=== PATIENT | female | born 1935 | race Caucasian/White ===

== ENCOUNTER → 2017-01-23 | Outpatient (CLI) | payer MEDICARE ==
[~2017-01-23] MED LIST: AMLO-114 PO; CARV3.122 PO; COLE625T PO; EZET10TA63 PO; INDA1TAB3 PO; LOSA50TA6 PO; OMEG10007 PO
[2017-01-23 11:26] LABS: BASO % 0.4 %; BASO ABS # 0.05 K/uL (0-0.2); COMPLETE YES; EOS % 1.4 %; IG% 0.6 %; LYMPH % 36.4 %; LYMPH ABS # 4.44 K/uL (1.2-3.4); MEAN CORPUSCULAR HEMOGLOBIN 30.6 pg (25-34); MEAN CORPUSCULAR HGB CONC 32.9 g/dl (32-36); MEAN PLATELET VOLUME 10.9 fL (7.4-10.4); MONO % 9.2 %; PLATELET COUNT 292 K/uL (130-400); RED BLOOD COUNT 4.41 M/uL (4.2-5.4); WHITE BLOOD COUNT 12.21 K/uL (4.8-10.8)
[2017-01-23 11:35] LABS: ALT/SGPT 46 U/L (12-78); AST/SGOT 28 U/L (15-37); BLOOD UREA NITROGEN 18 mg/dl (7-18); BUN/CREATININE RATIO 25.2 (10-20); CALCIUM 9.3 mg/dl (8.5-10.1); CARBON DIOXIDE 30 mmol/L (21-32); CHLORIDE 103 mmol/L (98-107); CREATININE 0.72 mg/dl (0.60-1.20); GLUCOSE 104 mg/dl (70-99); POTASSIUM 3.9 mmol/L (3.5-5.1); SODIUM 139 mmol/L (136-145)
[2017-01-23 11:46] LABS: ALB/GLOB RATIO 0.9 (0.9-2); ALKALINE PHOSPHATASE 76 U/L (45-117); CHOLESTEROL 206 mg/dl (0-200); CHOLESTEROL/HDL RATIO 3.6; HDL CHOLESTEROL 58 mg/dl; LDL CHOLESTEROL CALCULATED 112 mg/dl; TRIGLYCERIDES 180 mg/dl (0-150); VERY LOW DENSITY LIPOPROT CALC 36 mg/dl
[2017-01-23 12:20] LABS: ESTIMATED AVERAGE GLUCOSE 146 mg/dl; HA1C FLAG Normal (Normal)
--- NOTE | 2017-01-29 11:30 | CODING QUERY MEDICAL NECESSITY ---
CQSUPPORTING DIAGNOSIS NEEDED A supporting diagnosis is required for the test/procedure performed on this patient in order for us to be reimbursed by the patient's insurance. Please provide a supporting diagnosis for the following test/procedure listed below next to the test name along with your signature. *If there is no additional diagnosis for this patient that would support the following test/procedure please document that below next to the test/procedure. Test(s)/Procedure(s) that require a supporting diagnosis: MICHAEL 01/23/17 GLYCATED HEMOGLOBIN TEST Provider Signature: Date: Thank you Elizabeth Hobbs Health Information Management Once completed, please kindly fax back to [phone] For questions please call [phone]
== END | disposition home or self-care (01) ==
LOC: C.LABBC 07:41
PROVIDERS: ATTEND Internal Medicine
DX: Z86.69 Personal history of other diseases of the nervous system and sense organs (principal); E11.9 Type 2 diabetes mellitus without complications

== ENCOUNTER → 2017-05-30 | Outpatient (CLI) | payer MEDICARE ==
[2017-05-30 11:08] LABS: ESTIMATED AVERAGE GLUCOSE 137 mg/dl; HA1C FLAG Normal (Normal)
== END | disposition home or self-care (01) ==
LOC: C.LABBC 07:25
PROVIDERS: ATTEND Internal Medicine
DX: E11.9 Type 2 diabetes mellitus without complications (principal)

== ENCOUNTER 2021-01-10 11:32 | Inpatient (IN) ==
[2021-01-10] MEDS ORDERED: ONDANSETRON 4 MG OD TAB PO STA (12:19)
[2021-01-10] MEDS ORDERED: HYDROmorphone INJ 1 MG/ML SYRINGE IM STA (12:19)
--- NOTE | 2021-01-10 12:30 | Emergency Department Note ---
Impression & Plan Fall, Fracture of humerus, proximal, right, closed, Contusion of rib on right side ED Provider Note INFORMANT: Patient ED PROVIDER(S): Jose Alejandro Tamez MD CHIEF COMPLAINT: Fall PLAN: Disposition: Admitted Condition: Good Outpatient prescription management: none Referral: None MEDICAL DECISION MAKING: Patient presented to the emergency department because of an accidental fall. She suffered a right proximal humerus fracture. X-ray imaging was performed and showed arthritic change and there was some concern about fracture based upon her physical examination. CT imaging was ordered. The patient had right rib x-rays performed and this was negative. She was found to have a proximal humerus fracture on CT imaging. She did receive IM Dilaudid and oral Zofran. She was still in pain and received IV Dilaudid. The patient is not doing well with the pain and inability to use her right arm. I discussed further management in the hospital with her and her daughter. They were very much in agreement and did not feel that she was safe to go home. Unfortunately the patient does not qualify for a direct referral [facility]. I did discuss this with the case management. She will need to be admitted to the hospital. [facility] Patient was evaluated in the ER for further management. Triage Nursing notes reviewed and agree them. Vital Signs: reviewed and remarkable for hypertension Differential diagnosis: Fracture, subluxation, dislocation, contusion, ligamentous injury, neurovascular, compartment syndrome, rhabdomyolysis, as well as other p athologies. Diagnostics interpreted by me: ECG: none Cardiac Monitoring: none Imaging studies: X-ray imaging of the right arm and right ribs reveal arthritic changes in the right humeral head. Question fracture. Right ribs and chest are negative. CT imaging of the right shoulder reveals a surgical neck fracture. HPI: The patient is a 85 year old female who presents to the Emergency Room with complaints of right arm pain. This started just prior to arrival and is from a ground-level accidental fall in her driveway. The patient also notes the follow ing associated symptoms, mild rib pain on the right side anteriorly. She felt like her arm was pushed into her ribs. The patient has taken no medication for relieving factors. Current pain is rated as 5 out of 10 without movement and 10/10 with movement. Pt denies LOC, headache, fevers, chills, diaphoresis, visual changes, neck pain, chest pain, breathing difficulties, nausea, vomiting, abdominal pain, back pain, other extremity pain, other injury, open wounds, active bleeding,, numbness, weakness, or other complaints. ROS: See above HPI for pertinent positives & negatives. A total of 10 systems reviewed and were otherwise negative. PAST MEDICAL HISTORY:See Below , arthritis PAST SURGICAL HISTORY:See Below, FAMILY HISTORY:See Below SOCIAL HISTORY:See Below, retired HOME MEDICATIONS:See Below ALLERGIES:See Below VITALS:See Below PHYSICAL EXAMINATION: GENERAL: Awake, alert, uncomfortable-appearing, in no distress HENT: Normocephalic, atraumatic. Oropharynx unremarkable. EYES: Normal conjunctiva. Sclera non-icteric. NECK: Inspection normal. Non-tender. Supple. No nuchal rigidity. FROM. No masses. RESPIRATORY: Clear to auscultation. No wheezes. No rales. Normal respiratory effort. CARDIAC: Normal rate. Normal rhythm. No murmurs. No rubs. Extremities warm and well perfused. Pulses equal. No JVD. GI: Soft, non-distended. No tenderness to palpation. No rebound or guarding. No masses. RECTAL: Deferred. MUSCULOSKELETAL: The left upper and both lower extremities are atraumatic. Examination of the right upper extremity reveals no open wounds. There is tenderness palpation of the proximal humerus. Range of motion is limited secondary to pain at the shoulder joint. No obvious dislocation. No humeral head tenderness. No clavicular tenderness. The remainder of the right upper extremity is neurovascular intact and examines atraumatically. Chest examination reveals minimal right anterior rib tenderness. No joint edema. LOWER EXTREMITIES: Calves are equal size bilaterally and non-tender. No edema. No discoloration. NEURO: Normal sensorium. No sensory or motor deficits noted. SKIN: No rash or jaundice noted. 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 Paroxysmal atrial tachycardia Personal history of malignant melanoma of skin Statin intolerance Surgical History H/O arthroscopy of right knee H/O: hysterectomy Family History Father Congestive heart failure (CHF) Hypertension Myocardial infarction Mother Emphysema of lung Hypertension Brother Prostate cancer Hypertension Son Colorectal cancer age 49 Denies family history of Ovarian cancer Diabetes Breast cancer Lung cancer Stroke Social History Smoking Status: Never smoker Tobacco Type: Cigarettes Age Started Using Tobacco: 27; Age Quit Using Tobacco: 45; packs per day: 0.75; Years Smoked: 18; Second Hand Exposure: No; Hx Alcohol Use: No Hx Substance Use: No Preferred Language: Kinyarwanda Communication Ability: Effective Visual Impairment: Limited Hearing Ability: Normal Anesthetist Required: No marital status: / Current Living Situation: Alone current occupational status: retired How many Children do You have: 2 Feels Safe at Home: Yes Childhood Exposure to Second-Hand Smoke: Yes caffeine: Yes Dental Care, Regularly: Yes Physical Activity Frequency: 3-4 Times per Week Physical Activity Frequency Comment: physical therapy Seatbelt Use: always Sunscreen Use: Yes (not in the sun) Do you think of yourself as: straight/heterosexual Allergies Allergies Allergy/AdvReac Type Severity Reaction Status Date / Time benazepril Allergy Severe "ANAPHYLACTIC Verified 12/07/20 09:12 SHOCK" NSAIDS (Non-Steroidal Allergy Severe ANAPHYLACTIC Verified 12/07/20 09:12 Anti-Inflamma SHOCK FROM IBUPROFEN procaine Allergy Severe NOVOCAINE Verified 12/07/20 09:12 - "ANAPHYLACTIC SHOCK" tetracycline Allergy Mild N/V Verified 12/07/20 09:12 Zcyapqj-Xbb-Vla Reductase Allergy ELEVATED Verified 12/07/20 09:12 Inhibitor HEPATIC ENZYMES Home Meds Home Medications Medication Instructions Recorded Confirmed omega-3 acid ethyl esters 1 gram 1 cap PO TID cap 03/09/19 01/10/21 capsule brimonidine 0.1 % eye drops 1 drp OPHTHALMIC (EYE) BID ml 05/05/20 01/10/21 (Alphagan P) latanoprost 0.005 % eye drops 1 drp OPHTHALMIC (EYE) QPM 05/05/20 01/10/21 triamcinolone acetonide 80 mg/mL 40 mg IM .every3 months ml 05/05/20 01/10/21 suspension for injection Previous Rx's Medication Instructions Recorded buspirone 5 mg tablet 5 mg PO TID PRN #270 tab 05/05/20 epinephrine 0.3 mg/0.3 mL 0.3 mg IM .COMPLEX PRN #2 ea 07/06/20 injection, auto-injector (EpiPen) tramadol 50 mg tablet 50 mg PO Q8H PRN #30 tab 12/15/20 amlodipine 10 mg tablet 10 mg PO DAILY #90 tab 01/01/21 carvedilol 3.125 mg tablet See Rx Instructions .ROUTE 01/01/21 .COMPLEX #270 tab colesevelam 625 mg tablet 1,875 mg PO BID #540 tab 01/01/21 ezetimibe 10 mg tablet 10 mg PO DAILY #90 tab 01/01/21 losartan 50 mg tablet 50 mg PO DAILY #90 tab 01/01/21 torsemide 20 mg tablet 20 mg PO Q OTHER DAY #45 tab 01/01/21 Results & Data (ED) Vital Signs Vital Signs - 24 hr 01/10/21 11:42 01/10/21 14:41 01/10/21 15:00 Temperature 37 C Temperature Source Oral Pulse Rate 99 H Pulse Rate [Finger] 83 85 Pulse Rhythm Regular Pulse Strength Normal Respiratory Rate 18 18 16 Respiratory Effort / Characteristics Non-Labored Spontaneous Respiratory Depth Normal Normal Respiratory Pattern Regular Blood Pressure 178/102 H Blood Pressure [Left Arm] 152/70 H 167/97 H Blood Pressure Mean 127 Blood Pressure Mean [Left Arm] 97 120 Pulse Oximetry 98 97 97 Oxygen Delivery Method Room Air Room Air Room Air Sepsis Recent Fever Within 48 Hours No Sepsis New/Unexplained Change in Mental Status N/A Sepsis Action Taken by Nursing No Action Required 01/10/21 16:00 01/10/21 17:30 Temperature Temperature Source Pulse Rate Pulse Rate [Finger] 75 78 Pulse Rhythm Pulse Strength Respiratory Rate 16 18 Respiratory Effort / Characteristics Respiratory Depth Respiratory Pattern Blood Pressure Blood Pressure [Left Arm] 140/82 153/75 H Blood Pressure Mean Blood Pressure Mean [Left Arm] 101 101 Pulse Oximetry 97 98 Oxygen Delivery Method Room Air Sepsis Recent Fever Within 48 Hours Sepsis New/Unexplained Change in Mental Status Sepsis Action Taken by Nursing Laboratory Data Result diagrams: 01/10/21 14:21 01/10/21 14:21 Lab Results 01/10/21 01/10/21 01/10/21 Range/Units 14:21 14:21 15:45 WBC 14.04 H (4.8-10.8) K/uL RBC 4.98 (4.2-5.4) M/uL Hgb 15.4 (12.0-16.0) g/dL Hct 45.6 (37-47) % MCV 91.6 (80-100) fL MCH 30.9 (25-34) pg MCHC 33.8 (32-36) g/dL RDW Std Deviation 48.1 H (36.4-46.3) fL RDW Coeff of Fermin 14.2 (11.5-14.5) % Plt Count 270 (130-400) K/uL MPV 10.0 (7.4-10.4) fL Immature Gran % (Auto) 0.4 % Neut % (Auto) 78.7 % Lymph % (Auto) 12.2 % O'Brien % (Auto) 7.1 % Eos % (Auto) 1.3 % Baso % (Auto) 0.3 % Neut # (Auto) 11.07 H (1.4-6.5) K/uL Lymph # (Auto) 1.71 (1.2-3.4) K/uL O'Brien # (Auto) 0.99 H (0.11-0.59) K/uL Eos # (Auto) 0.18 (0-0.5) K/uL Baso # (Auto) 0.04 (0-0.2) K/uL Immature Gran # (Auto) 0.05 H (0.00-0.02) K/uL Sodium 135 L (136-145) mmol/L Potassium 3.4 L (3.5-5.1) mmol/L Chloride 100 (98-107) mmol/L Carbon Dioxide 28 (21-32) mmol/L Anion Gap 7.0 (3-11) BUN 11 (7-18) mg/dl Creatinine 0.67 (0.6-1.2) mg/dl Est Cr Clr Drug Dosing 71.5 ml/min Est GFR ( Amer) 93.6 ml/min Est GFR (Non-Af Amer) 80.7 ml/min BUN/Creatinine Ratio 17.0 (10-20) Glucose 159 H (70-99) mg/dl Calcium 9.5 (8.5-10.1) mg/dl COVID-19 Eval Order Covid19 at [facility] SARS-CoV-2 (PCR) (Negative) 01/10/21 Range/Units 15:45 WBC (4.8-10.8) K/uL RBC (4.2-5.4) M/uL Hgb (12.0-16.0) g/dL Hct (37-47) % MCV (80-100) fL MCH (25-34) pg MCHC (32-36) g/dL RDW Std Deviation (36.4-46.3) fL RDW Coeff of Fermin (11.5-14.5) % Plt Count (130-400) K/uL MPV (7.4-10.4) fL Immature Gran % (Auto) % Neut % (Auto) % Lymph % (Auto) % O'Brien % (Auto) % Eos % (Auto) % Baso % (Auto) % Neut # (Auto) (1.4-6.5) K/uL Lymph # (Auto) (1.2-3.4) K/uL O'Brien # (Auto) (0.11-0.59) K/uL Eos # (Auto) (0-0.5) K/uL Baso # (Auto) (0-0.2) K/uL Immature Gran # (Auto) (0.00-0.02) K/uL Sodium (136-145) mmol/L Potassium (3.5-5.1) mmol/L Chloride (98-107) mmol/L Carbon Dioxide (21-32) mmol/L Anion Gap (3-11) BUN (7-18) mg/dl Creatinine (0.6-1.2) mg/dl Est Cr Clr Drug Dosing ml/min Est GFR ( Amer) ml/min Est GFR (Non-Af Amer) ml/min BUN/Creatinine Ratio (10-20) Glucose (70-99) mg/dl Calcium (8.5-10.1) mg/dl COVID-19 Eval Order SARS-CoV-2 (PCR) NEGATIVE (Negative) Administered Medications Hydromorphone HCl (Hydromorphone Inj 0.5 Mg/0.5 Ml Syr) 0.5 mg IV Q15M PRN PRN Reason: Pain Stop: 01/24/21 14:12 Last Admin: 01/10/21 18:22 Dose: 0.5 mg Documented by: [id number] Admin: 01/10/21 14:35 Dose: 0.5 mg Documented by: [id number] Discontinued Medications Hydromorphone HCl (Hydromorphone Inj 1 Mg/Ml Syringe) 1 mg IM NOW STA Stop: 01/10/21 12:20 Last Admin: 01/10/21 12:41 Dose: 1 mg Documented by: [id number] Ondansetron HCl (Ondansetron 4 Mg Od Tab) 4 mg PO NOW STA Stop: 01/10/21 12:20 Last Admin: 01/10/21 12:41 Dose: 4 mg Documented by: [id number] Imaging Data Radiologist's Impression: Humerus X-Ray 01/10/21 11:45 XR humerus RT 2V HISTORY: 85 years-old Female right arm pain acute right arm pain COMPARISON: Shoulder radiographs 12/16/2014 TECHNIQUE: 3 views of the right shoulder FINDINGS: Severe right glenohumeral osteoarthritis, progressed from 2014. Loose bodies of the right subscapularis recess. Demineralized appearance of the bones. No acute fracture, dislocation or opaque foreign body. Moderate AC joint osteoarthritis. IMPRESSION: 1. No acute fracture or dislocation. 2. Severe glenohumeral osteoarthritis. ACT 112: Negative or not required by law. The above report was generated using voice recognition software. It may contain grammatical, syntax or spelling errors. Electronically signed by: Rusty Stock M.D. 01/10/2021 1:51 PM Ribs w/Chest X-Ray 01/10/21 11:45 XR ribs RT min 2V w CXR1V CLINICAL HISTORY: right rib pain COMPARISON STUDY: None. FINDINGS: No acute rib fractures. No pneumothorax. The heart is mildly enlarged. No focal lung consolidations to suggest pneumonia. No evidence for pulmonary e cullen. Mild diffuse interstitial thickening which is likely chronic. Dextroscoliosis of the thoracic spine. Old, healed left clavicle fracture. Advanced degenerative changes within the bilateral glenohumeral joints. IMPRESSION: No rib fractures. No pneumothorax. ACT 112: Negative or not required by law. Electronically signed by: Markell Banegas M.D. 01/10/2021 1:[address] 01/10/21 14:02 CT shoulder RT wo con CT DOSE: 1046.98 mGy.cm CLINICAL HISTORY: fall TECHNIQUE: A dose lowering technique was utilized adhering to the principles of ALARA. Reconstruction images were performed and reviewed. COMPARISON STUDY: None. Correlation is made with radiograph of the shoulder performed on January 10, 2021. FINDINGS: Fracture of the right humeral neck with anterior displacement of humeral shaft and impaction is seen. Evaluation is limited due to severe diffuse osteopenia and prominent osteophytes surrounding right humeral head. There is mild superior subluxation of the right humeral head in relation to the glenoid which could be chronic and associated with prominent subchondral sclerosis. Osteophytes of the glenoid are seen. Mild edema surrounds right shoulder. Focal area of fluid collection measuring 4.8 x 3.0 cm in size is seen medially to the right scapula which contains focal areas of calcification. No evidence of scapular or clavicular fractures seen. Visualized portion of the right rib cage shows no evidence of acute fracture deformities. Visualized portion of right lung parenchyma shows no evidence of pneumothorax. IMPRESSION: 1. Fracture deformity of the right humeral neck with anterior displacement of the distal portion of the humerus and impaction. 2. Osteopenia. 3. Mild shoulder effusion. 4. The rest of findings as above. ACT 112: Negative or not required by law. The above report was generated using voice recognition software. It may contain grammatical, syntax or spelling errors. Electronically signed by: Iveth Gill DO 01/10/2021 3:19 PM Discharge Plan Visit Data Chief Complaint: Fall Stated Complaint: fall, right arm fell ED Provider: Jose Alejandro Tamez Discharge Problem: Fall, Fracture of humerus, proximal, right, closed, Contusion of rib on right side Forms Stand Alone Forms: [employer] Prescriptions Prescriptions: No Action buspirone 5 mg tablet 5 mg PO TID PRN (Reason: anxiety) Qty: 270 RF: 3 epinephrine [EpiPen] 0.3 mg/0.3 mL auto-injector 0.3 mg IM .COMPLEX PRN (Reason: anaphylaxis) Qty: 2 RF: 1 tramadol 50 mg tablet 50 mg PO Q8H PRN (Reason: pain) Qty: 30 RF: 0 carvedilol 3.125 mg tablet See Rx Instructions .ROUTE .COMPLEX Qty: 270 RF: 3 colesevelam 625 mg tablet 1,875 mg PO BID Qty: 540 RF: 3 losartan 50 mg tablet 50 mg PO DAILY Qty: 90 RF: 3 torsemide 20 mg tablet 20 mg PO Q OTHER DAY Qty: 45 RF: 1 amlodipine 10 mg tablet 10 mg PO DAILY Qty: 90 RF: 3 ezetimibe 10 mg tablet 10 mg PO DAILY Qty: 90 RF: 3 omega-3 acid ethyl esters 1 gram capsule 1 cap PO TID RF: 0 triamcinolone acetonide 80 mg/mL suspension 40 mg IM .every3 months RF: 0 latanoprost 0.005 % drops 1 drp ophthalmic (eye) QPM RF: 0 Alphagan P 0.1 % drops 1 drp ophthalmic (eye) BID RF: 0 Referrals Referrals: Matthew Pickett MD [Primary Care Provider] -
--- NOTE | 2021-01-10 13:46 | XRay Report ---
XR ribs RT min 2V w CXR1V CLINICAL HISTORY: right rib pain COMPARISON STUDY: None. FINDINGS: No acute rib fractures. No pneumothorax. The heart is mildly enlarged. No focal lung consol idations to suggest pneumonia. No evidence for pulmonary edema. Mild diffuse interstitial thickening which is likely chronic. Dextroscoliosis of the thoracic spine. Old, healed left clavicle fracture. A dvanced degenerative changes within the bilateral glenohumeral joints. IMPRESSION: No rib fractures. No pneumothorax. ACT 112: Negative or not required by law. Electronically signed by: Markell Banegas M.D. 01/10/2021 1:44 PM
--- NOTE | 2021-01-10 13:53 | XRay Report ---
XR humerus RT 2V HISTORY: 85 years-old Female right arm pain acute right arm pain COMPARISON: Shoulder radiographs 12/16/2014 TECHNIQUE: 3 views of the right shoulder FINDINGS: Severe right glenohumeral osteoarthritis, progressed from 2015. Loose bodies of the right subscapular is recess. Demineralized appearance of the bones. No acute fracture, dislocation or opaque foreign dorie dy. Moderate AC joint osteoarthritis. IMPRESSION: 1. No acute fracture or dislocation. 2. Severe glenohumeral osteoarthritis. ACT 112: Negative or not required by law. The above report was generated using voice recognition software. It may contain grammatical, syntax o r spelling errors. Electronically signed by: Rusty Stock M.D. 01/10/2021 1:51 PM
[2021-01-10] MEDS: HYDROmorphone INJ 0.5 MG/0.5 ML SYR IV PRN ×2 (14:35→18:22)
[2021-01-10 14:41] LABS: Basophils # (auto) 0.04 K/uL (0-0.2); Basophils % (auto) 0.3 %; Eosinophils # (auto) 0.18 K/uL (0-0.5); Eosinophils % (auto) 1.3 %; Hematocrit (blood only) 45.6 % (37-47); Hemoglobin 15.4 g/dL (12.0-16.0); Immature Granulocytes # (auto) 0.05 K/uL (0.00-0.02); Immature Granulocytes % (auto) 0.4 %; Lymphocytes # (auto) 1.71 K/uL (1.2-3.4); Lymphocytes % (auto) 12.2 %; Mean Corpuscular Hemoglobin 30.9 pg (25-34); Mean Corpuscular Hgb Conc 33.8 g/dL (32-36); Mean Corpuscular Volume 91.6 fL (80-100); Monocytes # (auto) 0.99 K/uL (0.11-0.59); Monocytes % (auto) 7.1 %; Neutrophils # (auto) 11.07 K/uL (1.4-6.5); Neutrophils % (auto) 78.7 %; Platelet Count 270 K/uL (130-400); RDW Coefficient of Variation 14.2 % (11.5-14.5); RDW Standard Deviation 48.1 fL (36.4-46.3); Red Blood Count 4.98 M/uL (4.2-5.4); White Blood Count 14.04 K/uL (4.8-10.8)
[2021-01-10 14:59] LABS: Calcium 9.5 mg/dl (8.5-10.1); Creatinine Clr Calc Pharmacy 71.5 ml/min; Est GFR (African American) 93.6 ml/min; Est GFR (Non-African American) 80.7 ml/min; Potassium 3.4 mmol/L (3.5-5.1)
--- NOTE | 2021-01-10 15:20 | CT Scan Report ---
CT shoulder RT wo con CT DOSE: 1046.98 mGy.cm CLINICAL HISTORY: fall TECHNIQUE: A dose lowering technique was utilized adhering to the principles of ALARA. Reconstruction images were performed and reviewed. COMPARISON STUDY: None. Correlation is made with radiograph of the shoulder performed on January 10. FINDINGS: Fracture of the right humeral neck with anterior displacement of humeral shaft and impaction is seen. Evaluation is limited due to severe diffuse osteopenia and prominent osteophytes surrounding right h umeral head. There is mild superior subluxation of the right humeral head in relation to the glenoid which could b e chronic and associated with prominent subchondral sclerosis. Osteophytes of the glenoid are seen. Mild edema surrounds right shoulder. Focal area of fluid collection measuring 4.8 x 3.0 cm in size is seen medially to the right scapula which contains focal areas of calcification. No evidence of scapular or clavicular fractures seen. Visualized portion of the right rib cage shows no evidence of acute fracture deformities. Visualized portion of right lung parenchyma shows no evidence of pneumothorax. IMPRESSION: 1. Fracture deformity of the right humeral neck with anterior displacement of the distal portion of the humerus and impaction. 2. Osteopenia. 3. Mild shoulder effusion. 4. The rest of findings as above. ACT 112: Negative or not required by law. The above report was generated using voice recognition software. It may contain grammatical, syntax o r spelling errors. Electronically signed by: Iveth Gill DO 01/10/2021 3:19 PM
--- NOTE | 2021-01-10 16:33 | History & Physical Report ---
Date of Service January 10, 2021 Assessment & Plan (1) Fracture of humerus, proximal, right, closed: Plan: fracture secondary to fall - Sling - ICE - Tiered pain control - Orthopaedics consulted - PT/OT consult - Case management consult for [facility] rehab placement (2) Fall: Plan: As above - tripped on edging - PT/OT consult (3) Contusion of rib on right side: Plan: Pain controlled deinies much pain with deep inspiration - Lidoderm patch if needed - Pain control as above - ICS (4) HTN (hypertension): Plan: Controlled - Continue Carvedilol 6.25 mg in Am and 3.125 in Pm - Continue Torsemide - Continue Amlodipine (5) Hyperlipidemia: Plan: Continue ezetimibe - Patient has intolerance to statin (6) Paroxysmal atrial tachycardia: Plan: Continue Carvedilol - ECG pending - Rate controlled (7) Diabetes mellitus: Plan: Not on agent as outpatient - AC/HS glucose- goal <180 notify if unctonrolled History of Present Illness Primary Care Provider: Matthew Pickett MD 85 YOF with past medical history of: OA of shoulder, HTN, DMII, HLD, atrial tachycardia, anxiety. Patient was brought into the [facility] today via EMS secondary to falling at home while watering her plants. The patient reports that her foot got caught on her edging and she fell over onto her right arm. She feels that she tried to brace her fall. She denies hitting her head or her hips. She was unable to get up on her own, but a neighbor came over and helped her sit up until EMS came. In the EMD the patient had X-rays performed and CT scan of the right shoulder. CT scan revealed- Fracture of the right humeral neck with anterior displacement of humeral shaft and impaction with effusion. Patient was given pain medication and splint ordered. Patient lives at home by herself and would like to go to rehab center. Will observe patient for pain control, continue ICE and splinting, PT/OT consults placed. Orthopaedics consult for evaluation of further treatment warranted. Allergies Allergy/AdvReac Type Severity Reaction Status Date / Time benazepril Allergy Severe "ANAPHYLACTIC Verified 12/07/20 09:12 SHOCK" NSAIDS (Non-Steroidal Allergy Severe ANAPHYLACTIC Verified 12/07/20 09:12 Anti-Inflamma SHOCK FROM IBUPROFEN procaine Allergy Severe NOVOCAINE Verified 12/07/20 09:12 - "ANAPHYLACTIC SHOCK" tetracycline Allergy Mild N/V Verified 12/07/20 09:12 Whfyuee-Alq-Chn Reductase Allergy ELEVATED Verified 12/07/20 09:12 Inhibitor HEPATIC ENZYMES Home Medications Medication Instructions Recorded Confirmed Type omega-3 acid ethyl esters 1 gram 1 cap PO TID cap 03/09/19 01/10/21 History capsule brimonidine 0.1 % eye drops 1 drp OPHTHALMIC (EYE) BID ml 05/05/20 01/10/21 History (Alphagan P) buspirone 5 mg tablet 5 mg PO TID PRN #270 tab 05/05/20 01/10/21 Rx latanoprost 0.005 % eye drops 1 drp OPHTHALMIC (EYE) QPM 05/05/20 01/10/21 History triamcinolone acetonide 80 mg/mL 40 mg IM .every3 months ml 05/05/20 01/10/21 History suspension for injection epinephrine 0.3 mg/0.3 mL 0.3 mg IM .COMPLEX PRN #2 ea 07/06/20 01/10/21 Rx injection, auto-injector (EpiPen) tramadol 50 mg tablet 50 mg PO Q8H PRN #30 tab 12/15/20 01/10/21 Rx amlodipine 10 mg tablet 10 mg PO DAILY #90 tab 01/01/21 01/10/21 Rx carvedilol 3.125 mg tablet See Rx Instructions .ROUTE 01/01/21 01/10/21 Rx .COMPLEX #270 tab colesevelam 625 mg tablet 1,875 mg PO BID #540 tab 01/01/21 01/10/21 Rx ezetimibe 10 mg tablet 10 mg PO DAILY #90 tab 01/01/21 01/10/21 Rx losartan 50 mg tablet 50 mg PO DAILY #90 tab 01/01/21 01/10/21 Rx torsemide 20 mg tablet 20 mg PO Q OTHER DAY #45 tab 01/01/21 01/10/21 Rx Past Med/Surg History Medical History Angioedema (12/03/10) Arthritis of multiple sites Diabetes mellitus HTN (hypertension) Hyperlipidemia Lower extremity edema 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 Paroxysmal atrial tachycardia Personal history of malignant melanoma of skin Statin intolerance Surgical History H/O arthroscopy of right knee H/O: hysterectomy Family History Father Congestive heart failure (CHF) Hypertension Myocardial infarction Mother Emphysema of lung Hypertension Brother Prostate cancer Hypertension Son Colorectal cancer age 49 Denies family history of Ovarian cancer Diabetes Breast cancer Lung cancer Stroke Social History Smoking Status: Never smoker Tobacco Type: Cigarettes Age Started Using Tobacco: 27; Age Quit Using Tobacco: 45; packs per day: 0.75; Years Smoked: 18; Second Hand Exposure: No; Hx Alcohol Use: No Hx Substance Use: No Preferred Language: Vietnamese Communication Ability: Effective Visual Impairment: Limited Hearing Ability: Normal Supervisor Clam Bed Required: No marital status: / Current Living Situation: Alone current occupational status: retired How many Children do You have: 2 Feels Safe at Home: Yes Childhood Exposure to Second-Hand Smoke: Yes caffeine: Yes Dental Care, Regularly: Yes Physical Activity Frequency: 3-4 Times per Week Physical Activity Frequency Comment: physical therapy Seatbelt Use: always Sunscreen Use: Yes (not in the sun) Do you think of yourself as: straight/heterosexual Review of Systems Review of Systems: REVIEW OF SYSTEMS: Constitutional: No fever, sweats or chills Eyes: No diplopia, no worsening or blurred vision ENT: normal hearing, no trouble swallowing Respiratory: No cough, sputum, dyspnea at rest or on exertion Cardiovascular: No chest pain, tightness or palpitations Abdomen: No pain, nausea, vomiting, diarrhea or constipation Musculoskeletal: (+) chronic shoulder, knee and hip, joint pain, NO calf pain, swelling Neurologic: No weakness, numbness/tingling, or balance problems Psychiatric: (+) anxiety, NO depression Skin: (+) bruising to maldonado, No rash or itch Physical Exam 2 Physical Exam: PHYSICAL EXAM: General: awake, alert, no apparent distress Head: Normocephalic, atraumatic ENT: PERRL, EOMI, no pharyngeal exudate, mucous membranes moist Neuro: AAO x 3, speech clear and appropriate, strength intact bilaterally 5/5, sensation intact and equal all extremities and dermatomes, no pronator drift Chest: equal rise and fall of the chest, no accessory muscle use, no heaves or thrills, Clear to auscultation, on room air, Cardiac: Regular rate and rhythm, skin warm dry, cap refill <3 seconds, peripheral pulses +2 no JVD, no murmur, no JVD, no edema GI: NABS x 4 quadrants, soft, nontender to palpation, no rebound, guarding or tenderness : Spontaneously voiding, no pain, no CVA tenderness, MSK: right shoulder tender, no trauma to head or pain with palpation, no pain to hips or pelvis or knees, Psych: Normal mood and affect Skin: old bruise to right maldonado Results & Data Results & Data ([facility]) Vital Signs (Past 12 Hours) Vital Signs Temp Pulse Pulse Resp BP BP Pulse Ox 01/10/21 14:41 83 18 152/70 H 97 01/10/21 11:42 37 C 99 H 18 178/102 H 98 Laboratory Results Abnormal Labs 01/10/21 01/10/21 14:21 14:21 WBC 14.04 H RDW Std Deviation 48.1 H Neut # (Auto) 11.07 H [place] # (Auto) 0.99 H Immature Gran # (Auto) 0.05 H Sodium 135 L Potassium 3.4 L Glucose 159 H Diagnostic Findings Abnormal lab results 01/10/21 01/10/21 Range/Units 14:21 14:21 WBC 14.04 H (4.8-10.8) K/uL RDW Std Deviation 48.1 H (36.4-46.3) fL Neut # (Auto) 11.07 H (1.4-6.5) K/uL [place] # (Auto) 0.99 H (0.11-0.59) K/uL Immature Gran # (Auto) 0.05 H (0.00-0.02) K/uL Sodium 135 L (136-145) mmol/L Potassium 3.4 L (3.5-5.1) mmol/L Glucose 159 H (70-99) mg/dl Medications Administered Hydromorphone HCl (Hydromorphone Inj 0.5 Mg/0.5 Ml Syr) 0.5 mg IV Q15M PRN PRN Reason: Pain Stop: 01/24/21 14:12 Last Admin: 01/10/21 14:35 Dose: 0.5 mg Documented by: [id number] Discontinued Medications Hydromorphone HCl (Hydromorphone Inj 1 Mg/Ml Syringe) 1 mg IM NOW STA Stop: 01/10/21 12:20 Last Admin: 01/10/21 12:41 Dose: 1 mg Documented by: [id number] Ondansetron HCl (Ondansetron 4 Mg Od Tab) 4 mg PO NOW STA Stop: 01/10/21 12:20 Last Admin: 01/10/21 12:41 Dose: 4 mg Documented by: [id number] ECG Additional Comments: Pending on admission Code Status & VTE Plan Code Status CODE: FULL VTE: SCD's, Heparin 5000 q12 VTE Prophylaxis Plan VTE Prophylaxis will be ordered: Yes Supervising Physician Co-Signing Physician Notes Patient seen and examined, chart reviewed, case discussed with TITLE AGENT Larisa and I agree with his assessment and plan as above. In brief, patient is an 85yo left handed female, independent in ADLs presenting right humeral neck fracture after a fall at home. On exam she is afebrile, HD stable, NAD Skin - bruising on right maldonado and foot and at shoulder HEENT - NC/AT, Neck supple, MMM Heart - +S1/S2, regular, no m/r/g Lungs - CTA, no rales/rhonchi/wheezes Abd - +BS, soft, NT/ND Ext- bruising at right shoulder Labs and images reviewed Assessment/Plan - Right humeral neck fracture - non-surgical. -Pain management -Sling -PT/OT, rehab placement for short term -Remainder of plan as above PG Care Time/CCT Total # of Minutes Spent Total Time Spent with Patient: Total time spent is greater than 50% in coordination of care (as documented) at patient's floor/unit and/or counseling patient: Coding Level of Care Code INT OBSERVATION CARE 70M LVL 3 Diagnoses Fracture of humerus, proximal, right, closed S42.201A Fall W19.XXXA Contusion of rib on right side S20.211A HTN (hypertension) I10 Hypertension type: essential hypertension Hyperlipidemia E78.00; E78.0 Hyperlipidemia type: pure hypercholesterolemia Paroxysmal atrial tachycardia I47.1 Diabetes mellitus E11.9 Diabetes mellitus complication status: without complication Diabetes mellitus termite exterminator helper insulin use: without termite exterminator helper use Diabetes mellitus type: type 2 (1) Diabetes mellitus Diabetes mellitus complication status: without complication Diabetes mellitus termite exterminator helper insulin use: without jail use Diabetes mellitus type: type 2 Qualified Code(s): E11.9 - Type 2 diabetes mellitus without complications (2) Hyperlipidemia Hyperlipidemia type: pure hypercholesterolemia Qualified Code(s): E78.00 - Pure hypercholesterolemia, unspecified; E78.0 - Pure hypercholesterolemia (3) HTN (hypertension) Hypertension type: essential hypertension Qualified Code(s): I10 - Essential (primary) hypertension
[2021-01-10] MEDS ORDERED: busPIRone 5 MG TAB PO PRN (20:47)
[2021-01-10] MEDS ORDERED: LIDOCAINE 5% 1 PATCH TD PRN (20:47)
[2021-01-10] MEDS: oxyCODONE HCL IR 5 MG TAB (IMMEDIATE RELEASE) PO PRN (22:06)
[2021-01-10] MEDS: HEPARIN SOD 5,000 UNIT/0.5 ML VIAL SQ SCH (22:21)
[2021-01-10] MEDS: carvediloL 3.125 MG TAB PO SCH (22:21)
[2021-01-10] MEDS: COLESEVELAM~ORDER AWAITING ACTION SCH ×2 (22:22→23:19)
[2021-01-11] MEDS: HYDROmorphone INJ 0.5 MG/0.5 ML SYR IV PRN ×4 (00:13→23:18)
[2021-01-11] MEDS: carvediloL 6.25 MG TAB PO SCH (07:35)
[2021-01-11] MEDS: LOSARTAN POTASSIUM 50 MG TAB PO SCH (07:35)
[2021-01-11] MEDS: amLODIPine BESYLATE 5 MG TAB PO SCH (07:35)
[2021-01-11] MEDS: COLESEVELAM~ORDER AWAITING ACTION SCH (07:36)
[2021-01-11] MEDS: HEPARIN SOD 5,000 UNIT/0.5 ML VIAL SQ SCH ×2 (07:36→20:24)
[2021-01-11 08:07] LABS: Basophils # (auto) 0.02 K/uL (0-0.2); Basophils % (auto) 0.2 %; Eosinophils # (auto) 0.14 K/uL (0-0.5); Eosinophils % (auto) 1.1 %; Hematocrit (blood only) 41.1 % (37-47); Hemoglobin 13.5 g/dL (12.0-16.0); Immature Granulocytes # (auto) 0.04 K/uL (0.00-0.02); Immature Granulocytes % (auto) 0.3 %; Lymphocytes # (auto) 1.91 K/uL (1.2-3.4); Mean Corpuscular Hemoglobin 30.4 pg (25-34); Mean Corpuscular Hgb Conc 32.8 g/dL (32-36); Mean Corpuscular Volume 92.6 fL (80-100); Mean Platelet Volume 9.8 fL (7.4-10.4); Monocytes % (auto) 11.8 %; Neutrophils # (auto) 9.13 K/uL (1.4-6.5); Neutrophils % (auto) 71.6 %; Platelet Count 233 K/uL (130-400); RDW Coefficient of Variation 14.7 % (11.5-14.5); Red Blood Count 4.44 M/uL (4.2-5.4); White Blood Count 12.74 K/uL (4.8-10.8)
--- NOTE | 2021-01-11 08:22 | Electrocardiogram Report ---
Test Reason : Blood Pressure : / mmHG Vent. Rate : 111 BPM Atrial Rate : 111 BPM P-R Int : 154 ms QRS Dur : 080 ms QT Int : 322 ms P-R-T Axes : 028 013 -01 degrees QTc Int : 437 ms Sinus tachycardia with Premature atrial complexes Diffuse Nonspecific ST and T wave abnormality Abnormal ECG When compared with ECG of 02-DEC-2010 14:25, Premature atrial complexes are now Present Confirmed by Juan Eddy ([id number]) on 01/11/2021 8:21:43 AM Referred By: REFERRED SELF Confirmed By:Juan Eddy
--- NOTE | 2021-01-11 08:45 | Hospitalist Progress Note ---
Date of Service January 11, 2021 Assessment & Plan (1) Fracture of humerus, proximal, right, closed: Plan: Mechanical fall. Follows with Dr. Pickett. Previously declined Dexa, but most recent Vit D level low at 20 (placed on ergocalciferol 20855 weekly x 4 weeks then could do lower daily dosing) Xray with acute fracture CT with fracture deformity of the right humeral neck with anterior displacement of the distal portion of the humerus and impaction. Sling ICE Pain control --> increased to 10mg PO as needed as she reports better control with IV. May need to consider longer acting if ineffective control Ortho consulted -- conservative treatment. Sling x 6 weeks. F/u with office in 2 weeks for repeat imaging. May need injections in the future. Plans for OPPT once cleared by ortho. Has been following with [facility] for past month for ROM for chronic arthritis PT/OT -- rehab CM consulted --> rehab planned at d/c. refs sent Continue to monitor (2) Fall: Plan: As above - tripped on edging of driveway/gardening PT/OT consult (3) Contusion of rib on right side: Plan: Pain controlled deinies much pain with deep inspiration - Lidoderm patch if needed - Pain control as above, increased oral - ICS (4) HTN (hypertension): Plan: Chronic, BP 154/83 in setting of pain - Continue Carvedilol 6.25 mg in Am and 3.125 in Pm - Continue Torsemide - Continue Amlodipine (5) Hyperlipidemia: Plan: Continue ezetimibe --> changed to QPM - Patient has intolerance to statin (6) Paroxysmal atrial tachycardia: Plan: Continue Carvedilol - ECG pending --> sinus tach with PACs, compared to 2010, PACs now present. Could consider increasing her carvedilol dosing Continue to monitor as pain control improved (7) Diabetes mellitus: Plan: Not on agent as outpatient. Most recent A1c 6.9 DAHA diet AC/HS glucose- goal <180 notify if uncontrolled (8) Vitamin D deficiency: Plan: Low at 20 Previously declined DEXA per PCP note Placed on ergocalciferol and would continue at d/c and f/u with PCP for further discussions Plan: DVT Proph -- Heparin SQ while inpatient Dispo: continued inpatient stay, awaiting rehab placement. CM following Admission and Anticipated Discharge Date Admission Date: January 10, 2021 Subjective Patient evaluated this afternoon. Just got IV for pain control, effective. Notes PO not effective at current dose but recently seen by Dr. De Jesus and talked of changes to be made. Will check. Also spoke with CM and plans on rehab but would like to know time frame as son coming up to help from [place]. Plans on home health after rehab but still looking at options and to decide closer to when she is done in rehab. Had been doing PT through [facility] and finally got back her ROM before current fall and fx. Strength chief nursing officer equal, no numbness tingling unless she has arm flexed as last night which was uncomfortable and was told she could loosen sling in bed but tighten when getting back up. Discussed low Vit D and ergocalciferol replacement. No fever, chills, chest pain, shortness of breath, abdominal pain, nausea or vomiting. Passing lots of gas but no BM yet. Review of Systems Review of Systems: All systems reviewed & are unremarkable except as noted in HPI & below Physical Exam Physical Exam: General: WD, WN, NAD, sitting up in chair, no acute distress Eyes: EOMI, no external eyelid abn ENT: mmm, trachea midline without deviation Resp: CTAB, no w/r/c CV: RRR, no m/r/g GI: +BS throughout, distended, obese, non-tender to palpation, no organomegaly appreciate MSK: sling to RIGHT shoulder, NVI, chief nursing officer strength intact, pulses palpable bilaterally Skin: warm, dry, cap refill <3 seconds, ecchymotic area to distal anterior RLE maldonado Results & Data Results & Data ([facility]) Vital Signs (Past 12 Hours) Vital Signs Temp Pulse Resp BP Pulse Ox 01/11/21 07:30 36.6 C 105 H 16 154/83 H 93 01/10/21 21:50 37.4 C 101 H 18 115/63 94 Laboratory Results 01/11/21 01/11/21 01/11/21 Range/Units 12:24 08:14 07:50 WBC (4.8-10.8) K/uL RBC (4.2-5.4) M/uL Hgb (12.0-16.0) g/dL Hct (37-47) % MCV (80-100) fL MCH (25-34) pg MCHC (32-36) g/dL RDW Std Deviation (36.4-46.3) fL RDW Coeff of Fermin (11.5-14.5) % Plt Count (130-400) K/uL MPV (7.4-10.4) fL Immature Gran % (Auto) % Neut % (Auto) % Lymph % (Auto) % Alexander % (Auto) % Eos % (Auto) % Baso % (Auto) % Neut # (Auto) (1.4-6.5) K/uL Lymph # (Auto) (1.2-3.4) K/uL [place] # (Auto) (0.11-0.59) K/uL Eos # (Auto) (0-0.5) K/uL Baso # (Auto) (0-0.2) K/uL Immature Gran # (Auto) (0.00-0.02) K/uL Sodium 134 L (136-145) mmol/L Potassium 4.0 D (3.5-5.1) mmol/L Chloride 101 (98-107) mmol/L Carbon Dioxide 26 (21-32) mmol/L Anion Gap 7.0 (3-11) BUN 16 (7-18) mg/dl Creatinine 0.64 (0.6-1.2) mg/dl Est Cr Clr Drug Dosing 74.9 ml/min Est GFR ( Amer) 95.0 ml/min Est GFR (Non-Af Amer) 81.9 ml/min BUN/Creatinine Ratio 24.5 H (10-20) Glucose 144 H (70-99) mg/dl POC Glucose 161 H 160 H (70-99) mg/dl Calcium 9.0 (8.5-10.1) mg/dl Magnesium 1.9 (1.8-2.4) mg/dl COVID-19 Eval Order SARS-CoV-2 (PCR) (Negative) 01/11/21 01/10/21 01/10/21 Range/Units 07:50 21:05 15:45 WBC 12.74 H (4.8-10.8) K/uL RBC 4.44 (4.2-5.4) M/uL Hgb 13.5 (12.0-16.0) g/dL Hct 41.1 (37-47) % MCV 92.6 (80-100) fL MCH 30.4 (25-34) pg MCHC 32.8 (32-36) g/dL RDW Std Deviation 50.0 H (36.4-46.3) fL RDW Coeff of Fermin 14.7 H (11.5-14.5) % Plt Count 233 (130-400) K/uL MPV 9.8 (7.4-10.4) fL Immature Gran % (Auto) 0.3 % Neut % (Auto) 71.6 % Lymph % (Auto) 15.0 % Alexander % (Auto) 11.8 % Eos % (Auto) 1.1 % Baso % (Auto) 0.2 % Neut # (Auto) 9.13 H (1.4-6.5) K/uL Lymph # (Auto) 1.91 (1.2-3.4) K/uL Alexander # (Auto) 1.50 H (0.11-0.59) K/uL Eos # (Auto) 0.14 (0-0.5) K/uL Baso # (Auto) 0.02 (0-0.2) K/uL Immature Gran # (Auto) 0.04 H (0.00-0.02) K/uL Sodium (136-145) mmol/L Potassium (3.5-5.1) mmol/L Chloride (98-107) mmol/L Carbon Dioxide (21-32) mmol/L Anion Gap (3-11) BUN (7-18) mg/dl Creatinine (0.6-1.2) mg/dl Est Cr Clr Drug Dosing ml/min Est GFR ( Amer) ml/min Est GFR (Non-Af Amer) ml/min BUN/Creatinine Ratio (10-20) Glucose (70-99) mg/dl POC Glucose 211 H (70-99) mg/dl Calcium (8.5-10.1) mg/dl Magnesium (1.8-2.4) mg/dl COVID-19 Eval Order SARS-CoV-2 (PCR) NEGATIVE (Negative) 01/10/21 Range/Units 15:45 WBC (4.8-10.8) K/uL RBC (4.2-5.4) M/uL Hgb (12.0-16.0) g/dL Hct (37-47) % MCV (80-100) fL MCH (25-34) pg MCHC (32-36) g/dL RDW Std Deviation (36.4-46.3) fL RDW Coeff of Fermin (11.5-14.5) % Plt Count (130-400) K/uL MPV (7.4-10.4) fL Immature Gran % (Auto) % Neut % (Auto) % Lymph % (Auto) % Alexander % (Auto) % Eos % (Auto) % Baso % (Auto) % Neut # (Auto) (1.4-6.5) K/uL Lymph # (Auto) (1.2-3.4) K/uL [place] # (Auto) (0.11-0.59) K/uL Eos # (Auto) (0-0.5) K/uL Baso # (Auto) (0-0.2) K/uL Immature Gran # (Auto) (0.00-0.02) K/uL Sodium (136-145) mmol/L Potassium (3.5-5.1) mmol/L Chloride (98-107) mmol/L Carbon Dioxide (21-32) mmol/L Anion Gap (3-11) BUN (7-18) mg/dl Creatinine (0.6-1.2) mg/dl Est Cr Clr Drug Dosing ml/min Est GFR ( Amer) ml/min Est GFR (Non-Af Amer) ml/min BUN/Creatinine Ratio (10-20) Glucose (70-99) mg/dl POC Glucose (70-99) mg/dl Calcium (8.5-10.1) mg/dl Magnesium (1.8-2.4) mg/dl COVID-19 Eval Order Covid19 at [facility] SARS-CoV-2 (PCR) (Negative) Diagnostic Findings Shoulder CT 01/10/21 14:02 CT shoulder RT wo con CT DOSE: 1046.98 mGy.cm CLINICAL HISTORY: fall TECHNIQUE: A dose lowering technique was utilized adhering to the principles of ALARA. Reconstruction images were performed and reviewed. COMPARISON STUDY: None. Correlation is made with radiograph of the shoulder performed on January 10, 2021. FINDINGS: Fracture of the right humeral neck with anterior displacement of humeral shaft and impaction is seen. Evaluation is limited due to severe diffuse osteopenia and prominent osteophytes surrounding right humeral head. There is mild superior subluxation of the right humeral head in relation to the glenoid which could be chronic and associated with prominent subchondral sclerosis. Osteophytes of the glenoid are seen. Mild edema surrounds right shoulder. Focal area of fluid collection measuring 4.8 x 3.0 cm in size is seen medially to the right scapula which contains focal areas of calcification. No evidence of scapular or clavicular fractures seen. Visualized portion of the right rib cage shows no evidence of acute fracture deformities. Visualized portion of right lung parenchyma shows no evidence of pneumothorax. IMPRESSION: 1. Fracture deformity of the right humeral neck with anterior displacement of the distal portion of the humerus and impaction. 2. Osteopenia. 3. Mild shoulder effusion. 4. The rest of findings as above. ACT 112: Negative or not required by law. The above report was generated using voice recognition software. It may contain grammatical, syntax or spelling errors. Electronically signed by: Iveth Gill DO 01/10/2021 3:19 PM PG Care Time/CCT Total # of Minutes Spent Total Time Spent with Patient: Total time spent is greater than 50% in coordination of care (as documented) at patient's floor/unit and/or counseling patient: Coding Level of Care Code 93245 Subseq Hosp Care Lvl 2 Diagnoses Fracture of humerus, proximal, right, closed S42.201A Fall W19.XXXA Contusion of rib on right side S20.211A HTN (hypertension) I10 Hypertension type: essential hypertension Hyperlipidemia E78.00; E78.0 Hyperlipidemia type: pure hypercholesterolemia Paroxysmal atrial tachycardia I47.1 Diabetes mellitus E11.9 Diabetes mellitus type: type 2 Diabetes mellitus group home insulin use: without group home use Diabetes mellitus complication status: without complication Vitamin D deficiency E55.9 (1) HTN (hypertension) Hypertension type: essential hypertension Qualified Code(s): I10 - Essential (primary) hypertension (2) Hyperlipidemia Hyperlipidemia type: pure hypercholesterolemia Qualified Code(s): E78.00 - Pure hypercholesterolemia, unspecified; E78.0 - Pure hypercholesterolemia (3) Diabetes mellitus Diabetes mellitus type: type 2 Diabetes mellitus assistant terminal manager insulin use: without group home use Diabetes mellitus complication status: without complication Qualified Code(s): E11.9 - Type 2 diabetes mellitus without complications
[2021-01-11] MEDS: COLESEVELAM HCL PO SCH ×2 (08:47→14:32)
[2021-01-11] MEDS: oxyCODONE HCL IR 5 MG TAB (IMMEDIATE RELEASE) PO PRN ×3 (08:47→21:28)
[2021-01-11 08:59] LABS: BUN Creatinine Ratio 24.5 (10-20); Creatinine Clr Calc Pharmacy 74.9 ml/min; Est GFR (Non-African American) 81.9 ml/min; Magnesium 1.9 mg/dl (1.8-2.4)
[2021-01-11] MEDS ORDERED: EZETIMIBE 10 MG TABLET PO SCH (09:00)
[2021-01-11] MEDS: BRIMONIDINE TARTRATE 0.2% 5ML OP SCH ×2 (11:15→21:24)
--- NOTE | 2021-01-11 13:39 | Orthopedic Consultation ---
Date of Service January 11, 2021 Assessment & Plan (1) Fracture of humerus, proximal, right, closed: We discussed the diagnosis and treatment options at bedside. If we were to treat this conservatively, she would be in a sling for 6 weeks. We will then do some physical therapy. Unfortunately she still has the arthritis in the shoulder may require injections in the future. If we were to do surgery with the shoulder, the procedure of choice would be a reverse shoulder replacement. This would take care of the arthritis in her shoulder and she would only be in a sling for 3 weeks. However, there are complications due to surgery. We discussed this at length at bedside and she is electing to proceed with conservative management for her right shoulder. I think that is a very reasonable option. She is orthopedically stable for discharge to rehab when medically ready. She will be in a sling for a total of 6 weeks and then will do therapy afterwards. I will see her in my office in 2 weeks for repeat x-rays to make sure there is no further displacement. Full orthopedic discharge instructions were placed in the discharge summary. History of Present Illness Reason for Consultation: Right proximal humerus fracture. Requesting Physician: . Attending Physician: Piero Crowell MD Vanessa is a pleasant 85-year-old female who is well-known to me. I have been giving her serial injections to her right shoulder for advanced glenohumeral arthritis. She lives alone. Unfortunately yesterday she was watering her plants when she tripped and fell. She injured her right shoulder. She came to the emergency room and radiographs and CT scan showed a moderately displaced right proximal humerus fracture. She was placed in a sling and was admitted to the hospital. She is hoping for rehab placement.. Allergies Allergy/AdvReac Type Severity Reaction Status Date / Time benazepril Allergy Severe "ANAPHYLACTIC Verified 12/07/20 09:12 SHOCK" NSAIDS (Non-Steroidal Allergy Severe ANAPHYLACTIC Verified 12/07/20 09:12 Anti-Inflamma SHOCK FROM IBUPROFEN procaine Allergy Severe NOVOCAINE Verified 12/07/20 09:12 - "ANAPHYLACTIC SHOCK" tetracycline Allergy Mild N/V Verified 12/07/20 09:12 Qgblhyb-Odv-Uij Reductase Allergy ELEVATED Verified 12/07/20 09:12 Inhibitor HEPATIC ENZYMES Home Medications Medication Instructions Recorded Confirmed Type omega-3 acid ethyl esters 1 gram 1 cap PO TID cap 03/09/19 01/10/21 History capsule brimonidine 0.1 % eye drops 1 drp OPHTHALMIC (EYE) BID ml 05/05/20 01/10/21 History (Alphagan P) buspirone 5 mg tablet 5 mg PO TID PRN #270 tab 05/05/20 01/10/21 Rx latanoprost 0.005 % eye drops 1 drp OPHTHALMIC (EYE) QPM 05/05/20 01/10/21 History triamcinolone acetonide 80 mg/mL 40 mg IM .every3 months ml 05/05/20 01/10/21 History suspension for injection epinephrine 0.3 mg/0.3 mL 0.3 mg IM .COMPLEX PRN #2 ea 07/06/20 01/10/21 Rx injection, auto-injector (EpiPen) tramadol 50 mg tablet 50 mg PO Q8H PRN #30 tab 12/15/20 01/10/21 Rx amlodipine 10 mg tablet 10 mg PO DAILY #90 tab 01/01/21 01/10/21 Rx carvedilol 3.125 mg tablet See Rx Instructions .ROUTE 01/01/21 01/10/21 Rx .COMPLEX #270 tab colesevelam 625 mg tablet 1,875 mg PO BID #540 tab 01/01/21 01/10/21 Rx ezetimibe 10 mg tablet 10 mg PO DAILY #90 tab 01/01/21 01/10/21 Rx losartan 50 mg tablet 50 mg PO DAILY #90 tab 01/01/21 01/10/21 Rx torsemide 20 mg tablet 20 mg PO Q OTHER DAY #45 tab 01/01/21 01/10/21 Rx Past Med/Surg History Medical History Angioedema (12/03/10) Arthritis of multiple sites Diabetes mellitus HTN (hypertension) Hyperlipidemia Lower extremity edema 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 Paroxysmal atrial tachycardia Personal history of malignant melanoma of skin Statin intolerance Surgical History H/O arthroscopy of right knee H/O: hysterectomy Family History Father Congestive heart failure (CHF) Hypertension Myocardial infarction Mother Emphysema of lung Hypertension Brother Prostate cancer Hypertension Son Colorectal cancer age 49 Denies family history of Ovarian cancer Diabetes Breast cancer Lung cancer Stroke Social History Smoking Status: Never smoker Tobacco Type: Cigarettes Age Started Using Tobacco: 27; Age Quit Using Tobacco: 45; packs per day: 0.75; Years Smoked: 18; Second Hand Exposure: No; Hx Alcohol Use: No Hx Substance Use: No Preferred Language: Sri [place]an Communication Ability: Effective Visual Impairment: Limited Hearing Ability: Normal Business Integration Analyst Required: No Beliefs That Will Affect Care: None marital status: / Current Living Situation: Alone current occupational status: retired How many Children do You have: 2 Feels Safe at Home: Yes Childhood Exposure to Second-Hand Smoke: Yes caffeine: Yes Dental Care, Regularly: Yes Physical Activity Frequency: 3-4 Times per Week Physical Activity Frequency Comment: physical therapy Seatbelt Use: always Sunscreen Use: Yes (not in the sun) Do you think of yourself as: straight/heterosexual Assistive Devices: None Review of Systems All systems reviewed & are unremarkable except as noted in HPI & below. Physical Exam On physical examination of the right shoulder, she is wearing her sling as instructed. Her radial, median, and ulnar nerves are checked intact at her wrist. Her axillary nerve was not checked yet. I did not do any range of motion with her shoulder.. Constitutional WD/WN, vitals as above Eyes PERRL, conjunctivae normal, anicteric sclerae ENMT external ear and nose normal, oropharynx normal Neck trachea midline, no thyromegaly Respiratory normal respiratory effort Cardiovascular RRR, no murmur, no edema Gastrointestinal (Abdomen) normal bowel sounds, soft, nontender, no hepatosplenomegaly Psychiatric A+Ox3, euthymic affect Results & Data Results & Data Laboratory Results . Diagnostic Findings X-rays of the right humerus do show a right proximal humerus fracture CT scan of the right shoulder shows a moderately displaced 2 part right proximal humerus fracture. The humeral head still located within the glenoid. There is advanced glenohumeral arthritis.. PG Care Time/CCT Total # of Minutes Spent Total Time Spent with Patient: Total time spent is greater than 50% in coordination of care (as documented) at patient's floor/unit and/or counseling patient: Coding Level of Care Code 18862 Inpt Consult Level 4 Diagnoses Fracture of humerus, proximal, right, closed S42.201A
[2021-01-11] MEDS ORDERED: ERGOCALCIFEROL 50,000 UNITS 1250 MCG CAP PO SCH (18:45)
[2021-01-11] MEDS: traMADol HCL 50 MG TABLET PO PRN (19:47)
[2021-01-11] MEDS: LATANOPROST 0.005% OP SOLN 2.5 ML BTL OP SCH (20:21)
[2021-01-11] MEDS: carvediloL 3.125 MG TAB PO SCH (20:23)
[2021-01-11] MEDS: EZETIMIBE 10 MG TABLET PO SCH (20:23)
[2021-01-12] MEDS: ACETAMINOPHEN 325 MG TAB PO PRN (07:38)
[2021-01-12 08:29] LABS: Basophils # (auto) 0.02 K/uL (0-0.2); Basophils % (auto) 0.2 %; Eosinophils # (auto) 0.14 K/uL (0-0.5); Eosinophils % (auto) 1.3 %; Hematocrit (blood only) 37.5 % (37-47); Hemoglobin 12.4 g/dL (12.0-16.0); Immature Granulocytes # (auto) 0.02 K/uL (0.00-0.02); Immature Granulocytes % (auto) 0.2 %; Lymphocytes # (auto) 1.74 K/uL (1.2-3.4); Lymphocytes % (auto) 15.7 %; Mean Corpuscular Hemoglobin 30.7 pg (25-34); Mean Corpuscular Hgb Conc 33.1 g/dL (32-36); Mean Corpuscular Volume 92.8 fL (80-100); Mean Platelet Volume 10.2 fL (7.4-10.4); Monocytes # (auto) 1.15 K/uL (0.11-0.59); Monocytes % (auto) 10.4 %; Neutrophils # (auto) 8.02 K/uL (1.4-6.5); Neutrophils % (auto) 72.2 %; Platelet Count 234 K/uL (130-400); RDW Coefficient of Variation 14.2 % (11.5-14.5); RDW Standard Deviation 48.2 fL (36.4-46.3); Red Blood Count 4.04 M/uL (4.2-5.4); White Blood Count 11.09 K/uL (4.8-10.8)
--- NOTE | 2021-01-12 08:36 | Hospitalist Progress Note ---
Date of Service January 12, 2021 Assessment & Plan (1) Fracture of humerus, proximal, right, closed: Plan: Mechanical fall. Follows with Dr. Pickett. Previously declined Dexa, but most recent Vit D level low at 20 (placed on ergocalciferol 47279 weekly x 4 weeks then could do lower daily dosing) Xray with acute fracture CT with fracture deformity of the right humeral neck with anterior displacement of the distal portion of the humerus and impaction. Sling, ICE Pain control --> increased to 10mg PO as needed as she reports better control with IV. Too much last evening with tramadol+oxy+dilaudid and she was nauseous this morning. --> Better pain control today and only requested dose of 5mg oxycodone this morning -- Denied need for voltaren gel but can consider *Discussed torsemide for some volume overload -- takes Q2D and with some edema --> Added phenergan for nausea and can continue if effective WBC trending down without abx. no evidence for infxn. UA ordered but has yet to be completed Ortho consulted -- conservative treatment. Sling x 6 weeks. F/u with office in 2 weeks for repeat imaging. May need injections in the future. Plans for OPPT once cleared by ortho. Has been following with [facility] for past month for ROM for chronic arthritis PT/OT -- patient had requested for therapy to begin today --> evals pending CM consulted --> rehab expected at d/c. Patient provided list and refs to be sent after therapy evals performed Continue to monitor (2) Hyponatremia: Plan: Na 129 On diuretics -- torsemide 20mg Q2D Checking TSH, Urine Osm, Serum Osm but suspect some degree of CHF (possibly combination diastolic/systolic) Will check BNP and if elevated will check ECHO given no hx of ever having one done Also on tramadol at home as needed and got a dose tomorrow Asymptomatic -- getting dose of torsemide today BMP in AM (3) Fall: Plan: As above - tripped on edging of driveway/gardening PT/OT consult (4) Contusion of rib on right side: Plan: Pain controlled deinies much pain with deep inspiration - Lidoderm patch if needed - Pain control as above, increased oral - ICS (5) HTN (hypertension): Plan: Chronic, BP 124/71 with pain control - Continue Carvedilol 6.25 mg in Am and 3.125 in Pm - Continue Torsemide Q2D - Continue Amlodipine 10mg daily (6) Hyperlipidemia: Plan: Continue ezetimibe --> changed to QPM - Patient has intolerance to statin (7) Paroxysmal atrial tachycardia: Plan: Continue Carvedilol - ECG pending --> sinus tach with PACs, compared to 2011, PACs now present. HRs reported 90s-low 100s but was 88bpm during my encounter --> elevations could be due to nausea/pain as well Continue to monitor --> Could consider increasing her carvedilol dosing but would want to prevent hypotension/repeat falls (8) Diabetes mellitus: Plan: Not on agent as outpatient. Most recent A1c 6.9 DAHA diet AC/HS glucose- goal <180 notify if uncontrolled Would rec metformin at discharge if patient agreeable Continue to monitor (9) Vitamin D deficiency: Plan: Low at 20 Previously declined DEXA per PCP note Placed on ergocalciferol and would continue at d/c and f/u with PCP for further discussions -- discussed with patient, agreeable (10) Nausea: Plan: zofran ineffective -- could be from volume overload vs pain medications on empty stomach phenergan x 1 -- reported to be effective and will order prn n/v continue to monitor Plan: DVT Proph -- Heparin SQ while inpatient Dispo: continued inpatient stay, awaiting rehab placement. CM following -- will discuss about [facility] as patient unhappy about this not being an option and is unclear as to why Admission and Anticipated Discharge Date Admission Date: January 11, 2021 Subjective Patient evaluated this afternoon. Pain controlled but nauseous this morning. She did get multiple medications overnight on empty stomach and this could be contributing. No vomiting. Zofran not super effective and will try dose of phenergan. If effective she is agreeable to let RN know and we will order as needed. Passing gas but no BM. Has been up to bathroom and ambulating. Not excited about miralax but she is agreeable. Last BM on Friday but denied abdominal pain. Sensation still intact. She is somewhat upset about being told [facility] will not be able to take her and is looking into [facility]. She notes she has "excellent" insurance from retired from [employer] and has never had issue getting anything she has needed medically in the past. Hadn't wanted to take her torsemide as she thought she took it yesterday but after review she was agreeable. She notes that she does not take this before going to [facility]. Discussed will review with CM and look into why this is and if anything able to be done to get to [facility] for rehab. 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 skin: warm, dry, bruising to anterior R maldonado Results & Data Results & Data ([facility]) Vital Signs (Past 12 Hours) Vital Signs Temp Pulse Resp BP Pulse Ox 01/12/21 07:42 36.8 C 103 H 20 124/71 92 01/11/21 23:52 36.9 C 106 H 18 150/84 H 93 Laboratory Results 01/12/21 01/12/21 01/12/21 Range/Units 12:01 11:45 11:45 WBC (4.8-10.8) K/uL RBC (4.2-5.4) M/uL Hgb (12.0-16.0) g/dL Hct (37-47) % MCV (80-100) fL MCH (25-34) pg MCHC (32-36) g/dL RDW Std Deviation (36.4-46.3) fL RDW Coeff of Fermin (11.5-14.5) % Plt Count (130-400) K/uL MPV (7.4-10.4) fL Immature Gran % (Auto) % Neut % (Auto) % Lymph % (Auto) % Mcdowell % (Auto) % Eos % (Auto) % Baso % (Auto) % Neut # (Auto) (1.4-6.5) K/uL Lymph # (Auto) (1.2-3.4) K/uL Mcdowell # (Auto) (0.11-0.59) K/uL Eos # (Auto) (0-0.5) K/uL Baso # (Auto) (0-0.2) K/uL Immature Gran # (Auto) (0.00-0.02) K/uL Sodium (136-145) mmol/L Potassium (3.5-5.1) mmol/L Chloride (98-107) mmol/L Carbon Dioxide (21-32) mmol/L Anion Gap (3-11) BUN (7-18) mg/dl Creatinine (0.6-1.2) mg/dl Est Cr Clr Drug Dosing ml/min Est GFR ( Amer) ml/min Est GFR (Non-Af Amer) ml/min BUN/Creatinine Ratio (10-20) Glucose (70-99) mg/dl POC Glucose 181 H (70-99) mg/dl Osmolality (280-300) mOsm/kg Calcium (8.5-10.1) mg/dl Magnesium (1.8-2.4) mg/dl TSH (0.300-4.500) uIu/ml Urine Color Yellow Urine Appearance Clear (Clear) Urine pH 5.5 (4.5-7.5) Ur Specific [place] 1.016 (1.000-1.030) Urine Protein Negative (Negative) Urine Glucose (UA) Negative (Negative) Urine Ketones Negative (Negative) Urine Blood Negative (Negative) Urine Nitrite Negative (Negative) Urine Bilirubin Negative (Negative) Urine Urobilinogen Negative (Negative) Ur Leukocyte Esterase 1+ H (Negative) Urine WBC (Auto) 5-10 H (0-5) /hpf Urine RBC (Auto) 0-4 (0-4) /hpf U Hyaline Cast (Auto) 0 (0-5) /lpf U Epithel Cells (Auto) >30 H (0-5) /lpf Urine Bacteria (Auto) 1+ H (Negative) Urine Osmolality 468 L (500-800) mOsm/kg 01/12/21 01/12/21 01/12/21 Range/Units 10:12 10:12 07:55 WBC (4.8-10.8) K/uL RBC (4.2-5.4) M/uL Hgb (12.0-16.0) g/dL Hct (37-47) % MCV (80-100) fL MCH (25-34) pg MCHC (32-36) g/dL RDW Std Deviation (36.4-46.3) fL RDW Coeff of Fermin (11.5-14.5) % Plt Count (130-400) K/uL MPV (7.4-10.4) fL Immature Gran % (Auto) % Neut % (Auto) % Lymph % (Auto) % Mcdowell % (Auto) % Eos % (Auto) % Baso % (Auto) % Neut # (Auto) (1.4-6.5) K/uL Lymph # (Auto) (1.2-3.4) K/uL Mcdowell # (Auto) (0.11-0.59) K/uL Eos # (Auto) (0-0.5) K/uL Baso # (Auto) (0-0.2) K/uL Immature Gran # (Auto) (0.00-0.02) K/uL Sodium 129 L (136-145) mmol/L Potassium 3.9 (3.5-5.1) mmol/L Chloride 96 L (98-107) mmol/L Carbon Dioxide 25 (21-32) mmol/L Anion Gap 8.0 (3-11) BUN 15 (7-18) mg/dl Creatinine 0.62 (0.6-1.2) mg/dl Est Cr Clr Drug Dosing 77.3 ml/min Est GFR ( Amer) 96.0 ml/min Est GFR (Non-Af Amer) 82.8 ml/min BUN/Creatinine Ratio 24.0 H (10-20) Glucose 172 H (70-99) mg/dl POC Glucose (70-99) mg/dl Osmolality 273 L (280-300) mOsm/kg Calcium 8.7 (8.5-10.1) mg/dl Magnesium 2.0 (1.8-2.4) mg/dl TSH 1.800 (0.300-4.500) uIu/ml Urine Color Urine Appearance (Clear) Urine pH (4.5-7.5) Ur Specific [place] (1.000-1.030) Urine Protein (Negative) Urine Glucose (UA) (Negative) Urine Ketones (Negative) Urine Blood (Negative) Urine Nitrite (Negative) Urine Bilirubin (Negative) Urine Urobilinogen (Negative) Ur Leukocyte Esterase (Negative) Urine WBC (Auto) (0-5) /hpf Urine RBC (Auto) (0-4) /hpf U Hyaline Cast (Auto) (0-5) /lpf U Epithel Cells (Auto) (0-5) /lpf Urine Bacteria (Auto) (Negative) Urine Osmolality (500-800) mOsm/kg 01/12/21 01/12/21 01/11/21 Range/Units 07:55 07:35 20:32 WBC 11.09 H (4.8-10.8) K/uL RBC 4.04 L (4.2-5.4) M/uL Hgb 12.4 (12.0-16.0) g/dL Hct 37.5 (37-47) % MCV 92.8 (80-100) fL MCH 30.7 (25-34) pg MCHC 33.1 (32-36) g/dL RDW Std Deviation 48.2 H (36.4-46.3) fL RDW Coeff of Fermin 14.2 (11.5-14.5) % Plt Count 234 (130-400) K/uL MPV 10.2 (7.4-10.4) fL Immature Gran % (Auto) 0.2 % Neut % (Auto) 72.2 % Lymph % (Auto) 15.7 % Mcdowell % (Auto) 10.4 % Eos % (Auto) 1.3 % Baso % (Auto) 0.2 % Neut # (Auto) 8.02 H (1.4-6.5) K/uL Lymph # (Auto) 1.74 (1.2-3.4) K/uL Mcdowell # (Auto) 1.15 H (0.11-0.59) K/uL Eos # (Auto) 0.14 (0-0.5) K/uL Baso # (Auto) 0.02 (0-0.2) K/uL Immature Gran # (Auto) 0.02 (0.00-0.02) K/uL Sodium (136-145) mmol/L Potassium (3.5-5.1) mmol/L Chloride (98-107) mmol/L Carbon Dioxide (21-32) mmol/L Anion Gap (3-11) BUN (7-18) mg/dl Creatinine (0.6-1.2) mg/dl Est Cr Clr Drug Dosing ml/min Est GFR ( Amer) ml/min Est GFR (Non-Af Amer) ml/min BUN/Creatinine Ratio (10-20) Glucose (70-99) mg/dl POC Glucose 190 H 212 H (70-99) mg/dl Osmolality (280-300) mOsm/kg Calcium (8.5-10.1) mg/dl Magnesium (1.8-2.4) mg/dl TSH (0.300-4.500) uIu/ml Urine Color Urine Appearance (Clear) Urine pH (4.5-7.5) Ur Specific [place] (1.000-1.030) Urine Protein (Negative) Urine Glucose (UA) (Negative) Urine Ketones (Negative) Urine Blood (Negative) Urine Nitrite (Negative) Urine Bilirubin (Negative) Urine Urobilinogen (Negative) Ur Leukocyte Esterase (Negative) Urine WBC (Auto) (0-5) /hpf Urine RBC (Auto) (0-4) /hpf U Hyaline Cast (Auto) (0-5) /lpf U Epithel Cells (Auto) (0-5) /lpf Urine Bacteria (Auto) (Negative) Urine Osmolality (500-800) mOsm/kg 01/11/21 Range/Units 17:18 WBC (4.8-10.8) K/uL RBC (4.2-5.4) M/uL Hgb (12.0-16.0) g/dL Hct (37-47) % MCV (80-100) fL MCH (25-34) pg MCHC (32-36) g/dL RDW Std Deviation (36.4-46.3) fL RDW Coeff of Fermin (11.5-14.5) % Plt Count (130-400) K/uL MPV (7.4-10.4) fL Immature Gran % (Auto) % Neut % (Auto) % Lymph % (Auto) % Mcdowell % (Auto) % Eos % (Auto) % Baso % (Auto) % Neut # (Auto) (1.4-6.5) K/uL Lymph # (Auto) (1.2-3.4) K/uL Mcdowell # (Auto) (0.11-0.59) K/uL Eos # (Auto) (0-0.5) K/uL Baso # (Auto) (0-0.2) K/uL Immature Gran # (Auto) (0.00-0.02) K/uL Sodium (136-145) mmol/L Potassium (3.5-5.1) mmol/L Chloride (98-107) mmol/L Carbon Dioxide (21-32) mmol/L Anion Gap (3-11) BUN (7-18) mg/dl Creatinine (0.6-1.2) mg/dl Est Cr Clr Drug Dosing ml/min Est GFR ( Amer) ml/min Est GFR (Non-Af Amer) ml/min BUN/Creatinine Ratio (10-20) Glucose (70-99) mg/dl POC Glucose 159 H (70-99) mg/dl Osmolality (280-300) mOsm/kg Calcium (8.5-10.1) mg/dl Magnesium (1.8-2.4) mg/dl TSH (0.300-4.500) uIu/ml Urine Color Urine Appearance (Clear) Urine pH (4.5-7.5) Ur Specific [place] (1.000-1.030) Urine Protein (Negative) Urine Glucose (UA) (Negative) Urine Ketones (Negative) Urine Blood (Negative) Urine Nitrite (Negative) Urine Bilirubin (Negative) Urine Urobilinogen (Negative) Ur Leukocyte Esterase (Negative) Urine WBC (Auto) (0-5) /hpf Urine RBC (Auto) (0-4) /hpf U Hyaline Cast (Auto) (0-5) /lpf U Epithel Cells (Auto) (0-5) /lpf Urine Bacteria (Auto) (Negative) Urine Osmolality (500-800) mOsm/kg PG Care Time/CCT Total # of Minutes Spent Total Time Spent with Patient: Total time spent is greater than 50% in coordination of care (as documented) at patient's floor/unit and/or counseling patient: Coding Level of Care Code 58693 Subseq Hosp Care Lvl 3 Diagnoses Fracture of humerus, proximal, right, closed S42.201A Fall W19.XXXA Contusion of rib on right side S20.211A HTN (hypertension) I10 Hypertension type: essential hypertension Hyperlipidemia E78.00; E78.0 Hyperlipidemia type: pure hypercholesterolemia Paroxysmal atrial tachycardia I47.1 Diabetes mellitus E11.9 Diabetes mellitus complication status: without complication Diabetes mellitus usp insulin use: without rn long term care use Diabetes mellitus type: type 2 Vitamin D deficiency E55.9 Nausea R11.0 Hyponatremia E87.1 (1) Diabetes mellitus Diabetes mellitus complication status: without complication Diabetes mellitus rn long term care insulin use: without rn long term care use Diabetes mellitus type: type 2 Qualified Code(s): E11.9 - Type 2 diabetes mellitus without complications (2) Hyperlipidemia Hyperlipidemia type: pure hypercholesterolemia Qualified Code(s): E78.00 - Pure hypercholesterolemia, unspecified; E78.0 - Pure hypercholesterolemia (3) HTN (hypertension) Hypertension type: essential hypertension Qualified Code(s): I10 - Essential (primary) hypertension
[2021-01-12 08:59] LABS: Calcium 8.7 mg/dl (8.5-10.1); Creatinine Clr Calc Pharmacy 77.3 ml/min; Est GFR (Non-African American) 82.8 ml/min; Potassium 3.9 mmol/L (3.5-5.1)
[2021-01-12] MEDS ORDERED: CARBOHYDRATES FOR HYPOGLYCEMIA PO PRN (09:15)
[2021-01-12] MEDS ORDERED: GLUCOSE 10 TABS/TUBE PO PRN (09:15)
[2021-01-12] MEDS ORDERED: GLUCAGON FOR INJ 1 MG VIAL SQ PRN (09:15)
[2021-01-12] MEDS ORDERED: DEXTROSE 50% 50 ML SYRINGE IV PRN (09:15)
[2021-01-12] MEDS: INSULIN ASPART 100 UNITS/ML 3 ML PEN SC SCH ×4 (09:35→21:30)
[2021-01-12] MEDS: COLESEVELAM HCL PO SCH ×2 (09:36→18:06)
[2021-01-12] MEDS: BRIMONIDINE TARTRATE 0.2% 5ML OP SCH ×2 (09:37→18:07)
[2021-01-12] MEDS: oxyCODONE HCL IR 5 MG TAB (IMMEDIATE RELEASE) PO PRN ×2 (09:39→18:08)
[2021-01-12] MEDS: TORSEMIDE 20 MG TAB PO SCH ×2 (09:39→11:12)
[2021-01-12] MEDS: HEPARIN SOD 5,000 UNIT/0.5 ML VIAL SQ SCH ×2 (09:40→20:06)
[2021-01-12] MEDS: amLODIPine BESYLATE 5 MG TAB PO SCH (09:41)
[2021-01-12] MEDS: carvediloL 6.25 MG TAB PO SCH (09:41)
[2021-01-12] MEDS: LOSARTAN POTASSIUM 50 MG TAB PO SCH (10:12)
[2021-01-12] MEDS ORDERED: ONDANSETRON INJ 2 MG/ML 2 ML VIAL IV PRN (10:52)
[2021-01-12 12:21] LABS: Appearance Urine Clear (Clear); Bacteria Urine Automated 1+ (Negative); Bilirubin Urine Negative (Negative); Blood Urine Negative (Negative); Cast Urine Automated 0 /lpf (0-5); Color Urine Yellow; Epithelial Cell Urine Auto >30 /lpf (0-5); Glucose Urine UA Negative (Negative); Ketones Urine Negative (Negative); Leukocyte Esterase Urine 1+ (Negative); Nitrite Urine Negative (Negative); Protein Urine Negative (Negative); Specific Gravity Urine 1.016 (1.000-1.030); Urobilinogen Urine Negative (Negative); pH Urine 5.5 (4.5-7.5)
[2021-01-12 12:34] LABS: RBC Urine Automated 0-4 /hpf (0-4)
[2021-01-12] MEDS ORDERED: PROMETHAZINE HCL 12.5 MG in SODIUM CHLORIDE 0.9% 50 ML IV ONE (13:00)
[2021-01-12] MEDS: POLYETHYLENE (MIRALAX) 17 GM PACK PO SCH ×2 (13:27→20:05)
[2021-01-12] MEDS ORDERED: PROMETHAZINE HCL 6.25 MG in SODIUM CHLORIDE 0.9% 50 ML IV PRN (14:41)
[2021-01-12 15:38] LABS: NT Pro B Type Natriuretic Pept 254 pg/ml (0-1800); Troponin I < 0.015 ng/ml (0-0.045)
[2021-01-12] MEDS: HYDROmorphone INJ 0.5 MG/0.5 ML SYR IV PRN (19:15)
[2021-01-12] MEDS: EZETIMIBE 10 MG TABLET PO SCH (20:04)
[2021-01-12] MEDS: carvediloL 3.125 MG TAB PO SCH (20:05)
[2021-01-12] MEDS: LATANOPROST 0.005% OP SOLN 2.5 ML BTL OP SCH (20:06)
[2021-01-13] MEDS: oxyCODONE HCL IR 5 MG TAB (IMMEDIATE RELEASE) PO PRN ×3 (04:45→19:34)
[2021-01-13] MEDS: traMADol HCL 50 MG TABLET PO PRN ×2 (07:28→17:10)
[2021-01-13] MEDS: carvediloL 6.25 MG TAB PO SCH (07:29)
[2021-01-13] MEDS: BRIMONIDINE TARTRATE 0.2% 5ML OP SCH ×2 (07:29→20:18)
[2021-01-13] MEDS: LOSARTAN POTASSIUM 50 MG TAB PO SCH (07:30)
[2021-01-13] MEDS: POLYETHYLENE (MIRALAX) 17 GM PACK PO SCH ×2 (07:30→20:18)
[2021-01-13] MEDS: HEPARIN SOD 5,000 UNIT/0.5 ML VIAL SQ SCH ×2 (07:30→20:18)
[2021-01-13] MEDS: amLODIPine BESYLATE 5 MG TAB PO SCH (07:30)
[2021-01-13] MEDS: COLESEVELAM HCL PO SCH ×2 (07:30→13:33)
--- NOTE | 2021-01-13 07:34 | Orthopedic Progress Note ---
Date of Service January 13, 2021 Assessment & Plan (1) Fracture of humerus, proximal, right, closed: We will continue conservative treatment with the right shoulder. She does not want to consider any shoulder replacement surgery at this point. She will be in a sling for 6 weeks. She will then require therapy after she is out of the sling. She is orthopedically stable for discharge when medically ready. She can follow-up with orthopedics in 2 weeks for repeat x-rays of the shoulder to ensure there is been no further displacement. Full orthopedic discharge instructions were placed in the discharge summary. Subjective Vanessa was seen and examined at bedside this morning. Overall she is doing fairly well. She says her shoulder is pretty sore. There is times where she does not have much pain but if she is laying in certain positions it can be quite painful. She is happy to continue with conservative treatment at this time.. Review of Systems All systems reviewed & are unremarkable except as noted in HPI & below. Physical Exam On physical examination the right shoulder, she is wearing her sling as instructed. She has motion of her hand and her wrist. I did not do any range of motion with her shoulder.. Results & Data Results & Data Laboratory Results . Diagnostic Findings . PG Care Time/CCT Total # of Minutes Spent Total Time Spent with Patient: Total time spent is greater than 50% in coordination of care (as documented) at patient's floor/unit and/or counseling patient: Coding Level of Care Code 46766 Subseq Hosp Care Lvl 1 Diagnoses Fracture of humerus, proximal, right, closed S42.201A
[2021-01-13 08:40] LABS: Basophils # (auto) 0.02 K/uL (0-0.2); Basophils % (auto) 0.2 %; Eosinophils # (auto) 0.32 K/uL (0-0.5); Hemoglobin 11.6 g/dL (12.0-16.0); Immature Granulocytes # (auto) 0.05 K/uL (0.00-0.02); Immature Granulocytes % (auto) 0.5 %; Lymphocytes # (auto) 1.92 K/uL (1.2-3.4); Lymphocytes % (auto) 17.9 %; Mean Corpuscular Hemoglobin 30.1 pg (25-34); Mean Corpuscular Hgb Conc 33.1 g/dL (32-36); Mean Corpuscular Volume 90.7 fL (80-100); Mean Platelet Volume 10.3 fL (7.4-10.4); Monocytes # (auto) 1.12 K/uL (0.11-0.59); Monocytes % (auto) 10.4 %; Neutrophils # (auto) 7.31 K/uL (1.4-6.5); Platelet Count 231 K/uL (130-400); RDW Coefficient of Variation 13.8 % (11.5-14.5); RDW Standard Deviation 45.9 fL (36.4-46.3); Red Blood Count 3.86 M/uL (4.2-5.4); White Blood Count 10.74 K/uL (4.8-10.8)
--- NOTE | 2021-01-13 08:59 | Hospitalist Progress Note ---
Date of Service January 13, 2021 Assessment & Plan (1) Fracture of humerus, proximal, right, closed: Plan: Mechanical fall. Follows with Dr. Pickett. Previously declined Dexa, but most recent Vit D level low at 20 (placed on ergocalciferol 94387 weekly x 4 weeks then could do lower daily dosing) Xray with acute fracture CT with fracture deformity of the right humeral neck with anterior displacement of the distal portion of the humerus and impaction. Sling, ICE Pain control --> increased to 10mg PO as needed as she reports better control with IV. Too much evening 01/11 with tramadol+oxy+dilaudid and she was nauseous morning of 01/12 and was irritable/slighlty confused per her report by daughter in law yesterday afternoon Pain control Oxycodone 5-10mg prn, tramadol as she takes at home as needed, tylenol for mild pain. Discussed alternating medications and prevention of overuse/sedation. Declined Voltaren WBC now wnl without abx Ortho consulted -- conservative treatment. Sling x 6 weeks. F/u with office in 2 weeks for repeat imaging. May need injections in the future. Plans for OPPT once cleared by ortho. Has been following with [facility] for past month for ROM for chronic arthritis PT/OT -- rehab at d/c. [facility] unable to take. Plans for [facility], but awaiting insurance auth. CM following Continue to monitor (2) Hyponatremia: Plan: On diuretics -- torsemide 20mg Q2D Checking TSH, Urine Osm, Serum Osm --> TSH wnl, Urine Osm and serum osm low, likely secondary to diuretic use/tramadol use (on at home) BNP wnl Asymptomatic -- got dose torsemide on 01/12 and Na 129--> 126 today. Remains asymptomatic but will hold her torsemide and see how labs are tomorrow. Appears euvolemic Random cortisol in AM BMP in AM (3) Fall: Plan: As above - tripped on edging of driveway/gardening PT/OT consult (4) Contusion of rib on right side: Plan: Pain controlled deinies much pain with deep inspiration - Lidoderm patch if needed - Pain control as above, increased oral as above and discussed alternating as needed - ICS (5) HTN (hypertension): Plan: Chronic, BP 124/71 with pain control - Continue Carvedilol 6.25 mg in Am and 3.125 in Pm - Continue Torsemide Q2D - Continue Amlodipine 10mg daily (6) Hyperlipidemia: Plan: Continue ezetimibe --> changed to QPM however she notes this needs to be taken around lunch. Adjusted for today Continue usual colesevelam BID as well - Patient has intolerance to statin (7) Paroxysmal atrial tachycardia: Plan: Continue Carvedilol - ECG pending --> sinus tach with PACs, compared to 2010, PACs now present. HRs reported 90s-low 100s but was 88bpm during my encounter --> elevations could be due to nausea/pain as well Rates better today Continue current carvedilol as ordered (8) Diabetes mellitus: Plan: Not on agent as outpatient. Most recent A1c 6.9 --> repeat 7.0 DAHA diet AC/HS glucose- goal <180 notify if uncontrolled Would rec metformin at discharge if patient agreeable Has been refusing insulin during admission --> will need discussion on importance of getting adequate control for prevention of complications -->most recent PCP note November 2020 with noted past dietary control but admitted not very compliant with following diabetic diet. Checks glucose fasting and reading were between 108-117 with 90day average 130 Continue to monitor (9) Vitamin D deficiency: Plan: Low at 20 Previously declined DEXA per PCP note Placed on ergocalciferol and would continue at d/c and f/u with PCP for further discussions -- discussed with patient, agreeable. Continue at d/c (10) Nausea: Plan: zofran ineffective -- could be from volume overload vs pain medications on empty stomach phenergan x 1 -- reported to be effective and will order prn n/v Has not needed any further. likely from pain medications yesterday continue to monitor Plan: DVT Proph -- Heparin SQ while inpatient (has been refusing) Dispo: continued inpatient stay, awaiting rehab placement. CM following -- [facility] when insurance auth received. Likely to remain inpatient through weekend but possible d/c tomorrow if auth received. Admission and Anticipated Discharge Date Admission Date: January 11, 2021 Subjective Patient seen this afternoon. Was upset with not initially understanding why she did not get accepted to [facility] however had case management look into this call her last evening. She discussed with Olivia from case management this morning about the [facility] and waiting for insurance authorization and she is agreeable to this plan. She does not think she can handle herself at home without additional caregivers through the night and was provided with list of companies for private pay to look at while she is been in the hospital. Discussed the [facility] may not be able to take her until these Friday. Her pain has been controlled but she did have periods of time where she was waiting for pain control as it was too soon from the prior dose and then by the time she was due was an additional hour before she received the next dose. She wants to make note that she takes her acetamide 5 hours after her statin to prevent interactions between the 2 and would like these adjusted. She also notes that her 1 eyedrops she takes only directly before bed and while it is scheduled at 9:00 she would like this changed to 10:00 is that so she takes it at home and knows her body the best. She has been refusing any stool softeners and states that she knows her body and does not want them at this time despite being on opiates for pain control. She denies any abdominal pain nausea or vomiting. She has been passing lots of gas. She is currently eating fish vegetables and some fruit without any issues. She denies any fevers, chills, chest pain, shortness of breath, abdominal pain, nausea, vomiting at this time. Questions/concerns addressed. We will continue to monitor Review of Systems Review of Systems: All systems reviewed & are unremarkable except as noted in HPI & below Physical Exam Physical Exam: general: well developed, well nourished, sitting up in chair no acute distress, appears comfortable, sitting up in chair eating lunch ent: mmm, trachea midline no deviation resp; CTAB, diminished in the bases, no cough, accessory muscle use, no w/c/r cv: regular rate, rhythm, S1/S2, no m/r/g, trace edema b/l LE msk: R arm in sling, NVI intact, pulses palpable, acquisition cost estimator strength equal skin: warm, dry, bruising to anterior R maldonado and R shoulder Results & Data Results & Data ([facility]) Vital Signs (Past 12 Hours) Vital Signs Temp Pulse Resp BP Pulse Ox 01/13/21 07:16 36.7 C 93 H 20 142/80 H 94 01/12/21 23:15 37.0 C 67 22 138/80 96 Laboratory Results 01/13/21 01/13/21 01/13/21 Range/Units 12:02 08:29 08:13 WBC (4.8-10.8) K/uL RBC (4.2-5.4) M/uL Hgb (12.0-16.0) g/dL Hct (37-47) % MCV (80-100) fL MCH (25-34) pg MCHC (32-36) g/dL RDW Std Deviation (36.4-46.3) fL RDW Coeff of Fermin (11.5-14.5) % Plt Count (130-400) K/uL MPV (7.4-10.4) fL Immature Gran % (Auto) % Neut % (Auto) % Lymph % (Auto) % Curry % (Auto) % Eos % (Auto) % Baso % (Auto) % Neut # (Auto) (1.4-6.5) K/uL Lymph # (Auto) (1.2-3.4) K/uL Curry # (Auto) (0.11-0.59) K/uL Eos # (Auto) (0-0.5) K/uL Baso # (Auto) (0-0.2) K/uL Immature Gran # (Auto) (0.00-0.02) K/uL Sodium (136-145) mmol/L Potassium (3.5-5.1) mmol/L Chloride (98-107) mmol/L Carbon Dioxide (21-32) mmol/L Anion Gap (3-11) BUN (7-18) mg/dl Creatinine (0.6-1.2) mg/dl Est Cr Clr Drug Dosing ml/min Est GFR ( Amer) ml/min Est GFR (Non-Af Amer) ml/min BUN/Creatinine Ratio (10-20) Glucose (70-99) mg/dl POC Glucose 189 H 182 H (70-99) mg/dl Estimat Average Glucose 154 mg/dl Hemoglobin A1c 7.0 H (4.5-5.6) % Calcium (8.5-10.1) mg/dl Magnesium (1.8-2.4) mg/dl Troponin I (0-0.045) ng/ml NT-Pro-B Natriuret Pep (0-1800) pg/ml 01/13/21 01/13/21 01/12/21 Range/Units 08:13 08:13 21:18 WBC 10.74 (4.8-10.8) K/uL RBC 3.86 L (4.2-5.4) M/uL Hgb 11.6 L (12.0-16.0) g/dL Hct 35.0 L (37-47) % MCV 90.7 (80-100) fL MCH 30.1 (25-34) pg MCHC 33.1 (32-36) g/dL RDW Std Deviation 45.9 (36.4-46.3) fL RDW Coeff of Fermin 13.8 (11.5-14.5) % Plt Count 231 (130-400) K/uL MPV 10.3 (7.4-10.4) fL Immature Gran % (Auto) 0.5 % Neut % (Auto) 68.0 % Lymph % (Auto) 17.9 % Curry % (Auto) 10.4 % Eos % (Auto) 3.0 % Baso % (Auto) 0.2 % Neut # (Auto) 7.31 H (1.4-6.5) K/uL Lymph # (Auto) 1.92 (1.2-3.4) K/uL Curry # (Auto) 1.12 H (0.11-0.59) K/uL Eos # (Auto) 0.32 (0-0.5) K/uL Baso # (Auto) 0.02 (0-0.2) K/uL Immature Gran # (Auto) 0.05 H (0.00-0.02) K/uL Sodium 126 L (136-145) mmol/L Potassium 3.9 (3.5-5.1) mmol/L Chloride 93 L (98-107) mmol/L Carbon Dioxide 25 (21-32) mmol/L Anion Gap 8.0 (3-11) BUN 14 (7-18) mg/dl Creatinine 0.58 L (0.6-1.2) mg/dl Est Cr Clr Drug Dosing 82.6 ml/min Est GFR ( Amer) 98.1 ml/min Est GFR (Non-Af Amer) 84.6 ml/min BUN/Creatinine Ratio 23.5 H (10-20) Glucose 166 H (70-99) mg/dl POC Glucose 183 H (70-99) mg/dl Estimat Average Glucose mg/dl Hemoglobin A1c (4.5-5.6) % Calcium 8.8 (8.5-10.1) mg/dl Magnesium 1.9 (1.8-2.4) mg/dl Troponin I (0-0.045) ng/ml NT-Pro-B Natriuret Pep (0-1800) pg/ml 01/12/21 Range/Units 10:12 WBC (4.8-10.8) K/uL RBC (4.2-5.4) M/uL Hgb (12.0-16.0) g/dL Hct (37-47) % MCV (80-100) fL MCH (25-34) pg MCHC (32-36) g/dL RDW Std Deviation (36.4-46.3) fL RDW Coeff of Fermin (11.5-14.5) % Plt Count (130-400) K/uL MPV (7.4-10.4) fL Immature Gran % (Auto) % Neut % (Auto) % Lymph % (Auto) % Curry % (Auto) % Eos % (Auto) % Baso % (Auto) % Neut # (Auto) (1.4-6.5) K/uL Lymph # (Auto) (1.2-3.4) K/uL Curry # (Auto) (0.11-0.59) K/uL Eos # (Auto) (0-0.5) K/uL Baso # (Auto) (0-0.2) K/uL Immature Gran # (Auto) (0.00-0.02) K/uL Sodium (136-145) mmol/L Potassium (3.5-5.1) mmol/L Chloride (98-107) mmol/L Carbon Dioxide (21-32) mmol/L Anion Gap (3-11) BUN (7-18) mg/dl Creatinine (0.6-1.2) mg/dl Est Cr Clr Drug Dosing ml/min Est GFR ( Amer) ml/min Est GFR (Non-Af Amer) ml/min BUN/Creatinine Ratio (10-20) Glucose (70-99) mg/dl POC Glucose (70-99) mg/dl Estimat Average Glucose mg/dl Hemoglobin A1c (4.5-5.6) % Calcium (8.5-10.1) mg/dl Magnesium (1.8-2.4) mg/dl Troponin I < 0.015 (0-0.045) ng/ml NT-Pro-B Natriuret Pep 254 (0-1800) pg/ml PG Care Time/CCT Total # of Minutes Spent Total Time Spent with Patient: Total time spent is greater than 50% in coordination of care (as documented) at patient's floor/unit and/or counseling patient: Coding Level of Care Code 41062 Subseq Hosp Care Lvl 2 Diagnoses Fracture of humerus, proximal, right, closed S42.201A Hyponatremia E87.1 Fall W19.XXXA Contusion of rib on right side S20.211A HTN (hypertension) I10 Hypertension type: essential hypertension Hyperlipidemia E78.00; E78.0 Hyperlipidemia type: pure hypercholesterolemia Paroxysmal atrial tachycardia I47.1 Diabetes mellitus E11.9 Diabetes mellitus complication status: without complication Diabetes mellitus military logistics specialist insulin use: without mcfp use Diabetes mellitus type: type 2 Vitamin D deficiency E55.9 Nausea R11.0 (1) Diabetes mellitus Diabetes mellitus complication status: without complication Diabetes mellitus military logistics specialist insulin use: without military logistics specialist use Diabetes mellitus type: type 2 Qualified Code(s): E11.9 - Type 2 diabetes mellitus without complications (2) Hyperlipidemia Hyperlipidemia type: pure hypercholesterolemia Qualified Code(s): E78.00 - Pure hypercholesterolemia, unspecified; E78.0 - Pure hypercholesterolemia (3) HTN (hypertension) Hypertension type: essential hypertension Qualified Code(s): I10 - Essential (primary) hypertension
[2021-01-13 09:10] LABS: BUN Creatinine Ratio 23.5 (10-20); Calcium 8.8 mg/dl (8.5-10.1); Creatinine Clr Calc Pharmacy 82.6 ml/min; Est GFR (African American) 98.1 ml/min; Est GFR (Non-African American) 84.6 ml/min; Magnesium 1.9 mg/dl (1.8-2.4); Potassium 3.9 mmol/L (3.5-5.1)
[2021-01-13] MEDS: INSULIN ASPART 100 UNITS/ML 3 ML PEN SC SCH ×5 (09:10→20:44)
[2021-01-13] MEDS: ACETAMINOPHEN 325 MG TAB PO PRN (09:50)
[2021-01-13 10:31] LABS: Estimated Average Glucose 154 mg/dl
[2021-01-13] MEDS ORDERED: Nursing to Pharmacy Communication SCH (11:45)
[2021-01-13] MEDS: carvediloL 3.125 MG TAB PO SCH (17:50)
[2021-01-13] MEDS: EZETIMIBE 10 MG TABLET PO SCH (17:50)
[2021-01-13] MEDS: LATANOPROST 0.005% OP SOLN 2.5 ML BTL OP SCH (19:34)
[2021-01-13] MEDS: DOCUSATE SODIUM/SENNA 50/8.6MG TAB PO SCH (20:18)
[2021-01-14] MEDS: oxyCODONE HCL IR 5 MG TAB (IMMEDIATE RELEASE) PO PRN ×3 (01:09→20:11)
[2021-01-14 07:24] LABS: Basophils # (auto) 0.02 K/uL (0-0.2); Basophils % (auto) 0.2 %; Eosinophils % (auto) 4.3 %; Hematocrit (blood only) 35.3 % (37-47); Hemoglobin 11.6 g/dL (12.0-16.0); Immature Granulocytes # (auto) 0.05 K/uL (0.00-0.02); Immature Granulocytes % (auto) 0.5 %; Lymphocytes # (auto) 2.03 K/uL (1.2-3.4); Lymphocytes % (auto) 21.9 %; Mean Corpuscular Hgb Conc 32.9 g/dL (32-36); Mean Corpuscular Volume 91.2 fL (80-100); Mean Platelet Volume 10.3 fL (7.4-10.4); Monocytes # (auto) 0.99 K/uL (0.11-0.59); Monocytes % (auto) 10.7 %; Neutrophils # (auto) 5.76 K/uL (1.4-6.5); Neutrophils % (auto) 62.4 %; Platelet Count 257 K/uL (130-400); RDW Coefficient of Variation 13.9 % (11.5-14.5); RDW Standard Deviation 46.6 fL (36.4-46.3); Red Blood Count 3.87 M/uL (4.2-5.4); White Blood Count 9.25 K/uL (4.8-10.8)
[2021-01-14 08:01] LABS: Calcium 9.3 mg/dl (8.5-10.1); Creatinine Clr Calc Pharmacy 78.5 ml/min; Est GFR (African American) 96.5 ml/min; Est GFR (Non-African American) 83.2 ml/min; Potassium 4.4 mmol/L (3.5-5.1)
[2021-01-14] MEDS: INSULIN ASPART 100 UNITS/ML 3 ML PEN SC SCH ×4 (08:36→21:23)
[2021-01-14] MEDS: POLYETHYLENE (MIRALAX) 17 GM PACK PO SCH ×2 (08:36→21:22)
[2021-01-14] MEDS: carvediloL 6.25 MG TAB PO SCH (08:37)
[2021-01-14] MEDS: HEPARIN SOD 5,000 UNIT/0.5 ML VIAL SQ SCH ×2 (08:38→21:22)
[2021-01-14] MEDS: amLODIPine BESYLATE 5 MG TAB PO SCH (08:38)
[2021-01-14] MEDS: LOSARTAN POTASSIUM 50 MG TAB PO SCH (08:38)
[2021-01-14] MEDS: BRIMONIDINE TARTRATE 0.2% 5ML OP SCH ×2 (08:39→20:09)
[2021-01-14] MEDS: COLESEVELAM HCL PO SCH ×2 (08:40→11:38)
[2021-01-14] MEDS: traMADol HCL 50 MG TABLET PO PRN ×3 (08:46→21:32)
--- NOTE | 2021-01-14 08:54 | Hospitalist Progress Note ---
Date of Service January 14, 2021 Assessment & Plan (1) Fracture of humerus, proximal, right, closed: Plan: Mechanical fall. Follows with Dr. Pickett. Previously declined Dexa, but most recent Vit D level low at 20 (placed on ergocalciferol 34137 weekly x 4 weeks then could do lower daily dosing) Xray with acute fracture CT with fracture deformity of the right humeral neck with anterior displacement of the distal portion of the humerus and impaction. Sling, ICE -- none present and asked TRANSFER WORKER to give ice pack for comfort Pain control --> increased to 10mg PO as needed with usual tramadol as needed Discussed alternating medications and prevention of overuse/sedation. Declined Voltaren WBC now wnl without abx [facility] at d/c when insurance auth received Ortho consulted -- conservative treatment. Sling x 6 weeks. F/u with office in 2 weeks for repeat imaging. May need injections in the future. Plans for OPPT once cleared by ortho. Has been following with [facility] for past month for ROM for chronic arthritis PT/OT -- rehab at d/c. [facility] unable to take. Plans for [facility], but awaiting insurance auth. CM following Continue to monitor (2) Hyponatremia: Plan: On diuretics -- torsemide 20mg Q2D Checking TSH, Urine Osm, Serum Osm --> TSH wnl, Urine Osm and serum osm low, likely secondary to diuretic use/tramadol use (on at home) Na 125 today, remains asymptomatic. Likely from tramadol use Increased edema also contributing --> given 40meq torsemide today, hold AM dose and monitor BMP Random cortisol pending Fluid restriction for today -- may remove tomorrow pending BMP in AM (3) Fall: Plan: As above - tripped on edging of driveway/gardening PT/OT consult [facility] when insurance auth received (4) Contusion of rib on right side: Plan: Pain controlled deinies much pain with deep inspiration - Lidoderm patch if needed - Pain control as above, increased oral as above and discussed alternating as needed - ICS (5) HTN (hypertension): Plan: Chronic, BP 124/71 with pain control - Continue Carvedilol 6.25 mg in Am and 3.125 in Pm (PM dose changed to 5:30 per patient request) - Continue Torsemide Q2D (got dose 40mg today) - Continue Amlodipine 10mg daily (6) Hyperlipidemia: Plan: Continue ezetimibe --> changed to QPM however she notes this needs to be taken around lunch. Adjusted for today Continue usual colesevelam BID as well - Patient has intolerance to statin (7) Paroxysmal atrial tachycardia: Plan: Continue Carvedilol - ECG pending --> sinus tach with PACs, compared to 2010, PACs now present. HRs reported 90s-low 100s but was 88bpm during my encounter --> elevations could be due to pain as well Continue current carvedilol as ordered (8) Diabetes mellitus: Plan: Not on agent as outpatient. Most recent A1c 6.9 --> repeat 7.0 DAHA diet AC/HS glucose- goal <180 notify if uncontrolled Would rec metformin at discharge if patient agreeable Has been refusing insulin during admission --> will need discussion on importance of getting adequate control for prevention of complications -->most recent PCP note November 2020 with noted past dietary control but admitted not very compliant with following diabetic diet. Checks glucose fasting and reading were between 108-117 with 90day average 130 She wants to do diet control and f/u with Dr. Pickett outpatient. No medications unless A1c >8 for age but she will need to be cautious about steroid injections in future as planned for b/l shoulders Continue to monitor (9) Vitamin D deficiency: Plan: Low at 20 Previously declined DEXA per PCP note Placed on ergocalciferol and would continue at d/c and f/u with PCP for further discussions -- discussed with patient, agreeable. Continue at d/c (10) Nausea: Plan: zofran ineffective -- could be from volume overload vs pain medications on empty stomach phenergan x 1 -- reported to be effective and will order prn n/v Has not needed any further. likely from pain medications day prior continue to monitor Plan: DVT Proph -- Heparin SQ while inpatient (has been refusing) Dispo: continued inpatient stay, awaiting rehab placement. CM following -- [facility] when insurance auth received. Likely to remain inpatient through weekend but possible d/c tomorrow if auth received. Admission and Anticipated Discharge Date Admission Date: January 11, 2021 Subjective Patient evaluated morning. Just got washed up. Requesting pain pill currently and ice but overall controlled with current meds, just difficulty with when she is able to get them. Discussed staggering pain medications. Had a BM, normal for patient. She is wondering about fluid restriction as she was on indapamide in the past and caused her to loose too much salt and potassium. She notes she drinks a lot of water -- discussed this could be some dilutional effect. Plans for [facility] for rehab, awaiting auth. No fever, cchill, chest pain, shortness of breath, abdominal pain, nausea or vomiting. Review of Systems Review of Systems: All systems reviewed & are unremarkable except as noted in HPI & below Physical Exam Physical Exam: general: well developed, well nourished, sitting up in chair no acute distress, appears comfortable, sitting up in chair eating lunch ent: mmm, trachea midline no deviation resp; CTAB, diminished in the bases, no cough, accessory muscle use, no w/c/r cv: regular rate, rhythm, S1/S2, no m/r/g, 1+ edema b/l LE msk: R arm in sling, NVI intact, pulses palpable, hospital wellness coordinator strength equal skin: warm, dry, bruising to anterior R maldonado and R shoulder Results & Data Results & Data ([facility]) Vital Signs (Past 12 Hours) Vital Signs Temp Pulse Resp BP Pulse Ox 01/14/21 07:21 36.5 C 99 H 18 155/78 H 94 01/13/21 23:10 36.7 C 88 18 125/75 94 Laboratory Results 01/14/21 01/14/21 01/14/21 Range/Units 08:29 07:01 07:01 WBC 9.25 (4.8-10.8) K/uL RBC 3.87 L (4.2-5.4) M/uL Hgb 11.6 L (12.0-16.0) g/dL Hct 35.3 L (37-47) % MCV 91.2 (80-100) fL MCH 30.0 (25-34) pg MCHC 32.9 (32-36) g/dL RDW Std Deviation 46.6 H (36.4-46.3) fL RDW Coeff of Fermin 13.9 (11.5-14.5) % Plt Count 257 (130-400) K/uL MPV 10.3 (7.4-10.4) fL Immature Gran % (Auto) 0.5 % Neut % (Auto) 62.4 % Lymph % (Auto) 21.9 % [place] % (Auto) 10.7 % Eos % (Auto) 4.3 % Baso % (Auto) 0.2 % Neut # (Auto) 5.76 (1.4-6.5) K/uL Lymph # (Auto) 2.03 (1.2-3.4) K/uL [place] # (Auto) 0.99 H (0.11-0.59) K/uL Eos # (Auto) 0.40 (0-0.5) K/uL Baso # (Auto) 0.02 (0-0.2) K/uL Immature Gran # (Auto) 0.05 H (0.00-0.02) K/uL Sodium 125 L (136-145) mmol/L Potassium 4.4 (3.5-5.1) mmol/L Chloride 93 L (98-107) mmol/L Carbon Dioxide 28 (21-32) mmol/L Anion Gap 4.0 (3-11) BUN 17 (7-18) mg/dl Creatinine 0.61 (0.6-1.2) mg/dl Est Cr Clr Drug Dosing 78.5 ml/min Est GFR ( Amer) 96.5 ml/min Est GFR (Non-Af Amer) 83.2 ml/min BUN/Creatinine Ratio 28.0 H (10-20) Glucose 157 H (70-99) mg/dl POC Glucose 177 H (70-99) mg/dl Estimat Average Glucose mg/dl Hemoglobin A1c (4.5-5.6) % Calcium 9.3 (8.5-10.1) mg/dl Magnesium (1.8-2.4) mg/dl Cortisol AM Sample Ur Random Sodium mmol/L 01/14/21 01/13/21 01/13/21 Range/Units 07:01 20:08 19:46 WBC (4.8-10.8) K/uL RBC (4.2-5.4) M/uL Hgb (12.0-16.0) g/dL Hct (37-47) % MCV (80-100) fL MCH (25-34) pg MCHC (32-36) g/dL RDW Std Deviation (36.4-46.3) fL RDW Coeff of Fermin (11.5-14.5) % Plt Count (130-400) K/uL MPV (7.4-10.4) fL Immature Gran % (Auto) % Neut % (Auto) % Lymph % (Auto) % [place] % (Auto) % Eos % (Auto) % Baso % (Auto) % Neut # (Auto) (1.4-6.5) K/uL Lymph # (Auto) (1.2-3.4) K/uL [place] # (Auto) (0.11-0.59) K/uL Eos # (Auto) (0-0.5) K/uL Baso # (Auto) (0-0.2) K/uL Immature Gran # (Auto) (0.00-0.02) K/uL Sodium (136-145) mmol/L Potassium (3.5-5.1) mmol/L Chloride (98-107) mmol/L Carbon Dioxide (21-32) mmol/L Anion Gap (3-11) BUN (7-18) mg/dl Creatinine (0.6-1.2) mg/dl Est Cr Clr Drug Dosing ml/min Est GFR ( Amer) ml/min Est GFR (Non-Af Amer) ml/min BUN/Creatinine Ratio (10-20) Glucose (70-99) mg/dl POC Glucose 219 H (70-99) mg/dl Estimat Average Glucose mg/dl Hemoglobin A1c (4.5-5.6) % Calcium (8.5-10.1) mg/dl Magnesium (1.8-2.4) mg/dl Cortisol AM Sample Pending Ur Random Sodium 7 mmol/L 01/13/21 01/13/21 01/13/21 Range/Units 17:40 12:02 08:13 WBC (4.8-10.8) K/uL RBC (4.2-5.4) M/uL Hgb (12.0-16.0) g/dL Hct (37-47) % MCV (80-100) fL MCH (25-34) pg MCHC (32-36) g/dL RDW Std Deviation (36.4-46.3) fL RDW Coeff of Fermin (11.5-14.5) % Plt Count (130-400) K/uL MPV (7.4-10.4) fL Immature Gran % (Auto) % Neut % (Auto) % Lymph % (Auto) % [place] % (Auto) % Eos % (Auto) % Baso % (Auto) % Neut # (Auto) (1.4-6.5) K/uL Lymph # (Auto) (1.2-3.4) K/uL [place] # (Auto) (0.11-0.59) K/uL Eos # (Auto) (0-0.5) K/uL Baso # (Auto) (0-0.2) K/uL Immature Gran # (Auto) (0.00-0.02) K/uL Sodium (136-145) mmol/L Potassium (3.5-5.1) mmol/L Chloride (98-107) mmol/L Carbon Dioxide (21-32) mmol/L Anion Gap (3-11) BUN (7-18) mg/dl Creatinine (0.6-1.2) mg/dl Est Cr Clr Drug Dosing ml/min Est GFR ( Amer) ml/min Est GFR (Non-Af Amer) ml/min BUN/Creatinine Ratio (10-20) Glucose (70-99) mg/dl POC Glucose 159 H 189 H (70-99) mg/dl Estimat Average Glucose 154 mg/dl Hemoglobin A1c 7.0 H (4.5-5.6) % Calcium (8.5-10.1) mg/dl Magnesium (1.8-2.4) mg/dl Cortisol AM Sample Ur Random Sodium mmol/L 01/13/21 Range/Units 08:13 WBC (4.8-10.8) K/uL RBC (4.2-5.4) M/uL Hgb (12.0-16.0) g/dL Hct (37-47) % MCV (80-100) fL MCH (25-34) pg MCHC (32-36) g/dL RDW Std Deviation (36.4-46.3) fL RDW Coeff of Fermin (11.5-14.5) % Plt Count (130-400) K/uL MPV (7.4-10.4) fL Immature Gran % (Auto) % Neut % (Auto) % Lymph % (Auto) % [place] % (Auto) % Eos % (Auto) % Baso % (Auto) % Neut # (Auto) (1.4-6.5) K/uL Lymph # (Auto) (1.2-3.4) K/uL [place] # (Auto) (0.11-0.59) K/uL Eos # (Auto) (0-0.5) K/uL Baso # (Auto) (0-0.2) K/uL Immature Gran # (Auto) (0.00-0.02) K/uL Sodium 126 L (136-145) mmol/L Potassium 3.9 (3.5-5.1) mmol/L Chloride 93 L (98-107) mmol/L Carbon Dioxide 25 (21-32) mmol/L Anion Gap 8.0 (3-11) BUN 14 (7-18) mg/dl Creatinine 0.58 L (0.6-1.2) mg/dl Est Cr Clr Drug Dosing 82.6 ml/min Est GFR ( Amer) 98.1 ml/min Est GFR (Non-Af Amer) 84.6 ml/min BUN/Creatinine Ratio 23.5 H (10-20) Glucose 166 H (70-99) mg/dl POC Glucose (70-99) mg/dl Estimat Average Glucose mg/dl Hemoglobin A1c (4.5-5.6) % Calcium 8.8 (8.5-10.1) mg/dl Magnesium 1.9 (1.8-2.4) mg/dl Cortisol AM Sample Ur Random Sodium mmol/L PG Care Time/CCT Total # of Minutes Spent Total Time Spent with Patient: Total time spent is greater than 50% in coordination of care (as documented) at patient's floor/unit and/or counseling patient: Coding Level of Care Code 68061 Subseq Hosp Care Lvl 2 Diagnoses Fracture of humerus, proximal, right, closed S42.201A Hyponatremia E87.1 Fall W19.XXXA Contusion of rib on right side S20.211A HTN (hypertension) I10 Hypertension type: essential hypertension Hyperlipidemia E78.00; E78.0 Hyperlipidemia type: pure hypercholesterolemia Paroxysmal atrial tachycardia I47.1 Diabetes mellitus E11.9 Diabetes mellitus type: type 2 Diabetes mellitus mcfp insulin use: without termite control representative use Diabetes mellitus complication status: without complication Vitamin D deficiency E55.9 Nausea R11.0 (1) HTN (hypertension) Hypertension type: essential hypertension Qualified Code(s): I10 - Essential (primary) hypertension (2) Hyperlipidemia Hyperlipidemia type: pure hypercholesterolemia Qualified Code(s): E78.00 - Pure hypercholesterolemia, unspecified; E78.0 - Pure hypercholesterolemia (3) Diabetes mellitus Diabetes mellitus type: type 2 Diabetes mellitus termite control representative insulin use: without termite control representative use Diabetes mellitus complication status: without c omplication Qualified Code(s): E11.9 - Type 2 diabetes mellitus without complications
[2021-01-14] MEDS ORDERED: SODIUM CHLORIDE 0.9% 500 ML IV SCH (09:00)
[2021-01-14] MEDS ORDERED: TORSEMIDE 10 MG TAB PO ONE (09:05)
[2021-01-14 09:11] LABS: Albumin Level 2.7 gm/dl (3.4-5.0); Bilirubin Direct 0.1 mg/dl (0-0.2); Bilirubin,Total 0.8 mg/dl (0.2-1); Total Protein 6.3 gm/dl (6.4-8.2)
[2021-01-14 15:02] LABS: BUN Creatinine Ratio 23.6 (10-20); Creatinine Clr Calc Pharmacy 71.5 ml/min; Est GFR (African American) 93.6 ml/min; Est GFR (Non-African American) 80.7 ml/min; Potassium 4.1 mmol/L (3.5-5.1)
[2021-01-14] MEDS: EZETIMIBE 10 MG TABLET PO SCH (17:51)
[2021-01-14] MEDS: carvediloL 3.125 MG TAB PO SCH (17:52)
[2021-01-14] MEDS: LATANOPROST 0.005% OP SOLN 2.5 ML BTL OP SCH (21:21)
[2021-01-14] MEDS: DOCUSATE SODIUM/SENNA 50/8.6MG TAB PO SCH (21:22)
[2021-01-15] MEDS: COLESEVELAM HCL PO SCH ×2 (07:46→12:33)
[2021-01-15] MEDS: oxyCODONE HCL IR 5 MG TAB (IMMEDIATE RELEASE) PO PRN (07:46)
[2021-01-15] MEDS: POLYETHYLENE (MIRALAX) 17 GM PACK PO SCH (07:47)
[2021-01-15] MEDS: LOSARTAN POTASSIUM 50 MG TAB PO SCH (07:48)
[2021-01-15] MEDS: amLODIPine BESYLATE 5 MG TAB PO SCH (07:48)
[2021-01-15] MEDS: carvediloL 6.25 MG TAB PO SCH (07:48)
[2021-01-15] MEDS: HEPARIN SOD 5,000 UNIT/0.5 ML VIAL SQ SCH (07:49)
[2021-01-15] MEDS ORDERED: oxyCODONE HCL IR 5 MG TAB (IMMEDIATE RELEASE) PO PRN (08:21)
[2021-01-15] MEDS ORDERED: ERGOCALCIFEROL 50,000 UNITS 1250 MCG CAP PO SCH (09:00)
[2021-01-15] MEDS ORDERED: TORSEMIDE 10 MG TAB PO ONE (09:00)
[2021-01-15] MEDS ORDERED: BRIMONIDINE TARTRATE 0.2% 5ML OP SCH (09:00)
[2021-01-15] MEDS: INSULIN ASPART 100 UNITS/ML 3 ML PEN SC SCH ×2 (09:58→12:56)
[2021-01-15] MEDS: ACETAMINOPHEN 325 MG TAB PO PRN (10:52)
[2021-01-15 11:54] LABS: BUN Creatinine Ratio 22.3 (10-20); Calcium 9.2 mg/dl (8.5-10.1); Creatinine Clr Calc Pharmacy 85.5 ml/min; Est GFR (African American) 99.2 ml/min; Est GFR (Non-African American) 85.6 ml/min
--- NOTE | 2021-01-15 13:59 | Discharge Summary ---
Date of Service January 15, 2021 Admission HPI Per Admitting Provider 85 YOF with past medical history of: OA of shoulder, HTN, DMII, HLD, atrial tachycardia, anxiety. Patient was brought into the [facility] today via EMS secondary to falling at home while watering her plants. The patient reports that her foot got caught on her edging and she fell over onto her right arm. She feels that she tried to brace her fall. She denies hitting her head or her hips. She was unable to get up on her own, but a neighbor came over and helped her sit up until EMS came. In the [facility] the patient had X-rays performed and CT scan of the right shoulder. CT scan revealed- Fracture of the right humeral neck with anterior displacement of humeral shaft and impaction with effusion. Patient was given pain medication and splint ordered. Patient lives at home by herself and would like to go to rehab center. Will observe patient for pain control, continue ICE and splinting, PT/OT consults placed. Orthopaedics consult for evaluation of further treatment warranted. Principal Diagnosis Right humeral neck fracture Discharge Exam Constitutional WD/WN, vitals as above Respiratory normal respiratory effort Cardiovascular Rate/Rhythm: regular rate and regular rhythm Extremities: + pedal edema (1+ b/l pitting edema pre-tibial) Musculoskeletal Right arm sling, NV intact distally Discharge Data Allergies Allergy/AdvReac Type Severity Reaction Status Date / Time benazepril Allergy Severe "ANAPHYLACTIC Verified 12/07/20 09:12 SHOCK" NSAIDS (Non-Steroidal Allergy Severe ANAPHYLACTIC Verified 12/07/20 09:12 Anti-Inflamma SHOCK FROM IBUPROFEN procaine Allergy Severe NOVOCAINE Verified 12/07/20 09:12 - "ANAPHYLACTIC SHOCK" tetracycline Allergy Mild N/V Verified 12/07/20 09:12 Bchhvls-Voh-Jyk Reductase Allergy ELEVATED Verified 12/07/20 09:12 Inhibitor HEPATIC ENZYMES Consultations 01/10/21 15:32 ED Decision to Admit Stat 01/10/21 20:47 Consult Orthopedic Surgery Routine Ordered Studies 01/10/21 14:02 CT shoulder RT wo con Stat IMPRESSION: 1. Fracture deformity of the right humeral neck with anterior displacement of the distal portion of the humerus and impaction. 2. Osteopenia. 3. Mild shoulder effusion. 4. The rest of findings as above. Hospital Course (1) Fracture of humerus, proximal, right, closed: (2) Hyponatremia: (3) Fall: (4) Contusion of rib on right side: (5) HTN (hypertension): (6) Hyperlipidemia: (7) Paroxysmal atrial tachycardia: (8) Diabetes mellitus: (9) Vitamin D deficiency: (10) Nausea: Vanessa Reyes is an 85 year old female admitted to [facility] from January 10 - January 15, 2021 due to a fall while watering her plants. She was diagnosed with a right humeral neck fracture. On discussion with orthopedic surgery she elected to treat this conservatively in an arm sling. She was discharged to the [facility] for further rehabilitation. During her inpatient stay she was noted to be hyponatremic. Suspect mostly likely due to her tramadol use. This was switched to oxycodone for pain relief. Sodium level 128 mmol/L on discharge. Recommend repeat level in approximately 2 weeks. Consider further workup if not corrected. For her lower extremity edema recommend compression stockings. Total Time Total Time Spent Total Time Spent (In Minutes): 40 Discharge Plan Discharge Items Patient Disposition: Transfer [facility] Fac Reason For Visit: RIGHT HUMERAL NECK FRACTURE Discharge Diagnosis: Right humeral neck fracture Activity: Per Instructions section Non-emergency contact: Surgeon Call non-emergency contact if: you have any medication questions and your sympto ms worsen Follow-up/Referrals: Matthew Pickett MD [Primary Care Provider] - Diet: Carb Consistent or DM2 and Heart Healthy Aureliano Attending Provider Instructions: You were admitted to [facility] from January 10 - January 15, 2021 due to a fall while watering your plants. This caused a right humeral neck fracture. On discussion with orthopedic surgery you elected to treat this conservatively in an arm sling (see below). You are requiring further rehabilitation on discharge and have been accepted at the [facility] to facilitate this. During your stay your sodium was noted to be decreased. Most likely this is secondary to tramadol use as the timeline correlates with this although urine sodium levels were actually low. Recommend discontinuing your usual tramadol and switching to oxycodone for pain relief. Please repeat basic metabolic panel in 2 weeks to continue to monitor this. Sodium level 128 mmol/L on discharge. Consider further workup if not corrected. For your lower extremity edema recommend compression stockings. Kind regards, Dr John Bedoya [facility] Shared Services Consultant Provider Instructions: Orthopedic discharge instructions You will be in a right arm sling for a total of 6 weeks. You may use your hand and wrist while in the sling. Follow-up with orthopedics in 2 weeks for repeat x-rays to make sure there is been no further displacement. Office number for Dr. De Jesus is [phone] Pending Studies at Discharge: No Stand-Alone Forms: My [facility] Skilled Items Patient informed of condition?: Yes DNR: No Discharge Level of Care: Acute rehab Communicable Disease: No Discharge Prognosis: Stable Lines: None Urinary Catheter: No Medications and DC Order Prescriptions: New amlodipine 10 mg tablet 10 mg PO DAILY Qty: 90 RF: 0 losartan 50 mg Tablet 50 mg PO DAILY Qty: 90 RF: 0 oxycodone 5 mg tablet 5 - 10 mg PO Q4H PRN (Reason: pain) Qty: 30 RF: 0 Continued buspirone 5 mg tablet 5 mg PO TID PRN (Reason: anxiety) Qty: 270 RF: 3 epinephrine [EpiPen] 0.3 mg/0.3 mL auto-injector 0.3 mg IM .COMPLEX PRN (Reason: anaphylaxis) Qty: 2 RF: 1 carvedilol 3.125 mg tablet See Rx Instructions .ROUTE .COMPLEX Qty: 270 RF: 3 colesevelam 625 mg tablet 1,875 mg PO BID Qty: 540 RF: 3 torsemide 20 mg tablet 20 mg PO Q OTHER DAY Qty: 45 RF: 1 ezetimibe 10 mg tablet 10 mg PO DAILY Qty: 90 RF: 3 omega-3 acid ethyl esters 1 gram capsule 1 cap PO TID RF: 0 triamcinolone acetonide 80 mg/mL suspension 40 mg IM .every3 months RF: 0 latanoprost 0.005 % drops 1 drp ophthalmic (eye) QPM RF: 0 Alphagan P 0.1 % drops 1 drp ophthalmic (eye) BID RF: 0 Discontinued tramadol 50 mg tablet 50 mg PO Q8H PRN (Reason: pain) Qty: 30 RF: 0 losartan 50 mg tablet 50 mg PO DAILY Qty: 90 RF: 3 amlodipine 10 mg tablet 10 mg PO DAILY Qty: 90 RF: 3 Discharge Orders: Discharge Order (Routine); Ordered 01/15/21 Ordered By: John Patiño Admission Data Admit Date/Time: 01/11/21 15:27 Attending Provider: John Patiño Admit Provider: Atif Peres Primary Care Provider: Matthew Pickett Other Providers: Darrell De Jesus Other Interventions: Discharge Summary Assessment (RN) Last Done: 01/15/21 14:31 Coding Level of Care Code D/C DAY MANAGEMENT >30 MINS Diagnoses Fracture of humerus, proximal, right, closed S42.201A Hyponatremia E87.1 Fall W19.XXXA Contusion of rib on right side S20.211A HTN (hypertension) I10 Hypertension type: essential hypertension Hyperlipidemia E78.00; E78.0 Hyperlipidemia type: pure hypercholesterolemia Paroxysmal atrial tachycardia I47.1 Diabetes mellitus E11.9 Diabetes mellitus complication status: without complication 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
--- NOTE | 2021-01-25 11:33 | Coding Query ---
To promote full compliance with coding requirements relating to patient care, provider participation is requested in all cases of field operator uncertainty. Please assist us with the question(s) below: Coding Question(s): The diagnosis below was documented in the 01/12 Progress Note with documentation including, "*Discussed torsemide for some volume overload -- takes Q2D and with some edema", and, "suspect some degree of CHF (possibly combination diastolic/systolic)", then subsequently fell off all further documentation. Please indicate if it is still a possible diagnosis or ruled out. Physician's Response(s): "suspect some degree of CHF (possibly combination diastolic/systolic)" ( ) Diagnosed and POA. Please Specify Further below: ( ) likely Acute CHF ( ) likely Acute on Chronic CHF ( ) likely Chronic CHF ( ) likely Other CHF. Please Specify ( ) Diagnosed and not POAPlease Specify Further below: ( ) likely Acute CHF ( ) likely Acute on Chronic CHF ( ) likely Chronic CHF ( ) likely Other CHF. Please Specify ( X ) Ruled out ( ) Other (please specify) MTDD
== END 2021-01-15 15:58 | DRG 563 ==
LOC: 3N 11:32 → ED 11:32 → SUATTDRO 16:21 → 3N 20:30 → SUATTDRO 01-11 15:27
DX: Y99.8 Other external cause status; E87.1 Hypo-osmolality and hyponatremia; S20.211A Contusion of right front wall of thorax, initial encounter; Z91.11 Patient's noncompliance with dietary regimen; E87.70 Fluid overload, unspecified; Z82.49 Family history of ischemic heart disease and other diseases of the circulatory system; I47.1 Supraventricular tachycardia; Z88.1 Allergy status to other antibiotic agents; Z79.899 Other long term (current) drug therapy; Y92.014 Private driveway to single-family (private) house as the place of occurrence of the external cause; T40.425A Adverse effect of tramadol, initial encounter; I10 Essential (primary) hypertension; R60.0 Localized edema; Z88.8 Allergy status to other drugs, medicaments and biological substances; E78.5 Hyperlipidemia, unspecified; W01.0XXA Fall on same level from slipping, tripping and stumbling without subsequent striking against object, initial encounter; Z88.6 Allergy status to analgesic agent; S42.292A Other displaced fracture of upper end of left humerus, initial encounter for closed fracture; E11.9 Type 2 diabetes mellitus without complications; Z51.81 Encounter for therapeutic drug level monitoring; E55.9 Vitamin D deficiency, unspecified; R11.0 Nausea; Y93.H2 Activity, gardening and landscaping; Z88.4 Allergy status to anesthetic agent

== ENCOUNTER 2022-04-23 12:34 | Inpatient (IN) ==
[2022-04-23] MEDS ORDERED: METOPROLOL TARTRATE 1 MG/ML VIAL IV STA ×2 (13:02→13:47)
[2022-04-23] MEDS ORDERED: METOPROLOL TARTRATE 1 MG/ML VIAL IV ONE (13:04)
--- NOTE | 2022-04-23 13:23 | XRay Report ---
SINGLE VIEW CHEST CLINICAL HISTORY: Atypical chest pain. FINDINGS: An AP, portable, upright chest radiograph is compared to study dated 02/28/2022. The heart i s enlarged noting atherosclerotic calcification of the thoracic aorta. The pulmonary vasculature is n oncongested. Chronic interstitial thickening is similar to previous. Scarring/atelectasis is seen at the lung bases. The lungs and pleural spaces are otherwise clear. No pneumothorax is seen. The skelet al structures are osteopenic. There is chronic posttraumatic deformity of the right humerus and the l eft clavicle. Advanced arthritic change is seen in the shoulders. Degenerative change and scoliosis i s noted in the spine. IMPRESSION: Cardiomegaly with no acute cardiopulmonary abnormality. ACT 112: Negative or not required by law. Electronically signed by: Saul Henry M.D. 04/23/2022 1:22 PM
[2022-04-23 13:24] LABS: Basophils # (auto) 0.02 K/uL (0-0.2); Basophils % (auto) 0.2 %; Eosinophils # (auto) 0.08 K/uL (0-0.50); Eosinophils % (auto) 0.9 %; Hematocrit (blood only) 41.6 % (34.1-44.9); Hemoglobin 13.8 g/dl (12.0-16.0); Immature Granulocytes # (auto) 0.07 K/uL (0.00-0.02); Immature Granulocytes % (auto) 0.8 %; Lymphocytes # (auto) 1.51 K/uL (1.2-3.4); Lymphocytes % (auto) 17.9 %; Mean Corpuscular Hemoglobin 31.1 pg (25.0-34.0); Mean Corpuscular Hgb Conc 33.2 g/dL (32.0-36.0); Mean Corpuscular Volume 93.7 fL (80.0-100.0); Mean Platelet Volume 10.4 fL (9.4-12.3); Monocytes # (auto) 0.87 K/uL (0.24-0.82); Monocytes % (auto) 10.3 %; Neutrophils # (auto) 5.89 K/uL (1.4-6.5); Neutrophils % (auto) 69.9 %; Platelet Count 195 K/uL (130-400); RDW Coefficient of Variation 13.7 % (11.5-14.5); RDW Standard Deviation 46.3 fL (36.4-46.3); Red Blood Count 4.44 M/uL (3.93-5.22); White Blood Count 8.44 K/ul (4.8-10.8)
[2022-04-23 14:00] LABS: Albumin Globulin Ratio 1.5 (0.9-2); Bilirubin,Total 1.1 mg/dl (0.2-1.0); Calcium 9.5 mg/dl (8.5-10.1); Creatinine Clr Calc Pharmacy 63.9 ml/min; Est GFR (African American) 91.6 ml/min; Globulin 2.7 gm/dl (2.5-4.0); Magnesium 1.7 mg/dl (1.7-2.4); Phosphorus 2.5 mg/dl (2.5-4.9); Potassium 3.6 mmol/L (3.5-5.1); Total Protein 6.7 gm/dl (6.0-8.3)
[2022-04-23] MEDS ORDERED: FUROSEMIDE 40 MG/4 ML VIAL IV ONE (14:06)
[2022-04-23] MEDS ORDERED: dilTIAZem HCl 5 MG/ML 5 ML VIAL IV STA (14:09)
[2022-04-23] MEDS ORDERED: STAT IV Infusion **Titration per Protocol STA (14:09)
[2022-04-23] MEDS: MAGNESIUM SULFATE / D5W 1 GM/100 ML BAG IV SCH ×2 (14:23→15:49)
--- NOTE | 2022-04-23 14:34 | Electrocardiogram Report ---
Test Reason : Blood Pressure : / mmHG Vent. Rate : 156 BPM Atrial Rate : 277 BPM P-R Int : 000 ms QRS Dur : 084 ms QT Int : 274 ms P-R-T Axes : 000 007 256 degrees QTc Int : 441 ms Poor data quality, interpretation may be adversely affected Atrial fibrillation with rapid ventricular response with premature ventricular or aberrantly conducte d complexes Abnormal ECG When compared with ECG of 19-FEB-2021 07:22, Significant changes have occurred Confirmed by Louis Whitney ([id number]) on 04/23/2022 2:33:39 PM Referred By: Confirmed By:Louis Whitney
--- NOTE | 2022-04-23 14:35 | History & Physical Report ---
Date of Service April 23, 2022 Assessment & Plan (1) Atrial fibrillation with rapid ventricular response: Plan: New diagnosis. [id number] 5. No secondary etiology noted at this time. TSH wnl. Had extensive discussion with patient regarding anticoagulation. She reports she has a Master's in Health and wants to research this further before agreeing to start. - Start anticoagulation if patient willing - Rate control presently with diltiazem gtt - Echo ordered - Monitor rates - Will consult cardiology as I suspect she will need some work regarding her rate control as she is running >150 bpm despite 3 rounds of metoprolol IV and diltiazem bolus. May also benefit from early rhythm control given newer evidence. (2) Volume overload: Plan: Some signs of volume overload with LE edema; however, CXR is without overt edema. BNP mildly elevated at 345. At this time, would not consider this CHF. - Lasix 40 mg IV x 1 given in ER - Monitor (3) Transaminitis: Plan: LFTs noted to be 47/121/1.1/104 on admission with priors normal. Possibly hepatic congestion? - RUQ u/s - Monitor (4) HTN (hypertension): Plan: BPs relatively high in the clinic. - Hold home amlodipine - Continue home losartan - Hold beta-vesta until we see how pressure do while on the diltiazem gtt (5) Diabetes mellitus: Plan: A1c was 7.1% in 01/2022. Not on meds; attempting control with diet/exercise. - Sliding scale insulin while inpatient (6) Hyperlipidemia: Plan: - Continue home colesevelam & ezetimibe DVT ppx: Lovenox 40 mg SQ daily (until decision on anticoagulation is made) FULL CODE - Per patient in ER with ryhehkvl-zx-lbc present. History of Present Illness Primary Care Provider: Matthew Pickett MD 86yo F w/ hx of HTN who presents with afib with RVR. She has not felt well for a few weeks with increased shortness of breath and LE edema. Has been worse in the last week. Notes some increased GARCIA as well, though no orthopnea and no PND. In the office today, her HR was noted to be ~150 - 160 bpm with EKG showed afib with RVR. Sent to the ER for admission and management. Allergies Allergy/AdvReac Type Severity Reaction Status Date / Time benazepril Allergy Severe "ANAPHYLACTIC Verified 04/23/22 14:45 SHOCK" NSAIDS (Non-Steroidal Allergy Severe ANAPHYLACTIC Verified 04/23/22 14:45 Anti-Inflamma SHOCK FROM IBUPROFEN procaine Allergy Severe NOVOCAINE Verified 04/23/22 14:45 - "ANAPHYLACTIC SHOCK" tetracycline Allergy Mild N/V Verified 04/23/22 14:45 Lzsrtrr-JIX-SyV Reductase Allergy ELEVATED Verified 04/23/22 14:45 Inhibitor HEPATIC [Tlwmrwe-Dxj-Awi Reductase ENZYMES Inhibitor] Home Medications Medication Instructions Recorded Confirmed Type omega-3 acid ethyl esters 1 gram 1 cap PO TID 03/09/19 04/23/22 History capsule latanoprost 0.005 % eye drops 1 drp ophthalmic (eye) QPM 05/05/20 04/23/22 History epinephrine 0.3 mg/0.3 mL 0.3 mg (0.3 mL) IM .COMPLEX PRN 07/06/20 04/23/22 Rx injection, auto-injector (EpiPen) anaphylaxis #2 ea amlodipine 10 mg tablet 10 mg PO DAILY #90 tabs 05/31/21 04/23/22 Rx buspirone 5 mg tablet 5 mg PO TID PRN anxiety #270 tabs 07/26/21 04/23/22 Rx colesevelam 625 mg tablet 1,875 mg PO BID #540 tabs 07/26/21 04/23/22 Rx torsemide 20 mg tablet See Rx Instructions .Route 10/18/21 04/23/22 Rx .COMPLEX #45 tabs omeprazole 40 mg capsule,delayed 40 mg PO DAILY #90 caps 11/15/21 04/23/22 Rx release brimonidine 0.1 % eye drops 1 drp ophthalmic (eye) Q8H 01/22/22 04/23/22 History cholecalciferol (vitamin D3) 1,250 1,250 mcg PO DAILY #12 caps 01/22/22 04/23/22 Rx mcg (50,000 unit) capsule timolol 0.5 % eye drops 1 drp ophthalmic (eye) BID 01/22/22 04/23/22 History oxycodone 5 mg tablet 5 mg PO Q6H PRN pain #15 tabs 02/28/22 04/23/22 Rx losartan 50 mg tablet 75 mg PO DAILY #90 tabs 03/04/22 04/23/22 Rx ondansetron HCl 4 mg tablet 4 mg PO Q8H PRN nausea and 03/04/22 04/23/22 Rx vomiting #15 tabs ezetimibe 10 mg tablet 10 mg PO DAILY #90 tabs 03/18/22 04/23/22 Rx carvedilol 6.25 mg tablet 6.25 mg PO BID #180 tabs 04/03/22 04/23/22 Rx tramadol 50 mg tablet 50 mg PO Q8H PRN pain #30 tabs 04/03/22 04/23/22 Rx 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 Paroxysmal atrial tachycardia Paroxysmal atrial tachycardia Personal history of malignant melanoma of skin Renal lesion Skin cancer Spinal stenosis of lumbar region Statin intolerance Surgical History H/O arthroscopy of right knee H/O: hysterectomy Hx of colonoscopy Family History Father Congestive heart failure (CHF) Hypertension Myocardial infarction Mother Emphysema of lung Hypertension Brother Prostate cancer Hypertension Son Colorectal cancer age 49 Other Heart disease Denies family history of Ovarian cancer Diabetes Breast cancer Lung cancer Stroke Social History Smoking Status: Former smoker Tobacco Type: Cigarettes Age Started Using Tobacco: 27; Age Quit Using Tobacco: 45; packs per day: 0.75; Second Hand Exposure: No; Hx Alcohol Use: No Hx Substance Use: No Preferred Language: Bahamian Communication Ability: Effective Visual Impairment: Limited Hearing Ability: Normal Gypsum Roofer Required: No Beliefs That Will Affect Care: None marital status: / Current Living Situation: Alone current occupational status: retired How many Children do You have: 2 Feels Safe at Home: Yes Childhood Exposure to Second-Hand Smoke: Yes caffeine: Yes during the past year weight has: remained stable Dental Care, Regularly: Yes Physical Activity Frequency: 3-4 Times per Week Physical Activity Frequency Comment: physical therapy Seatbelt Use: always Sunscreen Use: Yes (not in the sun) Do you think of yourself as: straight/heterosexual Assistive Devices: Glasses Review of Systems Review of Systems: All systems reviewed & are unremarkable except as noted in HPI & below Physical Exam Constitutional: WD/WN, vitals as above Eyes: EOM intact bilaterally; no conjunctival abnormality ENMT: external ear and nose normal, oropharynx normal Neck: trachea midline, no thyromegaly normal visual inspection Respiratory: normal respiratory effort, lungs clear to auscultation no respiratory distress Cardiovascular: Rate/Rhythm: + tachycardic and + irregularly irregular Vessels: no JVD Extremities: + edema Gastrointestinal (Abdomen): Inspection/Auscultation: abdomen normal to inspection; abdomen not distended Musculoskeletal: no cyanosis or clubbing, extremities motor strength 5/5 Skin: no rashes, warm and dry Neurologic: moves all extremities and awake Psychiatric: Orientation: alert, oriented to person and cooperative Results & Data Results & Data ([facility]) Vital Signs (Past 12 Hours) Vital Signs Temp Pulse Resp BP Pulse Ox O2 Del Method 04/23/22 14:01 150 H 25 H 118/73 94 04/23/22 13:46 153 H 20 123/87 95 04/23/22 13:53 153 H 123/87 04/23/22 13:30 146 H 27 H 94/76 L 95 04/23/22 13:22 138 H 28 H 104/72 96 04/23/22 13:10 135 H 25 H 95 04/23/22 13:06 151 H 137/90 04/23/22 12:43 36.8 C 180 H 20 137/90 97 Room Air Code Status & VTE Plan VTE Prophylaxis Plan VTE Prophylaxis will be ordered: Yes PG Care Time/CCT Total # of Minutes Spent Total Time Spent with Patient: Total time spent is greater than 50% in coordination of care (as documented) at patient's floor/unit and/or counseling patient: Coding Level of Care Code 12963 Initial Inpt Care Lvl 3 Diagnoses Atrial fibrillation with rapid ventricular response I48.91 Volume overload E87.70 Transaminitis R74.01 HTN (hypertension) I10 Hypertension type: essential hypertension Diabetes mellitus E11.9 Diabetes mellitus complication status: without complication 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: without group home use Diabetes mellitus type: type 2 Hyperlipidemia E78.00; E78.0 Hyperlipidemia type: pure hypercholesterolemia (1) Diabetes mellitus Diabetes mellitus complication status: without complication Diabetes mellitus group home insulin use: without group home use Diabetes mellitus type: type 2 Qualified Code(s): E11.9 - Type 2 diabetes mellitus without complications (2) Hyperlipidemia Hyperlipidemia type: pure hypercholesterolemia Qualified Code(s): E78.00 - Pure hypercholesterolemia, unspecified; E78.0 - Pure hypercholesterolemia (3) HTN (hypertension) Hypertension type: essential hypertension Qualified Code(s): I10 - Essential (primary) hypertension
[2022-04-23] MEDS: dilTIAZem HCL 125 MG in DEXTROSE 5% 100 ML IV SCH (14:46)
[2022-04-23] MEDS ORDERED: DEXTROSE 50% 50 ML SYRINGE IV PRN (15:48)
[2022-04-23] MEDS ORDERED: GLUCOSE 10 TAB/TUBE PO PRN (15:48)
[2022-04-23] MEDS ORDERED: GLUCOSE 40% GEL 15 GM TUBE PO PRN (15:48)
[2022-04-23] MEDS ORDERED: CARBOHYDRATES FOR HYPOGLYCEMIA PO PRN (15:48)
[2022-04-23] MEDS ORDERED: ONDANSETRON INJ 2 MG/ML 2 ML VIAL IV PRN (15:48)
[2022-04-23] MEDS ORDERED: GLUCAGON FOR INJ 1 MG VIAL SQ PRN (15:48)
[2022-04-23] MEDS: INSULIN ASPART PER UNIT SC SCH ×3 (16:55→22:49)
[2022-04-23] MEDS: BRIMONIDINE TARTRATE-P 0.15% 5 ML BTL OP SCH (17:51)
--- NOTE | 2022-04-23 20:20 | Emergency Department Note ---
Impression & Plan New onset atrial fibrillation, Atrial fibrillation with rapid ventricular response, Hypervolemia ED Provider Note NAME: KONG MCCARTHY AGE: 86 SEX: F ARRIVES VIA: Ambulance INFORMANT: Patient ED PROVIDER(S): Bernardo Arriola MD CHIEF COMPLAINT: New afib, referred. PLAN: Disposition: Admit MEDICAL DECISION MAKING: The patient is a pleasant 86-year-old woman with a past medical history of paroxysmal atrial tachycardia, chronic lower extremity edema on torsemide, spinal stenosis, hypertension who presents to the emergency department referred by her PCPs office for evaluation of new onset atrial fibrillation seen on EKG today during her appointment for evaluation of several weeks of worsening leg swelling. He denies any fevers, chills, cough, congestion, chest pain. She reports mild shortness of breath. Despite her heart rate in the 150-180s in atrial fibrillation she denies feeling any irregularity or racing heart. Thus, unclear onset. She reports feeling lightheaded at times. On arrival the patient is in no acute distress, afebrile with heart rate in the 150-180s in atrial fibrillation signs otherwise stable. She does appear hyper volemic with 2+ bilateral lower extremity edema. Lungs are relatively clear. EKG demonstrates atrial fibrillation with RVR without overt acute ischemia. Chest x-ray negative for acute cardiopulmonary process. WBC, H/H and platelets within normal limits. Chemistry without metabolic acidosis. Magnesium 1.7 with repletion provided in electives otherwise unremarkable. Total bili 1.1, nonspecific and alk phos within normal limits. AST and ALT are 47 and 121, respectively, also nonspecific. High-sensitivity troponin 8.0, within normal limits. BNP 350 without prior values for comparison though in the setting of the patient's ongoing atrial fibrillation with RVR. TSH within normal limits. COVID-19 RNA, BIRD test was negative. Patient was treated initially with 5 mg IV Lopressor x3 without significant improvement in her rate. Thus, diltiazem bolus and drip was ordered. Additionally, IV Lasix ordered. Given the patient's persistent atrial fibrillation with RVR that is new requiring repeat doses of IV medications will proceed with admission. The patient agrees with this plan. Case was discussed with [place], [facility] [place], who will evaluate the patient for admission. Triage Nursing notes reviewed and agree them. Prior medical records reviewed Vital Signs: reviewed and remarkable for tachycardia with atrial fibrillation RVR Differential diagnosis: Premature contractions, electrolyte abnormality, cardiac dysrhythmia, thyroid dysfunction, pulmonary embolism, infection, gastrointestinal, as well as other pathologies. e ER treatment provided: See below. Diagnostics interpreted by me: ECG: Atrial fibrillation with RVR, 156 bpm, PVCs. ST and T wave abnormality, no overt ST elevation, QTC 441, QRS 84 Cardiac Monitoring: An order for continuous cardiac monitoring was placed and demonstrated Atrial fibrillation with RVR, 156 bpm, PVCs. Laboratory studies: See below Imaging studies: See below Consultation(s): Case was discussed with Dr. Briseno, [facility] [place], who will evaluate the patient for admission. HPI: The patient is a pleasant 86-year-old woman with a past medical history of paroxysmal atrial tachycardia, chronic lower extremity edema on torsemide, spinal stenosis, hypertension who presents to the emergency department referred by her PCPs office for evaluation of new onset atrial fibrillation seen on EKG today during her appointment for evaluation of several weeks of worsening leg swelling. He denies any fevers, chills, cough, congestion, chest pain. She reports mild shortness of breath. Despite her heart rate in the 150-180s in atrial fibrillation she denies feeling any irregularity or racing heart. Thus, unclear onset. She reports feeling lightheaded at times. ROS: See above HPI for pertinent positives & negatives. A total of 10 systems reviewed and were otherwise negative. VITALS:See Below PHYSICAL EXAMINATION: GENERAL: Awake, alert, fatigued-appearing, in no distress, BMI 39.2 HENT: Normocephalic, atraumatic. Oropharynx unremarkable. EYES: Normal conjunctiva. Sclera non-icteric. NECK: Supple. No nuchal rigidity. FROM. No JVD. RESPIRATORY: Clear to auscultation. CARDIAC: Tachycardic rate, irregular rhythm. Extremities warm and well perfused. Pulses equal. ABDOMEN: Soft, non-distended. No tenderness to palpation. No rebound or guarding. No masses. RECTAL: Deferred. MUSCULOSKELETAL: Chest examination reveals no tenderness. The back is symmetrical on inspection without obvious abnormality. There is no CVA tenderness to palpation. No joint edema. LOWER EXTREMITIES: Calves are equal size bilaterally and non-tender. 2+ BLE edema. No discoloration. NEURO: Normal sensorium. No sensory or motor deficits noted. SKIN: No rash or jaundice noted. ED COURSE: Critical Care: I have personally spent greater than 65 minutes of critical care time in the direct management of this patient. This includes bedside care, interpretation of diagnostic studies, and testing, discussion with consultants, patient, and family members, and other required patient management activities. This 65 minutes is in excess of all separately billable procedures. Bernardo Arriola MD 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 Paroxysmal atrial tachycardia Paroxysmal atrial tachycardia Personal history of malignant melanoma of skin Renal lesion Skin cancer Spinal stenosis of lumbar region Statin intolerance Surgical History H/O arthroscopy of right knee H/O: hysterectomy Hx of colonoscopy Family History Father Congestive heart failure (CHF) Hypertension Myocardial infarction Mother Emphysema of lung Hypertension Brother Prostate cancer Hypertension Son Colorectal cancer age 49 Other Heart disease Denies family history of Ovarian cancer Diabetes Breast cancer Lung cancer Stroke Social History Smoking Status: Never smoker Tobacco Type: Cigarettes Age Started Using Tobacco: 27; Age Quit Using Tobacco: 45; packs per day: 0.75; Second Hand Exposure: No; Hx Alcohol Use: No Hx Substance Use: No Preferred Language: Indonesian Communication Ability: Effective Visual Impairment: Limited Hearing Ability: Normal Structural Biologist Required: No Beliefs That Will Affect Care: None marital status: / Current Living Situation: Alone current occupational status: retired How many Children do You have: 2 Feels Safe at Home: Yes Childhood Exposure to Second-Hand Smoke: Yes caffeine: Yes during the past year weight has: remained stable Dental Care, Regularly: Yes Physical Activity Frequency: 3-4 Times per Week Physical Activity Frequency Comment: physical therapy Seatbelt Use: always Sunscreen Use: Yes (not in the sun) Do you think of yourself as: straight/heterosexual Assistive Devices: Cane, Denture - Lower, Glasses and Walker Allergies Allergies Allergy/AdvReac Type Severity Reaction Status Date / Time benazepril Allergy Severe "ANAPHYLACTIC Verified 04/23/22 14:45 SHOCK" NSAIDS (Non-Steroidal Allergy Severe ANAPHYLACTIC Verified 04/23/22 14:45 Anti-Inflamma SHOCK FROM IBUPROFEN procaine Allergy Severe NOVOCAINE Verified 04/23/22 14:45 - "ANAPHYLACTIC SHOCK" tetracycline Allergy Mild N/V Verified 04/23/22 14:45 Lxvspge-GJZ-EdB Reductase Allergy ELEVATED Verified 04/23/22 14:45 Inhibitor HEPATIC [Grbnpck-Una-Pok Reductase ENZYMES Inhibitor] Home Meds Home Medications Medication Instructions Recorded Confirmed omega-3 acid ethyl esters 1 gram 1 cap PO TID 03/09/19 04/23/22 capsule latanoprost 0.005 % eye drops 1 drp ophthalmic (eye) QPM 05/05/20 04/23/22 brimonidine 0.1 % eye drops 1 drp ophthalmic (eye) Q8H 01/22/22 04/23/22 timolol 0.5 % eye drops 1 drp ophthalmic (eye) BID 01/22/22 04/23/22 Previous Rx's Medication Instructions Recorded epinephrine 0.3 mg/0.3 mL 0.3 mg (0.3 mL) IM .COMPLEX PRN 07/06/20 injection, auto-injector (EpiPen) anaphylaxis #2 ea amlodipine 10 mg tablet 10 mg PO DAILY #90 tabs 05/31/21 buspirone 5 mg tablet 5 mg PO TID PRN anxiety #270 tabs 07/26/21 colesevelam 625 mg tablet 1,875 mg PO BID #540 tabs 07/26/21 torsemide 20 mg tablet See Rx Instructions .Route 10/18/21 .COMPLEX #45 tabs omeprazole 40 mg capsule,delayed 40 mg PO DAILY #90 caps 11/15/21 release cholecalciferol (vitamin D3) 1,250 1,250 mcg PO DAILY #12 caps 01/22/22 mcg (50,000 unit) capsule oxycodone 5 mg tablet 5 mg PO Q6H PRN pain #15 tabs 02/28/22 losartan 50 mg tablet 75 mg PO DAILY #90 tabs 03/04/22 ondansetron HCl 4 mg tablet 4 mg PO Q8H PRN nausea and 03/04/22 vomiting #15 tabs ezetimibe 10 mg tablet 10 mg PO DAILY #90 tabs 03/18/22 carvedilol 6.25 mg tablet 6.25 mg PO BID #180 tabs 04/03/22 tramadol 50 mg tablet 50 mg PO Q8H PRN pain #30 tabs 04/03/22 Results & Data (ED) Vital Signs Vital Signs - 24 hr 04/23/22 12:43 04/23/22 13:06 04/23/22 13:10 Temperature 36.8 C Temperature Source Oral Pulse Rate 180 H 151 H 135 H Pulse Rate from SpO2 Sensor 121 H Respiratory Rate 20 25 H Respiratory Effort / Characteristics Non-Labored Spontaneous Respiratory Depth Normal Respiratory Pattern Regular Blood Pressure 137/90 137/90 Blood Pressure Mean 105 Blood Pressure Position Sitting Pulse Oximetry 97 95 Oxygen Delivery Method Room Air Sepsis Recent Fever Within 48 Hours No Sepsis New/Unexplained Change in Mental Status No Sepsis Action Taken by Nursing No Action Required 04/23/22 13:22 04/23/22 13:30 04/23/22 13:53 Temperature Temperature Source Pulse Rate 138 H 146 H 153 H Pulse Rate from SpO2 Sensor Respiratory Rate 28 H 27 H Respiratory Effort / Characteristics Respiratory Depth Respiratory Pattern Blood Pressure 104/72 94/76 L 123/87 Blood Pressure Mean 82 82 Blood Pressure Position Pulse Oximetry 96 95 Oxygen Delivery Method Sepsis Recent Fever Within 48 Hours Sepsis New/Unexplained Change in Mental Status Sepsis Action Taken by Nursing 04/23/22 13:46 04/23/22 14:01 Temperature Temperature Source Pulse Rate 153 H 150 H Pulse Rate from SpO2 Sensor Respiratory Rate 20 25 H Respiratory Effort / Characteristics Respiratory Depth Respiratory Pattern Blood Pressure 123/87 118/73 Blood Pressure Mean 99 88 Blood Pressure Position Pulse Oximetry 95 94 Oxygen Delivery Method Sepsis Recent Fever Within 48 Hours Sepsis New/Unexplained Change in Mental Status Sepsis Action Taken by Nursing Laboratory Data Attestation: I reviewed the patient's lab results. Result diagrams: 04/23/22 12:48 04/23/22 12:48 Lab Results 04/23/22 04/23/22 04/23/22 Range/Units 12:48 12:48 12:48 WBC 8.44 (4.8-10.8) K/ul RBC 4.44 (3.93-5.22) M/uL Hgb 13.8 (12.0-16.0) g/dl Hct 41.6 (34.1-44.9) % MCV 93.7 (80.0-100.0) fL MCH 31.1 (25.0-34.0) pg MCHC 33.2 (32.0-36.0) g/dL RDW Std Deviation 46.3 (36.4-46.3) fL RDW Coeff of Fermin 13.7 (11.5-14.5) % Plt Count 195 (130-400) K/uL MPV 10.4 (9.4-12.3) fL Immature Gran % (Auto) 0.8 % Neut % (Auto) 69.9 % Lymph % (Auto) 17.9 % [place] % (Auto) 10.3 % Eos % (Auto) 0.9 % Baso % (Auto) 0.2 % Neut # (Auto) 5.89 (1.4-6.5) K/uL Lymph # (Auto) 1.51 (1.2-3.4) K/uL [place] # (Auto) 0.87 H (0.24-0.82) K/uL Eos # (Auto) 0.08 (0-0.50) K/uL Baso # (Auto) 0.02 (0-0.2) K/uL Immature Gran # (Auto) 0.07 H (0.00-0.02) K/uL Sodium 135 L (136-145) mmol/L Potassium 3.6 (3.5-5.1) mmol/L Chloride 97 L (98-107) mmol/L Carbon Dioxide 27 (21-32) mmol/L Anion Gap 11 (3-11) BUN 14 (6-23) mg/dl Creatinine 0.70 (0.6-1.2) mg/dl Est Cr Clr Drug Dosing 63.9 ml/min Est GFR ( Amer) 91.6 ml/min Est GFR (Non-Af Amer) 79.0 ml/min BUN/Creatinine Ratio 20.0 (10-20) Glucose 168 H (70-99(Fasting)) mg/dl Calcium 9.5 (8.5-10.1) mg/dl Phosphorus 2.5 (2.5-4.9) mg/dl Magnesium 1.7 (1.7-2.4) mg/dl Total Bilirubin 1.1 H (0.2-1.0) mg/dl AST 47 H (13-39) U/L ALT 121 H (7-52) U/L Alkaline Phosphatase 104 (34-104) U/L Troponin I High Sens 8.0 (0-14) pg/ml B-Natriuretic Peptide (0-100) pg/ml Total Protein 6.7 (6.0-8.3) gm/dl Albumin 4.0 (3.4-5.0) gm/dl Globulin 2.7 (2.5-4.0) gm/dl Albumin/Globulin Ratio 1.5 (0.9-2) Lipase 6 L (11-82) U/L TSH 1.735 (0.300-4.500) uIu/ml SARS-CoV-2, RNA, NAAT (NEGATIVE) 04/23/22 04/23/22 Range/Units 13:15 13:15 WBC (4.8-10.8) K/ul RBC (3.93-5.22) M/uL Hgb (12.0-16.0) g/dl Hct (34.1-44.9) % MCV (80.0-100.0) fL MCH (25.0-34.0) pg MCHC (32.0-36.0) g/dL RDW Std Deviation (36.4-46.3) fL RDW Coeff of Fermin (11.5-14.5) % Plt Count (130-400) K/uL MPV (9.4-12.3) fL Immature Gran % (Auto) % Neut % (Auto) % Lymph % (Auto) % [place] % (Auto) % Eos % (Auto) % Baso % (Auto) % Neut # (Auto) (1.4-6.5) K/uL Lymph # (Auto) (1.2-3.4) K/uL [place] # (Auto) (0.24-0.82) K/uL Eos # (Auto) (0-0.50) K/uL Baso # (Auto) (0-0.2) K/uL Immature Gran # (Auto) (0.00-0.02) K/uL Sodium (136-145) mmol/L Potassium (3.5-5.1) mmol/L Chloride (98-107) mmol/L Carbon Dioxide (21-32) mmol/L Anion Gap (3-11) BUN (6-23) mg/dl Creatinine (0.6-1.2) mg/dl Est Cr Clr Drug Dosing ml/min Est GFR ( Amer) ml/min Est GFR (Non-Af Amer) ml/min BUN/Creatinine Ratio (10-20) Glucose (70-99(Fasting)) mg/dl Calcium (8.5-10.1) mg/dl Phosphorus (2.5-4.9) mg/dl Magnesium (1.7-2.4) mg/dl Total Bilirubin (0.2-1.0) mg/dl AST (13-39) U/L ALT (7-52) U/L Alkaline Phosphatase (34-104) U/L Troponin I High Sens (0-14) pg/ml B-Natriuretic Peptide 356 H (0-100) pg/ml Total Protein (6.0-8.3) gm/dl Albumin (3.4-5.0) gm/dl Globulin (2.5-4.0) gm/dl Albumin/Globulin Ratio (0.9-2) Lipase (11-82) U/L TSH (0.300-4.500) uIu/ml SARS-CoV-2, RNA, NAAT NEGATIVE (NEGATIVE) Administered Medications Brimonidine Tartrate (Brimonidine Tartrate-P 0.15% 5 Ml Btl) 1 drops OP Q8H GISSELL Stop: 05/23/22 16:29 Last Admin: 04/23/22 17:51 Dose: 1 drops Documented By: AM Diltiazem HCl 125 mg/ Dextrose 125 mls @ 5 mls/hr IV .Q24H GISSELL; Protocol Stop: 05/23/22 14:14 Last Titration: 04/23/22 18:52 Dose: 5 mg/hr, 5 mls/hr Documented By: OWEN Co-signed By: Admin: 04/23/22 14:46 Dose: 5 mg/hr, 5 mls/hr Documented By: YVETTE Co-signed By: PIPO Insulin Aspart (Insulin Aspart Per Unit) 0 units SC ACHS GISSELL Stop: 05/23/22 16:29 Last Admin: 04/23/22 16:59 Dose: Not Given Documented By: MS Co-signed By: DAA Discontinued Medications Diltiazem HCl (Diltiazem Hcl 5 Mg/Ml 5 Ml Vial) 10 mg IV NOW STA Stop: 04/23/22 14:10 Last Admin: 04/23/22 14:23 Dose: 10 mg Documented By: YVETTE Co-signed By: ELISE Furosemide (Furosemide 40 Mg/4 Ml Vial) 40 mg IV ONE ONE Stop: 04/23/22 14:07 Last Admin: 04/23/22 14:23 Dose: 40 mg Documented By: YVETTE Magnesium Sulfate/Dextrose (Magnesium Sulfate / D5w) 1 gm in 100 mls @ 100 mls/hr IV Q1H GISSELL Stop: 04/23/22 16:06 Last Infusion: 04/23/22 16:49 Dose: 0 mls/hr Documented By: Admin: 04/23/22 15:49 Dose: 100 mls/hr Documented By: Infusion: 04/23/22 15:23 Dose: 100 mls/hr Documented By: Admin: 04/23/22 14:23 Dose: 100 mls/hr Documented By: YVETTE Metoprolol Tartrate (Metoprolol Tartrate 1 Mg/Ml Vial) 5 mg IV NOW STA Stop: 04/23/22 13:03 Last Admin: 04/23/22 13:06 Dose: 5 mg Documented By: PIPO Metoprolol Tartrate (Metoprolol Tartrate 1 Mg/Ml Vial) Confirm Administered Dose 5 mg IV .STK-MED ONE Stop: 04/23/22 13:05 Last Admin: 04/23/22 13:07 Dose: Not Given Documented By: PIPO Metoprolol Tartrate (Metoprolol Tartrate 1 Mg/Ml Vial) 5 mg IV NOW STA Stop: 04/23/22 13:48 Last Admin: 04/23/22 13:53 Dose: 5 mg Documented By: PIPO Miscellaneous (Stat Iv Infusion Titration Per Protocol) 1 each N/A NOW STA Stop: 04/23/22 14:10 Last Admin: 04/23/22 15:49 Dose: Not Given Documented By: Imaging Data Radiologist's Impression: Chest X-Ray 04/23/22 12:56 SINGLE VIEW CHEST CLINICAL HISTORY: Atypical chest pain. FINDINGS: An AP, portable, upright chest radiograph is compared to study dated 02/28/2022. The heart is enlarged noting atherosclerotic calcification of the thoracic aorta. The pulmonary vasculature is noncongested. Chronic interstitial thickening is similar to previous. Scarring/atelectasis is seen at the lung bases. The lungs and pleural spaces are otherwise clear. No pneumothorax is seen. The skeletal structures are osteopenic. There is chronic posttraumatic deformity of the right humerus and the left clavicle. Advanced arthritic change is seen in the shoulders. Degenerative change and scoliosis is noted in the spine. IMPRESSION: Cardiomegaly with no acute cardiopulmonary abnormality. ACT 112: Negative or not required by law. Electronically signed by: Saul Henry M.D. 04/23/2022 1:22 PM Discharge Plan Visit Data Chief Complaint: Cardiac Assessment Stated Complaint: WEAKNESS, SOB, NEW ONSET AFIB ED Provider: Bernardo Arriola Discharge Problem: New onset atrial fibrillation, Atrial fibrillation with rapid ventricular response, Hypervolemia Patient Disposition: Admitted As Inpatient Discharge Instructions Interventions: ED Discharge Assessment Last Done: 04/23/22 14:56 : Hypervolemia Qualifiers: Hypervolemia type: unspecified Qualified Code(s): E87.70 - Fluid overload, unspecified
[2022-04-23] MEDS: traMADol HCL 50 MG TABLET PO PRN (21:54)
[2022-04-23] MEDS: EZETIMIBE 10 MG TABLET PO SCH (21:55)
[2022-04-23] MEDS: LATANOPROST 0.005% OP SOLN 2.5 ML BTL OP SCH (21:56)
[2022-04-23] MEDS: TIMOLOL MALEATE 0.5% OP SOLN 5 ML BTL OP SCH (22:50)
[2022-04-24] MEDS: BRIMONIDINE TARTRATE-P 0.15% 5 ML BTL OP SCH ×4 (01:18→23:13)
[2022-04-24] MEDS ORDERED: ACETAMINOPHEN 325 MG TAB PO STA (01:39)
[2022-04-24 08:12] LABS: Hematocrit (blood only) 39.1 % (34.1-44.9); Hemoglobin 13.2 g/dl (12.0-16.0); Mean Corpuscular Hemoglobin 31.4 pg (25.0-34.0); Mean Corpuscular Hgb Conc 33.8 g/dL (32.0-36.0); Mean Corpuscular Volume 92.9 fL (80.0-100.0); Mean Platelet Volume 10.9 fL (9.4-12.3); Platelet Count 177 K/uL (130-400); RDW Standard Deviation 46.9 fL (36.4-46.3); Red Blood Count 4.21 M/uL (3.93-5.22); White Blood Count 7.84 K/ul (4.8-10.8)
[2022-04-24 08:32] LABS: Albumin Globulin Ratio 1.5 (0.9-2); Albumin Level 3.7 gm/dl (3.4-5.0); BUN Creatinine Ratio 28.8 (10-20); Calcium 9.1 mg/dl (8.5-10.1); Creatinine Clr Calc Pharmacy 61.3 ml/min; Est GFR (Non-African American) 75.1 ml/min; Globulin 2.4 gm/dl (2.5-4.0); Magnesium 2.3 mg/dl (1.7-2.4); Total Protein 6.1 gm/dl (6.0-8.3)
[2022-04-24] MEDS ORDERED: EZETIMIBE 10 MG TABLET PO SCH (09:00)
--- NOTE | 2022-04-24 09:17 | Cardiology Consultation ---
Date of Consultation April 24, 2022 Assessment & Plan (1) Atrial fibrillation with rapid ventricular response: Pt is a 86 yo female with PMH of HLD, HTN, DM, atrial tachycardia, and osteoarthritis presenting w/ new onset Afib w/ RVR. Afib w/ RVR - CHADSVASC= 5, recommend anticoagulation- pt still wanting to do research on this before starting anything - HR currently still running in the low 100s-120s - recommend addition of metoprolol tartrate 25 mg q6hr w/ additional IV metopr olol 5mg q2hr PRN for HR >120 - if BP becomes too low for continued current treatment, may consider digoxin therapy HTN - home medications include amlodipine 10 mg, carvedilol 6.25 BID, and losartan 75 mg daily - amlodipine and carvedilol held upon hospitalization- pt currently on IV diltiazem - BP stable HLD - pt intolerant to statins d/t increased liver enzymes - currently on ezetimibe 10 mg and colesevelam 1875 mg BID - continue home therapy for risk factor reduction (2) HTN (hypertension): (3) Hyperlipidemia: Supervising Physician Co-Signing Physician Notes Patient seen and examined. Agree with note, assessment, and plan as written by Dr. Wilde. Hopefully increasing metoprolol tartrate will better control her ventricular response. Recommend long-term anticoagulation with either Eliquis or Xarelto. History of Present Illness Reason for Consultation: Afib w/ RVR Requesting Physician: Stanley Briseno MD Attending Physician: Stanley Briseno MD History of Present Illness Pt is a 86 yo female with PMH of HLD, HTN, DM, atrial tachycardia, and osteoarthritis presenting w/ new onset Afib w/ RVR. Pt had a f/u appt with her PCP for leg swelling and SOB on 04/23/2022. At this visit, an EKG was performed that showed her to be in Afib w/ rate of 164 bpm. It is notable that her carvedilol was doubled and losartan increased from 1 to 1.5 tablets about a month ago. Pt states that her SOB has been on and off for several weeks but seemed to be worse over the last 1-2 weeks. She has been feeling SOB w/ minimal exertion including "getting worked up," talking, and doing some of her PT exercises. However, she does note that speaking with me this AM, she does not feel as SOB as she has been. Pt denies feeling that her heart is racing or being able to identify when the abnormal heart rhythm started. She explains that she is feeling "worn out." Pt denies hx of heart failure, CT, and DVT/PE. Pt states she had a hx of atrial tachycardia "many years ago" and wore a holter monitor at that time which did not reveal any add itional pathology. Pt has a 10 pack year hx of smoking but quit about 45 years ago. She denies alcohol consumption. Pt currently denying chest pain and states that her legs look better than previously. In the ER, pt was given 5 mg Lopressor x2 w/o improvement in her rate. She was then given a bolus of 10 mg diltiazem and started on a diltiazem drip which she has been maintained on at 5 mg/hr. She was also given 40 mg IV lasix. Her CXR was neg for effusion/edema. Her lab work was overall insignificant (neg troponin, BNP slightly elevated, normal TSH). Her original HR were running in the 150s which now seem to have come down to the 100s-120s. At home, pt is on losartan 75 mg daily, amlodipine 10 mg daily, and carvedilol 6.25 mg BID for HTN. She also takes torsemide 20 mg every other day for leg swelling. She is on ezetimibe 10 mg daily and colesevelam 1875 mg BID for HLD. Pt is controlling DM w/ diet. Allergies Allergy/AdvReac Type Severity Reaction Status Date / Time benazepril Allergy Severe "ANAPHYLACTIC Verified 04/23/22 14:45 SHOCK" NSAIDS (Non-Steroidal Allergy Severe ANAPHYLACTIC Verified 04/23/22 14:45 Anti-Inflamma SHOCK FROM IBUPROFEN procaine Allergy Severe NOVOCAINE Verified 04/23/22 14:45 - "ANAPHYLACTIC SHOCK" tetracycline Allergy Mild N/V Verified 04/23/22 14:45 Qkftiln-BHP-OdO Reductase Allergy ELEVATED Verified 04/23/22 14:45 Inhibitor HEPATIC [Catxrna-Cjj-Jtb Reductase ENZYMES Inhibitor] Home Medications Medication Instructions Recorded Confirmed Type omega-3 acid ethyl esters 1 gram 1 cap PO TID 03/09/19 04/23/22 History capsule latanoprost 0.005 % eye drops 1 drp ophthalmic (eye) QPM 05/05/20 04/23/22 History epinephrine 0.3 mg/0.3 mL 0.3 mg (0.3 mL) IM .COMPLEX PRN 07/06/20 04/23/22 Rx injection, auto-injector (EpiPen) anaphylaxis #2 ea amlodipine 10 mg tablet 10 mg PO DAILY #90 tabs 05/31/21 04/23/22 Rx buspirone 5 mg tablet 5 mg PO TID PRN anxiety #270 tabs 07/26/21 04/23/22 Rx colesevelam 625 mg tablet 1,875 mg PO BID #540 tabs 07/26/21 04/23/22 Rx torsemide 20 mg tablet See Rx Instructions .Route 10/18/21 04/23/22 Rx .COMPLEX #45 tabs omeprazole 40 mg capsule,delayed 40 mg PO DAILY #90 caps 11/15/21 04/23/22 Rx release brimonidine 0.1 % eye drops 1 drp ophthalmic (eye) Q8H 01/22/22 04/23/22 History cholecalciferol (vitamin D3) 1,250 1,250 mcg PO DAILY #12 caps 01/22/22 04/23/22 Rx mcg (50,000 unit) capsule timolol 0.5 % eye drops 1 drp ophthalmic (eye) BID 01/22/22 04/23/22 History oxycodone 5 mg tablet 5 mg PO Q6H PRN pain #15 tabs 02/28/22 04/23/22 Rx losartan 50 mg tablet 75 mg PO DAILY #90 tabs 03/04/22 04/23/22 Rx ondansetron HCl 4 mg tablet 4 mg PO Q8H PRN nausea and 03/04/22 04/23/22 Rx vomiting #15 tabs ezetimibe 10 mg tablet 10 mg PO DAILY #90 tabs 03/18/22 04/23/22 Rx carvedilol 6.25 mg tablet 6.25 mg PO BID #180 tabs 04/03/22 04/23/22 Rx tramadol 50 mg tablet 50 mg PO Q8H PRN pain #30 tabs 04/03/22 04/23/22 Rx Patient History Medical History Angioedema (12/03/10) Arthritis of multiple sites Claudication of lower extremity Constipation Diabetes mellitus HTN (hypertension) Hyperlipidemia Lower extremity edema Lumbar pain Meralgia paresthetica of 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 Paroxysmal atrial tachycardia Paroxysmal atrial tachycardia Personal history of malignant melanoma of skin Renal lesion Skin cancer Spinal stenosis of lumbar region Statin intolerance Surgical History H/O arthroscopy of right knee H/O: hysterectomy Hx of colonoscopy Family History Father Congestive heart failure (CHF) Hypertension Myocardial infarction Mother Emphysema of lung Hypertension Brother Prostate cancer Hypertension Son Colorectal cancer age 49 Other Heart disease Denies family history of Ovarian cancer Diabetes Breast cancer Lung cancer Stroke Social History Smoking Status: Never smoker Tobacco Type: Cigarettes Age Started Using Tobacco: 27; Age Quit Using Tobacco: 45; packs per day: 0.75; Second Hand Exposure: No; Hx Alcohol Use: No Hx Substance Use: No Preferred Language: Lithuanian Communication Ability: Effective Visual Impairment: Limited Hearing Ability: Normal Blankbook Forwarder Required: No Beliefs That Will Affect Care: None marital status: / Current Living Situation: Alone current occupational status: retired How many Children do You have: 2 Feels Safe at Home: Yes Childhood Exposure to Second-Hand Smoke: Yes caffeine: Yes during the past year weight has: remained stable Dental Care, Regularly: Yes Physical Activity Frequency: 3-4 Times per Week Physical Activity Frequency Comment: physical therapy Seatbelt Use: always Sunscreen Use: Yes (not in the sun) Do you think of yourself as: straight/heterosexual Assistive Devices: Cane and Walker Physical Exam Constitutional: NAD. Appears comfortable. Eyes: no conjunctival abnormality Respiratory: CTA bilaterally. No rhonchi, wheezing, or crackles. Non labored breathing. Cardiovascular: Irregular rhythm. Tachycardic. No murmur noted. 2+ bilateral, pitting edema present from feet to mid calf. Psychiatric: Alert. Mood and affect congruent. Results & Data ([facility]) Vital Signs (Past 12 Hours) Vital Signs Temp Pulse Resp BP Pulse Ox O2 Del Method 04/24/22 07:55 37.0 C 125 H 18 114/75 92 Room Air 04/24/22 03:07 36.5 C 120 H 18 129/76 93 Room Air 04/23/22 22:46 36.7 C 110 H 18 91/61 L 95 Room Air PG Care Time/CCT Total # of Minutes Spent Total Time Spent with Patient: Total time spent is greater than 50% in coordination of care (as documented) at patient's floor/unit and/or counseling patient: Coding Level of Care Code 94024 Initial Inpt Care Lvl 3 Diagnoses Atrial fibrillation with rapid ventricular response I48.91 HTN (hypertension) I10 Hypertension type: essential hypertension Hyperlipidemia E78.00; E78.0 Hyperlipidemia type: pure hypercholesterolemia Resident Activity Tracking Resident Involvement: Resident Care Provided Care Provided: Adult Hospital Medicine (1) Hyperlipidemia Hyperlipidemia type: pure hypercholesterolemia Qualified Code(s): E78.00 - Pure hypercholesterolemia, unspecified; E78.0 - Pure hypercholesterolemia (2) HTN (hypertension) Hypertension type: essential hypertension Qualified Code(s): I10 - Essential (primary) hypertension
[2022-04-24] MEDS: INSULIN ASPART PER UNIT SC SCH ×4 (09:32→21:01)
[2022-04-24] MEDS: traMADol HCL 50 MG TABLET PO PRN ×2 (09:54→17:49)
[2022-04-24] MEDS: LOSARTAN POTASSIUM 25 MG TAB PO SCH (09:55)
[2022-04-24] MEDS: TIMOLOL MALEATE 0.5% OP SOLN 5 ML BTL OP SCH ×2 (09:55→21:02)
[2022-04-24] MEDS: ENOXAPARIN INJ 40 MG/0.4 ML SYR SQ SCH (09:55)
[2022-04-24] MEDS: EZETIMIBE 10 MG TABLET PO SCH (09:55)
--- NOTE | 2022-04-24 10:23 | Ultrasound Report ---
ABDOMINAL ULTRASOUND, RIGHT UPPER QUADRANT HISTORY: Generalized abdominal pain. Gallbladder and liver. COMPARISON: Abdomen and pelvis CT 02/28/2022. FINDINGS: Pancreas: Not well visualized due to the overlying bowel gas. Liver: The liver is echogenic consistent with fatty change. 19 cm in length. Gallbladder: No gallbladder wall thickening. No gallstones. Shadowing echogenic focus near the neck o f the gallbladder corresponds to the periportal calcification seen on the prior CT. CBD: 4 mm. Right kidney: No hydronephrosis. Multiple cysts with the largest in the upper pole measuring 3.9 cm. There is also a 3.5 cm mid pole cyst containing internal echoes. This favors a proteinaceous/hemorrha gic cyst. IMPRESSION: 1. Hepatic steatosis. 2. Multiple right renal cysts. No hydronephrosis. 3. Normal gallbladder. No gallstones ACT 112: Negative or not required by law. Electronically signed by: Markell Banegas M.D. 04/24/2022 10:21 AM
--- NOTE | 2022-04-24 11:14 | XCELERA ---
[id number] \\[id number]___[id number]
--- NOTE | 2022-04-24 13:02 | Hospitalist Progress Note ---
Date of Service April 24, 2022 Assessment & Plan (1) Atrial fibrillation with rapid ventricular response: Plan: New diagnosis. [id number] 5. No secondary etiology noted at this time. TSH wnl. Had extensive discussion with patient regarding anticoagulation. She reports she has a Master's in Health and wants to research this further before agreeing to start. - Start anticoagulation if patient willing (still pondering) - Rate control presently with diltiazem gtt - Echo on 03/24 - EF 60-65%, no RWMA, borderline LVH. - Consulted cardiology; discussed today. Adding metoprolol back. Will see how rates do. Wean diltiazem drip as able. (2) Volume overload: Plan: Some signs of volume overload with LE edema; however, CXR is without overt edema. BNP mildly elevated at 345. At this time, would not consider this CHF. - Lasix 40 mg IV x 1 given in ER - Monitor -> No further sign at this time. Hold further Lasix. (3) Transaminitis: Plan: LFTs noted to be 47/121/1.1/104 on admission with priors normal. Possibly subacute hepatic insufficiency. - RUQ u/s on 04/24 was normal. - Monitor -> Improving/resolve on 04/24. (4) HTN (hypertension): Plan: BPs relatively high in the clinic. - Hold home amlodipine - Continue home losartan (Will reduce dose as she will need beta-vesta for rate control). (5) Diabetes mellitus: Plan: A1c was 7.1% in 01/2022. Not on meds; attempting control with diet/exercise. - Sliding scale insulin while inpatient (6) Hyperlipidemia: Plan: - Continue home colesevelam & ezetimibe DVT ppx: Lovenox 40 mg SQ daily (until decision on anticoagulation is made) FULL CODE - Per patient in ER with [id number] present. Admission and Anticipated Discharge Date Admission Date: April 23, 2022 Subjective Doing well today. Feels less palpitations. Reports no fevers/chills, chest pain, shortness of breath, abdominal pain, nausea, or vomiting. Physical Exam 2 Constitutional: WD/WN, vitals as above Eyes: EOM intact bilaterally; no conjunctival abnormality ENMT: external ear and nose normal, oropharynx normal Neck: trachea midline, no thyromegaly normal visual inspection Respiratory: normal respiratory effort, lungs clear to auscultation no respiratory distress Cardiovascular: Rate/Rhythm: + tachycardic and + irregularly irregular Vessels: no JVD Extremities: + edema (Improved) Gastrointestinal (Abdomen): Inspection/Auscultation: abdomen normal to inspection; abdomen not distended Musculoskeletal: no cyanosis or clubbing, extremities motor strength 5/5 Skin: no rashes, warm and dry Neurologic: moves all extremities and awake Psychiatric: Orientation: alert, oriented to person and cooperative Results & Data Results & Data ([facility]) Vital Signs (Past 12 Hours) Vital Signs Temp Pulse Resp BP Pulse Ox O2 Del Method 04/24/22 11:50 36.7 C 112 H 19 93/63 L 95 Room Air 04/24/22 07:55 37.0 C 125 H 18 114/75 92 Room Air 04/24/22 03:07 36.5 C 120 H 18 129/76 93 Room Air PG Care Time/CCT Total # of Minutes Spent Total Time Spent with Patient: Total time spent is greater than 50% in coordination of care (as documented) at patient's floor/unit and/or counseling patient: Coding Level of Care Code 02149 Subseq Hosp Care Lvl 3 Diagnoses Atrial fibrillation with rapid ventricular response I48.91 Volume overload E87.70 Transaminitis R74.01 HTN (hypertension) I10 Hypertension type: essential hypertension Diabetes mellitus E11.9 Diabetes mellitus complication status: without complication Diabetes mellitus manager long term care insulin use: without shelter use Diabetes mellitus type: type 2 Hyperlipidemia E78.00; E78.0 Hyperlipidemia type: pure hypercholesterolemia (1) Diabetes mellitus Diabetes mellitus complication status: without complication Diabetes mellitus manager long term care insulin use: without shelter use Diabetes mellitus type: type 2 Qualified Code(s): E11.9 - Type 2 diabetes mellitus without complications (2) Hyperlipidemia Hyperlipidemia type: pure hypercholesterolemia Qualified Code(s): E78.00 - Pure hypercholesterolemia, unspecified; E78.0 - Pure hypercholesterolemia (3) HTN (hypertension) Hypertension type: essential hypertension Qualified Code(s): I10 - Essential (primary) hypertension
[2022-04-24] MEDS: dilTIAZem HCL 125 MG in DEXTROSE 5% 100 ML IV SCH (13:29)
[2022-04-24] MEDS: METOPROLOL TARTRATE 25 MG TAB PO SCH ×2 (13:58→21:19)
[2022-04-24] MEDS: LATANOPROST 0.005% OP SOLN 2.5 ML BTL OP SCH (20:52)
[2022-04-25] MEDS: METOPROLOL TARTRATE 25 MG TAB PO SCH ×4 (03:11→22:36)
[2022-04-25] MEDS: INSULIN ASPART PER UNIT SC SCH ×4 (08:03→19:53)
[2022-04-25] MEDS: BRIMONIDINE TARTRATE-P 0.15% 5 ML BTL OP SCH ×2 (08:04→17:33)
[2022-04-25 09:08] LABS: Hematocrit (blood only) 37.4 % (34.1-44.9); Hemoglobin 12.3 g/dl (12.0-16.0); Mean Corpuscular Hgb Conc 32.9 g/dL (32.0-36.0); Mean Corpuscular Volume 94.2 fL (80.0-100.0); Mean Platelet Volume 10.3 fL (9.4-12.3); Platelet Count 196 K/uL (130-400); RDW Coefficient of Variation 14.1 % (11.5-14.5); RDW Standard Deviation 48.1 fL (36.4-46.3); Red Blood Count 3.97 M/uL (3.93-5.22); White Blood Count 7.62 K/ul (4.8-10.8)
[2022-04-25] MEDS: ENOXAPARIN INJ 40 MG/0.4 ML SYR SQ SCH (09:29)
[2022-04-25] MEDS: EZETIMIBE 10 MG TABLET PO SCH (09:32)
[2022-04-25] MEDS: LOSARTAN POTASSIUM 25 MG TAB PO SCH (09:33)
[2022-04-25] MEDS: TIMOLOL MALEATE 0.5% OP SOLN 5 ML BTL OP SCH ×2 (09:33→20:32)
[2022-04-25 09:40] LABS: BUN Creatinine Ratio 37.3 (10-20); Calcium 9.1 mg/dl (8.5-10.1); Creatinine Clr Calc Pharmacy 53.9 ml/min; Est GFR (African American) 74.5 ml/min; Est GFR (Non-African American) 64.3 ml/min; Magnesium 2.2 mg/dl (1.7-2.4); Potassium 3.7 mmol/L (3.5-5.1)
[2022-04-25] MEDS ORDERED: LORazepam 0.5 MG TAB PO PRN (11:26)
[2022-04-25] MEDS ORDERED: DIGOXIN 500 MCG in SYRINGE 0 ML IV ONE (11:45)
[2022-04-25] MEDS: busPIRone 5 MG TAB PO PRN ×2 (12:00→20:31)
[2022-04-25] MEDS ORDERED: DIGOXIN 500 MCG in SYRINGE 8 ML IV ONE (12:00)
[2022-04-25] MEDS: traMADol HCL 50 MG TABLET PO PRN ×2 (13:31→22:38)
--- NOTE | 2022-04-25 14:15 | Cardiology Progress Note ---
Date of Service April 25, 2022 Assessment & Plan (1) Atrial fibrillation with rapid ventricular response: (2) HTN (hypertension): (3) Hyperlipidemia: Plan ASSESSMENT/PLAN: 1. Atrial fibrillation with rapid ventricular response: She is asymptomatic today. Heart rate remains elevated. Metoprolol held value analyst due to hypotension. We discussed treatment strategies. Dr. Whitney has been caring for her and recommended digoxin if blood pressure an issue. Discussed with patient. Start digoxin today with digoxin load. Monitor digoxin level periodically. Will discontinue losartan for now to allow for more rate-controlling medications. Continue metoprolol tartrate and increase as able. Discontinue diltiazem drip for now to allow for p.o. medications have a better understanding of her rate control on oral meds. Discussed that if rate control strategy is unsuccessful, would consider transesophageal echo and cardioversion. We discussed the procedure somewhat so that she has time to think about it. NPO after midnight in case cardioversion is opted for tomorrow with Dr. Whitney. Would only pursue cardioversion if she consents to anticoagulation therapy for stroke risk reduction. She has declined anticoagulation thus far. 2. Hypertension: Has a history of hypertension but had been intermittently hypotensive here with rate-controlling medications. Will discontinue losartan to allow for further titration of metoprolol and/or diltiazem p.o. if needed. 3. Dyslipidemia: Reported intolerance to statins. 4. Disposition: Dr. Whitney will resume her cardiology care tomorrow. Patient care discussed with Dr. Briseno of the primary hospitalist service. Admission and Anticipated Discharge Date Admission Date: April 23, 2022 Subjective Patient seen this morning. She feels well. She denies chest pain, shortness of breath, palpitations, or bleeding. He has chronic lower extremity edema. Overall she states that she feels better. She had a good night last night. Her value analyst dose of metoprolol was held at 3:11 a.m. due to hypotension. She remains on the diltiazem drip. She was alone in her hospital room. Physical Exam Physical Exam: Gen.: No acute distress. Alert. HEENT: Anicteric sclera. Neck: No JVD. Cardiac: No ventricular heave. Irregularly irregular. Tachycardic. Normal S1- S2. No murmurs, rubs, or gallops. Pulmonary: Clear to auscultation bilaterally without wheezes, rales, or rhonchi. Abdomen: Soft, nontender, nondistended, with normoactive bowel sounds. No bruits noted. Extremities: 2+ radial pulses bilaterally. 2+ posterior tibialis pulses bilaterally. 1+ bilateral lower extremity edema. No cyanosis. Results & Data ([facility]) Vital Signs (Past 12 Hours) Vital Signs Temp Pulse Pulse Pulse Pulse Resp BP 04/25/22 12:00 103 H 04/25/22 13:32 122 H 131/71 04/25/22 11:59 103 H 04/25/22 08:00 04/25/22 11:07 36.7 C 91 H 24 117/78 04/25/22 07:50 36.6 C 86 20 106/68 04/25/22 02:54 97/67 L 04/25/22 02:48 36.7 C 101 H 16 BP Pulse Ox O2 Del Method 04/25/22 12:00 04/25/22 13:32 04/25/22 11:59 04/25/22 08:00 Room Air 04/25/22 11:07 96 Room Air 04/25/22 07:50 97 Room Air 04/25/22 02:54 04/25/22 02:48 89/60 L 95 Room Air Intake & Output 04/23/22 04/24/22 04/25/22 04/26/22 06:59 06:59 06:59 06:59 Intake Total 495.5 / 495.5 740.418 / 740.418 25.083 / 25.083 Output Total 1150 / 1150 261 / 261 Balance -654.5 / -654.5 479.418 / 479.418 25.083 / 25.083 Weight 214 lb 1.102 oz Laboratory Results Laboratory Results - last 24 hr 04/24/22 04/24/22 04/25/22 16:22 20:08 07:41 WBC RBC Hgb Hct MCV MCH MCHC RDW Std Deviation RDW Coeff of Fermin Plt Count MPV Sodium Potassium Chloride Carbon Dioxide Anion Gap BUN Creatinine Est Cr Clr Drug Dosing Est GFR ( Amer) Est GFR (Non-Af Amer) BUN/Creatinine Ratio Glucose POC Glucose 148 H 185 H 196 H Calcium Magnesium 04/25/22 04/25/22 04/25/22 08:51 08:51 11:30 WBC 7.62 RBC 3.97 Hgb 12.3 Hct 37.4 MCV 94.2 MCH 31.0 MCHC 32.9 RDW Std Deviation 48.1 H RDW Coeff of Fermin 14.1 Plt Count 196 MPV 10.3 Sodium 132 L Potassium 3.7 Chloride 96 L Carbon Dioxide 29 Anion Gap 7 BUN 31 H Creatinine 0.83 Est Cr Clr Drug Dosing 53.9 Est GFR ( Amer) 74.5 Est GFR (Non-Af Amer) 64.3 BUN/Creatinine Ratio 37.3 H Glucose 227 H POC Glucose 194 H Calcium 9.1 Magnesium 2.2 Diagnostic Findings Telemetry personally reviewed: Atrial fibrillation with rapid ventricular response. Echo 04/24/2022: Reported as normal LV systolic function. EF 60-65%. Normal wall motion. Mild MR. Dilated left atrium. Medications Administered Current Inpatient Medications Brimonidine Tartrate (Brimonidine Tartrate-P 0.15% 5 Ml Btl) 1 drops OP Q8H GISSELL Stop: 05/23/22 16:29 Last Admin: 04/25/22 08:04 Dose: 1 drops Buspirone HCl (Buspirone 5 Mg Tab) 5 mg PO TID PRN PRN Reason: anxiety Stop: 05/23/22 15:47 Last Admin: 04/25/22 12:00 Dose: 5 mg Dextrose (Dextrose 50% 50 Ml Syringe) 25 - 50 ml IV UD PRN; Protocol PRN Reason: Hypoglycemia Protocol Stop: 05/23/22 15:47 Ezetimibe (Ezetimibe 10 Mg Tablet) 10 mg PO DAILY GISSELL Stop: 05/23/22 20:59 Last Admin: 04/25/22 09:32 Dose: 10 mg Enoxaparin Sodium (Enoxaparin Inj 40 Mg/0.4 Ml Syr) 40 mg SQ QAM GISSELL Stop: 05/24/22 08:59 Last Admin: 04/25/22 09:29 Dose: 40 mg Glucagon (Glucagon For Inj 1 Mg Vial) 1 mg SQ UD PRN; Protocol PRN Reason: Hypoglycemia Protocol Stop: 05/23/22 15:47 Glucose (Glucose 40% Gel 15 Gm Tube) 15 - 30 gm PO UD PRN; Protocol PRN Reason: Hypoglycemia Protocol Stop: 05/23/22 15:47 Glucose (Glucose 10 Tab/Tube) 4 - 8 tab PO UD PRN; Protocol PRN Reason: Hypoglycemia Treatment Stop: 05/23/22 15:47 Digoxin 250 mcg/ Syringe 10 mls @ 2 mls/min IV Q6H GISSELL Stop: 04/26/22 00:04 Insulin Aspart (Insulin Aspart Per Unit) 0 units SC ACHS GISSELL Stop: 05/23/22 16:29 Last Admin: 04/25/22 12:03 Dose: Not Given Latanoprost (Latanoprost 0.005% Op Soln 2.5 Ml Btl) 1 drops OP QPM GISSELL Stop: 05/23/22 20:59 Last Admin: 04/24/22 20:52 Dose: 1 drops Lorazepam (Lorazepam 0.5 Mg Tab) 0.5 mg PO TID PRN PRN Reason: Anxiety Stop: 05/25/22 11:25 Losartan Potassium (Losartan Potassium 25 Mg Tab) 75 mg PO DAILY GISSELL Stop: 05/24/22 08:59 Last Admin: 04/25/22 09:33 Dose: 75 mg Metoprolol Tartrate (Metoprolol Tartrate 25 Mg Tab) 25 mg PO Q6H GISSELL Stop: 05/24/22 13:59 Last Admin: 04/25/22 13:28 Dose: 25 mg Miscellaneous (Carbohydrates For Hypoglycemia ) 15 - 30 gm PO UD PRN PRN Reason: Hypoglycemia Protocol Stop: 05/23/22 15:47 Ondansetron HCl (Ondansetron Inj 2 Mg/Ml 2 Ml Vial) 4 mg IV Q4H PRN PRN Reason: Nausea Stop: 05/23/22 15:47 Timolol Maleate (Timolol Maleate 0.5% Op Soln 5 Ml Btl) 1 drops OP BID GISSELL Stop: 05/23/22 20:59 Last Admin: 04/25/22 09:33 Dose: 1 drops Tramadol HCl (Tramadol Hcl 50 Mg Tablet) 50 mg PO Q8H PRN PRN Reason: pain Stop: 05/23/22 15:47 Last Admin: 04/25/22 13:31 Dose: 50 mg PG Care Time/CCT Total # of Minutes Spent Total Time Spent with Patient: Total time spent is greater than 50% in coordination of care (as documented) at patient's floor/unit and/or counseling patient: Coding Level of Care Code 28691 Subseq Hosp Care Lvl 3 Diagnoses Atrial fibrillation with rapid ventricular response I48.91 HTN (hypertension) I10 Hypertension type: essential hypertension Hyperlipidemia E78.00; E78.0 Hyperlipidemia type: pure hypercholesterolemia (1) HTN (hypertension) Hypertension type: essential hypertension Qualified Code(s): I10 - Essential (primary) hypertension (2) Hyperlipidemia Hyperlipidemia type: pure hypercholesterolemia Qualified Code(s): E78.00 - Pure hypercholesterolemia, unspecified; E78.0 - Pure hypercholesterolemia
--- NOTE | 2022-04-25 15:14 | Hospitalist Progress Note ---
Date of Service April 25, 2022 Assessment & Plan (1) Atrial fibrillation with rapid ventricular response: Plan: New diagnosis. [id number] 5. No secondary etiology noted at this time. TSH wnl. Had extensive discussion with patient regarding anticoagulation. She reports she has a Master's in Health and wants to research this further before agreeing to start. - Start anticoagulation if patient willing (still pondering) - Rate control presently with diltiazem gtt - Echo on 03/24 - EF 60-65%, no RWMA, borderline LVH. - Consulted cardiology; discussed today. Plan to add digoxin and stop beta- vesta. (2) Volume overload: Plan: Some signs of volume overload with LE edema; however, CXR is without overt edema. BNP mildly elevated at 345. At this time, would not consider this CHF. - Lasix 40 mg IV x 1 given in ER - Monitor -> No further sign at this time. Hold further Lasix. (3) Transaminitis: Plan: LFTs noted to be 47/121/1.1/104 on admission with priors normal. Possibly subacute hepatic insufficiency. - RUQ u/s on 04/24 was normal. - Monitor -> Improving/resolve on 04/24. (4) HTN (hypertension): Plan: BPs relatively high in the clinic. - Hold home amlodipine - Stopped home losartan on 04/25 to have more room for AV luis blockade. (5) Diabetes mellitus: Plan: A1c was 7.1% in 01/2022. Not on meds; attempting control with diet/exercise. - Sliding scale insulin while inpatient (6) Hyperlipidemia: Plan: - Continue home colesevelam & ezetimibe DVT ppx: Lovenox 40 mg SQ daily (until decision on anticoagulation is made) FULL CODE - Per patient in ER with [id number] present. Admission and Anticipated Discharge Date Admission Date: April 23, 2022 Subjective Very frustrated and tearful today. She feels the medication "is not working" and does not feel like communication is very good between providers. Physical Exam Constitutional: WD/WN, vitals as above Eyes: EOM intact bilaterally; no conjunctival abnormality ENMT: external ear and nose normal, oropharynx normal Neck: trachea midline, no thyromegaly normal visual inspection Respiratory: normal respiratory effort, lungs clear to auscultation no re spiratory distress Cardiovascular: Rate/Rhythm: + tachycardic and + irregularly irregular Vessels: no JVD Extremities: + edema (Improved) Gastrointestinal (Abdomen): Inspection/Auscultation: abdomen normal to inspection; abdomen not distended Musculoskeletal: no cyanosis or clubbing, extremities motor strength 5/5 Skin: no rashes, warm and dry Neurologic: moves all extremities and awake Psychiatric: Orientation: alert, oriented to person and cooperative Results & Data Results & Data ([facility]) Vital Signs (Past 12 Hours) Vital Signs Temp Pulse Pulse Pulse Resp BP Pulse Ox 04/25/22 12:00 103 H 04/25/22 13:32 122 H 131/71 04/25/22 11:59 103 H 04/25/22 08:00 04/25/22 11:07 36.7 C 91 H 24 117/78 96 04/25/22 07:50 36.6 C 86 20 106/68 97 O2 Del Method 04/25/22 12:00 04/25/22 13:32 04/25/22 11:59 04/25/22 08:00 Room Air 04/25/22 11:07 Room Air 04/25/22 07:50 Room Air PG Care Time/CCT Total # of Minutes Spent Total Time Spent with Patient: Total time spent is greater than 50% in coordination of care (as documented) at patient's floor/unit and/or counseling patient: Coding Level of Care Code 13476 Subseq Hosp Care Lvl 3 Diagnoses Atrial fibrillation with rapid ventricular response I48.91 Volume overload E87.70 Transaminitis R74.01 HTN (hypertension) I10 Hypertension type: essential hypertension Diabetes mellitus E11.9 Diabetes mellitus type: type 2 Diabetes mellitus long-term insulin 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 Diabetes mellitus complication status: without complication Hyperlipidemia E78.00; E78.0 Hyperlipidemia type: pure hypercholesterolemia (1) HTN (hypertension) Hypertension type: essential hypertension Qualified Code(s): I10 - Essential (primary) hypertension (2) Diabetes mellitus Diabetes mellitus type: type 2 Diabetes mellitus long-term insulin use: without long-term use Diabetes mellitus complication status: without complication Qualified Code(s): E11.9 - Type 2 diabetes mellitus without complications (3) Hyperlipidemia Hyperlipidemia type: pure hypercholesterolemia Qualified Code(s): E78.00 - Pure hypercholesterolemia, unspecified; E78.0 - Pure hypercholesterolemia
[2022-04-25] MEDS: LATANOPROST 0.005% OP SOLN 2.5 ML BTL OP SCH (19:53)
[2022-04-25] MEDS: DIGOXIN 250 MCG in SYRINGE 9 ML IV SCH (20:06)
[2022-04-26] MEDS: BRIMONIDINE TARTRATE-P 0.15% 5 ML BTL OP SCH ×5 (00:22→23:54)
[2022-04-26] MEDS: DIGOXIN 250 MCG in SYRINGE 9 ML IV SCH (03:05)
[2022-04-26] MEDS: ACETAMINOPHEN 500 MG TAB ONE ×2 (03:23→05:22)
[2022-04-26] MEDS: ACETAMINOPHEN 500 MG TAB PO PRN (03:24)
[2022-04-26] MEDS: METOPROLOL TARTRATE 25 MG TAB PO SCH ×4 (04:10→20:19)
[2022-04-26] MEDS: INSULIN ASPART PER UNIT SC SCH ×4 (06:21→20:18)
[2022-04-26] MEDS: TIMOLOL MALEATE 0.5% OP SOLN 5 ML BTL OP SCH ×2 (07:53→20:21)
[2022-04-26] MEDS: ENOXAPARIN INJ 40 MG/0.4 ML SYR SQ SCH (07:54)
[2022-04-26] MEDS: EZETIMIBE 10 MG TABLET PO SCH (07:54)
[2022-04-26 08:17] LABS: Hematocrit (blood only) 41.7 % (34.1-44.9); Hemoglobin 13.7 g/dl (12.0-16.0); Mean Corpuscular Hemoglobin 31.3 pg (25.0-34.0); Mean Corpuscular Hgb Conc 32.9 g/dL (32.0-36.0); Mean Corpuscular Volume 95.2 fL (80.0-100.0); Mean Platelet Volume 10.4 fL (9.4-12.3); Nucleated RBC # (auto) 0.02 K/uL (0-0); Nucleated RBC % (auto) 0.2 %; Platelet Count 213 K/uL (130-400); RDW Coefficient of Variation 13.6 % (11.5-14.5); RDW Standard Deviation 47.5 fL (36.4-46.3); Red Blood Count 4.38 M/uL (3.93-5.22); White Blood Count 8.12 K/ul (4.8-10.8)
[2022-04-26 09:42] LABS: BUN Creatinine Ratio 32.9 (10-20); Calcium 9.2 mg/dl (8.5-10.1); Creatinine Clr Calc Pharmacy 60.8 ml/min; Est GFR (Non-African American) 75.1 ml/min; Potassium 4.2 mmol/L (3.5-5.1)
--- NOTE | 2022-04-26 12:03 | Cardiology Progress Note ---
Date of Service April 26, 2022 Assessment & Plan (1) Atrial fibrillation with rapid ventricular response: Plan: -she remains in atrial fibrillation with a rapid ventricular response despite medical therapy. -will proceed with a ADRIANA/cardioversion hoping to attains sinus rhythm. -she agrees with initiation of Eliquis 5 mg b.i.d.. -will start amiodarone 200 mg t.i.d. following cardioversion. -hopefully, the patient could be discharged home later today. (2) HTN (hypertension): Plan: -blood pressure adequate control on current regimen. (3) Hyperlipidemia: Plan: -intolerant to statins. -continue Zetia and colesevelam. Admission and Anticipated Discharge Date Admission Date: April 23, 2022 Subjective The patient is frustrated and angry this morning. She felt like I should have been here to see her yesterday. She also feels that I am too indecisive. I explained that were attempting to control her ventricular response with medications first, however, this has not been successful. We have discussed need to proceed with a ADRIANA/cardioversion. She voices an understanding and agrees to proceed. She also agrees with initiating long-term anticoagulation and amiodarone therapy. Physical Exam Physical Exam: In general is well-developed well-nourished white female no acute distress. HEENT exam is negative. Neck is supple full carotid upstrokes. No carotid bruits. Jugular is pressure is flat at 90. There is no thyromegaly. Cardiovascular exam reveals irregular irregular rhythm with distant heart sounds. No obvious murmurs. Lungs are clear without rales, rhonchi or wheezes. Abdomen is soft without bruits. Extremities reveal intact radial artery pulses bilaterally. Trace pretibial edema is noted. Results & Data ([facility]) Vital Signs (Past 12 Hours) Vital Signs Temp Pulse Pulse Pulse Resp BP Pulse Ox 04/26/22 10:24 102 H 04/26/22 07:42 37.3 C 87 17 120/80 91 04/26/22 04:09 106 H 109/71 04/26/22 03:05 148 H 04/26/22 02:46 37.1 C 112 H 16 106/77 94 04/25/22 23:32 119 H O2 Del Method 04/26/22 10:24 04/26/22 07:42 Room Air 04/26/22 04:09 04/26/22 03:05 04/26/22 02:46 Room Air 04/25/22 23:32 Diagnostic Findings insurance representative notes atrial fibrillation with a rapid ventricular response. PG Care Time/CCT Total # of Minutes Spent Total Time Spent with Patient: Total time spent is greater than 50% in coordination of care (as documented) at patient's floor/unit and/or counseling patient: Coding Level of Care Code 97488 Subseq Hosp Care Lvl 3 Diagnoses Atrial fibrillation with rapid ventricular response I48.91 HTN (hypertension) I10 Hypertension type: essential hypertension Hyperlipidemia E78.00; E78.0 Hyperlipidemia type: pure hypercholesterolemia (1) HTN (hypertension) Hypertension type: essential hypertension Qualified Code(s): I10 - Essential (primary) hypertension (2) Hyperlipidemia Hyperlipidemia type: pure hypercholesterolemia Qualified Code(s): E78.00 - Pure hypercholesterolemia, unspecified; E78.0 - Pure hypercholesterolemia
--- NOTE | 2022-04-26 12:46 | Anesthesiology Consultation ---
Date of Service April 26, 2022 Assessment & Plan (1) Encounter for pre-operative examination: Chart Review Chart Review: Acceptable Risk for Surgery and Patient NOT seen in Pre Admission Testing Consults Requested none History Surgery Operation Date: 04/26/22 12:45 Proposed Procedures p Transesophageal Echo - Louis Whitney MD Height/Weight Height: 5 ft 2 in Weight: 95.7 kg Allergies Allergy/AdvReac Type Severity Reaction Status Date / Time benazepril Allergy Severe "ANAPHYLACTIC Verified 04/23/22 14:45 SHOCK" NSAIDS (Non-Steroidal Allergy Severe ANAPHYLACTIC Verified 04/23/22 14:45 Anti-Inflamma SHOCK FROM IBUPROFEN procaine Allergy Severe NOVOCAINE Verified 04/23/22 14:45 - "ANAPHYLACTIC SHOCK" tetracycline Allergy Mild N/V Verified 04/23/22 14:45 Ksrcjkz-BIR-ZtY Reductase Allergy ELEVATED Verified 04/23/22 14:45 Inhibitor HEPATIC [Qixrrhm-Nmf-Uof Reductase ENZYMES Inhibitor] Medications Home Medications Medication Instructions Recorded Confirmed Last Taken omega-3 acid ethyl esters 1 gram 1 cap PO TID 03/09/19 04/23/22 Unknown capsule latanoprost 0.005 % eye drops 1 drp ophthalmic (eye) QPM 05/05/20 04/23/22 02/18/21 epinephrine 0.3 mg/0.3 mL 0.3 mg (0.3 mL) IM .COMPLEX PRN 07/06/20 04/23/22 Unknown injection, auto-injector (EpiPen) anaphylaxis #2 ea amlodipine 10 mg tablet 10 mg PO DAILY #90 tabs 05/31/21 04/23/22 04/23/22 buspirone 5 mg tablet 5 mg PO TID PRN anxiety #270 tabs 07/26/21 04/23/22 Unknown colesevelam 625 mg tablet 1,875 mg PO BID #540 tabs 07/26/21 04/23/22 Unknown torsemide 20 mg tablet See Rx Instructions .Route 10/18/21 04/23/22 04/23/22 .COMPLEX #45 tabs omeprazole 40 mg capsule,delayed 40 mg PO DAILY #90 caps 11/15/21 04/23/22 Unknown release brimonidine 0.1 % eye drops 1 drp ophthalmic (eye) Q8H 01/22/22 04/23/22 Unknown cholecalciferol (vitamin D3) 1,250 1,250 mcg PO DAILY #12 caps 01/22/22 04/23/22 Unknown mcg (50,000 unit) capsule timolol 0.5 % eye drops 1 drp ophthalmic (eye) BID 01/22/22 04/23/22 Unknown oxycodone 5 mg tablet 5 mg PO Q6H PRN pain #15 tabs 02/28/22 04/23/22 Unknown losartan 50 mg tablet 75 mg PO DAILY #90 tabs 03/04/22 04/23/22 04/23/22 ondansetron HCl 4 mg tablet 4 mg PO Q8H PRN nausea and 03/04/22 04/23/22 Unknown vomiting #15 tabs ezetimibe 10 mg tablet 10 mg PO DAILY #90 tabs 03/18/22 04/23/22 Unknown carvedilol 6.25 mg tablet 6.25 mg PO BID #180 tabs 04/03/22 04/23/22 04/23/22 tramadol 50 mg tablet 50 mg PO Q8H PRN pain #30 tabs 04/03/22 04/23/22 Unknown Active Medications Generic Name Dose Route Start Last Admin Trade Name Freq PRN Reason Stop Dose Admin Acetaminophen 1,000 mg 04/26/22 03:07 04/26/22 03:24 Acetaminophen 500 Mg Tab PO 05/26/22 03:14 1,000 mg Q8H PRN Administration pain Brimonidine Tartrate 1 drops 04/23/22 16:30 04/26/22 07:52 Brimonidine Tartrate-P 0.15% 5 Ml Btl OP 05/23/22 16:29 1 drops Q8H GISSELL Administration Buspirone HCl 5 mg 04/23/22 15:48 04/25/22 20:31 Buspirone 5 Mg Tab PO 05/23/22 15:47 5 mg TID PRN Administration anxiety Ezetimibe 10 mg 04/23/22 21:00 04/26/22 07:54 Ezetimibe 10 Mg Tablet PO 05/23/22 20:59 10 mg DAILY GISSELL Administration Enoxaparin Sodium 40 mg 04/24/22 09:00 04/26/22 07:54 Enoxaparin Inj 40 Mg/0.4 Ml Syr SQ 05/24/22 08:59 40 mg QAM GISSELL Administration Insulin Aspart 0 units 04/23/22 16:30 04/26/22 06:21 Insulin Aspart Per Unit SC 05/23/22 16:29 Not Given ACHS GISSELL Latanoprost 1 drops 04/23/22 21:00 04/25/22 19:53 Latanoprost 0.005% Op Soln 2.5 Ml Btl OP 05/23/22 20:59 1 drops QPM GISSELL Administration Metoprolol Tartrate 25 mg 04/24/22 14:00 04/26/22 07:54 Metoprolol Tartrate 25 Mg Tab PO 05/24/22 13:59 25 mg Q6H GISSELL Administration Timolol Maleate 1 drops 04/23/22 21:00 04/26/22 07:53 Timolol Maleate 0.5% Op Soln 5 Ml Btl OP 05/23/22 20:59 1 drops BID GISSELL Administration Tramadol HCl 50 mg 04/23/22 15:48 04/25/22 22:38 Tramadol Hcl 50 Mg Tablet PO 05/23/22 15:47 50 mg Q8H PRN Administration pain Past Medical History Medical History Angioedema (12/03/10) Arthritis of multiple sites Claudication of lower extremity Constipation Diabetes mellitus HTN (hypertension) Hyperlipidemia Lower extremity edema Lumbar pain Meralgia paresthetica of 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 Paroxysmal atrial tachycardia Paroxysmal atrial tachycardia Personal history of malignant melanoma of skin Renal lesion Skin cancer Spinal stenosis of lumbar region Statin intolerance Exercise / Class Metabolic Activity II 4-5 Yardwork/Stairs/Walk up hill Past Family History Family History Father Congestive heart failure (CHF) Hypertension Myocardial infarction Mother Emphysema of lung Hypertension Brother Prostate cancer Hypertension Son Colorectal cancer age 49 Other Heart disease Denies family history of Ovarian cancer Diabetes Breast cancer Lung cancer Stroke Past Surgical History Surgical History H/O arthroscopy of right knee H/O: hysterectomy Hx of colonoscopy Past Anesthesia History No Hx of Anesthesia Complications and No Family Hx of Anesthesia Complications History of PONV No Hx of PONV and No Hx of Motion Sickness Social History Smoking Status: Never smoker Hx Alcohol Use: No Hx Substance Use: No substance use type: does not use Physical Exam Vital Signs Last Vital Signs Temp 36.6 C 04/26/22 11:25 Pulse 96 H 04/26/22 11:25 Resp 17 04/26/22 11:25 BP 115/71 04/26/22 11:25 Pulse Ox 95 04/26/22 11:25 O2 Del Method 04/26/22 11:25 Testing Laboratory Results 04/26/22 07:55 04/26/22 07:55 04/26/22 04/26/22 11:27 06:08 POC Glucose 160 H 146 H
[2022-04-26] MEDS ORDERED: PROPOFOL IV EMULSION 10 MG/ML 20 ML VIAL IV ONE (13:09)
[2022-04-26] MEDS ORDERED: GLYCOPYRROLATE 0.2 MG/ML VIAL ONE (13:09)
--- NOTE | 2022-04-26 13:18 | Anesthesiology Progress Note ---
Date of Service April 26, 2022 Anesthesia Post Procedure Vital Signs Vital Signs: Temp Pulse Pulse Pulse Pulse Resp BP 04/26/22 13:05 91 H 15 04/26/22 12:47 133 H 17 04/26/22 11:25 36.6 C 96 H 17 04/26/22 10:24 102 H 04/26/22 07:42 37.3 C 87 17 04/26/22 04:09 106 H 04/26/22 03:05 148 H 04/26/22 02:46 37.1 C 112 H 16 04/25/22 20:25 04/25/22 23:32 119 H 04/25/22 22:44 36.6 C 04/25/22 22:35 113 H 04/25/22 20:06 105 H 04/25/22 20:03 36.6 C 105 H 20 127/87 04/25/22 17:28 131 H 20 04/25/22 13:32 122 H 131/71 BP Pulse Ox O2 Del Method 04/26/22 13:05 160/91 H 97 Room Air 04/26/22 12:47 165/95 H 96 Room Air 04/26/22 11:25 115/71 95 Room Air 04/26/22 10:24 04/26/22 07:42 120/80 91 Room Air 04/26/22 04:09 109/71 04/26/22 03:05 04/26/22 02:46 106/77 94 Room Air 04/25/22 20:25 Room Air 04/25/22 23:32 04/25/22 22:44 04/25/22 22:35 116/79 04/25/22 20:06 04/25/22 20:03 95 Room Air 04/25/22 17:28 127/86 94 Room Air 04/25/22 13:32 Pain Intensity Right Shoulder: Pain Intensity: 4 Transfer of Care Handoff Completed per policy Notes Mental Status: alert / awake / arousable and participated in evaluation Patient Amnestic to Procedure: Yes Nausea / Vomiting: adequately controlled Pain: adequately controlled Airway Patency, RR, SpO2: stable & adequate BP & HR: stable & adequate Hydration State: stable & adequate Anesthetic Complications: no major complications apparent and Pt Satisfied with anesthetic care
--- NOTE | 2022-04-26 13:33 | Cardioversion ---
Date of Service April 26, 2022 PG Electrical Cardioversion Rp Electrical Cardioversion Report Date of procedure: April 26, 2022 Procedure: ADRIANA directed electrical cardioversion Protocol: After informed consent and a time-out performed, the patient was sedated smoothly by Dr. Kohler from anesthesia. The patient was monitored continuously by telemetry, end-tidal CO2, pulse oximetry, and sphygmomanometry. Cetacaine was not employed due to her Novocain allergy. A lubricated transesophageal probe was easily advanced into the esophagus through a bite block. The transesophageal echocardiogram revealed no evidence of a left atrial or left atrial appendage thrombus. The transesophageal echocardiogram probe was removed without difficulty. The patient was then given 100 joules of synchronized biphasic energy via hands-off paddles. The patient successfully converted to sinus rhythm. Following the procedure, the patient was awake, alert, conversant, hemodynamically stable, and without neurologic deficit. There were no complications. The patient had no complaints. Conclusions: 1. No intra atrial thrombus by ADRIANA. 2. Successful cardioversion to sinus rhythm 3. No complications. Coding Level of Care Code Cardioversion, elective Additional Codes Electrical Cardioversion Report ([id number])
--- NOTE | 2022-04-26 14:01 | XCELERA ---
[id number]
[2022-04-26] MEDS ORDERED: STAT IV Infusion **Titration per Protocol STA (14:49)
[2022-04-26] MEDS ORDERED: AMIODARONE / D5W 150 MG/100 ML BAG IV STA (14:49)
[2022-04-26] MEDS ORDERED: AMIODARONE IV BOLUS & DRIP IV STA (14:49)
[2022-04-26] MEDS ORDERED: 0.2 MICRON FILTER SET 1 EACH IV STA (14:49)
--- NOTE | 2022-04-26 14:55 | Hospitalist Progress Note ---
Date of Service April 26, 2022 Assessment & Plan (1) Atrial fibrillation with rapid ventricular response: Plan: New diagnosis. [id number] 5. No secondary etiology noted at this time. TSH wnl. - Echo on 03/24 - EF 60-65%, no RWMA, borderline LVH. - Start anticoagulation with apixaban - Continue metoprolol; transition to Toprol XL tomorrow AM. - Consulted cardiology -> Discussed today. Cardioverted on 04/26. Now back in sinus, but with lots of atrial ectopy. Starting amiodarone gtt. (2) Volume overload: Plan: Some signs of volume overload with LE edema; however, CXR is without overt edema. BNP mildly elevated at 345. At this time, would not consider this CHF. - Lasix 40 mg IV x 1 given in ER - Monitor -> No further sign at this time. Hold further Lasix. (3) Transaminitis: Plan: LFTs noted to be 47/121/1.1/104 on admission with priors normal. Possibly subacute hepatic insufficiency. - RUQ u/s on 04/24 was normal. - Monitor -> Improving/resolved on 04/24. (4) HTN (hypertension): Plan: BPs relatively high in the clinic. - Hold home amlodipine - Stopped home losartan on 04/25 to have more room for AV luis blockade. (5) Diabetes mellitus: Plan: A1c was 7.1% in 01/2022. Not on meds; attempting control with diet/exercise. - Sliding scale insulin while inpatient, though patient is refusing. (6) Hyperlipidemia: Plan: - Continue home colesevelam & ezetimibe FULL CODE - Per patient in ER with [id number] present. Admission and Anticipated Discharge Date Admission Date: April 23, 2022 Subjective Doing better today. Not seen until after cardioversion. Reports being tired, but much more happy with care rather than yesterday and this morning. Physical Exam Constitutional: WD/WN, vitals as above Eyes: EOM intact bilaterally; no conjunctival abnormality ENMT: external ear and nose normal, oropharynx normal Neck: trachea midline, no thyromegaly normal visual inspection Respiratory: normal respiratory effort, lungs clear to auscultation no respiratory distress Cardiovascular: Rate/Rhythm: + tachycardic and + irregularly irregular Vess els: no JVD Extremities: + edema (Improved) Gastrointestinal (Abdomen): Inspection/Auscultation: abdomen normal to inspection; abdomen not distended Musculoskeletal: no cyanosis or clubbing, extremities motor strength 5/5 Skin: no rashes, warm and dry Neurologic: moves all extremities and awake Psychiatric: Orientation: alert, oriented to person and cooperative Results & Data Results & Data ([facility]) Vital Signs (Past 12 Hours) Vital Signs Temp Pulse Pulse Pulse Resp BP Pulse Ox 04/26/22 13:40 36.9 C 88 20 142/83 H 97 04/26/22 13:20 102 H 15 175/119 H 96 04/26/22 13:05 91 H 15 160/91 H 97 04/26/22 12:47 133 H 17 165/95 H 96 04/26/22 11:25 36.6 C 96 H 17 115/71 95 04/26/22 10:24 102 H 04/26/22 07:42 37.3 C 87 17 120/80 91 04/26/22 04:09 106 H 109/71 04/26/22 03:05 148 H O2 Del Method 04/26/22 13:40 Room Air 04/26/22 13:20 Room Air 04/26/22 13:05 Room Air 04/26/22 12:47 Room Air 04/26/22 11:25 Room Air 04/26/22 10:24 04/26/22 07:42 Room Air 04/26/22 04:09 04/26/22 03:05 PG Care Time/CCT Total # of Minutes Spent Total Time Spent with Patient: Total time spent is greater than 50% in coordination of care (as documented) at patient's floor/unit and/or counseling patient: Coding Level of Care Code 94252 Subseq Hosp Care Lvl 3 Diagnoses Atrial fibrillation with rapid ventricular response I48.91 Volume overload E87.70 Transaminitis R74.01 HTN (hypertension) I10 Hypertension type: essential hypertension Diabetes mellitus E11.9 Diabetes mellitus type: type 2 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 Diabetes mellitus complication status: without complication Hyperlipidemia E78.00; E78.0 Hyperlipidemia type: pure hypercholesterolemia (1) HTN (hypertension) Hypertension type: essential hypertension Qualified Code(s): I10 - Essential (primary) hypertension (2) Diabetes mellitus Diabetes mellitus type: type 2 Diabetes mellitus prison insulin use: without prison use Diabetes mellitus complication status: without complication Qualified Code(s): E11.9 - Type 2 diabetes mellitus without complications (3) Hyperlipidemia Hyperlipidemia type: pure hypercholesterolemia Qualified Code(s): E78.00 - Pure hypercholesterolemia, unspecified; E78.0 - Pure hypercholesterolemia
[2022-04-26] MEDS ORDERED: AMIODARONE / D5W 360 MG/200 ML BAG IV ONE (14:59)
--- NOTE | 2022-04-26 15:39 | Electrocardiogram Report ---
Test Reason : Blood Pressure : / mmHG Vent. Rate : 104 BPM Atrial Rate : 000 BPM P-R Int : 000 ms QRS Dur : 092 ms QT Int : 316 ms P-R-T Axes : 000 009 -77 degrees QTc Int : 415 ms Atrial fibrillation with rapid ventricular response with premature ventricular or aberrantly conducte d complexes T wave abnormality, consider inferior ischemia Abnormal ECG When compared with ECG of 23-APR-2022 12:39, Vent. rate has decreased BY [address] no longer depressed in Anterolateral leads Nonspecific T wave abnormality has replaced inverted T waves in Lateral leads Confirmed by Louis Whitney ([id number]) on 04/26/2022 3:39:26 PM Referred By: REFERRED SELF Confirmed By:Louis Whitney
[2022-04-26] MEDS: LATANOPROST 0.005% OP SOLN 2.5 ML BTL OP SCH (20:20)
[2022-04-26] MEDS: APIXABAN 5 MG TABLET PO SCH (20:20)
[2022-04-26] MEDS: AMIODARONE / D5W 360 MG/200 ML BAG IV SCH (21:25)
[2022-04-26] MEDS: traMADol HCL 50 MG TABLET PO PRN (23:52)
[2022-04-27] MEDS: METOPROLOL TARTRATE 25 MG TAB PO SCH (02:29)
[2022-04-27] MEDS: ACETAMINOPHEN 500 MG TAB PO PRN (02:55)
[2022-04-27 06:33] LABS: Hematocrit (blood only) 36.1 % (34.1-44.9); Mean Corpuscular Hemoglobin 31.5 pg (25.0-34.0); Mean Corpuscular Hgb Conc 33.2 g/dL (32.0-36.0); Mean Corpuscular Volume 94.8 fL (80.0-100.0); Mean Platelet Volume 10.3 fL (9.4-12.3); Platelet Count 190 K/uL (130-400); RDW Coefficient of Variation 13.8 % (11.5-14.5); RDW Standard Deviation 47.3 fL (36.4-46.3); Red Blood Count 3.81 M/uL (3.93-5.22); White Blood Count 6.84 K/ul (4.8-10.8)
[2022-04-27 06:44] LABS: Albumin Globulin Ratio 1.5 (0.9-2); Albumin Level 3.4 gm/dl (3.4-5.0); BUN Creatinine Ratio 26.7 (10-20); Bilirubin,Total 0.7 mg/dl (0.2-1.0); Calcium 8.8 mg/dl (8.5-10.1); Creatinine Clr Calc Pharmacy 59.2 ml/min; Est GFR (African American) 84.2 ml/min; Est GFR (Non-African American) 72.7 ml/min; Globulin 2.3 gm/dl (2.5-4.0); Magnesium 1.8 mg/dl (1.7-2.4); Potassium 4.1 mmol/L (3.5-5.1); Total Protein 5.7 gm/dl (6.0-8.3)
[2022-04-27] MEDS: EZETIMIBE 10 MG TABLET PO SCH (08:48)
[2022-04-27] MEDS: APIXABAN 5 MG TABLET PO SCH (08:48)
[2022-04-27] MEDS: BRIMONIDINE TARTRATE-P 0.15% 5 ML BTL OP SCH (08:48)
[2022-04-27] MEDS: TIMOLOL MALEATE 0.5% OP SOLN 5 ML BTL OP SCH (08:49)
[2022-04-27] MEDS: INSULIN ASPART PER UNIT SC SCH (08:49)
[2022-04-27] MEDS: AMIODARONE / D5W 360 MG/200 ML BAG IV SCH (08:53)
[2022-04-27] MEDS ORDERED: METOPROLOL SUCC 50MG EXT REL TAB PO SCH (09:00)
--- NOTE | 2022-04-27 13:41 | Discharge Summary ---
Date of Service April 27, 2022 Admission HPI Per Admitting Provider 86yo F w/ hx of HTN who presents with afib with RVR. She has not felt well for a few weeks with increased shortness of breath and LE edema. Has been worse in the last week. Notes some increased GARCIA as well, though no orthopnea and no PND. In the office today, her HR was noted to be ~150 - 160 bpm with EKG showed afib with RVR. Sent to the ER for admission and management. Principal Diagnosis Afib with RVR Discharge Exam Constitutional WD/WN, vitals as above Eyes EOM intact bilaterally; no conjunctival abnormality ENMT external ear and nose normal, oropharynx normal Neck trachea midline, no thyromegaly normal visual inspection Respiratory normal respiratory effort, lungs clear to auscultation no respiratory distress Cardiovascular Rate/Rhythm: regular rate and regular rhythm Vessels: no JVD Extremities: + edema (Improved) Gastrointestinal (Abdomen) Inspection/Auscultation: abdomen normal to inspection; abdomen not distended Musculoskeletal no cyanosis or clubbing, extremities motor strength 5/5 Skin no rashes, warm and dry Neurologic moves all extremities and awake Psychiatric Orientation: alert, oriented to person and cooperative Discharge Data Allergies Allergy/AdvReac Type Severity Reaction Status Date / Time benazepril Allergy Severe "ANAPHYLACTIC Verified 04/23/22 14:45 SHOCK" NSAIDS (Non-Steroidal Allergy Severe ANAPHYLACTIC Verified 04/23/22 14:45 Anti-Inflamma SHOCK FROM IBUPROFEN procaine Allergy Severe NOVOCAINE Verified 04/23/22 14:45 - "ANAPHYLACTIC SHOCK" tetracycline Allergy Mild N/V Verified 04/23/22 14:45 Oogjcep-EEE-DnW Reductase Allergy ELEVATED Verified 04/23/22 14:45 Inhibitor HEPATIC [Mzrrgfg-Hsb-Thv Reductase ENZYMES Inhibitor] Consultations 04/23/22 14:17 ED Decision to Admit Stat 04/23/22 15:10 Consult Cardiology Routine Procedures Performed Operation Date: 04/26/22 12:45 Actual Procedures p Echo Transesophageal - Louis Whitney MD s Cardioversion - Louis Whitney MD s Doppler Echo Limited/Follow Up - Louis Whitney MD s Echo Color Flow - Louis Whitney MD Ordered Studies 04/24/22 US abdomen limited Routine Hospital Course (1) Atrial fibrillation with rapid ventricular response: New diagnosis. [id number] 5. No secondary etiology noted at this time. TSH wnl. - Echo on 03/24 - EF 60-65%, no RWMA, borderline LVH. - Started anticoagulation with apixaban - Continued metoprolol; transitioned to Toprol XL 100 mg PO daily on discharge. - Cardioverted on 04/26. Given amiodarone gtt overnight as she had a lot of atrial ectopy. Discharged on amiodarone 200 mg PO BID. (2) Volume overload: Some signs of volume overload with LE edema; however, CXR is without overt edema. BNP mildly elevated at 345. At this time, would not consider this CHF. - Lasix 40 mg IV x 1 given in ER - No further sign of overload while inpatient. Held further Lasix. Resume home torsemide. (3) Transaminitis: LFTs noted to be 47/121/1.1/104 on admission with priors normal. Possibly subacute hepatic insufficiency. - RUQ u/s on 04/24 was normal. - Monitor -> Improving/resolved on 04/24. (4) HTN (hypertension): BPs relatively high in the clinic. - Held home amlodipine & losartan on discharge to allow for more AV luis blockade. Resume as outpatient if needed. (5) Diabetes mellitus: A1c was 7.1% in 01/2022. Not on meds; attempting control with diet/exercise. - Sliding scale insulin while inpatient, though patient is refusing. (6) Hyperlipidemia: - Continue home colesevelam & ezetimibe FULL CODE - Per patient in ER with [id number] present. 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 Whitney in 1-2 weeks.) Diet: Heart Healthy Addtl Attending Provider Instructions: You were admitted to the hospital with a rapid heart rate. We used medication and a cardioversion to shock your heart and return it to a normal rhythm. Please see Dr. Whitney in 1-2 weeks. To keep your heart in a normal rate and rhythm, we are usin) Metoprolol 2) Amiodarone These medications keep you in a normal heart rate and do the best we can to maintain a sinus rhythm. We have stopped: 1) Carvedilol -> This is replaced by metoprolol 2) Amlodipine -> This was not needed as your blood pressure ran low in the hospital. 3) Losartan -> This was not needed as your blood pressure ran low in the hospital. Here is an important part: You may need to gradually restart some blood pressure medications. As you get home and your heart gets settled down, your blood pressure may get a bit higher. Your PCP or Dr. Whitney may restart one of these medications. For now, it is safest to hold them and see how you do. Pending Studies at Discharge: No Stand-Alone Forms: My [facility] [employer] [facility], Smoking Cessation Medications and DC Order Prescriptions: New Eliquis 5 mg Tablet 5 mg PO BID Qty: 60 0RF metoprolol succinate 100 mg tablet extended release 24 hr 100 mg PO DAILY Qty: 30 0RF amiodarone 200 mg tablet 200 mg PO BID Qty: 60 0RF Continued epinephrine [EpiPen] 0.3 mg/0.3 mL auto-injector 0.3 mg IM .COMPLEX PRN (Reason: anaphylaxis) Qty: 2 1RF Rx Instructions: 0.3 mg IM as directed PRN buspirone 5 mg tablet 5 mg PO TID PRN (Reason: anxiety) Qty: 270 3RF colesevelam 625 mg tablet 1,875 mg PO BID Qty: 540 3RF torsemide 20 mg tablet See Rx Instructions .ROUTE .COMPLEX Qty: 45 1RF Dose Instruction: TAKE 1 TABLET EVERY OTHER DAY Rx Instructions: TAKE 1 TABLET EVERY OTHER DAY omeprazole 40 mg capsule,delayed release(DR/EC) 40 mg PO DAILY Qty: 90 3RF ezetimibe 10 mg tablet 10 mg PO DAILY Qty: 90 3RF omega-3 acid ethyl esters 1 gram capsule 1 cap PO TID brimonidine 0.1 % drops 1 drp ophthalmic (eye) Q8H timolol 0.5 % drops 1 drp ophthalmic (eye) BID cholecalciferol (vitamin D3) 1,250 mcg (50,000 unit) capsule 1,250 mcg PO DAILY Qty: 12 0RF Rx Instructions: 1 weekly for 12 weeks, then start over the counter Vit D3, 50 mcg daily latanoprost 0.005 % drops 1 drp ophthalmic (eye) QPM ondansetron HCl 4 mg tablet 4 mg PO Q8H PRN (Reason: nausea and vomiting) Qty: 15 0RF tramadol 50 mg tablet 50 mg PO Q8H PRN (Reason: pain) Qty: 30 0RF oxycodone 5 mg tablet 5 mg PO Q6H PRN (Reason: pain) Qty: 15 0RF Discontinued amlodipine 10 mg tablet 10 mg PO DAILY Qty: 90 3RF losartan 50 mg tablet 75 mg PO DAILY Qty: 90 3RF carvedilol 6.25 mg tablet 6.25 mg PO BID Qty: 180 2RF Rx Instructions: must administer with a meal/food Discharge Orders: Discharge Order (Routine); Ordered 04/27/22 Ordered By: Stanley Briseno Admission Data Admit Date/Time: 04/23/22 14:21 Attending Provider: Stanley Briseno Admit Provider: Stanley Briseno Primary Care Provider: Matthew Pickett Other Providers: Stanley Briseno ; Louis Whitney Other Interventions: Discharge Summary Assessment (RN) Last Done: 04/27/22 08:56 Coding Level of Care Code D/C DAY MANAGEMENT >30 MINS Diagnoses Atrial fibrillation with rapid ventricular response I48.91 Volume overload E87.70 Transaminitis R74.01 HTN (hypertension) I10 Hypertension type: essential hypertension Diabetes mellitus E11.9 Diabetes mellitus type: type 2 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
== END 2022-04-27 09:43 | disposition home or self-care (01) | DRG 308 ==
LOC: ED 12:34 → 2S 14:21

== ENCOUNTER 2022-05-28 15:27 | Inpatient (IN) ==
[2022-05-28 16:24] LABS: Basophils # (auto) 0.07 K/uL (0-0.2); Basophils % (auto) 0.7 %; Eosinophils # (auto) 0.42 K/uL (0-0.50); Eosinophils % (auto) 4.3 %; Hematocrit (blood only) 36.8 % (34.1-44.9); Hemoglobin 13.1 g/dl (12.0-16.0); Immature Granulocytes # (auto) 0.14 K/uL (0.00-0.02); Immature Granulocytes % (auto) 1.4 %; Lymphocytes # (auto) 1.22 K/uL (1.2-3.4); Lymphocytes % (auto) 12.6 %; Mean Corpuscular Hemoglobin 31.3 pg (25.0-34.0); Mean Corpuscular Hgb Conc 35.6 g/dL (32.0-36.0); Mean Corpuscular Volume 87.8 fL (80.0-100.0); Mean Platelet Volume 10.3 fL (9.4-12.3); Monocytes # (auto) 1.04 K/uL (0.24-0.82); Monocytes % (auto) 10.7 %; Neutrophils % (auto) 70.3 %; Platelet Count 288 K/uL (130-400); RDW Coefficient of Variation 13.4 % (11.5-14.5); RDW Standard Deviation 42.7 fL (36.4-46.3); Red Blood Count 4.19 M/uL (3.93-5.22); White Blood Count 9.69 K/ul (4.8-10.8)
[2022-05-28] MEDS ORDERED: ONDANSETRON INJ 2 MG/ML 2 ML VIAL IV STA (16:28)
[2022-05-28 16:47] LABS: Alanine Aminotransferase 18 U/L (7-52); Albumin Globulin Ratio 1.5 (0.9-2); Albumin Level 3.7 gm/dl (3.4-5.0); Alkaline Phosphatase 67 U/L (34-104); Anion Gap 8 (3-11); Aspartate Aminotransferase 17 U/L (13-39); BUN Creatinine Ratio 15.4 (10-20); Bilirubin,Total 0.8 mg/dl (0.2-1.0); Blood Urea Nitrogen 10 mg/dl (6-23); Calcium 8.8 mg/dl (8.5-10.1); Carbon Dioxide 30 mmol/L (21-32); Chloride 84 mmol/L (98-107); Est GFR (African American) 93.8 ml/min; Globulin 2.5 gm/dl (2.5-4.0); Glucose 165 mg/dl (70-99(Fasting)); Potassium 3.3 mmol/L (3.5-5.1); Sodium 122 mmol/L (136-145); Total Protein 6.2 gm/dl (6.0-8.3)
[2022-05-28 16:52] LABS: Troponin I High Sensitivity 6.4 pg/ml (0-14)
--- NOTE | 2022-05-28 16:53 | Emergency Department Note ---
Impression & Plan Hyponatremia, Nausea, Confusion ED Provider Note Provider: Vinod Mendez MD DATE OF SERVICE: 05/28/2022 CHIEF COMPLAINT: Fatigue/confusion/low sodium HISTORY OF PRESENT ILLNESS: Patient is a 86-year-old female recently diagnosed with paroxysmal atrial fibrillation last month as well as a history of gout and hypertension presenting here referred by her outpatient doctor today due to abnormality on blood work. Patient states she had routine blood work and they found her sodium to be quite low. Patient states has had ongoing nausea issues over the past month and has been using some Zofran which is minimally effective. Denies any headache chest pain or abdominal pain. States she has been nauseous at times again not having much appetite. Has been drinking a good bit of water and urinating frequently. States she had some swelling last was seen here several times for nausea and sore throat and some shortness of breath this past week. Is on torsemide every other day and with received an extra dose of Lasix on May 20. . States her breathing has been off but now improved. She is feeling a bit by the report off her confused it may have been several days but she is not the best historian regarding this. Denies any trauma or fainting. Denies striking her head or setting. States not having any significant leg swelling at this point. REVIEW OF SYSTEMS: A total of 10 review of systems was obtained and negative except as stated above in the HPI. PAST MEDICAL HISTORY: As noted above MEDICATIONS: Reviewed home medication SOCIAL HISTORY: Denies current smoking PHYSICAL EXAM: GENERAL: alert and oriented in no acute distress on stretcher somewhat fatigued appearing with [id number] at bedside Head: normocephalic and atraumatic EYES: No injection, discharge or icterus. NECK: Trachea midline. ENT: Mucous membranes pink and moist. LUNGS: Airway patent. No retractions. Breath sounds clear HEART: Regular rate and rhythm. No chest wall tenderness ABDOMEN: Soft and non-tender, without guarding or rebound. SKIN: Acyanotic, warm, dry EXTREMITIES: Trace bilateral pedal edema without significant tenderness with some chronic stasis changes. NEUROLOGICAL: No focal deficits. No aphasia. No facial droop or slurred speech. Normal strength and tone in the extremities. Sensation to gross touch normal. EK bpm sinus rhythm with 1 PAC. No PVC. No acute ST segment elevation or significant depression. Some T wave flattening is noted in the computer reports a QTC of 297 CONTINUOUS CARDIAC MONITORING: was ordered and showed a heart rate of 60s-70s bpm in sinus rhythm with occasional PAC Patient's laboratory studies and imaging reviewed. Differential includes Infection, dehydration, metabolic abnormality, hypo/hyperglycemia, electrolyte disturbance, anemia, hypoxia, cardiac sources, intracerebral event, toxicologic, neurologic, as well as other pathologies. IMPRESSION/MEDICAL DECISION MAKING: Patient has identified hyponatremia confirmed here. May be contributing some of her nausea and fatigue symptoms. Is on blood thinner although she is not head trauma we will complete a CT head to exclude bleed or other acute intra-abdominal abnormality. Has been on diuretics. Will obtain urine and serum osms for comparison purposes but given her significant low sodium and symptoms will bring into the hospital further evaluation. Some component of polydipsia may be at play as well. COVID test was negative. Not having any significant respiratory distress at this time. Does not appear fluid overloaded at this time. Did give a little bit of Zofran at this time to help with nausea symptoms. CT of the head without significant acute abnormalities noted by radiology report. We will bring the patient in given significant hyponatremia although its unclear if all of her nausea and symptoms are related to this. Discussed with the hospitalist. DIAGNOSIS: Hyponatremia, nausea, fatigue DISPOSITION: Hospitalist will evaluate Patient was agreeable with this plan. 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 Paroxysmal atrial tachycardia Paroxysmal atrial tachycardia Personal history of malignant melanoma of skin Renal lesion Skin cancer Spinal stenosis of lumbar region Statin intolerance Surgical History H/O arthroscopy of right knee H/O: hysterectomy Hx of colonoscopy Family History Father Congestive heart failure (CHF) Hypertension Myocardial infarction Mother Emphysema of lung Hypertension Brother Prostate cancer Hypertension Son Colorectal cancer age 49 Other Heart disease Denies family history of Ovarian cancer Diabetes Breast cancer Lung cancer Stroke Social History Smoking Status: Never smoker Tobacco Type: Cigarettes Age Started Using Tobacco: 27; Age Quit Using Tobacco: 45; packs per day: 0.75; Second Hand Exposure: No; Hx Alcohol Use: No Hx Substance Use: No Preferred Language: Kiswahili Communication Ability: Effective Visual Impairment: Limited Hearing Ability: Normal Capacity Planner Required: No Beliefs That Will Affect Care: None marital status: / Current Living Situation: Alone current occupational status: retired How many Children do You have: 2 Feels Safe at Home: Yes Safety Concerns: Feels Safe At This Time Childhood Exposure to Second-Hand Smoke: Yes caffeine: Yes during the past year weight has: remained stable Dental Care, Regularly: Yes Physical Activity Frequency: 3-4 Times per Week Physical Activity Frequency Comment: physical therapy Seatbelt Use: always Sunscreen Use: Yes (not in the sun) Do you think of yourself as: straight/heterosexual Assistive Devices: Glasses Assistive Devices Comment: bridge dentures Allergies Allergies Allergy/AdvReac Type Severity Reaction Status Date / Time benazepril Allergy Severe "ANAPHYLACTIC Verified 05/23/22 10:00 SHOCK" NSAIDS (Non-Steroidal Allergy Severe ANAPHYLACTIC Verified 05/23/22 10:00 Anti-Inflamma SHOCK FROM IBUPROFEN procaine Allergy Severe NOVOCAINE Verified 05/23/22 10:00 - "ANAPHYLACTIC SHOCK" tetracycline Allergy Mild N/V Verified 05/23/22 10:00 Xopzcai-HLI-AfP Reductase Allergy ELEVATED Verified 05/23/22 10:00 Inhibitor HEPATIC [Ihvmqjo-Qmi-Rya Reductase ENZYMES Inhibitor] Home Meds Home Medications Medication Instructions Recorded Confirmed omega-3 acid ethyl esters 1 gram 1 cap PO TID 03/09/19 05/23/22 capsule latanoprost 0.005 % eye drops 1 drp ophthalmic (eye) QPM 05/05/20 05/23/22 brimonidine 0.1 % eye drops 1 drp ophthalmic (eye) Q8H 01/22/22 05/23/22 timolol 0.5 % eye drops 1 drp ophthalmic (eye) BID 01/22/22 05/23/22 Previous Rx's Medication Instructions Recorded epinephrine 0.3 mg/0.3 mL 0.3 mg (0.3 mL) IM .COMPLEX PRN 07/06/20 injection, auto-injector (EpiPen) anaphylaxis #2 ea colesevelam 625 mg tablet 1,875 mg PO BID #540 tabs 07/26/21 omeprazole 40 mg capsule,delayed 40 mg PO DAILY #90 caps 11/15/21 release cholecalciferol (vitamin D3) 1,250 1,250 mcg PO DAILY #12 caps 01/22/22 mcg (50,000 unit) capsule oxycodone 5 mg tablet 5 mg PO Q6H PRN pain #15 tabs 02/28/22 ezetimibe 10 mg tablet 10 mg PO DAILY #90 tabs 03/18/22 tramadol 50 mg tablet 50 mg PO Q8H PRN pain #30 tabs 05/02/22 amiodarone 200 mg tablet 200 mg PO DAILY #90 tabs 05/13/22 apixaban 5 mg tablet (Eliquis) 5 mg PO BID #180 tabs 05/13/22 buspirone 5 mg tablet 5 mg PO TID anxiety 90 days #270 05/23/22 tabs metoprolol succinate 100 mg 100 mg PO DAILY #90 tabs 05/23/22 tablet,extended release 24 hr Results & Data (ED) Vital Signs Vital Signs - 24 hr 05/28/22 15:43 05/28/22 16:14 Temperature 36.5 C Temperature Source Temporal Artery Scan Pulse Rate 72 Pulse Rate [Apical] 69 Pulse Rhythm [Apical] Regular Pulse Strength [Apical] Normal Respiratory Rate 20 20 Respiratory Effort / Characteristics Non-Labored Non-Labored Respiratory Depth Normal Normal Respiratory Pattern Regular Blood Pressure 162/85 H Blood Pressure [Left Arm] 177/103 H Blood Pressure Mean 110 Blood Pressure Mean [Left Arm] 127 Pulse Oximetry 96 95 Oxygen Delivery Method Room Air Room Air Sepsis Recent Fever Within 48 Hours No Sepsis New/Unexplained Change in Mental Status N/A Sepsis Action Taken by Nursing No Action Required Laboratory Data Result diagrams: 05/28/22 16:11 05/28/22 16:11 Lab Results 05/28/22 05/28/22 05/28/22 Range/Units 16:06 16:11 16:11 WBC 9.69 (4.8-10.8) K/ul RBC 4.19 (3.93-5.22) M/uL Hgb 13.1 (12.0-16.0) g/dl Hct 36.8 (34.1-44.9) % MCV 87.8 (80.0-100.0) fL MCH 31.3 (25.0-34.0) pg MCHC 35.6 (32.0-36.0) g/dL RDW Std Deviation 42.7 (36.4-46.3) fL RDW Coeff of [place] 13.4 (11.5-14.5) % Plt Count 288 (130-400) K/uL MPV 10.3 (9.4-12.3) fL Immature Gran % (Auto) 1.4 % Neut % (Auto) 70.3 % Lymph % (Auto) 12.6 % [place] % (Auto) 10.7 % Eos % (Auto) 4.3 % Baso % (Auto) 0.7 % Neut # (Auto) 6.80 H (1.4-6.5) K/uL Lymph # (Auto) 1.22 (1.2-3.4) K/uL [place] # (Auto) 1.04 H (0.24-0.82) K/uL Eos # (Auto) 0.42 (0-0.50) K/uL Baso # (Auto) 0.07 (0-0.2) K/uL Immature Gran # (Auto) 0.14 H (0.00-0.02) K/uL Sodium 122 L (136-145) mmol/L Potassium 3.3 L (3.5-5.1) mmol/L Chloride 84 L (98-107) mmol/L Carbon Dioxide 30 (21-32) mmol/L Anion Gap 8 (3-11) BUN 10 (6-23) mg/dl Creatinine 0.65 (0.6-1.2) mg/dl Est Cr Clr Drug Dosing Not Reportable Est GFR ( Amer) 93.8 ml/min Est GFR (Non-Af Amer) 81.0 ml/min BUN/Creatinine Ratio 15.4 (10-20) Glucose 165 H (70-99(Fasting)) mg/dl Osmolality (280-300) mOsm/kg Calcium 8.8 (8.5-10.1) mg/dl Total Bilirubin 0.8 (0.2-1.0) mg/dl AST 17 (13-39) U/L ALT 18 (7-52) U/L Alkaline Phosphatase 67 (34-104) U/L Troponin I High Sens 6.4 (0-14) pg/ml Total Protein 6.2 (6.0-8.3) gm/dl Albumin 3.7 (3.4-5.0) gm/dl Globulin 2.5 (2.5-4.0) gm/dl Albumin/Globulin Ratio 1.5 (0.9-2) TSH (0.300-4.500) uIu/ml Urine Color Urine Appearance (Clear) Urine pH (4.5-7.5) Ur Specific [place] (1.000-1.030) Urine Protein (Negative) Urine Glucose (UA) (Negative) Urine Ketones (Negative) Urine Blood (Negative) Urine Nitrite (Negative) Urine Bilirubin (Negative) Urine Urobilinogen (Negative) Ur Leukocyte Esterase (Negative) Urine WBC (Auto) (0-5) /hpf Urine RBC (Auto) (0-4) /hpf U Hyaline Cast (Auto) (0-5) /lpf U Epithel Cells (Auto) (0-5) /lpf Urine Bacteria (Auto) (Negative) Urine Osmolality (500-800) mOsm/kg Ur Random Sodium mmol/L SARS-CoV-2, RNA, NAAT NEGATIVE (NEGATIVE) 05/28/22 05/28/22 05/28/22 Range/Units 16:11 16:11 17:24 WBC (4.8-10.8) K/ul RBC (3.93-5.22) M/uL Hgb (12.0-16.0) g/dl Hct (34.1-44.9) % MCV (80.0-100.0) fL MCH (25.0-34.0) pg MCHC (32.0-36.0) g/dL RDW Std Deviation (36.4-46.3) fL RDW Coeff of [place] (11.5-14.5) % Plt Count (130-400) K/uL MPV (9.4-12.3) fL Immature Gran % (Auto) % Neut % (Auto) % Lymph % (Auto) % [place] % (Auto) % Eos % (Auto) % Baso % (Auto) % Neut # (Auto) (1.4-6.5) K/uL Lymph # (Auto) (1.2-3.4) K/uL [place] # (Auto) (0.24-0.82) K/uL Eos # (Auto) (0-0.50) K/uL Baso # (Auto) (0-0.2) K/uL Immature Gran # (Auto) (0.00-0.02) K/uL Sodium (136-145) mmol/L Potassium (3.5-5.1) mmol/L Chloride (98-107) mmol/L Carbon Dioxide (21-32) mmol/L Anion Gap (3-11) BUN (6-23) mg/dl Creatinine (0.6-1.2) mg/dl Est Cr Clr Drug Dosing Est GFR ( Amer) ml/min Est GFR (Non-Af Amer) ml/min BUN/Creatinine Ratio (10-20) Glucose (70-99(Fasting)) mg/dl Osmolality 255 L (280-300) mOsm/kg Calcium (8.5-10.1) mg/dl Total Bilirubin (0.2-1.0) mg/dl AST (13-39) U/L ALT (7-52) U/L Alkaline Phosphatase (34-104) U/L Troponin I High Sens (0-14) pg/ml Total Protein (6.0-8.3) gm/dl Albumin (3.4-5.0) gm/dl Globulin (2.5-4.0) gm/dl Albumin/Globulin Ratio (0.9-2) TSH 2.786 (0.300-4.500) uIu/ml Urine Color Yellow Urine Appearance Clear (Clear) Urine pH 7.0 (4.5-7.5) Ur Specific [place] 1.017 (1.000-1.030) Urine Protein 2+ H (Negative) Urine Glucose (UA) Negative (Negative) Urine Ketones Negative (Negative) Urine Blood Negative (Negative) Urine Nitrite Negative (Negative) Urine Bilirubin Negative (Negative) Urine Urobilinogen Negative (Negative) Ur Leukocyte Esterase 1+ H (Negative) Urine WBC (Auto) 10-30 H (0-5) /hpf Urine RBC (Auto) 0-4 (0-4) /hpf U Hyaline Cast (Auto) 1-5 (0-5) /lpf U Epithel Cells (Auto) >30 H (0-5) /lpf Urine Bacteria (Auto) Negative (Negative) Urine Osmolality (500-800) mOsm/kg Ur Random Sodium mmol/L SARS-CoV-2, RNA, NAAT (NEGATIVE) 05/28/22 05/28/22 Range/Units 17:24 17:24 WBC (4.8-10.8) K/ul RBC (3.93-5.22) M/uL Hgb (12.0-16.0) g/dl Hct (34.1-44.9) % MCV (80.0-100.0) fL MCH (25.0-34.0) pg MCHC (32.0-36.0) g/dL RDW Std Deviation (36.4-46.3) fL RDW Coeff of [place]in (11.5-14.5) % Plt Count (130-400) K/uL MPV (9.4-12.3) fL Immature Gran % (Auto) % Neut % (Auto) % Lymph % (Auto) % [place] % (Auto) % Eos % (Auto) % Baso % (Auto) % Neut # (Auto) (1.4-6.5) K/uL Lymph # (Auto) (1.2-3.4) K/uL [place] # (Auto) (0.24-0.82) K/uL Eos # (Auto) (0-0.50) K/uL Baso # (Auto) (0-0.2) K/uL Immature Gran # (Auto) (0.00-0.02) K/uL Sodium (136-145) mmol/L Potassium (3.5-5.1) mmol/L Chloride (98-107) mmol/L Carbon Dioxide (21-32) mmol/L Anion Gap (3-11) BUN (6-23) mg/dl Creatinine (0.6-1.2) mg/dl Est Cr Clr Drug Dosing Est GFR ( Amer) ml/min Est GFR (Non-Af Amer) ml/min BUN/Creatinine Ratio (10-20) Glucose (70-99(Fasting)) mg/dl Osmolality (280-300) mOsm/kg Calcium (8.5-10.1) mg/dl Total Bilirubin (0.2-1.0) mg/dl AST (13-39) U/L ALT (7-52) U/L Alkaline Phosphatase (34-104) U/L Troponin I High Sens (0-14) pg/ml Total Protein (6.0-8.3) gm/dl Albumin (3.4-5.0) gm/dl Globulin (2.5-4.0) gm/dl Albumin/Globulin Ratio (0.9-2) TSH (0.300-4.500) uIu/ml Urine Color Urine Appearance (Clear) Urine pH (4.5-7.5) Ur Specific [place] (1.000-1.030) Urine Protein (Negative) Urine Glucose (UA) (Negative) Urine Ketones (Negative) Urine Blood (Negative) Urine Nitrite (Negative) Urine Bilirubin (Negative) Urine Urobilinogen (Negative) Ur Leukocyte Esterase (Negative) Urine WBC (Auto) (0-5) /hpf Urine RBC (Auto) (0-4) /hpf U Hyaline Cast (Auto) (0-5) /lpf U Epithel Cells (Auto) (0-5) /lpf Urine Bacteria (Auto) (Negative) Urine Osmolality 394 L (500-800) mOsm/kg Ur Random Sodium 35 mmol/L SARS-CoV-2, RNA, NAAT (NEGATIVE) Administered Medications Acetaminophen (Acetaminophen 325 Mg Tab) 650 mg PO Q4H PRN PRN Reason: Pain Stop: 06/27/22 21:25 Last Admin: 05/28/22 21:49 Dose: 650 mg Documented By: FITO Latanoprost (Latanoprost 0.005% Op Soln 2.5 Ml Btl) 1 drops OP QPM GISSELL Stop: 06/27/22 20:59 Last Admin: 05/28/22 20:45 Dose: 1 drops Documented By: FITO Timolol Maleate (Timolol Maleate 0.5% Op Soln 5 Ml Btl) 1 drops OPB BID GISSELL Stop: 06/27/22 20:59 Last Admin: 05/28/22 20:44 Dose: Not Given Documented By: FITO Discontinued Medications Miscellaneous (Patient's Height &/Or Weight Needed) 1 each N/A Q2H GISSELL Stop: 06/27/22 20:14 Last Admin: 05/28/22 20:44 Dose: 1 each Documented By: Admin: 05/28/22 20:31 Dose: 1 each Documented By: FITO Ondansetron HCl (Ondansetron Inj 2 Mg/Ml 2 Ml Vial) 4 mg IV NOW STA Stop: 05/28/22 16:29 Last Admin: 05/28/22 17:31 Dose: 4 mg Documented By: RSL Imaging Data Radiologist's Impression: Head CT 05/28/22 16:28 CT head/brain wo con CLINICAL HISTORY: 86 years-old Female with nausea, on apixapan, confusion. Acute nausea with altered mental status TECHNIQUE: Multiple axial CT images of the head were obtained without contrast. A dose lowering technique was utilized adhering to the principles of ALARA. CT DOSE: 537.48 mGy.cm COMPARISON: None. FINDINGS: No acute intracranial hemorrhage, midline shift, intracranial mass, hydrocephalus, territorial ischemia or abnormal extra-axial collection. Age- related involutional changes with ex vacuo ventriculomegaly. White matter hypodensities suggestive of chronic microvascular ischemic disease. Cerebral vascular calcifications. The calvarium is intact. Prior bilateral lens repair. Hyperostosis frontalis interna. The paranasal sinuses, mastoid air cells, and middle ear cavities are clear. IMPRESSION: No acute intracranial abnormality. ACT 112: Negative or not required by law. The above report was generated using voice recognition software. It may contain grammatical, syntax or spelling errors. Electronically signed by: Rusty Stock M.D. 05/28/2022 5:41 PM Discharge Plan Visit Data Chief Complaint: Referred by Doctor Stated Complaint: LOW SODIUM ED Provider: Vinod Mendez Discharge Problem: Hyponatremia, Nausea, Confusion Patient Disposition: Admitted As Inpatient Discharge Instructions Interventions: ED Discharge Assessment Last Done: 05/28/22 19:31
--- NOTE | 2022-05-28 17:37 | History & Physical Report ---
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 Delutional consistent with SIADH Urine studies pending Fluid restrict 1300 cc/day TSH normal All medications reviewed, hold home tramadol/buspirone EKG, sinus with PACs. No territorial ST segment changes or T wave inversions BMP every 4 hours. Will defer hypertonic saline in favor of fluid restriction and holding contributing medications, if downtrending 150 cc 3% saline at that time URI symptoms Approximately 2 to 3 weeks, clear sputum production and intermittent cough without fever/chills/night sweats Given concurrent hypona will test for Legionella Hypokalemia Mild, 3.3 without EKG changes. Suspect delusional in the setting of SIADH Trend BMP every 4 hours 1 dose of potassium given No chest pain Paroxysmal A. fib Continue amiodarone Continue apixaban Continue metoprolol 100 mg daily Hypertension Patient was recently started on torsemide August 2019 for edema without history of heart failure and a normal echo, has had intermittent hyponatremia in the past and this has been followed as outpatient We will hold torsemide for early Hyperlipidemia On Zetia/colesevelam, continue with outpatient follow-up GERD Hold omeprazole, convert to Protonix DVT prophylaxis: Anticoagulated on DOAC Diet: Fluid restrict CODE STATUS: Full code Disposition: PCU (2) Hypervolemia: (3) HTN (hypertension): (4) Gout: (5) Atrial fibrillation with rapid ventricular response: (6) PAF (paroxysmal atrial fibrillation): (7) Diabetes mellitus: History of Present Illness Primary Care Provider: Piero Bills DO Vanessa Reyse is an 86-year-old female with a past medical history of hyponatremia in the setting of tramadol use following shoulder injury, paroxysmal A. fib on apixaban, hypertension, hyperlipidemia, and 2 weeks of sore throat/URI symptoms COVID-negative who presents with confusion, fatigue, and hyponatremia to 122. Peeing less often, 1-2x during the day with no burning with urination No chest pain or chest pressure. 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 Notes generally grayson tart aching due to arthritis without her medicine, and which is improved with physical therapy No muscle cramps. Some nausea/abdominal cramps Drinking more water than usual in the past month, 2 glasses per day. No alcohol use. No tobacco product use. Last few days had a mild sore throat, and slightly more mucousy clear prodcution. no fevers, chills, sweats, or sinus congestion. +mild leg swelling better than normal in the last week, maybe a little worse last 2-3 days denies orthopnea cutting out torsemide as outpt, no CHF per pt/outpt followup Medical History: Reviewed Medications: Reviewed. Took meds, also took evening elquis already today Surgical History: Reviewed Allergies: Reviewed Social History: no tobacco/etoh. Code Status: Full Code\\ Allergies Allergy/AdvReac Type Severity Reaction Status Date / Time benazepril Allergy Severe "ANAPHYLACTIC Verified 05/23/22 10:00 SHOCK" NSAIDS (Non-Steroidal Allergy Severe ANAPHYLACTIC Verified 05/23/22 10:00 Anti-Inflamma SHOCK FROM IBUPROFEN procaine Allergy Severe NOVOCAINE Verified 05/23/22 10:00 - "ANAPHYLACTIC SHOCK" tetracycline Allergy Mild N/V Verified 05/23/22 10:00 Mugxxpl-IVI-QjF Reductase Allergy ELEVATED Verified 05/23/22 10:00 Inhibitor HEPATIC [Cgmnrie-Igq-Eqq Reductase ENZYMES Inhibitor] Home Medications Medication Instructions Recorded Confirmed Type omega-3 acid ethyl esters 1 gram 1 cap PO TID 03/09/19 05/23/22 History capsule latanoprost 0.005 % eye drops 1 drp ophthalmic (eye) QPM 05/05/20 05/23/22 History epinephrine 0.3 mg/0.3 mL 0.3 mg (0.3 mL) IM .COMPLEX PRN 07/06/20 05/23/22 Rx injection, auto-injector (EpiPen) anaphylaxis #2 ea colesevelam 625 mg tablet 1,875 mg PO BID #540 tabs 07/26/21 05/23/22 Rx omeprazole 40 mg capsule,delayed 40 mg PO DAILY #90 caps 11/15/21 05/23/22 Rx release brimonidine 0.1 % eye drops 1 drp ophthalmic (eye) Q8H 01/22/22 05/23/22 History cholecalciferol (vitamin D3) 1,250 1,250 mcg PO DAILY #12 caps 01/22/22 05/23/22 Rx mcg (50,000 unit) capsule timolol 0.5 % eye drops 1 drp ophthalmic (eye) BID 01/22/22 05/23/22 History oxycodone 5 mg tablet 5 mg PO Q6H PRN pain #15 tabs 02/28/22 05/23/22 Rx ezetimibe 10 mg tablet 10 mg PO DAILY #90 tabs 03/18/22 05/23/22 Rx tramadol 50 mg tablet 50 mg PO Q8H PRN pain #30 tabs 05/02/22 05/23/22 Rx amiodarone 200 mg tablet 200 mg PO DAILY #90 tabs 05/13/22 05/23/22 Rx apixaban 5 mg tablet (Eliquis) 5 mg PO BID #180 tabs 05/13/22 05/23/22 Rx buspirone 5 mg tablet 5 mg PO TID anxiety 90 days #270 05/23/22 05/23/22 Rx tabs metoprolol succinate 100 mg 100 mg PO DAILY #90 tabs 05/23/22 05/23/22 Rx tablet,extended release 24 hr 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 Paroxysmal atrial tachycardia Paroxysmal atrial tachycardia Personal history of malignant melanoma of skin Renal lesion Skin cancer Spinal stenosis of lumbar region Statin intolerance Surgical History H/O arthroscopy of right knee H/O: hysterectomy Hx of colonoscopy Family History Father Congestive heart failure (CHF) Hypertension Myocardial infarction Mother Emphysema of lung Hypertension Brother Prostate cancer Hypertension Son Colorectal cancer age 49 Other Heart disease Denies family history of Ovarian cancer Diabetes Breast cancer Lung cancer Stroke Social History Smoking Status: Never smoker Tobacco Type: Cigarettes Age Started Using Tobacco: 27; Age Quit Using Tobacco: 45; packs per day: 0.75; Second Hand Exposure: No; Hx Alcohol Use: No Hx Substance Use: No Preferred Language: Kazakh Communication Ability: Effective Visual Impairment: Limited Hearing Ability: Normal Production Foreman Required: No Beliefs That Will Affect Care: None marital status: / Current Living Situation: Alone current occupational status: retired How many Children do You have: 2 Feels Safe at Home: Yes Childhood Exposure to Second-Hand Smoke: Yes caffeine: Yes during the past year weight has: remained stable Dental Care, Regularly: Yes Physical Activity Frequency: 3-4 Times per Week Physical Activity Frequency Comment: physical therapy Seatbelt Use: always Sunscreen Use: Yes (not in the sun) Do you think of yourself as: straight/heterosexual Assistive Devices: Cane and Walker Review of Systems Review of Systems: All systems reviewed & are unremarkable except as noted in HPI & below Physical Exam Physical Exam: General: A&Ox3. NAD. Cooperative. HEENT: Atraumatic, normocephalic. Vision/hearing intact. Eom intact. PERLAA. Pulm: CTAB A&P. -wheezes, -rales, -rhonchi. Symmetrical chest rise. No increased work of breathing. No respiratory distress. Cardiac: RRR, +sm. Radial pulses intact and symmetrical. Abdominal: Nontender, nondistended, soft. BS present. Ext: warm, dry, trace ankle edema.5/5 strength to slab lifting engineer, ankle dorsi/plantar flexion, hip flexion. soft touch intact Results & Data Results & Data ([facility]) Vital Signs (Past 12 Hours) Vital Signs Temp Pulse Pulse Resp BP BP Pulse Ox 05/28/22 16:14 69 20 177/103 H 95 05/28/22 15:43 36.5 C 72 20 162/85 H 96 O2 Del Method 05/28/22 16:14 Room Air 05/28/22 15:43 Room Air PG Care Time/CCT Total # of Minutes Spent Total Time Spent with Patient: Total time spent is greater than 50% in coordination of care (as documented) at patient's floor/unit and/or counseling patient: Coding Level of Care Code 94352 Initial Inpt Care Lvl 3 Diagnoses Hyponatremia E87.1 Hypervolemia E87.70 Hypervolemia type: unspecified HTN (hypertension) I10 Hypertension type: essential hypertension Gout M10.9 Atrial fibrillation with rapid ventricular response I48.91 PAF (paroxysmal atrial fibrillation) I48.0 Diabetes mellitus E11.9 Diabetes mellitus type: type 2 Diabetes mellitus terminal manager insulin use: without terminal manager use Diabetes mellitus complication status: without complication (1) Hypervolemia Hypervolemia type: unspecified Qualified Code(s): E87.70 - Fluid overload, unspecified (2) HTN (hypertension) Hypertension type: essential hypertension Qualified Code(s): I10 - Essential (primary) hypertension (3) Diabetes mellitus Diabetes mellitus type: type 2 Diabetes mellitus skilled nursing insulin use: without skilled nursing use Diabetes mellitus complication status: without complication Qualified Code(s): E11.9 - Type 2 diabetes mellitus without complications
--- NOTE | 2022-05-28 17:42 | CT Scan Report ---
CT head/brain wo con CLINICAL HISTORY: 86 years-old Female with nausea, on apixapan, confusion. Acute nausea with altered mental status TECHNIQUE: Multiple axial CT images of the head were obtained without contrast. A dose lowering tech nique was utilized adhering to the principles of ALARA. CT DOSE: 537.48 mGy.cm COMPARISON: None. FINDINGS: No acute intracranial hemorrhage, midline shift, intracranial mass, hydrocephalus, territorial ischem ia or abnormal extra-axial collection. Age-related involutional changes with ex vacuo ventriculomegal y. White matter hypodensities suggestive of chronic microvascular ischemic disease. Cerebral vascular calcifications. The calvarium is intact. Prior bilateral lens repair. Hyperostosis frontalis interna. The paranasal s inuses, mastoid air cells, and middle ear cavities are clear. IMPRESSION: No acute intracranial abnormality. ACT 112: Negative or not required by law. The above report was generated using voice recognition software. It may contain grammatical, syntax o r spelling errors. Electronically signed by: Rusty Stock M.D. 05/28/2022 5:41 PM
[2022-05-28 17:44] LABS: Appearance Urine Clear (Clear); Bacteria Urine Automated Negative (Negative); Bilirubin Urine Negative (Negative); Blood Urine Negative (Negative); Color Urine Yellow; Epithelial Cell Urine Auto >30 /lpf (0-5); Glucose Urine UA Negative (Negative); Ketones Urine Negative (Negative); Leukocyte Esterase Urine 1+ (Negative); Nitrite Urine Negative (Negative); Protein Urine 2+ (Negative); RBC Urine Automated 0-4 /hpf (0-4); Specific Gravity Urine 1.017 (1.000-1.030); Urobilinogen Urine Negative (Negative)
--- NOTE | 2022-05-28 18:39 | XRay Report ---
XR chest 1V portable HISTORY: 86 years-old Female cough acute cough COMPARISON: Chest radiograph 05/20/2022 TECHNIQUE: AP view of the chest FINDINGS: Cardiac silhouette is enlarged. Atherosclerosis of the aorta. No pneumothorax, large pleural effusion or overt pulmonary edema. Degenerative changes of the shoulders and spine. Healed chronic left clavi cular fracture deformity. Mild mid thoracic dextroscoliosis. IMPRESSION: Cardiomegaly without acute process. ACT 112: Negative or not required by law. The above report was generated using voice recognition software. It may contain grammatical, syntax o r spelling errors. Electronically signed by: Rusty Stock M.D. 05/28/2022 6:38 PM
[2022-05-28 20:24] LABS: Adenovirus PCR Not Detected (NotDetected); Bordetella parapertussis PCR Not Detected (NotDetected); Bordetella pertussis PCR Not Detected (NotDetected); Chlamydia pneumoniae PCR Not Detected (NotDetected); Coronavirus 229E PCR Not Detected (NotDetected); Coronavirus CoV-2 (COVID19)PCR Not Detected (NotDetected); Coronavirus HKU1 PCR Not Detected (NotDetected); Coronavirus NL63 PCR Not Detected (NotDetected); Coronavirus OC43PCR Not Detected (NotDetected); Human Metapneumovirus PCR Not Detected (NotDetected); Influenza A PCR Not Detected (NotDetected); Influenza B PCR Not Detected (NotDetected); Mycoplasma pneumoniae PCR Not Detected (NotDetected); Parainfluenza Virus 1 PCR Not Detected (NotDetected); Parainfluenza Virus 2 PCR Not Detected (NotDetected); Parainfluenza Virus 3 PCR Not Detected (NotDetected); Parainfluenza Virus 4 PCR Not Detected (NotDetected); Respiratory Syncytial VirusPCR Not Detected (NotDetected); Rhinovirus/Enterovirus PCR Not Detected (NotDetected)
[2022-05-28] MEDS: Patient's HEIGHT &/or WEIGHT Needed SCH ×2 (20:31→20:44)
[2022-05-28] MEDS: TIMOLOL MALEATE 0.5% OP SOLN 5 ML BTL OPB SCH (20:44)
[2022-05-28] MEDS: LATANOPROST 0.005% OP SOLN 2.5 ML BTL OP SCH (20:45)
[2022-05-28] MEDS: ACETAMINOPHEN 325 MG TAB PO PRN (21:49)
[2022-05-29] MEDS: ACETAMINOPHEN 325 MG TAB PO PRN ×2 (03:15→23:10)
--- NOTE | 2022-05-29 06:56 | Hospitalist Progress Note ---
Date of Service May 29, 2022 Assessment & Plan (1) Hyponatremia: (2) Pharyngitis: (3) Confusion: (4) PAF (paroxysmal atrial fibrillation): Plan Vanessa is a 86 y/o female who presented to the ER yesterday after being sent by her primary care doctor due to abnormal labs (sodium at 122), confusion, fatigue, and 2 weeks of sore throat/URI symptoms (COVID negative). Her past medical history includes hyponatremia in the setting of tramadol use following shoulder injury, paroxysmal A. fib on apixaban (diagnosed last month), hypertension, and hyperlipidemia. 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 (Baseline 135-137) -Gave patient 2g sodium chloride tab, patient became nauseous and vomited tablets -Recheck sodium later was 124, then down to 123. Ordered prophylactic zofran and gave patient new 1g tablet at 6pm -Continue BMP q4 hrs CT head no acute findings in ER Fatigue -likely multifactorial - hyponatremia/deconditioning/?uri -PT/OT ordered. URI symptoms Approximately 2 to 3 weeks, clear sputum production and intermittent cough without fever/chills/night sweats Given concurrent hypoxia, will test for Legionella Hypokalemia Mild, 3.3 without EKG changes. Suspect dilutional in the setting of SIADH Trend BMP every 4 hours 1 dose of potassium given No chest pain Paroxysmal A. fib Continue amiodarone Continue apixaban Continue metoprolol 100 mg daily LE edema Patient was recently started on torsemide August 2019 for edema without history of heart failure and a normal echo, has had intermittent hyponatremia in the past and this has been followed as outpatient We will hold torsemide Hyperlipidemia On Zetia/colesevelam, continue with outpatient follow-up GERD Hold omeprazole, convert to Protonix DVT prophylaxis: Anticoagulated on DOAC Diet: Regular diet CODE STATUS: Full code Disposition: PCU Admission and Anticipated Discharge Date Admission Date: May 28, 2022 Supervising Physician Co-Signing Physician Notes Resident Physician Supervision Note: I independently interviewed and examined the patient and verified the womack history and physical, reviewed labs and image studies and agree with resident findings and care plan. Subjective Patient was seen and examined at bedside. Vanessa was very upset and concerned about her condition, felt that her medical needs were not being met. Denies SOB, chest pain, dizziness. Had some nausea and episode of vomiting after taking salt tab. Review of Systems Review of Systems: As per HPI Physical Exam Constitutional: WD/WN, vitals as above Neck: trachea midline, no thyromegaly Respiratory: normal respiratory effort, few crackles- no wheezes. Cardiovascular: RRR, no murmur, no edema No JVD Gastrointestinal (Abdomen): normal bowel sounds, soft, nontender, no hepatosplenomegaly Results & Data Results & Data ([facility]) Vital Signs (Past 12 Hours) Vital Signs Temp Pulse Pulse Resp BP Pulse Ox O2 Del Method 05/29/22 03:56 36.3 C L 73 18 130/81 95 Room Air 05/28/22 23:41 63 05/28/22 20:31 76 05/28/22 23:00 36.6 C 69 16 126/75 93 Room Air 05/28/22 19:53 Room Air 05/28/22 19:53 36.5 C 75 18 146/89 H 93 Room Air 05/28/22 19:00 81 20 154/95 H 96 Room Air Resident Activity Tracking Resident Involvement: Resident Care Provided Care Provided: Adult Hospital Medicine
[2022-05-29] MEDS: AMIODARONE 200 MG TAB PO SCH (08:22)
[2022-05-29] MEDS: APIXABAN 5 MG TABLET PO SCH ×2 (08:22→20:14)
--- NOTE | 2022-05-29 08:22 | Electrocardiogram Report ---
Test Reason : Blood Pressure : / mmHG Vent. Rate : 067 BPM Atrial Rate : 067 BPM P-R Int : 178 ms QRS Dur : 090 ms QT Int : 282 ms P-R-T Axes : 074 006 -15 degrees QTc Int : 297 ms Sinus rhythm with Premature atrial complexes Nonspecific T wave abnormality Anterior leads Abnormal ECG When compared with ECG of 20-MAY-2022 10:11, HR has decreased by 32 bpm Otherwise no significant change Confirmed by Juan Eddy ([id number]) on 05/29/2022 8:22:12 AM Referred By: Piero Bills Confirmed By:Juan Eddy
[2022-05-29] MEDS: METOPROLOL SUCC 50MG EXT REL TAB PO SCH (08:23)
[2022-05-29] MEDS: TIMOLOL MALEATE 0.5% OP SOLN 5 ML BTL OPB SCH ×3 (08:23→21:30)
[2022-05-29] MEDS: EZETIMIBE 10 MG TABLET PO SCH (08:23)
[2022-05-29 08:45] LABS: Basophils # (auto) 0.09 K/uL (0-0.2); Basophils % (auto) 0.9 %; Eosinophils # (auto) 0.35 K/uL (0-0.50); Eosinophils % (auto) 3.7 %; Hematocrit (blood only) 35.6 % (34.1-44.9); Hemoglobin 12.6 g/dl (12.0-16.0); Immature Granulocytes # (auto) 0.15 K/uL (0.00-0.02); Immature Granulocytes % (auto) 1.6 %; Lymphocytes # (auto) 1.51 K/uL (1.2-3.4); Lymphocytes % (auto) 15.8 %; Mean Corpuscular Hemoglobin 31.1 pg (25.0-34.0); Mean Corpuscular Hgb Conc 35.4 g/dL (32.0-36.0); Mean Corpuscular Volume 87.9 fL (80.0-100.0); Mean Platelet Volume 10.3 fL (9.4-12.3); Monocytes # (auto) 1.15 K/uL (0.24-0.82); Neutrophils # (auto) 6.31 K/uL (1.4-6.5); Platelet Count 284 K/uL (130-400); RDW Coefficient of Variation 13.3 % (11.5-14.5); RDW Standard Deviation 43.3 fL (36.4-46.3); Red Blood Count 4.05 M/uL (3.93-5.22); White Blood Count 9.56 K/ul (4.8-10.8)
[2022-05-29 09:05] LABS: BUN Creatinine Ratio 13.3 (10-20); Calcium 8.5 mg/dl (8.5-10.1); Est GFR (African American) 96.3 ml/min; Est GFR (Non-African American) 83.1 ml/min; Potassium 3.4 mmol/L (3.5-5.1)
[2022-05-29] MEDS ORDERED: SODIUM CHLORIDE 1 GM TABLET PO STA (10:21)
[2022-05-29] MEDS ORDERED: ONDANSETRON INJ 2 MG/ML 2 ML VIAL ONE (11:08)
[2022-05-29] MEDS ORDERED: ONDANSETRON INJ 2 MG/ML 2 ML VIAL IV STA ×2 (11:08→18:13)
[2022-05-29 13:08] LABS: BUN Creatinine Ratio 12.9 (10-20); Creatinine Clr Calc Pharmacy 62.6 ml/min; Est GFR (African American) 91.6 ml/min; Potassium 3.6 mmol/L (3.5-5.1)
[2022-05-29] MEDS: POLYETHYLENE (MIRALAX) 17 GM PACK PO PRN (16:47)
[2022-05-29 17:43] LABS: Calcium 8.9 mg/dl (8.5-10.1); Creatinine Clr Calc Pharmacy 52.8 ml/min; Est GFR (African American) 74.5 ml/min; Est GFR (Non-African American) 64.3 ml/min; Potassium 3.7 mmol/L (3.5-5.1)
[2022-05-29] MEDS ORDERED: SODIUM CHLORIDE 1 GM TABLET PO ONE (18:14)
[2022-05-29] MEDS: LATANOPROST 0.005% OP SOLN 2.5 ML BTL OP SCH (20:14)
[2022-05-29 21:17] LABS: BUN Creatinine Ratio 14.7 (10-20); Calcium 8.9 mg/dl (8.5-10.1); Creatinine Clr Calc Pharmacy 58.4 ml/min; Est GFR (African American) 84.2 ml/min; Est GFR (Non-African American) 72.7 ml/min; Potassium 3.5 mmol/L (3.5-5.1)
[2022-05-30 01:06] LABS: BUN Creatinine Ratio 15.7 (10-20); Calcium 8.4 mg/dl (8.5-10.1); Creatinine Clr Calc Pharmacy 62.6 ml/min; Est GFR (African American) 91.6 ml/min; Potassium 3.2 mmol/L (3.5-5.1)
[2022-05-30 06:47] LABS: Basophils # (auto) 0.07 K/uL (0-0.2); Basophils % (auto) 0.7 %; Eosinophils # (auto) 0.38 K/uL (0-0.50); Eosinophils % (auto) 3.9 %; Hematocrit (blood only) 34.5 % (34.1-44.9); Hemoglobin 12.1 g/dl (12.0-16.0); Immature Granulocytes # (auto) 0.14 K/uL (0.00-0.02); Immature Granulocytes % (auto) 1.4 %; Lymphocytes # (auto) 1.51 K/uL (1.2-3.4); Lymphocytes % (auto) 15.3 %; Mean Corpuscular Hemoglobin 30.9 pg (25.0-34.0); Mean Corpuscular Hgb Conc 35.1 g/dL (32.0-36.0); Mean Corpuscular Volume 88.2 fL (80.0-100.0); Mean Platelet Volume 10.6 fL (9.4-12.3); Monocytes # (auto) 1.11 K/uL (0.24-0.82); Monocytes % (auto) 11.2 %; Neutrophils # (auto) 6.66 K/uL (1.4-6.5); Neutrophils % (auto) 67.5 %; Platelet Count 285 K/uL (130-400); RDW Coefficient of Variation 13.7 % (11.5-14.5); RDW Standard Deviation 44.1 fL (36.4-46.3); Red Blood Count 3.91 M/uL (3.93-5.22); White Blood Count 9.87 K/ul (4.8-10.8)
[2022-05-30 07:24] LABS: BUN Creatinine Ratio 17.2 (10-20); Calcium 8.5 mg/dl (8.5-10.1); Creatinine Clr Calc Pharmacy 75.6 ml/min; Est GFR (African American) 97.4 ml/min; Magnesium 1.8 mg/dl (1.7-2.4); Potassium 3.4 mmol/L (3.5-5.1)
[2022-05-30] MEDS: AMIODARONE 200 MG TAB PO SCH (08:07)
[2022-05-30] MEDS: APIXABAN 5 MG TABLET PO SCH ×2 (08:07→20:19)
[2022-05-30] MEDS: EZETIMIBE 10 MG TABLET PO SCH (08:08)
[2022-05-30] MEDS: METOPROLOL SUCC 50MG EXT REL TAB PO SCH (08:08)
[2022-05-30] MEDS: TIMOLOL MALEATE 0.5% OP SOLN 5 ML BTL OPB SCH ×2 (08:09→20:18)
[2022-05-30] MEDS: ACETAMINOPHEN 325 MG TAB PO PRN (08:12)
--- NOTE | 2022-05-30 08:42 | Hospitalist Progress Note ---
Date of Service May 30, 2022 Assessment & Plan (1) Hyponatremia: (2) Pharyngitis: (3) Confusion: (4) PAF (paroxysmal atrial fibrillation): Plan Vanessa is a 86 y/o female who presented to the ER yesterday after being sent by her primary care doctor due to abnormal labs (sodium at 122), confusion, fatigue, and 2 weeks of sore throat/URI symptoms (COVID negative). Her past medical history includes hyponatremia in the setting of tramadol use following shoulder injury, paroxysmal A. fib on apixaban (diagnosed last month), hypertension, and hyperlipidemia. 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 (Baseline 135-137) -Received 1g additional midday, following BMP showed sodium at 125. -Ordered 15g Tolvaptan and BID 1g sodium chloride tab. -Will repeat BMP in AM -Plan to d/c tomorrow is sodium level stabilizes Fatigue -likely multifactorial - hyponatremia/deconditioning/?uri -PT/OT evaluations complete, feel patient can return to home upon discharge Renal mass -being followed as outpatient. -considering hyponatremia - ordered CT abdomen w/wo. No change in lesion size -Patient reports having endometriosis and largest lesion was in kidney and wondered if the renal lesion is that. -To discuss with urology at f/u appointment in june URI symptoms -Approximately 2 to 3 weeks, clear sputum production and intermittent cough without fever/chills/night sweats -Given concurrent hypoxia, will test for Legionella Hypokalemia -Mild, 3.3 without EKG changes. Suspect dilutional in the setting of SIADH -1 dose of potassium given -No chest pain Paroxysmal A. fib -Continue amiodarone -Continue apixaban -Continue metoprolol 100 mg daily LE edema -Patient was recently started on torsemide August 2019 for edema without history of heart failure and a normal echo, has had intermittent hyponatremia in the past and this has been followed as outpatient -We will hold torsemide Diabetes Mellitus- Type 2 -A1C 7.6% on 05/30/22 -Not currently on any medications for it, per PCP note- trying to modify diet/exercise -Will start ach checks Hyperlipidemia -On Zetia/colesevelam, continue with outpatient follow-up GERD -Hold omeprazole, convert to Protonix DVT prophylaxis: Anticoagulated on DOAC Diet: Regular diet CODE STATUS: Full code Disposition: PCU Admission and Anticipated Discharge Date Admission Date: May 28, 2022 Supervising Physician Co-Signing Physician Notes Resident Physician Supervision Note: I independently interviewed and examined the patient and verified the womack history and physical, reviewed labs and image studies and agree with resident findings and care plan. Subjective Patient seen and examined at bedside. Vanessa was appreciative of continued updates on sodium levels and plan of treatment. States her symptoms have resolved, feels that the prophylactic zofran has been helpful for tolerating the sodium chloride tablets. Patient is eager to return home soon. Denies SOB, chest pain, fever, chills. Review of Systems Review of Systems: As per HPI Physical Exam Constitutional: WD/WN, vitals as above Neck: trachea midline, no thyromegaly Respiratory: no increased work of breathing Cardiovascular: RRR, no murmur, no edema Skin: no rashes, warm and dry Psychiatric: A+Ox3, euthymic affect Results & Data Results & Data ([facility]) Vital Signs (Past 12 Hours) Vital Signs Temp Pulse Pulse Resp BP Pulse Ox O2 Del Method 05/30/22 07:35 84 05/30/22 06:49 36.3 C L 87 16 171/90 H 96 Room Air 05/30/22 02:42 36.5 C 76 20 156/85 H 95 Room Air 05/29/22 23:29 73 05/29/22 22:40 36.3 C L 88 16 148/85 H 95 Room Air Resident Activity Tracking Resident Involvement: Resident Care Provided Care Provided: Adult Hospital Medicine
[2022-05-30] MEDS ORDERED: ALPRAZolam 0.25 MG TABLET PO STA (09:07)
[2022-05-30] MEDS ORDERED: OPTIRAY 350 100ml IV ONE (10:09)
[2022-05-30] MEDS ORDERED: ONDANSETRON INJ 2 MG/ML 2 ML VIAL IV STA (10:18)
[2022-05-30] MEDS ORDERED: SODIUM CHLORIDE 1 GM TABLET PO STA (10:20)
[2022-05-30] MEDS: POLYETHYLENE (MIRALAX) 17 GM PACK PO PRN (10:21)
--- NOTE | 2022-05-30 10:33 | CT Scan Report ---
CT SCAN OF THE ABDOMEN COMBO RENAL MASS PROTOCOL CLINICAL HISTORY: Hyponatremia. Renal cysts. COMPARISON STUDY: Abdominal CT dated 02/28/2022. Abdominal MRI dated 03/13/2021. TECHNIQUE: Before and following the IV administration of 85 cc of Optiray 350, CT scan of the abdome n is performed from the lung bases to the pelvic inlet utilizing the renal mass protocol. Images are reviewed in the axial, sagittal, and coronal planes. IV contrast was administered without complicatio n. A dose lowering technique was utilized adhering to the principles of ALARA. The examination is sig nificantly degraded by streak artifact from the arms which could not be identified above the abdomen, as well as by large body habitus and streak artifact from the body wall abutting the CT gantry. CT DOSE: 2390.43 mGy.cm FINDINGS: Lung bases: The heart is enlarged and without pericardial effusion. The coronary arteries are densely calcified. The lung bases are clear noting bibasilar scarring/atelectasis. A small hiatal hernia is noted. Liver: The contrast-enhanced liver is normal in size, contour, and attenuation. There is no intrahepa tic biliary ductal dilatation. The hepatic veins and portal veins are patent. Gallbladder: There are calcifications in the hepatic hilum. The gallbladder is normal in appearance. Spleen: Normal in size and attenuation. Pancreas: Atrophic and grossly unremarkable. Adrenal glands: Unremarkable. Kidneys: The contrast enhanced kidneys demonstrate cortical atrophy and are without hydronephrosis. N o renal calculi are identified on the unenhanced series. The kidneys enhance and excrete symmetricall y. There is a 1.8 cm slightly hyperdense lesion in the interpolar left kidney seen on axial postcontr ast image #142. This shows postcontrast enhancement and washout, and is highly suspicious for a renal cell carcinoma. No additional enhancing cortical mass lesion is suggested. A 1.5 cm complex/hyperden se cyst is seen in the lower pole of the right kidney on image #190. There are numerous simple bilate ral renal cysts which measure up to 4.9 cm. Additional subcentimeter cortical hypodensities also like ly represent cysts but are too small for definitive characterization. There is no evidence of urothel ial lesion involving the renal pelvis bilaterally or along the course of the proximal ureters. Abdominal vasculature: The abdominal aorta is normal in course and caliber noting moderate to advance d atherosclerotic calcification. Bowel: Visualized portions of the small bowel and colon show no evidence of obstruction. Mild fecal r etention is seen throughout the imaged colon. Peritoneum: There is no intraperitoneal free air or abdominal ascites. Surgical clips are partially v isualized in the upper pelvis. Lymphadenopathy: None. Skeletal structures: The skeletal structures are osteopenic. There is moderate to advanced lumbosacra l spondylosis and scoliosis. A bone island is incidentally noted in the body of L4. No lytic or blast ic lesions are seen. IMPRESSION: 1. Again seen is a 1.8 cm enhancing lesion in the interpolar left kidney. This remains highly suspici ous for renal cell carcinoma and is similar to prior examinations. 2. Additional simple and complex renal cysts are seen bilaterally. 3. No acute infectious or inflammatory findings identified in the abdomen. 4. Additional findings as above. ACT 112: Negative or not required by law. Electronically signed by: Saul Henry M.D. 05/30/2022 10:32 AM
[2022-05-30 14:53] LABS: BUN Creatinine Ratio 14.7 (10-20); Calcium 8.6 mg/dl (8.5-10.1); Creatinine Clr Calc Pharmacy 58.4 ml/min; Est GFR (African American) 84.2 ml/min; Est GFR (Non-African American) 72.7 ml/min; Potassium 3.9 mmol/L (3.5-5.1)
[2022-05-30] MEDS ORDERED: TOLVAPTAN 15 MG TABLET PO STA (16:45)
[2022-05-30] MEDS: ONDANSETRON INJ 2 MG/ML 2 ML VIAL IV PRN (20:18)
[2022-05-30] MEDS: SODIUM CHLORIDE 1 GM TABLET PO SCH (20:19)
[2022-05-30] MEDS: LATANOPROST 0.005% OP SOLN 2.5 ML BTL OP SCH (20:20)
[2022-05-31 07:17] LABS: Basophils % (auto) 1.1 %; Eosinophils # (auto) 0.39 K/uL (0-0.50); Eosinophils % (auto) 4.2 %; Hematocrit (blood only) 37.9 % (34.1-44.9); Hemoglobin 12.9 g/dl (12.0-16.0); Immature Granulocytes % (auto) 1.1 %; Mean Corpuscular Hemoglobin 31.2 pg (25.0-34.0); Mean Corpuscular Volume 91.5 fL (80.0-100.0); Mean Platelet Volume 10.3 fL (9.4-12.3); Monocytes # (auto) 0.96 K/uL (0.24-0.82); Monocytes % (auto) 10.3 %; Neutrophils # (auto) 6.44 K/uL (1.4-6.5); Neutrophils % (auto) 69.3 %; Platelet Count 306 K/uL (130-400); RDW Coefficient of Variation 14.3 % (11.5-14.5); RDW Standard Deviation 47.9 fL (36.4-46.3); Red Blood Count 4.14 M/uL (3.93-5.22); White Blood Count 9.29 K/ul (4.8-10.8)
[2022-05-31 07:55] LABS: BUN Creatinine Ratio 12.7 (10-20); Creatinine Clr Calc Pharmacy 69.4 ml/min; Est GFR (African American) 94.8 ml/min; Est GFR (Non-African American) 81.8 ml/min; Magnesium 1.9 mg/dl (1.7-2.4); Potassium 4.2 mmol/L (3.5-5.1)
[2022-05-31] MEDS: ACETAMINOPHEN 325 MG TAB PO PRN (08:18)
[2022-05-31] MEDS: ONDANSETRON INJ 2 MG/ML 2 ML VIAL IV PRN (08:19)
[2022-05-31] MEDS: APIXABAN 5 MG TABLET PO SCH (08:21)
[2022-05-31] MEDS: EZETIMIBE 10 MG TABLET PO SCH (08:21)
[2022-05-31] MEDS: AMIODARONE 200 MG TAB PO SCH (08:21)
[2022-05-31] MEDS: TIMOLOL MALEATE 0.5% OP SOLN 5 ML BTL OPB SCH (08:21)
[2022-05-31] MEDS: METOPROLOL SUCC 50MG EXT REL TAB PO SCH (08:21)
[2022-05-31] MEDS: SODIUM CHLORIDE 1 GM TABLET PO SCH (08:22)
--- NOTE | 2022-05-31 11:40 | Discharge Summary ---
Date of Service May 31, 2022 Admission HPI Per Admitting Provider Vanessa Reyes is an 86-year-old female with a past medical history of hyponatremia in the setting of tramadol use following shoulder injury, paroxysmal A. fib on apixaban, hypertension, hyperlipidemia, and 2 weeks of sore throat/URI symptoms COVID-negative who presents with confusion, fatigue, and hyponatremia to 122. Peeing less often, 1-2x during the day with no burning with urination No chest pain or chest pressure. 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 Notes generally grayson tart aching due to arthritis without her medicine, and which is improved with physical therapy No muscle cramps. Some nausea/abdominal cramps Drinking more water than usual in the past month, 2 glasses per day. No alcohol use. No tobacco product use. Last few days had a mild sore throat, and slightly more mucousy clear pr odcution. no fevers, chills, sweats, or sinus congestion. +mild leg swelling better than normal in the last week, maybe a little worse last 2-3 days denies orthopnea cutting out torsemide as outpt, no CHF per pt/outpt followup Medical History: Reviewed Medications: Reviewed. Took meds, also took evening elquis already today Surgical History: Reviewed Allergies: Reviewed Social History: no tobacco/etoh. Code Status: Full Code\\ Admission Exam Per Admitting Provider General: A&Ox3. NAD. Cooperative. HEENT: Atraumatic, normocephalic. Vision/hearing intact. Eom intact. PERLAA. Pulm: CTAB A&P. -wheezes, -rales, -rhonchi. Symmetrical chest rise. No increased work of breathing. No respiratory distress. Cardiac: RRR, +sm. Radial pulses intact and symmetrical. Abdominal: Nontender, nondistended, soft. BS present. 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 soft touch intact Principal Diagnosis Hyponatremia Discharge Exam Constitutional WD/WN, vitals as above ENMT external ear and nose normal, oropharynx normal Occasional cough Neck trachea midline, no thyromegaly Respiratory normal respiratory effort, lungs clear to auscultation Cardiovascular RRR, no murmur, no edema Skin no rashes, warm and dry Psychiatric A+Ox3, euthymic affect Discharge Data Allergies Allergy/AdvReac Type Severity Reaction Status Date / Time benazepril Allergy Severe "ANAPHYLACTIC Verified 05/23/22 10:00 SHOCK" NSAIDS (Non-Steroidal Allergy Severe ANAPHYLACTIC Verified 05/23/22 10:00 Anti-Inflamma SHOCK FROM IBUPROFEN procaine Allergy Severe NOVOCAINE Verified 05/23/22 10:00 - "ANAPHYLACTIC SHOCK" tetracycline Allergy Mild N/V Verified 05/23/22 10:00 Lxoqaky-SDN-FvI Reductase Allergy ELEVATED Verified 05/23/22 10:00 Inhibitor HEPATIC [Ikiwnnd-Ehp-Pwf Reductase ENZYMES Inhibitor] Consultations 05/28/22 17:28 ED Decision to Admit Stat Ordered Studies 05/28/22 16:28 CT head/brain wo con Stat 05/30/22 09:08 CT abdomen wo/w con Routine Hospital Course (1) Confusion: (2) Pharyngitis: (3) Acute dyspnea: (4) PAF (paroxysmal atrial fibrillation): (5) Hyponatremia: Jas Mendez is a 86 y/o female who presented to the ER 05/28/22 after being sent by her primary care doctor due to abnormal labs (sodium at 122), confusion, fatigue, and 2 weeks of sore throat/URI symptoms (COVID negative). Her past medical history includes hyponatremia in the setting of tramadol use following shoulder injury, paroxysmal A. fib on apixaban (diagnosed last month), hypertension, and hyperlipidemia. She was initially treated with fluid restriction and removal of possible inciting medications. After approximately 12 hours of these measures, her sodium remained at 122, so she was given 2g sodium chloride tablet which caused nausea/vomiting. She later tolerated 1g sodium chloride with addition of Zofran, sodium continued to remain stable but was not increasing so added a dose of Tolvaptan. The next morning her sodium had increased again and patient states she is feeling well. Denies any trouble breathing/chest pain/fever/body aches/chills/fatigue. Notes that her presenting symptoms of weakness/confusion/fatigue had resolved. While in hospital, patient expressed that she had an upcoming CT scan for a known renal mass. Given her presentation and hyponatremia, decided to repeat CT. Results did not show any significant changes from previous renal imaging. Patient will continue to follow with urology as scheduled, likely not contributing to her hyponatremia. Patient had URI symptoms on arrival, states that symptoms have since improved- only has an occasional "tickle" in her throat that cause her to cough at times. Recommended patient use over the counter cough drops as needed. Patient's home medications of buspar, torsemide, tramadol were held during the stay and remain held at discharge- to be reevaluated at PCP follow up. No other changes were made to home medications. Patient did have increased anxiety at one point during stay and received a one time dose of alprazolam. Patient had PT and OT evaluations during the stay, felt she was able to go home safely and continue with her home health visits. Total Time Total Time Spent Total Time Spent (In Minutes): . Discharge Plan Discharge Items Patient Disposition: Home - Self-Care Reason For Visit: CONTINUATION OF CARE Discharge Diagnosis: Hyponatremia Activity: Per Instructions section Non-emergency contact: Primary Care Provider Call non-emergency contact if: your symptoms worsen and your temperature is above 101.5 Follow-up/Referrals: Piero Bills DO [Primary Care Provider] - 06/11/22 11:00 am (with Beni HERNANDEZ) Diet: Heart Healthy Addtl Attending Provider Instructions: ally Mendez were admitted to the hospital for hyponatremia- a low sodium level of 122 and symptoms of weakness/nausea/confusion. You were initially treated by removing the medications possibly contributing (Torsemide, buspar, tramadol) and put on a fluid restriction. After a period of time, your sodium remained at 122 so we started you on sodium chloride tablets. This initially made you nauseous and caused you to vomit, so we later pre-treated you with zofran and gave only 1 sodium chloride tablet at a time. This helped your sodium increase to 124-125, but slow improvement. We added a different medication- Tolvaptan- was given which increased your sodium additionally. At this point, your sodium has made good improvement so you will be discharged. During your hospital stay given your history of renal lesion and in the setting of current hyponatremia, we repeated the abdominal CT. It showed that the lesion previously seen in imaging has been stable- it did not change in size from past CT images. Likely not contributing to hyponatremia. Would recommend continuing to follow up with urology (Dr. Padilla). You also had some URI symptoms at admission and note a cough/tickle in your throat today, you can try some over the counter medications/cough drops which may be helpful. * Please follow up with your primary care doctor, Dr. Bills, within 1-2 weeks for hospital discharge follow up appointment. * We will resume your home medications except for: Torsemide, Tramadol, Buspar Pending Studies at Discharge: No Stand-Alone Forms: My [employer], Smoking Cessation Medications and DC Order Prescriptions: Continued epinephrine [EpiPen] 0.3 mg/0.3 mL auto-injector 0.3 mg IM .COMPLEX PRN (Reason: anaphylaxis) Qty: 2 1RF Rx Instructions: 0.3 mg IM as directed PRN colesevelam 625 mg tablet 1,875 mg PO BID Qty: 540 3RF omeprazole 40 mg capsule,delayed release(DR/EC) 40 mg PO DAILY Qty: 90 3RF ezetimibe 10 mg tablet 10 mg PO DAILY Qty: 90 3RF omega-3 acid ethyl esters 1 gram capsule 1 cap PO TID brimonidine 0.1 % drops 1 drp ophthalmic (eye) Q8H timolol 0.5 % drops 1 drp ophthalmic (eye) BID cholecalciferol (vitamin D3) 1,250 mcg (50,000 unit) capsule 1,250 mcg PO DAILY Qty: 12 0RF Rx Instructions: 1 weekly for 12 weeks, then start over the counter Vit D3, 50 mcg daily Eliquis 5 mg tablet 5 mg PO BID Qty: 180 3RF amiodarone 200 mg tablet 200 mg PO DAILY Qty: 90 3RF latanoprost 0.005 % drops 1 drp ophthalmic (eye) QPM metoprolol succinate 100 mg tablet extended release 24 hr 100 mg PO DAILY Qty: 90 3RF Discontinued tramadol 50 mg tablet 50 mg PO Q8H PRN (Reason: pain) Qty: 30 0RF buspirone 5 mg tablet 5 mg PO TID 90 Days Qty: 270 3RF oxycodone 5 mg tablet 5 mg PO Q6H PRN (Reason: pain) Qty: 15 0RF Discharge Orders: Discharge Order (Routine); Ordered 05/31/22 Ordered By: Isadora Mahan Admission Data Admit Date/Time: 05/28/22 17:38 Attending Provider: Christiana Crum Admit Provider: Matthew Omalley Primary Care Provider: Piero Bills Other Providers: Matthew Omalley Other Interventions: Discharge Summary Assessment (RN) Last Done: 05/31/22 10:50 Supervising Physician Co-Signing Physician Notes Resident Physician Supervision Note: I independently interviewed and examined the patient and verified the womack history and physical, reviewed labs and image studies and agree with resident findings and care plan.
== END 2022-05-31 12:47 | disposition home or self-care (01) | DRG 645 ==
LOC: ED 15:27 → SUATTDRO 17:38 → 2S 17:38

== ENCOUNTER 2023-03-18 13:44 | Inpatient (IN) ==
--- NOTE | 2023-03-18 14:24 | Emergency Department Note ---
History of Present Illness General Chief complaint: Fall Time Seen by Provider: 03/18/23 14:12 History of Present Illness Provider complaint: fall Onset (ago): day(s) 1 Maximum Pain Intensity: 8 87-year-old female presents emergency department for fall. Patient reports she got up to the restroom last night and around 3 AM fell when she tripped. She states she was wedged between her toilet and her sink. Patient reports she was on the ground until someone came and found her later today. Patient reports she is on Eliquis. Patient is reporting pain in her face, bilateral chest lockhart, bilateral shoulders, right hip, and neck. Home Medications Medication Instructions Recorded Confirmed Type omega-3 acid ethyl esters 1 gram 1 cap PO TID 03/09/19 03/18/23 History capsule latanoprost 0.005 % eye drops 1 drp ophthalmic (eye) QPM 05/05/20 03/18/23 History epinephrine 0.3 mg/0.3 mL 0.3 mg (0.3 mL) IM .COMPLEX PRN 07/06/20 03/18/23 Rx injection, auto-injector (EpiPen) anaphylaxis #2 ea brimonidine 0.1 % eye drops 1 drp OPB Q8H 01/22/22 03/18/23 History timolol 0.5 % eye drops 1 drp ophthalmic (eye) BID 01/22/22 03/18/23 History ezetimibe 10 mg tablet 10 mg PO DAILY #90 tabs 03/18/22 03/18/23 Rx amiodarone 200 mg tablet 200 mg PO DAILY #90 tabs 05/13/22 03/18/23 Rx apixaban 5 mg tablet (Eliquis) 5 mg PO BID #180 tabs 05/13/22 03/18/23 Rx metoprolol succinate 100 mg 100 mg PO DAILY #90 tabs 05/23/22 03/18/23 Rx tablet,extended release 24 hr omeprazole 40 mg capsule,delayed 40 mg PO QAM 12/28/22 03/18/23 History release cholecalciferol (vitamin D3) 25 0 mcg PO DAILY 02/28/23 03/18/23 History mcg (1,000 unit) capsule (Vitamin D3) acetaminophen 500 mg tablet 1,000 mg PO TID PRN pain #90 tabs 03/03/23 03/18/23 Rx (Tylenol Extra Strength) oxycodone 5 mg tablet 5 mg PO BID PRN pain 30 days #60 03/04/23 03/18/23 Rx tabs furosemide 20 mg tablet 20 mg PO BID 90 days #180 tabs 03/11/23 03/18/23 Rx hydroxyzine HCl 10 mg tablet 10 mg PO HS PRN anxiety #90 tabs 03/11/23 03/18/23 Rx cyclobenzaprine 5 mg tablet See Rx Instructions PO HS PRN 03/12/23 03/18/23 Rx muscle spasm #30 tabs nystatin 100,000 unit/gram topical 1 applic topical BID #60 grams 03/15/23 03/18/23 Rx powder Allergies Allergy/AdvReac Type Severity Reaction Status Date / Time benazepril Allergy Severe "ANAPHYLACTIC Verified 03/18/23 19:00 SHOCK" NSAIDS (Non-Steroidal Allergy Severe ANAPHYLACTIC Verified 03/18/23 19:00 Anti-Inflamma SHOCK FROM IBUPROFEN procaine Allergy Severe NOVOCAINE Verified 03/18/23 19:00 - "ANAPHYLACTIC SHOCK" tetracycline Allergy Mild N/V Verified 03/18/23 19:00 Ijhtcrz-GMC-KxD Reductase Allergy ELEVATED Verified 03/18/23 19:00 Inhibitor HEPATIC [Ijewrxg-Qkd-Lnl Reductase ENZYMES Inhibitor] Past Med/Surg History Medical History Angioedema (12/03/10) Arthritis of multiple sites Atrial fibrillation with rapid ventricular response Claudication of lower extremity Constipation Diabetes mellitus Glaucoma HTN (hypertension) Hyperlipidemia Lower extremity edema Lumbar pain Meralgia paresthetica of 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 Paroxysmal atrial tachycardia Paroxysmal atrial tachycardia Personal history of malignant melanoma of skin Renal lesion Renal lesion Skin cancer Spinal stenosis of lumbar region Statin intolerance Surgical History H/O arthroscopy of right knee H/O: hysterectomy Hx of colonoscopy Family History Father Congestive heart failure (CHF) Hypertension Myocardial infarction Mother Emphysema of lung Hypertension Brother Prostate cancer Hypertension Son Colorectal cancer age 49 Other Heart disease Denies family history of Ovarian cancer Diabetes Breast cancer Lung cancer Stroke Social History Smoking Status: Former smoker Tobacco Type: Cigarettes Age Started Using Tobacco: 27; Age Quit Using Tobacco: 45; packs per day: 0.75; Second Hand Exposure: No; Do You Dip or Chew Tobacco: No; Hx Alcohol Use: No Hx Substance Use: No Preferred Language: Taiwanese Communication Ability: Effective Visual Impairment: Limited Hearing Ability: Normal Structures Mechanic Required: No Beliefs That Will Affect Care: None marital status: / Current Living Situation: Alone current occupational status: retired How many Children do You have: 2 Feels Safe at Home: Yes Childhood Exposure to Second-Hand Smoke: Yes Diet: low salt caffeine: Yes during the past year weight has: remained stable Dental Care, Regularly: Yes Physical Activity Frequency: 3-4 Times per Week Physical Activity Frequency Comment: physical therapy Seatbelt Use: always Sunscreen Use: Yes (not in the sun) Do you think of yourself as: straight/heterosexual Assistive Devices: Cane and Walker Physical Exam Vital Signs Vital Signs - 24 hr 03/18/23 14:03 03/18/23 14:09 03/18/23 14:23 Temperature 37.0 C Temperature Source Oral Pulse Rate 94 H Pulse Rate [Apical] 93 H Pulse Rhythm [Apical] Regular Respiratory Rate 16 18 Blood Pressure 180/121 H Blood Pressure [Left Arm] 180/121 H Blood Pressure Mean 140 Blood Pressure Mean [Left Arm] 140 Blood Pressure Position [Left Arm] Pulse Oximetry 94 96 96 Oxygen Delivery Method Room Air Room Air Room Air Oxygen Flow Rate 0 Sepsis Recent Fever Within 48 Hours No Sepsis New/Unexplained Change in Mental Status No Sepsis Action Taken by Nursing No Action Required 03/18/23 16:17 03/18/23 16:32 03/18/23 18:00 Temperature Temperature Source Pulse Rate 98 H Pulse Rate [Apical] 97 H 90 Pulse Rhythm [Apical] Respiratory Rate 21 25 H Blood Pressure Blood Pressure [Left Arm] 124/75 143/77 H Blood Pressure Mean Blood Pressure Mean [Left Arm] 91 99 Blood Pressure Position [Left Arm] Semi-fowlers Pulse Oximetry 91 Oxygen Delivery Method Oxygen Flow Rate Sepsis Recent Fever Within 48 Hours Sepsis New/Unexplained Change in Mental Status Sepsis Action Taken by Nursing Physical Exam HENT: Exam performed. -Head: Left-sided periorbital ecchymosis. EYES: Conjunctivae and EOM are normal. Pupils are equal, round, and reactive to light. Right eye exhibits no discharge. Left eye exhibits no discharge. No scleral icterus. NECK: Patient in C-collar. CV: Normal rate, regular rhythm, normal heart sounds and intact distal pulses. There is no peripheral edema. Palpable radial pulses bue. PULM/CHEST: Effort normal and breath sounds normal. No respiratory distress. No stridor. She has no wheezes. She has no rales. -Chest Wall: Pain on palpation of the right and left chest lateral lockhart. No crepitus bilaterally. ABD: The abdomen is soft. There is no tenderness. There is no rebound, no guarding MUSC/SKEL: No C, T, or L-spine tenderness. Pain on palpation of the right hip. Pelvis stable. Pain on palpation of the bilateral shoulders. NEURO: GCS eye subscore is 4. GCS verbal subscore is 5. GCS motor subscore is 6. SKIN: Skin tears to the left hand. Diffuse ecchymosis over the bilateral upper extremities including the bilateral shoulders. Course Course 1412: The patient was evaluated in room C1. A complete history and physical exam was performed Cardiac monitoring: An order was placed for continuous cardiac monitoring. The monitor shows a rate of 90 with atrial fibrilation rhythm interpreted by wv 1840: Vital signs stable. Labs show no traumatic injuries with the exception of 8th rib fracture. Labs show low magnesium, repletion started in the emergency department. Mildly elevated troponin. Patient will be admitted to the [facility] hospitalist team. Dr. Reed team notified. Administered Medications Sodium Chloride (Nss) 500 mls @ 125 mls/hr IV .Q4H GISSELL Stop: 04/17/23 14:59 Last Admin: 03/18/23 19:08 Dose: 125 mls/hr Documented By: Infusion: 03/18/23 19:07 Dose: 0 mls/hr Documented By: Admin: 03/18/23 15:06 Dose: 125 mls/hr Documented By: CED Insulin Aspart (Insulin Aspart Per Unit Charge) 0 units SC ACHS GISSELL Stop: 04/17/23 20:59 Last Admin: 03/18/23 20:45 Dose: 3 units Documented By: Co-signed By: RAFAL Discontinued Medications Magnesium Sulfate/Dextrose (Magnesium Sulfate / D5w) 1 gm in 100 mls @ 100 mls/hr IV NOW STA Stop: 03/18/23 15:55 Last Infusion: 03/18/23 18:20 Dose: 0 mls/hr Documented By: Admin: 03/18/23 15:04 Dose: 100 mls/hr Documented By: CED Ioversol (Optiray 320 100ml) 92 ml IV ONCE ONE Stop: 03/18/23 15:49 Last Admin: 03/18/23 15:48 Dose: 92 ml Documented By: FRANCISCO Medical Decision Making Laboratory Data Attestation: I reviewed the patient's lab results. 03/18/23 14:10 03/18/23 14:10 Lab Results 03/18/23 03/18/23 03/18/23 Range/Units 14:10 14:10 14:10 WBC 12.17 H (4.8-10.8) K/ul RBC 4.39 (4.20-5.40) M/uL Hgb 13.3 (12.0-16.0) g/dl Hct 38.5 (37.0-47.0) % MCV 87.7 (80.0-100.0) fL MCH 30.3 (25.0-34.0) pg MCHC 34.5 (32.0-36.0) g/dL RDW Std Deviation 43.3 (36.4-46.3) fL RDW Coeff of Fermin 13.4 (11.5-14.5) % Plt Count 282 (130-400) K/uL MPV 11.0 (9.4-12.4) fL Immature Gran % (Auto) 0.9 % Neut % (Auto) 80.2 % Lymph % (Auto) 8.9 % [place] % (Auto) 7.2 % Eos % (Auto) 2.6 % Baso % (Auto) 0.2 % Neut # (Auto) 9.76 H (1.40-6.50) K/uL Lymph # (Auto) 1.08 L (1.20-3.40) K/uL [place] # (Auto) 0.88 H (0.11-0.59) K/uL Eos # (Auto) 0.32 (0.00-0.50) K/uL Baso # (Auto) 0.02 (0.00-0.20) K/uL Immature Gran # (Auto) 0.11 (0.01-0.20) K/uL PT 12.0 (9.0-12.0) Seconds INR 1.1 (0.9-1.1) APTT 27.5 (21.0-31.0) Seconds PTT Ratio 1.0 Sodium 129 L (136-145) mmol/L Potassium 3.6 (3.5-5.1) mmol/L Chloride 94 L (98-107) mmol/L Carbon Dioxide 26 (21-32) mmol/L Anion Gap 9 (3-11) BUN 12 (6-23) mg/dl Creatinine 0.70 (0.6-1.2) mg/dl Est Cr Clr Drug Dosing 63.1 ml/min Est GFR ( Amer) 90.9 ml/min Est GFR (Non-Af Amer) 78.5 ml/min BUN/Creatinine Ratio 17.1 (10-20) Glucose 195 H (70-99(Fasting)) mg/dl Calcium 9.4 (8.6-10.3) mg/dl Magnesium 1.4 L (1.7-2.4) mg/dl Total Bilirubin 1.4 H (0.2-1.0) mg/dl Direct Bilirubin 0.3 H (0-0.2) mg/dl AST 20 (13-39) U/L ALT 21 (7-52) U/L Alkaline Phosphatase 109 H (34-104) U/L Total Creatine Kinase 177 (26-192) U/L Troponin I High Sens 22.7 H (0-14) pg/ml Total Protein 6.2 (6.0-8.3) gm/dl Albumin 3.4 (3.4-5.0) gm/dl Lipase 21 (11-82) U/L Urine Color Urine Appearance (Clear) Urine pH (4.5-7.5) Ur Specific [place] (1.000-1.030) Urine Protein (Negative) Urine Glucose (UA) (Negative) Urine Ketones (Negative) Urine Blood (Negative) Urine Nitrite (Negative) Urine Bilirubin (Negative) Urine Urobilinogen (Negative) Ur Leukocyte Esterase (Negative) Urine WBC (Auto) (0-5) /hpf Urine RBC (Auto) (0-4) /hpf U Hyaline Cast (Auto) (0-5) /lpf U Epithel Cells (Auto) (0-5) /lpf Urine Bacteria (Auto) (Negative) 03/18/23 Range/Units 18:15 WBC (4.8-10.8) K/ul RBC (4.20-5.40) M/uL Hgb (12.0-16.0) g/dl Hct (37.0-47.0) % MCV (80.0-100.0) fL MCH (25.0-34.0) pg MCHC (32.0-36.0) g/dL RDW Std Deviation (36.4-46.3) fL RDW Coeff of Fermin (11.5-14.5) % Plt Count (130-400) K/uL MPV (9.4-12.4) fL Immature Gran % (Auto) % Neut % (Auto) % Lymph % (Auto) % [place] % (Auto) % Eos % (Auto) % Baso % (Auto) % Neut # (Auto) (1.40-6.50) K/uL Lymph # (Auto) (1.20-3.40) K/uL [place] # (Auto) (0.11-0.59) K/uL Eos # (Auto) (0.00-0.50) K/uL Baso # (Auto) (0.00-0.20) K/uL Immature Gran # (Auto) (0.01-0.20) K/uL PT (9.0-12.0) Seconds INR (0.9-1.1) APTT (21.0-31.0) Seconds PTT Ratio Sodium (136-145) mmol/L Potassium (3.5-5.1) mmol/L Chloride (98-107) mmol/L Carbon Dioxide (21-32) mmol/L Anion Gap (3-11) BUN (6-23) mg/dl Creatinine (0.6-1.2) mg/dl Est Cr Clr Drug Dosing ml/min Est GFR ( Amer) ml/min Est GFR (Non-Af Amer) ml/min BUN/Creatinine Ratio (10-20) Glucose (70-99(Fasting)) mg/dl Calcium (8.6-10.3) mg/dl Magnesium (1.7-2.4) mg/dl Total Bilirubin (0.2-1.0) mg/dl Direct Bilirubin (0-0.2) mg/dl AST (13-39) U/L ALT (7-52) U/L Alkaline Phosphatase (34-104) U/L Total Creatine Kinase (26-192) U/L Troponin I High Sens (0-14) pg/ml Total Protein (6.0-8.3) gm/dl Albumin (3.4-5.0) gm/dl Lipase (11-82) U/L Urine Color Yellow Urine Appearance Clear (Clear) Urine pH 7.0 (4.5-7.5) Ur Specific [place] > 1.045 H (1.000-1.030) Urine Protein 1+ H (Negative) Urine Glucose (UA) Negative (Negative) Urine Ketones 1+ H (Negative) Urine Blood 1+ H (Negative) Urine Nitrite Negative (Negative) Urine Bilirubin Negative (Negative) Urine Urobilinogen Negative (Negative) Ur Leukocyte Esterase 1+ H (Negative) Urine WBC (Auto) 10-30 H (0-5) /hpf Urine RBC (Auto) 0-4 (0-4) /hpf U Hyaline Cast (Auto) 0 (0-5) /lpf U Epithel Cells (Auto) >30 H (0-5) /lpf Urine Bacteria (Auto) Negative (Negative) Imaging Data Radiologist's Impression: Abdomen/Pelvis CT 03/18/23 14:13 CT OF THE ABDOMEN AND PELVIS WITH CONTRAST CLINICAL HISTORY: fall on eliquis COMPARISON STUDY: CT of the abdomen and pelvis February 28, 2023. TECHNIQUE: Following IV administration of 92 mL of Optiray, axial images of the abdomen and pelvis were obtained from the lung bases to the proximal femurs. Ivy ges were reviewed in the axial, sagittal, and coronal planes. IV contrast was administered without complication. Automated exposure control was utilized for the study. A dose lowering technique was utilized adhering to the principles of ALARA. FINDINGS: A nondisplaced fracture the anterior left eighth rib is new since CT of 11/28/2022. Cardiomegaly. No hemoperitoneum or pneumoperitoneum is present. There is no evidence for traumatic injury to the liver, spleen, adrenal glands, kidneys or pancreas. 1.9 cm left renal lesion on image 128 of 349 was shown to enhance on prior studies. Additional renal lesions favor simple cysts and hyperdense cysts. There is no hydronephrosis. There is no evidence for a bowel obstruction. Colonic diverticulosis without evidence for acute diverticulitis. There is no lymphadenopathy. No fluid collections are present. No acute pelvic o r hip fracture is present. There is no acute lumbar spine fracture. IMPRESSION: 1. No acute traumatic findings within the abdomen or pelvis. 2. Nondisplaced anterior left eighth rib fracture. This is age indeterminate but new since CT of February 28, 2023. 3. 1.9 cm enhancing left renal lesion. Renal cell carcinoma remains the diagnosis of exclusion. ACT 112: Negative or not required by law. Electronically signed by: Issa Small M.D. 03/18/2023 4:[address] 03/18/23 14:13 CT cervical spine wo con CLINICAL HISTORY: fall on [employer] TECHNIQUE: Multidetector row helical CT of the cervical spine was performed without administration of intravenous contrast. Coronal and sagittal reformations were obtained. Automated dose lowering techniques and/or adjustment according to patient size were utilized for this exam. Comparison: None available at the time of this dictation. FINDINGS: No acute fractures or subluxations are identified. Degenerative changes are seen in the visualized spine. The alignment is normal. Subcentimeter thyroid nodules are seen which do not require follow-up by ACR criteria. IMPRESSION: Degenerative changes without evidence of acute bony injury. ACT 112: Negative or not required by law. Electronically signed by: Steve Zamora M.D. 03/18/2023 3:58 PM Chest X-Ray 03/18/23 14:13 XR chest 1V not portable HISTORY: 87 years-old Female fall on elYostrois acute chest trauma status post fall COMPARISON: 03/15/2023, CT abdomen and pelvis 03/18/2023. TECHNIQUE: AP view the chest FINDINGS: Cardiac silhouette is enlarged. Atherosclerosis of the aorta. Chronic interstitial coarsening. No pneumothorax, pleural effusion or overt pulmonary edema. Unchanged mild atelectasis versus scarring at the left lung base. No ndisplaced left anterior eighth rib fractures better seen on the comparison CT. Chronic appearing right proximal humeral fracture deformity. Chronic appearing left clavicular fracture. IMPRESSION: 1. Cardiomegaly without acute process. 2. Nondisplaced left anterior eighth rib fracture seen on CT is not visualized by radiography. ACT 112: Negative or not required by law. The above report was generated using voice recognition software. It may contain grammatical, syntax or spelling errors. Electronically signed by: Rusty Stock M.D. 03/18/2023 5:[address] 03/18/23 14:13 CT OF THE HEAD WITHOUT CONTRAST CLINICAL HISTORY: fall on elquis COMPARISON STUDY: Head CT T May 28, 2022. TECHNIQUE: Helical axial images of the head were obtained without IV contrast. Automated exposure control was utilized for the study. A dose lowering technique was utilized adhering to the principles of ALARA. FINDINGS: No acute intracranial hemorrhage, midline shift or mass effect is present. The ventricular system is unremarkable. The basal cisterns are patent. No extra-axial collections are present. There are no findings to suggest acute d ural sinus thrombosis or acute territorial infarct. No significant calvarial abnormalities are present. Visualized portions of the sinuses and mastoid air cells are clear. IMPRESSION: 1. No acute intracranial findings. 2. No acute calvarial fracture. ACT 112: Negative or not required by law. Electronically signed by: Issa Small M.D. 03/18/2023 3:59 PM Pelvis X-Ray 03/18/23 14:13 XR pelvis 1-2V routine HISTORY: 87 [facility] COMPARISON: Right femur radiographs of same day, CT abdomen and pelvis of same day TECHNIQUE: AP view of the pelvis FINDINGS: Surgical clips in the pelvis. Contrast is in the urinary bladder lumen. Demineralized appearance of the bones. No acute fracture, dislocation or avascular necrosis. Spine. IMPRESSION: No acute fracture or dislocation. ACT 112: Negative or not required by law. The above report was generated using voice recognition software. It may contain grammatical, syntax or spelling errors. Electronically signed by: Rusty Stock M.D. 03/18/2023 5:[address] 03/18/23 14:20 CT facial bones wo con CLINICAL HISTORY: 87 years-old Female presenting with fall. Acute facial trauma status post fall COMPARISON STUDY: CT cervical spine of same day TECHNIQUE: High-resolution CT scan of the facial bones is performed. Images are reviewed in the axial, sagittal, and coronal planes. IV contrast was not administered for this examination. A dose lowering technique was utilized adhering to the principles of ALARA. CT DOSE: 3068.03 mGy.cm FINDINGS: Prior bilateral lens repair. Streak artifact from dental amalgam hardware. Chronic-appearing corticated ossification is noted anterior to the left C1-C2 articulation. Multilevel degenerative changes of the cervical spine. Moderate degeneration of the temporomandibular joints. Involutional changes of the brain parenchyma with chronic microvascular ischemic disease. No acute intracranial abnormality identified. Mastoid air cells and paranasal sinuses appear clear. Hyperostosis frontalis i nterna. Paranasal sinuses are generally clear. No acute facial bone fracture identified. IMPRESSION: No acute facial bone fracture identified. ACT 112: Negative or not required by law. The above report was generated using voice recognition software. It may contain grammatical, syntax or spelling errors. Electronically signed by: Rusty Stock M.D. 03/18/2023 4:11 PM Femur X-Ray 03/18/23 14:20 XR femur RT 2V routine CLINICAL HISTORY: Fall. COMPARISON: Pelvis and right hip radiographs February 28, 2023. FINDINGS: Incidental note is made of contrast within the bladder from recent contrast-enhanced CT. This exam is compromised by suboptimal penetration. However, there is no acute fracture within the right femur. There is no evidence for a right knee joint effusion. Moderate to severe tricompartmental osteoarthritis of the right knee is noted. There is moderate right hip osteoarthritis. IMPRESSION: No acute fracture within the right femur. ACT 112: Negative or not required by law. Electronically signed by: Issa Small M.D. 03/18/2023 5:12 PM Shoulder X-Ray 03/18/23 14:20 XR shoulder LT min 2V routine HISTORY: 87 years-old Female fall acute left shoulder pain status post fall COMPARISON: Chest radiograph 03/15/2023 TECHNIQUE: 3 views of the left shoulder FINDINGS: Demineralized appearance of the bones with severe glenohumeral and moderate AC joint osteoarthritis. Chronic corticated ossification axillary recess. Chronic mid left clavicular fracture deformity. No acute fracture or dislocation identified. IMPRESSION: No acute fracture or dislocation identified. ACT 112: Negative or not required by law. The above report was generated using voice recognition software. It may contain grammatical, syntax or spelling errors. Electronically signed by: Rusty Stock M.D. 03/18/2023 5:26 PM Shoulder X-Ray 03/18/23 14:20 XR shoulder RT min 2V routine CLINICAL HISTORY: fall COMPARISON: Right humerus radiographs and right shoulder CT January 10, 2021. FINDINGS: There is an old right humeral neck fracture. No acute fracture within the right shoulder is identified. Severe glenohumeral joint osteoarthritis is present. There is moderate AC joint osteoarthritis. IMPRESSION: 1. No acute fracture or dislocation within the right shoulder. 2. Old right humeral neck fracture. 3. Severe degenerative changes within the right shoulder. ACT 112: Negative or not required by law. Electronically signed by: Issa Small M.D. 03/18/2023 5:14 PM [facility] Narrative 1412: The patient was evaluated in room C1. A complete history and physical exam was performed Cardiac monitoring: An order was placed for continuous cardiac monitoring. The monitor shows a rate of 90 with atrial fibrilation rhythm interpreted by me 1840: Vital signs stable. Labs show no traumatic injuries with the exception of 8th rib fracture. Labs show low magnesium, repletion started in the emergency department. Mildly elevated troponin. [facility]. Impression & Plan Hypomagnesemia, Fall, Closed rib fracture, Elevated troponin Discharge Plan Visit Data Chief Complaint: Fall ED Provider: Anjel Kuhn Discharge Problem: Hypomagnesemia, Fall, Closed rib fracture, Elevated troponin Patient Disposition: Admitted As Inpatient Discharge Instructions Interventions: ED Discharge Assessment Last Done: 03/18/23 14:33
[2023-03-18 14:41] LABS: Basophils # (auto) 0.02 K/uL (0.00-0.20); Basophils % (auto) 0.2 %; Eosinophils # (auto) 0.32 K/uL (0.00-0.50); Eosinophils % (auto) 2.6 %; Hematocrit (blood only) 38.5 % (37.0-47.0); Hemoglobin 13.3 g/dl (12.0-16.0); Immature Granulocytes # (auto) 0.11 K/uL (0.01-0.20); Immature Granulocytes % (auto) 0.9 %; Lymphocytes # (auto) 1.08 K/uL (1.20-3.40); Lymphocytes % (auto) 8.9 %; Mean Corpuscular Hemoglobin 30.3 pg (25.0-34.0); Mean Corpuscular Hgb Conc 34.5 g/dL (32.0-36.0); Mean Corpuscular Volume 87.7 fL (80.0-100.0); Monocytes # (auto) 0.88 K/uL (0.11-0.59); Monocytes % (auto) 7.2 %; Neutrophils # (auto) 9.76 K/uL (1.40-6.50); Neutrophils % (auto) 80.2 %; Platelet Count 282 K/uL (130-400); RDW Coefficient of Variation 13.4 % (11.5-14.5); RDW Standard Deviation 43.3 fL (36.4-46.3); Red Blood Count 4.39 M/uL (4.20-5.40); White Blood Count 12.17 K/ul (4.8-10.8)
[2023-03-18 14:54] LABS: Albumin Level 3.4 gm/dl (3.4-5.0); BUN Creatinine Ratio 17.1 (10-20); Bilirubin Direct 0.3 mg/dl (0-0.2); Bilirubin,Total 1.4 mg/dl (0.2-1.0); Calcium 9.4 mg/dl (8.6-10.3); Creatinine Clr Calc Pharmacy 63.1 ml/min; Est GFR (African American) 90.9 ml/min; Est GFR (Non-African American) 78.5 ml/min; Magnesium 1.4 mg/dl (1.7-2.4); Potassium 3.6 mmol/L (3.5-5.1); Total Protein 6.2 gm/dl (6.0-8.3)
[2023-03-18] MEDS ORDERED: MAGNESIUM SULFATE / D5W 1 GM/100 ML BAG IV STA (14:56)
[2023-03-18 14:59] LABS: Troponin I High Sensitivity 22.7 pg/ml (0-14)
[2023-03-18] MEDS: SODIUM CHLORIDE 0.9% 500 ML IV SCH ×2 (15:06→19:08)
[2023-03-18 15:23] LABS: INR 1.1 (0.9-1.1); Partial Thromboplastin Time 27.5 Seconds (21.0-31.0)
[2023-03-18] MEDS ORDERED: OPTIRAY 320 100ml IV ONE (15:48)
--- NOTE | 2023-03-18 16:00 | CT Scan Report ---
CT cervical spine wo con CLINICAL HISTORY: fall on elquis TECHNIQUE: Multidetector row helical CT of the cervical spine was performed without administration of intravenous contrast. Coronal and sagittal reformations were obtained. Automated dose lowering techn iques and/or adjustment according to patient size were utilized for this exam. Comparison: None available at the time of this dictation. FINDINGS: No acute fractures or subluxations are identified. Degenerative changes are seen in the visualized sp ine. The alignment is normal. Subcentimeter thyroid nodules are seen which do not require follow-up b y ACR criteria. IMPRESSION: Degenerative changes without evidence of acute bony injury. ACT 112: Negative or not required by law. Electronically signed by: Steve Zamora M.D. 03/18/2023 3:58 PM
--- NOTE | 2023-03-18 16:01 | CT Scan Report ---
CT OF THE HEAD WITHOUT CONTRAST CLINICAL HISTORY: fall on elquis COMPARISON STUDY: Head CT T May 28, 2022. TECHNIQUE: Helical axial images of the head were obtained without IV contrast. Automated exposure con trol was utilized for the study. A dose lowering technique was utilized adhering to the principles o f ALARA. FINDINGS: No acute intracranial hemorrhage, midline shift or mass effect is present. The ventricular system is unremarkable. The basal cisterns are patent. No extra-axial collections are present. There are no findings to suggest acute dural sinus thrombosis or acute territorial infarct. No significant calvarial abnormalities are present. Visualized portions of the sinuses and mastoid air cells are mark ar. IMPRESSION: 1. No acute intracranial findings. 2. No acute calvarial fracture. ACT 112: Negative or not required by law. Electronically signed by: Issa Small M.D. 03/18/2023 3:59 PM
--- NOTE | 2023-03-18 16:12 | CT Scan Report ---
CT OF THE ABDOMEN AND PELVIS WITH CONTRAST CLINICAL HISTORY: fall on eliquis COMPARISON STUDY: CT of the abdomen and pelvis February 28, 2023. TECHNIQUE: Following IV administration of 92 mL of Optiray, axial images of the abdomen and pelvis we re obtained from the lung bases to the proximal femurs. Images were reviewed in the axial, sagittal, and coronal planes. IV contrast was administered without complication. Automated exposure control wa s utilized for the study. A dose lowering technique was utilized adhering to the principles of ALARA . FINDINGS: A nondisplaced fracture the anterior left eighth rib is new since CT of 11/28/2022. Cardiome gayatri. No hemoperitoneum or pneumoperitoneum is present. There is no evidence for traumatic injury to the liver, spleen, adrenal glands, kidneys or pancreas. 1.9 cm left renal lesion on image 128 of 349 was shown to enhance on prior studies. Additional renal lesions favor simple cysts and hyperdense cys ts. There is no hydronephrosis. There is no evidence for a bowel obstruction. Colonic diverticulosis without evidence for acute diverticulitis. There is no lymphadenopathy. No fluid collections are pres ent. No acute pelvic or hip fracture is present. There is no acute lumbar spine fracture. IMPRESSION: 1. No acute traumatic findings within the abdomen or pelvis. 2. Nondisplaced anterior left eighth rib fracture. This is age indeterminate but new since CT of Feb. 3. 1.9 cm enhancing left renal lesion. Renal cell carcinoma remains the diagnosis of exclusion. ACT 112: Negative or not required by law. Electronically signed by: Issa Small M.D. 03/18/2023 4:10 PM
--- NOTE | 2023-03-18 16:13 | CT Scan Report ---
CT facial bones wo con CLINICAL HISTORY: 87 years-old Female presenting with fall. Acute facial trauma status post fall COMPARISON STUDY: CT cervical spine of same day TECHNIQUE: High-resolution CT scan of the facial bones is performed. Images are reviewed in the axia l, sagittal, and coronal planes. IV contrast was not administered for this examination. A dose lower ing technique was utilized adhering to the principles of ALARA. CT DOSE: 3068.03 mGy.cm FINDINGS: Prior bilateral lens repair. Streak artifact from dental amalgam hardware. Chronic-appearing corticat ed ossification is noted anterior to the left C1-C2 articulation. Multilevel degenerative changes of the cervical spine. Moderate degeneration of the temporomandibular joints. Involutional changes of th e brain parenchyma with chronic microvascular ischemic disease. No acute intracranial abnormality jarrell ntified. Mastoid air cells and paranasal sinuses appear clear. Hyperostosis frontalis interna. Paranasal sinus es are generally clear. No acute facial bone fracture identified. IMPRESSION: No acute facial bone fracture identified. ACT 112: Negative or not required by law. The above report was generated using voice recognition software. It may contain grammatical, syntax o r spelling errors. Electronically signed by: Rusty Stock M.D. 03/18/2023 4:11 PM
--- NOTE | 2023-03-18 17:14 | XRay Report ---
XR femur RT 2V routine CLINICAL HISTORY: Fall. COMPARISON: Pelvis and right hip radiographs February 28, 2023. FINDINGS: Incidental note is made of contrast within the bladder from recent contrast-enhanced CT. T his exam is compromised by suboptimal penetration. However, there is no acute fracture within the rig ht femur. There is no evidence for a right knee joint effusion. Moderate to severe tricompartmental o steoarthritis of the right knee is noted. There is moderate right hip osteoarthritis. IMPRESSION: No acute fracture within the right femur. ACT 112: Negative or not required by law. Electronically signed by: Issa Small M.D. 03/18/2023 5:12 PM
--- NOTE | 2023-03-18 17:15 | XRay Report ---
XR shoulder RT min 2V routine CLINICAL HISTORY: fall COMPARISON: Right humerus radiographs and right shoulder CT January 10, 2021. FINDINGS: There is an old right humeral neck fracture. No acute fracture within the right shoulder i s identified. Severe glenohumeral joint osteoarthritis is present. There is moderate AC joint osteoar thritis. IMPRESSION: 1. No acute fracture or dislocation within the right shoulder. 2. Old right humeral neck fracture. 3. Severe degenerative changes within the right shoulder. ACT 112: Negative or not required by law. Electronically signed by: Issa Small M.D. 03/18/2023 5:14 PM
--- NOTE | 2023-03-18 17:21 | Electrocardiogram Report ---
Test Reason : Blood Pressure : / mmHG Vent. Rate : 094 BPM Atrial Rate : 094 BPM P-R Int : 184 ms QRS Dur : 086 ms QT Int : 308 ms P-R-T Axes : 076 -08 023 degrees QTc Int : 385 ms Normal sinus rhythm Nonspecific T wave abnormality Abnormal ECG When compared with ECG of 15-MAR-2023 15:25, No significant change was found Confirmed by Juancarlos Culp ([id number]) on 03/18/2023 5:21:02 PM Referred By: REFERRED SELF Confirmed By:Vahe Culp
--- NOTE | 2023-03-18 17:24 | XRay Report ---
XR pelvis 1-2V routine HISTORY: 87 years-old Female fall on elquis acute pelvic pain status post fall COMPARISON: Right femur radiographs of same day, CT abdomen and pelvis of same day TECHNIQUE: AP view of the pelvis FINDINGS: Surgical clips in the pelvis. Contrast is in the urinary bladder lumen. Demineralized appearance of t he bones. No acute fracture, dislocation or avascular necrosis. Spine. IMPRESSION: No acute fracture or dislocation. ACT 112: Negative or not required by law. The above report was generated using voice recognition software. It may contain grammatical, syntax o r spelling errors. Electronically signed by: Rusty Stock M.D. 03/18/2023 5:23 PM
--- NOTE | 2023-03-18 17:26 | XRay Report ---
XR chest 1V not portable HISTORY: 87 years-old Female fall on elquis acute chest trauma status post fall COMPARISON: 03/15/2023, CT abdomen and pelvis 03/18/2023. TECHNIQUE: AP view the chest FINDINGS: Cardiac silhouette is enlarged. Atherosclerosis of the aorta. Chronic interstitial coarsening. No pne umothorax, pleural effusion or overt pulmonary edema. Unchanged mild atelectasis versus scarring at t he left lung base. Nondisplaced left anterior eighth rib fractures better seen on the comparison CT. Chronic appearing right proximal humeral fracture deformity. Chronic appearing left clavicular fractu re. IMPRESSION: 1. Cardiomegaly without acute process. 2. Nondisplaced left anterior eighth rib fracture seen on CT is not visualized by radiography. ACT 112: Negative or not required by law. The above report was generated using voice recognition software. It may contain grammatical, syntax o r spelling errors. Electronically signed by: Rusty Stock M.D. 03/18/2023 5:25 PM
--- NOTE | 2023-03-18 17:27 | XRay Report ---
XR shoulder LT min 2V routine HISTORY: 87 years-old Female fall acute left shoulder pain status post fall COMPARISON: Chest radiograph 03/15/2023 TECHNIQUE: 3 views of the left shoulder FINDINGS: Demineralized appearance of the bones with severe glenohumeral and moderate AC joint osteoarthritis. Chronic corticated ossification axillary recess. Chronic mid left clavicular fracture deformity. No a cute fracture or dislocation identified. IMPRESSION: No acute fracture or dislocation identified. ACT 112: Negative or not required by law. The above report was generated using voice recognition software. It may contain grammatical, syntax o r spelling errors. Electronically signed by: Rusty Stock M.D. 03/18/2023 5:26 PM
--- NOTE | 2023-03-18 18:48 | History & Physical Report ---
Date of Service March 18, 2023 Assessment & Plan (1) Fall: Plan: Fall, prolonged downtime Patient fell when she was too weak to stand back up off the toilet, tried to use a towel as a sling to pull herself up and fell and got wedged between second toilet was too weak to get up or stand Extensive imaging as noted in HPI with single rib fracture, otherwise no acute fractures or bleed Patient is very weak, recommended for admission for monitoring due to fall on DOAC and for PT/OT PT/OT pending No signs of intracranial bleeding or abnormality CK is not elevated, no evidence of rhabdo Reports mechanical fall, no syncope/lightheadedness/dizziness. Does endorse she was too weak to get back up Multimodal pain control, lidocaine patch to right rib. Tylenol, breakthrough morphine as needed. Toradol deferred due to anaphylactic reaction to NSAIDs in the past. Left hand with skin tear, redressed at time of admission. (2) PAF (paroxysmal atrial fibrillation): Plan: Paroxysmal atrial fibrillation Continue apixaban. No clinically significant bleeding on initial work-up Continue amiodarone Continue metoprolol 22.7 without ischemic findings on EKG. Patient has bilateral reproducible chest pain consistent with her fall, denies anginal pain. No afib rvr Troponin trended We will follow on medical telemetry (3) Spinal stenosis of lumbar region: Plan: No acute change/fracture (4) Acute hyponatremia: Plan: Chronic mild hyponatremia, 129 on admit P.o. encouraged, trend daily. (5) Renal lesion: Plan: 1.8 cm enhancing lesion noted on imaging 06/06, 03/08 and redemonstrated on admitting imaging. RCC diagnosis of exclusion Patient is following with urology, continue nonemergent follow-up (6) DM2 (diabetes mellitus, type 2): Plan: DM2 Weight-based SSI Goal BSG [id number] Diet: DM 2 Disposition: Medical telemetry for elevated troponin, downgrade if stable and doing well CODE STATUS: DNR/DNI, discussed with patient DVT prophylaxis: Anticoagulated History of Present Illness Primary Care Provider: Piero Bills DO Vanessa is a 87-year-old female with past medical history of paroxysmal atrial fibrillation on apixaban, chronic lumbar back pain with right lower radiculopathy, hypertension, arthritis, DM 2, hyperlipidemia, hyponatremia who fell around 3 AM last night and was wedged between the toilet and sink until she was found in the afternoon today. She has pain in her face, chest bilaterally, shoulders, hip, and neck 3am went to the bathroom and 'did her buisiness but then was too weak to stand back up. [place] like she was stuck to the toilet sat for 45 minutes and thought about what to do. Eventually tried to use a towel as a sling to pull herself but unfortunately slipped and fell wedged between the toilet and the sink. She was unable to get up and remained there until she was found the next afternoon. She reports she did not have any lightheadedness, dizziness, syncope, presyncope that led to her fall she was just too weak to get up out of the toilet and then too weak to get back up after she fell and got wedged. She has right rib pain, no substernal chest pain. She feels generally achy all over from laying on the ground. Denies abdominal pain. 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 She feels much better after fluids in the ER, but still feels achy. No palpitations preceding event. Ribs on R side ache with pressure. No substernal chest pain. noshortness of breath or dyspnea. Feels sore all over. Extensive imaging with summary as below Right shoulder without acute fracture Left shoulder without acute fracture/dislocation No right femoral fracture Face CT without facial fracture Pelvic x-ray without fracture CThead: No acute fracture, no acute intracranial finding/bleed CXR: No acute findings CThead: No acute finding/fracture/subluxation CTA/P: Nondisplaced left eighth rib fracture, 1.9 cm enhancing left renal lesion. RCC diagnosis of exclusion. This was previously evaluated on admission with discharge 03/03/2023 Medical History: Reviewed Medications: Reviewed Surgical History: Reviewed Family history: Reviewed Allergies: Reviewed Social History: Reviewed, no tobacco or alcohol Code Status: DNR/DNI Allergies Allergy/AdvReac Type Severity Reaction Status Date / Time benazepril Allergy Severe "ANAPHYLACTIC Verified 03/18/23 19:00 SHOCK" NSAIDS (Non-Steroidal Allergy Severe ANAPHYLACTIC Verified 03/18/23 19:00 Anti-Inflamma SHOCK FROM IBUPROFEN procaine Allergy Severe NOVOCAINE Verified 03/18/23 19:00 - "ANAPHYLACTIC SHOCK" tetracycline Allergy Mild N/V Verified 03/18/23 19:00 Ujxnfjq-ADE-GoT Reductase Allergy ELEVATED Verified 03/18/23 19:00 Inhibitor HEPATIC [Pugsqnh-Sod-Jfk Reductase ENZYMES Inhibitor] Home Medications Medication Instructions Recorded Confirmed Type omega-3 acid ethyl esters 1 gram 1 cap PO TID 03/09/19 03/18/23 History capsule latanoprost 0.005 % eye drops 1 drp ophthalmic (eye) QPM 05/05/20 03/18/23 History epinephrine 0.3 mg/0.3 mL 0.3 mg (0.3 mL) IM .COMPLEX PRN 07/06/20 03/18/23 Rx injection, auto-injector (EpiPen) anaphylaxis #2 ea brimonidine 0.1 % eye drops 1 drp OPB Q8H 01/22/22 03/18/23 History timolol 0.5 % eye drops 1 drp ophthalmic (eye) BID 01/22/22 03/18/23 History ezetimibe 10 mg tablet 10 mg PO DAILY #90 tabs 03/18/22 03/18/23 Rx amiodarone 200 mg tablet 200 mg PO DAILY #90 tabs 05/13/22 03/18/23 Rx apixaban 5 mg tablet (Eliquis) 5 mg PO BID #180 tabs 05/13/22 03/18/23 Rx metoprolol succinate 100 mg 100 mg PO DAILY #90 tabs 05/23/22 03/18/23 Rx tablet,extended release 24 hr omeprazole 40 mg capsule,delayed 40 mg PO QAM 12/28/22 03/18/23 History release cholecalciferol (vitamin D3) 25 0 mcg PO DAILY 02/28/23 03/18/23 History mcg (1,000 unit) capsule (Vitamin D3) acetaminophen 500 mg tablet 1,000 mg PO TID PRN pain #90 tabs 03/03/23 03/18/23 Rx (Tylenol Extra Strength) oxycodone 5 mg tablet 5 mg PO BID PRN pain 30 days #60 03/04/23 03/18/23 Rx tabs furosemide 20 mg tablet 20 mg PO BID 90 days #180 tabs 03/11/23 03/18/23 Rx hydroxyzine HCl 10 mg tablet 10 mg PO HS PRN anxiety #90 tabs 03/11/23 03/18/23 Rx cyclobenzaprine 5 mg tablet See Rx Instructions PO HS PRN 03/12/23 03/18/23 Rx muscle spasm #30 tabs nystatin 100,000 unit/gram topical 1 applic topical BID #60 grams 03/15/23 03/18/23 Rx powder Past Med/Surg History Medical History Angioedema (12/03/10) Arthritis of multiple sites Atrial fibrillation with rapid ventricular response Claudication of lower extremity Constipation Diabetes mellitus Glaucoma HTN (hypertension) Hyperlipidemia Lower extremity edema Lumbar pain Meralgia paresthetica of 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 Paroxysmal atrial tachycardia Paroxysmal atrial tachycardia Personal history of malignant melanoma of skin Renal lesion Renal lesion Skin cancer Spinal stenosis of lumbar region Statin intolerance Surgical History H/O arthroscopy of right knee H/O: hysterectomy Hx of colonoscopy Family History Father Congestive heart failure (CHF) Hypertension Myocardial infarction Mother Emphysema of lung Hypertension Brother Prostate cancer Hypertension Son Colorectal cancer age 49 Other Heart disease Denies family history of Ovarian cancer Diabetes Breast cancer Lung cancer Stroke Social History Smoking Status: Former smoker Tobacco Type: Cigarettes Age Started Using Tobacco: 27; Age Quit Using Tobacco: 45; packs per day: 0.75; Second Hand Exposure: No; Do You Dip or Chew Tobacco: No; Hx Alcohol Use: No Hx Substance Use: No Preferred Language: Marshallese Communication Ability: Effective Visual Impairment: Limited Hearing Ability: Normal 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 Beliefs That Will Affect Care: None marital status: / Current Living Situation: Alone current occupational status: retired How many Children do You have: 2 Feels Safe at Home: Yes Childhood Exposure to Second-Hand Smoke: Yes Diet: low salt caffeine: Yes during the past year weight has: remained stable Dental Care, Regularly: Yes Physical Activity Frequency: 3-4 Times per Week Physical Activity Frequency Comment: physical therapy Seatbelt Use: always Sunscreen Use: Yes (not in the sun) Do you think of yourself as: straight/heterosexual Assistive Devices: Cane and Walker Physical Exam Physical Exam: General: A&Ox3. NAD. Cooperative. HEENT: Vision/hearing grossly intact. Pupils equal and reactive to light and accommodation Skin: Right cheek with contusion. Right forearm with multiple contusions. Left hand with superficial skin tear. Initially with gauze dressing, redressed with nonadherent dressing and wrapped. Pulm: CTAB A&P. -wheezes, -rales, -rhonchi. Symmetrical chest rise. No increased work of breathing. No respiratory distress. Cardiac: RRR, -mrg. Radial pulses intact and symmetrical. Abdominal: Nontender, nondistended, soft. BS present. Extremities: 2+ lower extremity edema bilaterally. Sensation intact in hands and feet bilaterally. Working Second Hand strength, ankle dorsiflexion/plantarflexion 5/5 bilaterally. Results & Data Results & Data Vital Signs (Past 12 Hours) Vital Signs Temp Pulse Pulse Resp BP BP Pulse Ox 03/18/23 18:00 90 25 H 143/77 H 03/18/23 16:32 98 H 03/18/23 16:17 97 H 21 124/75 91 03/18/23 14:23 96 03/18/23 14:09 93 H 18 180/121 H 96 03/18/23 14:03 37.0 C 94 H 16 180/121 H 94 O2 Del Method O2 Flow Rate 03/18/23 18:00 03/18/23 16:32 03/18/23 16:17 03/18/23 14:23 Room Air 0 03/18/23 14:09 Room Air 03/18/23 14:03 Room Air PG Care Time/CCT Total # of Minutes Spent Total Time Spent with Patient: Total time spent is greater than 50% in coordination of care (as documented) at patient's floor/unit and/or counseling patient: Coding Level of Care Code 29947 INT INP/OBS CARE 3/75MIN Diagnoses Fall W19.XXXA PAF (paroxysmal atrial fibrillation) I48.0 Spinal stenosis of lumbar region M48.061 Acute hyponatremia E87.1 Renal lesion N28.9 DM2 (diabetes mellitus, type 2) E11.9
[2023-03-18 19:02] LABS: Appearance Urine Clear (Clear); Bilirubin Urine Negative (Negative); Blood Urine 1+ (Negative); Color Urine Yellow; Glucose Urine UA Negative (Negative); Ketones Urine 1+ (Negative); Leukocyte Esterase Urine 1+ (Negative); Nitrite Urine Negative (Negative); Protein Urine 1+ (Negative); Specific Gravity Urine > 1.045 (1.000-1.030); Urobilinogen Urine Negative (Negative)
[2023-03-18 19:12] LABS: RBC Urine Automated 0-4 /hpf (0-4)
[2023-03-18 19:13] LABS: Bacteria Urine Automated Negative (Negative); Cast Urine Automated 0 /lpf (0-5); Epithelial Cell Urine Auto >30 /lpf (0-5)
[2023-03-18] MEDS ORDERED: GLUCAGON FOR INJ 1 MG VIAL SQ PRN (19:20)
[2023-03-18] MEDS ORDERED: CARBOHYDRATES FOR HYPOGLYCEMIA PO PRN (19:20)
[2023-03-18] MEDS ORDERED: GLUCOSE 10 TAB/TUBE PO PRN (19:20)
[2023-03-18] MEDS ORDERED: DEXTROSE 50% 50 ML SYRINGE IV PRN (19:20)
[2023-03-18] MEDS ORDERED: GLUCOSE 40% GEL 15 GM TUBE PO PRN (19:20)
[2023-03-18] MEDS: INSULIN ASPART PER UNIT CHARGE SC SCH (20:45)
[2023-03-18] MEDS ORDERED: oxyCODONE/ACETAMINOPHEN 5mg/325mg TAB PO STA (21:03)
[2023-03-18] MEDS ORDERED: MAGNESIUM SULFATE / D5W 1 GM/100 ML BAG IV ONE (21:05)
[2023-03-18] MEDS ORDERED: MoRPHine SULFATE 2 MG/ML CARP IV PRN ×2 (21:05)
[2023-03-18] MEDS ORDERED: LIDOCAINE 5% 1 PATCH TD STA (21:05)
[2023-03-18] MEDS: FUROSEMIDE 20 MG TAB PO SCH (23:00)
[2023-03-18] MEDS: APIXABAN 5 MG TABLET PO SCH (23:45)
[2023-03-18] MEDS: hydrOXYzine HCl 10 MG TAB PO PRN (23:46)
[2023-03-18] MEDS: CYCLOBENZAPRINE HCL 5 MG TAB PO PRN (23:47)
[2023-03-18] MEDS: TIMOLOL MALEATE 0.5% OP SOLN 5 ML BTL OP SCH (23:48)
[2023-03-18] MEDS: LATANOPROST 0.005% OP SOLN 2.5 ML BTL OP SCH (23:48)
[2023-03-19] MEDS: ACETAMINOPHEN 325 MG TAB PO PRN ×2 (01:06→12:20)
[2023-03-19 04:10] LABS: Basophils # (auto) 0.04 K/uL (0.00-0.20); Basophils % (auto) 0.4 %; Eosinophils # (auto) 0.47 K/uL (0.00-0.50); Eosinophils % (auto) 4.7 %; Hematocrit (blood only) 33.6 % (37.0-47.0); Hemoglobin 11.5 g/dl (12.0-16.0); Immature Granulocytes # (auto) 0.11 K/uL (0.01-0.20); Immature Granulocytes % (auto) 1.1 %; Lymphocytes # (auto) 0.98 K/uL (1.20-3.40); Lymphocytes % (auto) 9.7 %; Mean Corpuscular Hemoglobin 30.7 pg (25.0-34.0); Mean Corpuscular Hgb Conc 34.2 g/dL (32.0-36.0); Mean Corpuscular Volume 89.8 fL (80.0-100.0); Mean Platelet Volume 10.6 fL (9.4-12.4); Monocytes # (auto) 0.93 K/uL (0.11-0.59); Monocytes % (auto) 9.2 %; Neutrophils # (auto) 7.55 K/uL (1.40-6.50); Neutrophils % (auto) 74.9 %; Platelet Count 240 K/uL (130-400); RDW Coefficient of Variation 13.6 % (11.5-14.5); RDW Standard Deviation 44.6 fL (36.4-46.3); Red Blood Count 3.74 M/uL (4.20-5.40); White Blood Count 10.08 K/ul (4.8-10.8)
[2023-03-19 04:23] LABS: BUN Creatinine Ratio 18.3 (10-20); Calcium 8.1 mg/dl (8.6-10.3); Creatinine Clr Calc Pharmacy 59.6 ml/min; Est GFR (African American) 89.4 ml/min; Est GFR (Non-African American) 77.1 ml/min; Magnesium 1.8 mg/dl (1.7-2.4); Potassium 3.1 mmol/L (3.5-5.1)
[2023-03-19] MEDS: INSULIN ASPART PER UNIT CHARGE SC SCH ×4 (09:00→21:07)
[2023-03-19] MEDS: oxyCODONE HCL IR 5 MG TAB (IMMEDIATE RELEASE) PO PRN ×2 (09:00→22:21)
[2023-03-19] MEDS: PANTOprazole 40 MG TAB PO SCH (09:01)
[2023-03-19] MEDS: EZETIMIBE 10 MG TAB PO SCH (09:01)
[2023-03-19] MEDS: FUROSEMIDE 20 MG TAB PO SCH ×2 (09:01→17:24)
[2023-03-19] MEDS: AMIODARONE 200 MG TAB PO SCH (09:01)
[2023-03-19] MEDS: APIXABAN 5 MG TABLET PO SCH ×2 (09:01→21:08)
[2023-03-19] MEDS: TIMOLOL MALEATE 0.5% OP SOLN 5 ML BTL OP SCH ×2 (09:02→21:07)
[2023-03-19] MEDS: METOPROLOL SUCC 50MG EXT REL TAB PO SCH (10:25)
[2023-03-19] MEDS ORDERED: POTASSIUM CHLORIDE CRTAB 20 MEQ TABCR PO STA (13:06)
[2023-03-19] MEDS: POTASSIUM CHLORIDE CRTAB 20 MEQ TABCR PO SCH ×2 (15:39→21:08)
[2023-03-19] MEDS: CYCLOBENZAPRINE HCL 5 MG TAB PO PRN (21:07)
[2023-03-19] MEDS: LATANOPROST 0.005% OP SOLN 2.5 ML BTL OP SCH (21:07)
--- NOTE | 2023-03-20 00:07 | Hospitalist Progress Note ---
Date of Service March 19, 2023 Assessment & Plan (1) Fall: Plan: Fall, prolonged downtime Patient fell when she was too weak to stand back up off the toilet, tried to use a towel as a sling to pull herself up and fell and got wedged between second toilet was too weak to get up or stand Extensive imaging as noted in HPI with single rib fracture, otherwise no acute fractures or bleed Patient is very weak, recommended for admission for monitoring due to fall on DOAC and for PT/OT PT/OT pending No signs of intracranial bleeding or abnormality CK is not elevated, no evidence of rhabdo Reports mechanical fall, no syncope/lightheadedness/dizziness. Does endorse she was too weak to get back up Multimodal pain control, lidocaine patch to right rib. Tylenol, breakthrough morphine as needed. Toradol deferred due to anaphylactic reaction to NSAIDs in the past. Left hand with skin tear, redressed at time of admission. Awaiting PT/OT evals. Patient appears to be deconditioned (2) PAF (paroxysmal atrial fibrillation): Plan: Paroxysmal atrial fibrillation Continue apixaban. No clinically significant bleeding on initial work-up Continue amiodarone Continue metoprolol 22.7 without ischemic findings on EKG. Patient has bilateral reproducible chest pain consistent with her fall, denies anginal pain. No afib rvr Troponin trended We will follow on medical telemetry (3) Spinal stenosis of lumbar region: Plan: No acute change/fracture (4) Acute hyponatremia: Plan: Chronic mild hyponatremia, 129 on admit P.o. encouraged, trend daily. (5) Renal lesion: Plan: 1.8 cm enhancing lesion noted on imaging 06/06, 03/08 and redemonstrated on admitting imaging. RCC diagnosis of exclusion Patient is following with urology, continue nonemergent follow-up (6) DM2 (diabetes mellitus, type 2): Plan: DM2 Weight-based SSI Goal BSG [id number] Diet: DM 2 Disposition: Medical telemetry for elevated troponin, downgrade if stable and doing well CODE STATUS: DNR/DNI, discussed with patient DVT prophylaxis: Anticoagulated Admission and Anticipated Discharge Date Admission Date: March 18, 2023 Subjective Patient reports no new symptoms. Review of Systems Review of Systems: All systems reviewed & are unremarkable except as noted in HPI & below Physical Exam Physical Exam: General: A&Ox3. NAD. Cooperative. HEENT: Vision/hearing grossly intact. Pupils equal and reactive to light and accommodation Skin: Right cheek with contusion. Right forearm with multiple contusions. Left hand with superficial skin tear. Initially with gauze dressing, redressed with nonadherent dressing and wrapped. Pulm: CTAB A&P. -wheezes, -rales, -rhonchi. Symmetrical chest rise. No increased work of breathing. No respiratory distress. Cardiac: RRR, -mrg. Radial pulses intact and symmetrical. Abdominal: Nontender, nondistended, soft. BS present. Extremities: 2+ lower extremity edema bilaterally. Sensation intact in hands and feet bilaterally. Policy Change Clerk strength, ankle dorsiflexion/plantarflexion 5/5 bilaterally. Results & Data Results & Data Vital Signs (Past 12 Hours) Vital Signs Temp Pulse Pulse Resp BP Pulse Ox O2 Del Method 03/19/23 22:37 Room Air 03/19/23 22:21 36.6 C 78 20 117/75 93 Room Air 03/19/23 19:48 36.6 C 79 18 112/73 95 Room Air 03/19/23 15:48 36.4 C L 85 20 152/91 H 92 Room Air 03/19/23 15:04 77 PG Care Time/CCT Total # of Minutes Spent Total Time Spent with Patient: Total time spent is greater than 50% in coordination of care (as documented) at patient's floor/unit and/or counseling patient: Coding Level of Care Code 21023 SUB INP/OBS CARE 2/35MIN Diagnoses Fall W19.XXXA PAF (paroxysmal atrial fibrillation) I48.0 Spinal stenosis of lumbar region M48.061 Acute hyponatremia E87.1 Renal lesion N28.9 DM2 (diabetes mellitus, type 2) E11.9
[2023-03-20] MEDS: hydrOXYzine HCl 10 MG TAB PO PRN (06:29)
[2023-03-20 06:39] LABS: Basophils # (auto) 0.05 K/uL (0.00-0.20); Basophils % (auto) 0.5 %; Eosinophils # (auto) 0.55 K/uL (0.00-0.50); Eosinophils % (auto) 5.8 %; Hemoglobin 12.4 g/dl (12.0-16.0); Immature Granulocytes # (auto) 0.19 K/uL (0.01-0.20); Lymphocytes # (auto) 1.62 K/uL (1.20-3.40); Lymphocytes % (auto) 17.1 %; Mean Corpuscular Hemoglobin 30.4 pg (25.0-34.0); Mean Corpuscular Hgb Conc 33.5 g/dL (32.0-36.0); Mean Corpuscular Volume 90.7 fL (80.0-100.0); Mean Platelet Volume 10.7 fL (9.4-12.4); Monocytes # (auto) 1.01 K/uL (0.11-0.59); Monocytes % (auto) 10.7 %; Neutrophils # (auto) 6.03 K/uL (1.40-6.50); Neutrophils % (auto) 63.9 %; Platelet Count 287 K/uL (130-400); RDW Coefficient of Variation 13.9 % (11.5-14.5); Red Blood Count 4.08 M/uL (4.20-5.40); White Blood Count 9.45 K/ul (4.8-10.8)
[2023-03-20 07:09] LABS: Bilirubin,Total 0.9 mg/dl (0.2-1.0)
[2023-03-20 07:10] LABS: Albumin Globulin Ratio 1.2 (0.9-2); Albumin Level 3.1 gm/dl (3.4-5.0); BUN Creatinine Ratio 19.5 (10-20); C Reactive Protein 18.93 mg/dl (0-0.5); Calcium 8.5 mg/dl (8.6-10.3); Creatinine Clr Calc Pharmacy 48.5 ml/min; Est GFR (African American) 69.9 ml/min; Est GFR (Non-African American) 60.3 ml/min; Globulin 2.6 gm/dl (2.5-4.0); Potassium 4.4 mmol/L (3.5-5.1); Total Protein 5.7 gm/dl (6.0-8.3)
[2023-03-20] MEDS: PANTOprazole 40 MG TAB PO SCH (09:04)
[2023-03-20] MEDS: FUROSEMIDE 20 MG TAB PO SCH ×2 (09:04→17:00)
[2023-03-20] MEDS: APIXABAN 5 MG TABLET PO SCH ×2 (09:04→20:30)
[2023-03-20] MEDS: METOPROLOL SUCC 50MG EXT REL TAB PO SCH (09:04)
[2023-03-20] MEDS: EZETIMIBE 10 MG TAB PO SCH (09:05)
[2023-03-20] MEDS: POTASSIUM CHLORIDE CRTAB 20 MEQ TABCR PO SCH (09:05)
[2023-03-20] MEDS: AMIODARONE 200 MG TAB PO SCH (09:05)
[2023-03-20] MEDS: TIMOLOL MALEATE 0.5% OP SOLN 5 ML BTL OP SCH ×2 (09:05→20:30)
[2023-03-20] MEDS: INSULIN ASPART PER UNIT CHARGE SC SCH ×4 (09:09→20:29)
[2023-03-20] MEDS: ACETAMINOPHEN 325 MG TAB PO SCH ×3 (14:39→20:31)
[2023-03-20] MEDS: oxyCODONE HCL IR 5 MG TAB (IMMEDIATE RELEASE) PO PRN (20:29)
[2023-03-20] MEDS: LATANOPROST 0.005% OP SOLN 2.5 ML BTL OP SCH (20:30)
[2023-03-20] MEDS: CYCLOBENZAPRINE HCL 5 MG TAB PO PRN (20:31)
--- NOTE | 2023-03-20 22:26 | Hospitalist Progress Note ---
Date of Service March 20, 2023 Assessment & Plan (1) Fall: Plan: Fall, prolonged downtime Patient fell when she was too weak to stand back up off the toilet, tried to use a towel as a sling to pull herself up and fell and got wedged between second toilet was too weak to get up or stand Extensive imaging as noted in HPI with single rib fracture, otherwise no acute fractures or bleed Patient is very weak, recommended for admission for monitoring due to fall on DOAC and for PT/OT PT/OT pending No signs of intracranial bleeding or abnormality CK is not elevated, no evidence of rhabdo Reports mechanical fall, no syncope/lightheadedness/dizziness. Does endorse she was too weak to get back up Multimodal pain control, lidocaine patch to right rib. Tylenol, breakthrough morphine as needed. Toradol deferred due to anaphylactic reaction to NSAIDs in the past. Left hand with skin tear, redressed at time of admission. Awaiting PT/OT evals. Patient appears to be deconditioned. Apply antibiotic ointment for hand Await wound care. Ordered tramadol for modertae pain, oxycodone for severe pain, Ordered tylenol around the clock. (2) PAF (paroxysmal atrial fibrillation): Plan: Paroxysmal atrial fibrillation Continue apixaban. No clinically significant bleeding on initial work-up Continue amiodarone Continue metoprolol 22.7 without ischemic findings on EKG. Patient has bilateral reproducible chest pain consistent with her fall, denies anginal pain. No afib rvr Troponin trended We will follow on medical telemetry (3) Spinal stenosis of lumbar region: Plan: No acute change/fracture (4) Acute hyponatremia: Plan: Chronic mild hyponatremia, 129 on admit P.o. encouraged, trend daily. (5) Renal lesion: Plan: 1.8 cm enhancing lesion noted on imaging 06/06, 03/08 and redemonstrated on admitting imaging. RCC diagnosis of exclusion Patient is following with urology, continue nonemergent follow-up (6) DM2 (diabetes mellitus, type 2): Plan: DM2 Weight-based SSI Goal BSG [id number] Diet: DM 2 Disposition: Medical telemetry for elevated troponin, downgrade if stable and doing well CODE STATUS: DNR/DNI, discussed with patient DVT prophylaxis: Anticoagulated Admission and Anticipated Discharge Date Admission Date: March 18, 2023 Subjective 87 yo female reports no new symptoms. Review of Systems Review of Systems: All systems reviewed & are unremarkable except as noted in HPI & below Physical Exam Physical Exam: General: A&Ox3. NAD. Cooperative. HEENT: Vision/hearing grossly intact. Pupils equal and reactive to light and accommodation Skin: Right cheek with contusion. Right forearm with multiple contusions. Left hand with superficial skin tear.Removed dressing. No laceration noted. Pulm: CTAB A&P. -wheezes, -rales, -rhonchi. Symmetrical chest rise. No increased work of breathing. No respiratory distress. Cardiac: RRR, -mrg. Radial pulses intact and symmetrical. Abdominal: Nontender, nondistended, soft. BS present. Extremities: 2+ lower extremity edema bilaterally. Sensation intact in hands and feet bilaterally. Policy Writer strength, ankle dorsiflexion/plantarflexion 5/5 bilaterally. Results & Data Results & Data Vital Signs (Past 12 Hours) Vital Signs Temp Pulse Pulse Resp BP BP Pulse Ox 03/20/23 21:24 03/20/23 20:27 36.5 C 82 20 128/75 94 03/20/23 16:23 36.8 C 91 H 18 131/78 92 03/20/23 15:44 88 03/20/23 13:30 03/20/23 11:22 36.5 C 84 18 146/75 H 94 O2 Del Method 03/20/23 21:24 Room Air 03/20/23 20:27 Room Air 03/20/23 16:23 Room Air 03/20/23 15:44 03/20/23 13:30 Room Air 03/20/23 11:22 Room Air PG Care Time/CCT Total # of Minutes Spent Total Time Spent with Patient: Total time spent is greater than 50% in coordination of care (as documented) at patient's floor/unit and/or counseling patient: Coding Level of Care Code 26685 SUB INP/OBS CARE 2/35MIN Diagnoses Fall W19.XXXA PAF (paroxysmal atrial fibrillation) I48.0 Spinal stenosis of lumbar region M48.061 Acute hyponatremia E87.1 Renal lesion N28.9 DM2 (diabetes mellitus, type 2) E11.9
[2023-03-21 06:08] LABS: Basophils # (auto) 0.04 K/uL (0.00-0.20); Basophils % (auto) 0.5 %; Eosinophils # (auto) 0.63 K/uL (0.00-0.50); Eosinophils % (auto) 7.1 %; Hematocrit (blood only) 34.5 % (37.0-47.0); Hemoglobin 11.4 g/dl (12.0-16.0); Immature Granulocytes # (auto) 0.22 K/uL (0.01-0.20); Immature Granulocytes % (auto) 2.5 %; Lymphocytes # (auto) 1.55 K/uL (1.20-3.40); Lymphocytes % (auto) 17.5 %; Mean Corpuscular Volume 90.8 fL (80.0-100.0); Mean Platelet Volume 10.4 fL (9.4-12.4); Monocytes % (auto) 11.3 %; Neutrophils # (auto) 5.42 K/uL (1.40-6.50); Neutrophils % (auto) 61.1 %; Platelet Count 273 K/uL (130-400); RDW Standard Deviation 46.9 fL (36.4-46.3); White Blood Count 8.86 K/ul (4.8-10.8)
[2023-03-21 06:29] LABS: BUN Creatinine Ratio 17.6 (10-20); Calcium 8.3 mg/dl (8.6-10.3); Creatinine Clr Calc Pharmacy 57.9 ml/min; Est GFR (Non-African American) 73.4 ml/min; Potassium 4.2 mmol/L (3.5-5.1)
[2023-03-21] MEDS: ACETAMINOPHEN 325 MG TAB PO SCH ×4 (08:24→21:43)
[2023-03-21] MEDS: BACITRACIN/POLYMYXIN B SULFATE 90 APPLN/28.4 GM TUBE EXT PRN (09:07)
[2023-03-21] MEDS: PANTOprazole 40 MG TAB PO SCH (09:07)
[2023-03-21] MEDS: METOPROLOL SUCC 50MG EXT REL TAB PO SCH (09:07)
[2023-03-21] MEDS: FUROSEMIDE 20 MG TAB PO SCH ×2 (09:07→16:54)
[2023-03-21] MEDS: APIXABAN 5 MG TABLET PO SCH ×2 (09:07→20:13)
[2023-03-21] MEDS: EZETIMIBE 10 MG TAB PO SCH (09:07)
[2023-03-21] MEDS: AMIODARONE 200 MG TAB PO SCH (09:07)
[2023-03-21] MEDS: TIMOLOL MALEATE 0.5% OP SOLN 5 ML BTL OP SCH ×2 (09:08→20:13)
[2023-03-21] MEDS: INSULIN ASPART PER UNIT CHARGE SC SCH ×4 (09:13→20:23)
[2023-03-21] MEDS: traMADol HCL 50 MG TABLET PO PRN (13:16)
[2023-03-21] MEDS: oxyCODONE HCL IR 5 MG TAB (IMMEDIATE RELEASE) PO PRN (18:39)
[2023-03-21] MEDS: LATANOPROST 0.005% OP SOLN 2.5 ML BTL OP SCH (20:13)
[2023-03-21] MEDS: CYCLOBENZAPRINE HCL 5 MG TAB PO PRN (21:42)
--- NOTE | 2023-03-21 23:31 | Hospitalist Progress Note ---
Date of Service March 21, 2023 Assessment & Plan (1) Fall: Plan: Fall, prolonged downtime Patient fell when she was too weak to stand back up off the toilet, tried to use a towel as a sling to pull herself up and fell and got wedged between second toilet was too weak to get up or stand Extensive imaging as noted in HPI with single rib fracture, otherwise no acute fractures or bleed Patient is very weak, recommended for admission for monitoring due to fall on DOAC and for PT/OT PT/OT pending No signs of intracranial bleeding or abnormality CK is not elevated, no evidence of rhabdo Reports mechanical fall, no syncope/lightheadedness/dizziness. Does endorse she was too weak to get back up Multimodal pain control, lidocaine patch to right rib. Tylenol, breakthrough morphine as needed. Toradol deferred due to anaphylactic reaction to NSAIDs in the past. Left hand with skin tear, redressed at time of admission. Awaiting PT/OT evals. Patient appears to be deconditioned. Apply antibiotic ointment for hand Await wound care. Ordered tramadol for moderate pain, oxycodone for severe pain, Ordered tylenol around the clock. Patient did not receive opiates today. Reiterated to patient that she needs to ask. (2) PAF (paroxysmal atrial fibrillation): Plan: Paroxysmal atrial fibrillation Continue apixaban. No clinically significant bleeding on initial work-up Continue amiodarone Continue metoprolol 22.7 without ischemic findings on EKG. Patient has bilateral reproducible chest pain consistent with her fall, denies anginal pain. No afib rvr Troponin trended We will follow on medical telemetry (3) Spinal stenosis of lumbar region: Plan: No acute change/fracture (4) Acute hyponatremia: Plan: Chronic mild hyponatremia, 129 on admit P.o. encouraged, trend daily. (5) Renal lesion: Plan: 1.8 cm enhancing lesion noted on imaging 06/06, 03/08 and redemonstrated on admitting imaging. RCC diagnosis of exclusion Patient is following with urology, continue nonemergent follow-up (6) DM2 (diabetes mellitus, type 2): Plan: DM2 Weight-based SSI Goal BSG [id number] Diet: DM 2 Disposition: Medical telemetry for elevated troponin, downgrade if stable and doing well CODE STATUS: DNR/DNI, discussed with patient DVT prophylaxis: Anticoagulated Admission and Anticipated Discharge Date Admission Date: March 18, 2023 Subjective 87 yo female reports no new symptoms. Review of Systems Review of Systems: All systems reviewed & are unremarkable except as noted in HPI & below Physical Exam Physical Exam: General: A&Ox3. NAD. Cooperative. HEENT: Vision/hearing grossly intact. Pupils equal and reactive to light and accommodation Skin: Right cheek with contusion. Right forearm with multiple contusions. Left hand with superficial skin tear.Removed dressing. No laceration noted. Pulm: CTAB A&P. -wheezes, -rales, -rhonchi. Symmetrical chest rise. No increased work of breathing. No respiratory distress. Cardiac: RRR, -mrg. Radial pulses intact and symmetrical. Abdominal: Nontender, nondistended, soft. BS present. Extremities: 2+ lower extremity edema bilaterally. Sensation intact in hands and feet bilaterally. Pathology Secretary strength, ankle dorsiflexion/plantarflexion 5/5 amira aterally. Results & Data Results & Data Vital Signs (Past 12 Hours) Vital Signs Temp Pulse Pulse Resp BP Pulse Ox O2 Del Method 03/21/23 19:54 36.9 C 88 20 123/74 92 Room Air 03/21/23 15:00 78 03/21/23 15:33 36.3 C L 76 20 128/85 92 Room Air 03/21/23 11:47 36.5 C 82 18 117/74 93 Room Air PG Care Time/CCT Total # of Minutes Spent Total Time Spent with Patient: Total time spent is greater than 50% in coordination of care (as documented) at patient's floor/unit and/or counseling patient: Coding Level of Care Code 69381 SUB INP/OBS CARE 2/35MIN Diagnoses Fall W19.XXXA PAF (paroxysmal atrial fibrillation) I48.0 Spinal stenosis of lumbar region M48.061 Acute hyponatremia E87.1 Renal lesion N28.9 DM2 (diabetes mellitus, type 2) E11.9
[2023-03-22] MEDS: oxyCODONE HCL IR 5 MG TAB (IMMEDIATE RELEASE) PO PRN ×3 (04:17→18:32)
[2023-03-22] MEDS: ACETAMINOPHEN 325 MG TAB PO SCH ×4 (08:26→20:16)
[2023-03-22] MEDS: FUROSEMIDE 20 MG TAB PO SCH ×2 (08:27→17:47)
[2023-03-22] MEDS: METOPROLOL SUCC 50MG EXT REL TAB PO SCH (08:27)
[2023-03-22] MEDS: PANTOprazole 40 MG TAB PO SCH (08:27)
[2023-03-22] MEDS: EZETIMIBE 10 MG TAB PO SCH (08:27)
[2023-03-22] MEDS: APIXABAN 5 MG TABLET PO SCH ×2 (08:27→20:16)
[2023-03-22] MEDS: TIMOLOL MALEATE 0.5% OP SOLN 5 ML BTL OP SCH ×2 (08:28→20:16)
[2023-03-22] MEDS: AMIODARONE 200 MG TAB PO SCH (08:28)
[2023-03-22] MEDS: INSULIN ASPART PER UNIT CHARGE SC SCH ×4 (09:01→20:37)
[2023-03-22] MEDS: traMADol HCL 50 MG TABLET PO PRN (09:45)
[2023-03-22] MEDS: LATANOPROST 0.005% OP SOLN 2.5 ML BTL OP SCH (20:16)
[2023-03-22] MEDS: BACITRACIN/POLYMYXIN B SULFATE 90 APPLN/28.4 GM TUBE EXT PRN (20:17)
--- NOTE | 2023-03-22 23:29 | Hospitalist Progress Note ---
Date of Service March 22, 2023 Assessment & Plan (1) Fall: Plan: Fall, prolonged downtime Patient fell when she was too weak to stand back up off the toilet, tried to use a towel as a sling to pull herself up and fell and got wedged between second toilet was too weak to get up or stand Extensive imaging as noted in HPI with single rib fracture, otherwise no acute fractures or bleed Patient is very weak, recommended for admission for monitoring due to fall on DOAC and for PT/OT PT/OT pending No signs of intracranial bleeding or abnormality CK is not elevated, no evidence of rhabdo Reports mechanical fall, no syncope/lightheadedness/dizziness. Does endorse she was too weak to get back up Multimodal pain control, lidocaine patch to right rib. Tylenol, breakthrough morphine as needed. Toradol deferred due to anaphylactic reaction to NSAIDs in the past. Left hand with skin tear, redressed at time of admission. Awaiting PT/OT evals. Patient appears to be deconditioned. Apply antibiotic ointment for hand Await wound care. Ordered tramadol for moderate pain, oxycodone for severe pain, Ordered tylenol around the clock. COntinue opiates (2) PAF (paroxysmal atrial fibrillation): Plan: Paroxysmal atrial fibrillation Continue apixaban. No clinically significant bleeding on initial work-up Continue amiodarone Continue metoprolol 22.7 without ischemic findings on EKG. Patient has bilateral reproducible chest pain consistent with her fall, denies anginal pain. No afib rvr Troponin trended We will follow on medical telemetry (3) Spinal stenosis of lumbar region: Plan: No acute change/fracture (4) Acute hyponatremia: Plan: Chronic mild hyponatremia, 129 on admit P.o. encouraged, trend daily. (5) Renal lesion: Plan: 1.8 cm enhancing lesion noted on imaging 06/06, 03/08 and redemonstrated on admitting imaging. RCC diagnosis of exclusion Patient is following with urology, continue nonemergent follow-up (6) DM2 (diabetes mellitus, type 2): Plan: DM2 Weight-based SSI Goal BSG [id number] Diet: DM 2 Disposition: Medical telemetry for elevated troponin, downgrade if stable and doing well CODE STATUS: DNR/DNI, discussed with patient DVT prophylaxis: Anticoagulated Admission and Anticipated Discharge Date Admission Date: March 18, 2023 Subjective Patient reports no new symptoms. Review of Systems Review of Systems: All systems reviewed & are unremarkable except as noted in HPI & below Physical Exam Physical Exam: General: A&Ox3. NAD. Cooperative. HEENT: Vision/hearing grossly intact. Pupils equal and reactive to light and accommodation Skin: Right cheek with contusion. Right forearm with multiple contusions. Left hand with superficial skin tear.Removed dressing. No laceration noted. Pulm: CTAB A&P. -wheezes, -rales, -rhonchi. Symmetrical chest rise. No increased work of breathing. No respiratory distress. Cardiac: RRR, -mrg. Radial pulses intact and symmetrical. Abdominal: Nontender, nondistended, soft. BS present. Extremities: 2+ lower extremity edema bilaterally. Sensation intact in hands and feet bilaterally. Dumpster Operator strength, ankle dorsiflexion/plantarflexion 5/5 bilaterally. Results & Data Results & Data Vital Signs (Past 12 Hours) Vital Signs Temp Pulse Pulse Resp BP Pulse Ox O2 Del Method 03/22/23 22:46 80 03/22/23 19:00 36.6 C 78 18 113/69 93 Room Air 03/22/23 16:01 37.5 C 75 18 114/72 93 Room Air 03/22/23 14:43 79 03/22/23 12:28 36.9 C 81 18 162/87 H 91 Room Air PG Care Time/CCT Total # of Minutes Spent Total Time Spent with Patient: Total time spent is greater than 50% in coordination of care (as documented) at patient's floor/unit and/or counseling patient: Coding Level of Care Code 76707 SUB INP/OBS CARE 2/35MIN Diagnoses Fall W19.XXXA PAF (paroxysmal atrial fibrillation) I48.0 Spinal stenosis of lumbar region M48.061 Acute hyponatremia E87.1 Renal lesion N28.9 DM2 (diabetes mellitus, type 2) E11.9
[2023-03-23] MEDS: FUROSEMIDE 20 MG TAB PO SCH ×2 (08:01→16:19)
[2023-03-23] MEDS: METOPROLOL SUCC 50MG EXT REL TAB PO SCH (08:02)
[2023-03-23] MEDS: AMIODARONE 200 MG TAB PO SCH (08:04)
[2023-03-23] MEDS: PANTOprazole 40 MG TAB PO SCH (08:04)
[2023-03-23] MEDS: EZETIMIBE 10 MG TAB PO SCH (08:05)
[2023-03-23] MEDS: APIXABAN 5 MG TABLET PO SCH ×2 (08:06→19:48)
[2023-03-23] MEDS: ACETAMINOPHEN 325 MG TAB PO SCH ×4 (08:07→19:46)
[2023-03-23] MEDS: INSULIN ASPART PER UNIT CHARGE SC SCH ×4 (09:38→20:07)
[2023-03-23] MEDS: TIMOLOL MALEATE 0.5% OP SOLN 5 ML BTL OP SCH ×2 (10:29→19:49)
[2023-03-23] MEDS: traMADol HCL 50 MG TABLET PO PRN ×2 (16:20→23:58)
--- NOTE | 2023-03-23 17:37 | Hospitalist Progress Note ---
Date of Service March 23, 2023 Assessment & Plan (1) Fall: Plan: Fall, prolonged downtime Patient fell when she was too weak to stand back up off the toilet, tried to use a towel as a sling to pull herself up and fell and got wedged between second toilet was too weak to get up or stand Extensive imaging as noted in HPI with single rib fracture, otherwise no acute fractures or bleed Patient is very weak, recommended for admission for monitoring due to fall on DOAC and for PT/OT PT/OT pending No signs of intracranial bleeding or abnormality CK is not elevated, no evidence of rhabdo Reports mechanical fall, no syncope/lightheadedness/dizziness. Does endorse she was too weak to get back up Multimodal pain control, lidocaine patch to right rib. Tylenol, breakthrough morphine as needed. Toradol deferred due to anaphylactic reaction to NSAIDs in the past. Left hand with skin tear, redressed at time of admission. Awaiting PT/OT evals. Patient appears to be deconditioned. Apply antibiotic ointment for hand Await wound care. Ordered tramadol for moderate pain, oxycodone for severe pain, Ordered tylenol around the clock. COntinue opiates (2) PAF (paroxysmal atrial fibrillation): Plan: Paroxysmal atrial fibrillation Continue apixaban. No clinically significant bleeding on initial work-up Continue amiodarone Continue metoprolol 22.7 without ischemic findings on EKG. Patient has bilateral reproducible chest pain consistent with her fall, denies anginal pain. No afib rvr Troponin trended We will follow on medical telemetry (3) Spinal stenosis of lumbar region: Plan: No acute change/fracture (4) Acute hyponatremia: Plan: Chronic mild hyponatremia, 129 on admit P.o. encouraged, trend daily. (5) Renal lesion: Plan: 1.8 cm enhancing lesion noted on imaging 06/06, 03/08 and redemonstrated on admitting imaging. RCC diagnosis of exclusion Patient is following with urology, continue nonemergent follow-up (6) DM2 (diabetes mellitus, type 2): Plan: DM2 Weight-based SSI Goal BSG [id number] Diet: DM 2 Disposition: Medical telemetry for elevated troponin, downgrade if stable and doing well CODE STATUS: DNR/DNI, discussed with patient DVT prophylaxis: Anticoagulated Admission and Anticipated Discharge Date Admission Date: March 18, 2023 Subjective 87 yo male reports no new symptoms. Review of Systems Review of Systems: All systems reviewed & are unremarkable except as noted in HPI & below Physical Exam Physical Exam: General: A&Ox3. NAD. Cooperative. HEENT: Vision/hearing grossly intact. Pupils equal and reactive to light and accommodation Skin: Right cheek with contusion. Right forearm with multiple contusions. Left hand with superficial skin tear.Removed dressing. No laceration noted. Pulm: CTAB A&P. -wheezes, -rales, -rhonchi. Symmetrical chest rise. No increased work of breathing. No respiratory distress. Cardiac: RRR, -mrg. Radial pulses intact and symmetrical. Abdominal: Nontender, nondistended, soft. BS present. Extremities: 2+ lower extremity edema bilaterally. Sensation intact in hands and feet bilaterally. Variety Performer strength, ankle dorsiflexion/plantarflexion 5/5 bilaterally. Results & Data Results & Data Vital Signs (Past 12 Hours) Vital Signs Temp Pulse Pulse Resp BP Pulse Ox O2 Del Method 03/23/23 16:21 Room Air 03/23/23 16:00 37.2 C 68 18 125/73 93 Room Air 03/23/23 15:17 67 03/23/23 12:09 36.5 C 71 18 135/83 92 Room Air 03/23/23 07:33 36.6 C 83 18 146/82 H 93 Room Air 03/23/23 06:46 83 PG Care Time/CCT Total # of Minutes Spent Total Time Spent with Patient: Total time spent is greater than 50% in coordination of care (as documented) at patient's floor/unit and/or counseling patient: Coding Level of Care Code 86812 SUB INP/OBS CARE 25MIN Diagnoses Fall W19.XXXA PAF (paroxysmal atrial fibrillation) I48.0 Spinal stenosis of lumbar region M48.061 Acute hyponatremia E87.1 Renal lesion N28.9 DM2 (diabetes mellitus, type 2) E11.9
[2023-03-23] MEDS: oxyCODONE HCL IR 5 MG TAB (IMMEDIATE RELEASE) PO PRN (19:46)
[2023-03-23] MEDS: LATANOPROST 0.005% OP SOLN 2.5 ML BTL OP SCH (19:49)
[2023-03-24] MEDS: ONDANSETRON INJ 2 MG/ML 2 ML VIAL IV PRN (02:35)
[2023-03-24] MEDS: traMADol HCL 50 MG TABLET PO PRN (08:18)
[2023-03-24] MEDS: INSULIN ASPART PER UNIT CHARGE SC SCH ×4 (09:16→20:25)
[2023-03-24] MEDS: PANTOprazole 40 MG TAB PO SCH (09:19)
[2023-03-24] MEDS: ACETAMINOPHEN 325 MG TAB PO SCH ×4 (09:19→20:25)
[2023-03-24] MEDS: TIMOLOL MALEATE 0.5% OP SOLN 5 ML BTL OP SCH ×2 (09:19→20:24)
[2023-03-24] MEDS: AMIODARONE 200 MG TAB PO SCH (09:19)
[2023-03-24] MEDS: EZETIMIBE 10 MG TAB PO SCH (09:19)
[2023-03-24] MEDS: APIXABAN 5 MG TABLET PO SCH ×2 (09:19→20:24)
[2023-03-24] MEDS: METOPROLOL SUCC 50MG EXT REL TAB PO SCH (09:19)
[2023-03-24] MEDS: FUROSEMIDE 20 MG TAB PO SCH ×2 (09:24→18:10)
[2023-03-24] MEDS: oxyCODONE HCL IR 5 MG TAB (IMMEDIATE RELEASE) PO PRN ×2 (11:19→18:49)
[2023-03-24] MEDS: CYCLOBENZAPRINE HCL 5 MG TAB PO PRN (20:24)
[2023-03-24] MEDS: BRIMONIDINE TARTRATE-P 0.15% 5 ML BTL OP SCH (20:24)
[2023-03-24] MEDS: LATANOPROST 0.005% OP SOLN 2.5 ML BTL OP SCH (20:25)
--- NOTE | 2023-03-25 07:04 | Hospitalist Progress Note ---
Date of Service March 24, 2023 Assessment & Plan (1) Fall: Plan: Fall, prolonged downtime Patient fell when she was too weak to stand back up off the toilet, tried to use a towel as a sling to pull herself up and fell and got wedged between second toilet was too weak to get up or stand Extensive imaging as noted in HPI with single rib fracture, otherwise no acute fractures or bleed Patient is very weak, recommended for admission for monitoring due to fall on DOAC and for PT/OT PT/OT pending No signs of intracranial bleeding or abnormality CK is not elevated, no evidence of rhabdo Reports mechanical fall, no syncope/lightheadedness/dizziness. Does endorse she was too weak to get back up Multimodal pain control, lidocaine patch to right rib. Tylenol, breakthrough morphine as needed. Toradol deferred due to anaphylactic reaction to NSAIDs in the past. Left hand with skin tear, redressed at time of admission. Appreciated PT/OT evals. Patient appears to be deconditioned. Appreciate wound care. Ordered tramadol for moderate pain, oxycodone for severe pain, Ordered tylenol around the clock. Continue opiates, Awaiting for placement. (2) PAF (paroxysmal atrial fibrillation): Plan: Paroxysmal atrial fibrillation Continue apixaban. No clinically significant bleeding on initial work-up Continue amiodarone Continue metoprolol 22.7 without ischemic findings on EKG. Patient has bilateral reproducible chest pain consistent with her fall, denies anginal pain. No afib rvr Troponin trended We will follow on medical telemetry (3) Spinal stenosis of lumbar region: Plan: No acute change/fracture (4) Acute hyponatremia: Plan: Chronic mild hyponatremia, 129 on admit P.o. encouraged, trend daily. (5) Renal lesion: Plan: 1.8 cm enhancing lesion noted on imaging 06/06, 03/08 and redemonstrated on admitting imaging. RCC diagnosis of exclusion Patient is following with urology, continue nonemergent follow-up (6) DM2 (diabetes mellitus, type 2): Plan: DM2 Weight-based SSI Goal BSG [id number] Diet: DM 2 Disposition: Medical telemetry for elevated troponin, downgrade if stable and doing well CODE STATUS: DNR/DNI, discussed with patient DVT prophylaxis: Anticoagulated Admission and Anticipated Discharge Date Admission Date: March 18, 2023 Subjective Patient reports having intermittent pain in her bilateral shoulder and hip. Patient reports this pain is chronic. Review of Systems Review of Systems: All systems reviewed & are unremarkable except as noted in HPI & below Physical Exam Physical Exam: General: A&Ox3. NAD. Cooperative. HEENT: Vision/hearing grossly intact. Pupils equal and reactive to light and accommodation Skin: Right cheek with contusion. Right forearm with multiple contusions. Left hand with superficial skin tear.Removed dressing. No laceration noted. Pulm: CTAB A&P. -wheezes, -rales, -rhonchi. Symmetrical chest rise. No increased work of breathing. No respiratory distress. Cardiac: RRR, -mrg. Radial pulses intact and symmetrical. Abdominal: Nontender, nondistended, soft. BS present. Extremities: 2+ lower extremity edema bilaterally. Sensation intact in hands and feet bilaterally. Sustainment Logistics Analyst strength, ankle dorsiflexion/plantarflexion 5/5 bilaterally. Results & Data Results & Data Vital Signs (Past 12 Hours) Vital Signs Temp Pulse Pulse Resp BP Pulse Ox O2 Del Method 03/25/23 05:02 36.4 C L 78 20 117/67 92 Room Air 03/25/23 00:16 36.5 C 72 18 111/68 91 Room Air 03/24/23 22:00 72 03/24/23 21:38 Room Air 03/24/23 20:21 36.5 C 76 18 117/73 90 Room Air PG Care Time/CCT Total # of Minutes Spent Total Time Spent with Patient: Total time spent is greater than 50% in coordination of care (as documented) at patient's floor/unit and/or counseling patient: Coding Level of Care Code 78272 SUB INP/OBS CARE 2/35MIN Diagnoses Fall W19.XXXA PAF (paroxysmal atrial fibrillation) I48.0 Spinal stenosis of lumbar region M48.061 Acute hyponatremia E87.1 Renal lesion N28.9 DM2 (diabetes mellitus, type 2) E11.9
[2023-03-25 09:07] LABS: Hematocrit (blood only) 37.2 % (37.0-47.0); Hemoglobin 12.1 g/dl (12.0-16.0); Mean Corpuscular Hemoglobin 30.4 pg (25.0-34.0); Mean Corpuscular Hgb Conc 32.5 g/dL (32.0-36.0); Mean Corpuscular Volume 93.5 fL (80.0-100.0); Mean Platelet Volume 9.7 fL (9.4-12.4); Nucleated RBC # (auto) 0.02 K/uL (0.00-0.12); Nucleated RBC % (auto) 0.2 %; Platelet Count 391 K/uL (130-400); RDW Coefficient of Variation 14.8 % (11.5-14.5); RDW Standard Deviation 50.8 fL (36.4-46.3); Red Blood Count 3.98 M/uL (4.20-5.40); White Blood Count 8.21 K/ul (4.8-10.8)
[2023-03-25] MEDS: INSULIN ASPART PER UNIT CHARGE SC SCH ×4 (09:17→20:34)
[2023-03-25] MEDS: LANTUS PER UNIT CHARGE SQ SCH (09:17)
[2023-03-25] MEDS: ACETAMINOPHEN 325 MG TAB PO SCH ×4 (09:22→20:30)
[2023-03-25] MEDS: APIXABAN 5 MG TABLET PO SCH ×2 (09:22→20:30)
[2023-03-25] MEDS: PANTOprazole 40 MG TAB PO SCH (09:23)
[2023-03-25] MEDS: METOPROLOL SUCC 25MG EXT REL TAB PO SCH (09:24)
[2023-03-25] MEDS: CHOLECALCIFEROL 5,000 UNITS 125 MCG TAB PO SCH (09:24)
[2023-03-25] MEDS: AMIODARONE 200 MG TAB PO SCH (09:24)
[2023-03-25] MEDS: EZETIMIBE 10 MG TAB PO SCH (09:24)
[2023-03-25 09:25] LABS: BUN Creatinine Ratio 21.6 (10-20); C Reactive Protein 2.34 mg/dl (0-0.5); Calcium 8.8 mg/dl (8.6-10.3); Creatinine Clr Calc Pharmacy 44.3 ml/min; Est GFR (African American) 61.3 ml/min; Est GFR (Non-African American) 52.9 ml/min; Magnesium 1.4 mg/dl (1.7-2.4); Potassium 4.2 mmol/L (3.5-5.1)
[2023-03-25] MEDS: BRIMONIDINE TARTRATE-P 0.15% 5 ML BTL OP SCH ×2 (09:25→20:31)
[2023-03-25] MEDS: TIMOLOL MALEATE 0.5% OP SOLN 5 ML BTL OP SCH ×2 (09:25→20:31)
[2023-03-25] MEDS: FUROSEMIDE 20 MG TAB PO SCH ×2 (09:25→17:11)
[2023-03-25 09:30] LABS: Basophils # (auto) 0.07 K/uL (0.00-0.20); Basophils % (auto) 0.9 %; Eosinophils # (auto) 0.55 K/uL (0.00-0.50); Eosinophils % (auto) 6.7 %; Immature Granulocytes # (auto) 0.44 K/uL (0.01-0.20); Immature Granulocytes % (auto) 5.4 %; Lymphocytes # (auto) 1.98 K/uL (1.20-3.40); Lymphocytes % (auto) 24.1 %; Monocytes # (auto) 1.06 K/uL (0.11-0.59); Monocytes % (auto) 12.9 %; Neutrophils # (auto) 4.11 K/uL (1.40-6.50); Polychromasia 1+
[2023-03-25] MEDS: MAGNESIUM SULFATE / D5W 1 GM/100 ML BAG IV SCH ×2 (11:36→14:26)
[2023-03-25] MEDS: traMADol HCL 50 MG TABLET PO PRN ×2 (11:49→18:29)
[2023-03-25] MEDS: oxyCODONE HCL IR 5 MG TAB (IMMEDIATE RELEASE) PO PRN ×2 (14:25→20:30)
--- NOTE | 2023-03-25 19:57 | Hospitalist Progress Note ---
Date of Service March 25, 2023 Assessment & Plan (1) Fall: Plan: 2nd to severe weakness fall occurred at home no infectious etiology found while here that would have led to her fall COVID testing today negative fortunately did not have rhabdomyolysis due to her fall cont PT/OT rehab post-discharge (2) PAF (paroxysmal atrial fibrillation): Plan: remains in NSR Continue apixaban 5mg BID Continue amiodarone 200mg daily (recent TSH wnl) Continue metoprolol succinate but lower dose to 75mg daily as BPs are low-normal at times echo 04/2022 with preserved EF (3) Spinal stenosis of lumbar region: Plan: certainly can contribute to ambulatory dysfunction, fall risk, etc pain meds prn (4) Acute hyponatremia: Plan: Na 129 upon admission 133 today; corrected for hyperglycemia about 134 likely 2nd to chronic lasix use (5) Renal lesion: Plan: 1.9 cm enhancing lesion left kidney could represent RCC f/u with urology as outpatient (last seen 2020) (6) DM2 (diabetes mellitus, type 2): Plan: uncontrolled add lantus 5 units daily adjust novolog hba1c 8.6% (7) Closed rib fracture: Plan: anterior L 8th rib fracture symptomatic care replace low vitamin D (8) Hypomagnesemia: Plan: replace 2 grams mag sulfate IV repeat level am (9) Vitamin D insufficiency: Plan: level = 22 in 10/2022 start vitamin D 5000 IU daily Plan insurance denied inpatient rehab referrals to SNF will be made Admission and Anticipated Discharge Date Admission Date: March 18, 2023 Subjective pt sitting in chair comfortably denies any new complaints she is aware of insurance denial for rehab she is ok with SNF for rehab just occasional rib pain c/o chronic right shoulder pain and right arm pain eating ok reports recent weakness is resolved Review of Systems Review of Systems: gen - no fevers or chills cv - LE edema - chronic GI - no abd pain pulm - no cough musculo - denies left hand pain Physical Exam Physical Exam: gen - obese, NAD, sitting in chair mouth - MMM neck - no JVD heart - RRR, s1 s2, 2/6 systolic murmur RUSB lungs - CTA b/l abd - soft NT ND BS+ ext - 1+ edema b/l, pulses 2+ b/l psych - a/o x 3 musculo - crepitus right shoulder with passive ROM skin - left hand wrapped in dressings Results & Data Results & Data Vital Signs (Past 12 Hours) Vital Signs Temp Pulse Pulse Resp BP Pulse Ox O2 Del Method 03/25/23 16:20 69 03/25/23 15:33 36.6 C 69 18 102/66 92 Room Air 03/25/23 11:27 Room Air 03/25/23 08:16 36.7 C 86 20 167/83 H 94 Room Air Laboratory Results Laboratory Results - last 24 hr 03/24/23 03/25/23 03/25/23 19:55 07:52 08:41 WBC 8.21 RBC 3.98 L Hgb 12.1 Hct 37.2 MCV 93.5 MCH 30.4 MCHC 32.5 RDW Std Deviation 50.8 H RDW Coeff of Fermin 14.8 H Plt Count 391 MPV 9.7 Immature Gran % (Auto) 5.4 Neut % (Auto) 50.0 Lymph % (Auto) 24.1 [place] % (Auto) 12.9 Eos % (Auto) 6.7 Baso % (Auto) 0.9 Neut # (Auto) 4.11 Lymph # (Auto) 1.98 [place] # (Auto) 1.06 H Eos # (Auto) 0.55 H Baso # (Auto) 0.07 Immature Gran # (Auto) 0.44 H Absolute Nucleated RBC 0.02 Nucleated RBC % (auto) 0.2 Polychromasia 1+ Sodium Potassium Chloride Carbon Dioxide Anion Gap BUN Creatinine Est Cr Clr Drug Dosing Est GFR ( Amer) Est GFR (Non-Af Amer) BUN/Creatinine Ratio Glucose POC Glucose 184 H 184 H Calcium Magnesium C-Reactive Protein SARS-CoV-2 (PCR) 03/25/23 03/25/23 03/25/23 08:41 12:10 16:49 WBC RBC Hgb Hct MCV MCH MCHC RDW Std Deviation RDW Coeff of Fermin Plt Count MPV Immature Gran % (Auto) Neut % (Auto) Lymph % (Auto) [place] % (Auto) Eos % (Auto) Baso % (Auto) Neut # (Auto) Lymph # (Auto) [place] # (Auto) Eos # (Auto) Baso # (Auto) Immature Gran # (Auto) Absolute Nucleated RBC Nucleated RBC % (auto) Polychromasia Sodium 133 L Potassium 4.2 Chloride 97 L Carbon Dioxide 29 Anion Gap 7 BUN 21 Creatinine 0.97 Est Cr Clr Drug Dosing 44.3 Est GFR ( Amer) 61.3 Est GFR (Non-Af Amer) 52.9 BUN/Creatinine Ratio 21.6 H Glucose 199 H POC Glucose 147 H 200 H Calcium 8.8 Magnesium 1.4 L C-Reactive Protein 2.34 H SARS-CoV-2 (PCR) 03/25/23 Unknown WBC RBC Hgb Hct MCV MCH MCHC RDW Std Deviation RDW Coeff of Fermin Plt Count MPV Immature Gran % (Auto) Neut % (Auto) Lymph % (Auto) [place] % (Auto) Eos % (Auto) Baso % (Auto) Neut # (Auto) Lymph # (Auto) [place] # (Auto) Eos # (Auto) Baso # (Auto) Immature Gran # (Auto) Absolute Nucleated RBC Nucleated RBC % (auto) Polychromasia Sodium Potassium Chloride Carbon Dioxide Anion Gap BUN Creatinine Est Cr Clr Drug Dosing Est GFR ( Amer) Est GFR (Non-Af Amer) BUN/Creatinine Ratio Glucose POC Glucose Calcium Magnesium C-Reactive Protein SARS-CoV-2 (PCR) NEGATIVE PG Care Time/CCT Total # of Minutes Spent Total Time Spent with Patient: Total time spent is greater than 50% in coordination of care (as documented) at patient's floor/unit and/or counseling patient: Coding Level of Care Code 26781 SUB INP/OBS CARE 2/35MIN Diagnoses Fall W19.XXXA PAF (paroxysmal atrial fibrillation) I48.0 Spinal stenosis of lumbar region M48.061 Acute hyponatremia E87.1 Renal lesion N28.9 DM2 (diabetes mellitus, type 2) E11.9 Closed rib fracture S22.39XA Hypomagnesemia E83.42 Vitamin D insufficiency E55.9
[2023-03-25] MEDS: LATANOPROST 0.005% OP SOLN 2.5 ML BTL OP SCH (20:31)
[2023-03-26] MEDS: oxyCODONE HCL IR 5 MG TAB (IMMEDIATE RELEASE) PO PRN ×3 (03:46→22:13)
[2023-03-26] MEDS: traMADol HCL 50 MG TABLET PO PRN (07:50)
[2023-03-26] MEDS: FUROSEMIDE 20 MG TAB PO SCH ×2 (09:01→17:23)
[2023-03-26] MEDS: PANTOprazole 40 MG TAB PO SCH (09:01)
[2023-03-26] MEDS: CHOLECALCIFEROL 5,000 UNITS 125 MCG TAB PO SCH (09:01)
[2023-03-26] MEDS: APIXABAN 5 MG TABLET PO SCH ×2 (09:01→22:15)
[2023-03-26] MEDS: METOPROLOL SUCC 25MG EXT REL TAB PO SCH (09:01)
[2023-03-26] MEDS: TIMOLOL MALEATE 0.5% OP SOLN 5 ML BTL OP SCH ×2 (09:01→22:15)
[2023-03-26] MEDS: ACETAMINOPHEN 325 MG TAB PO SCH ×4 (09:02→22:16)
[2023-03-26] MEDS: AMIODARONE 200 MG TAB PO SCH (09:02)
[2023-03-26] MEDS: BRIMONIDINE TARTRATE-P 0.15% 5 ML BTL OP SCH ×2 (09:02→22:15)
[2023-03-26] MEDS: EZETIMIBE 10 MG TAB PO SCH (09:02)
[2023-03-26] MEDS: INSULIN ASPART PER UNIT CHARGE SC SCH ×4 (09:07→22:14)
[2023-03-26] MEDS: LANTUS PER UNIT CHARGE SQ SCH (09:08)
--- NOTE | 2023-03-26 10:53 | XRay Report ---
XR chest 2V PA/lateral HISTORY: 87 years-old Female low-normal O2 sats; assess for pathology acute hypoxia COMPARISON: 03/18/2023 TECHNIQUE: PA and lateral views of the chest FINDINGS: Cardiac silhouette is enlarged. Atherosclerosis of the aorta. Mild chronic interstitial coarsening. M ild left basilar predominant atelectasis/scarring. No pneumothorax identified. Possible small left pl eural effusion. Degenerative changes of the shoulders and spine. Chronic bone fragment within the lef t axillary recess. Left anterior eighth rib fracture is not well seen by radiography. IMPRESSION: Cardiomegaly with chronic interstitial coarsening. ACT 112: Negative or not required by law. The above report was generated using voice recognition software. It may contain grammatical, syntax o r spelling errors. Electronically signed by: Rusty Stock M.D. 03/26/2023 10:51 AM
--- NOTE | 2023-03-26 20:07 | Hospitalist Progress Note ---
Date of Service March 26, 2023 Assessment & Plan (1) Fall: Plan: 2nd to severe weakness fall occurred at home no infectious etiology found while here that would have led to her fall COVID testing yesterday negative fortunately did not have rhabdomyolysis due to her fall cont PT/OT rehab post-discharge - now [facility] at her request? (2) PAF (paroxysmal atrial fibrillation): Plan: remains in NSR Continue apixaban 5mg BID Continue amiodarone 200mg daily (recent TSH wnl) Continue metoprolol succinate but lower dose again to 50mg daily as BPs continue to be low-normal at times (had been on 100mg daily) echo 04/2022 with preserved EF (3) Spinal stenosis of lumbar region: Plan: certainly can contribute to ambulatory dysfunction, fall risk, etc pain meds prn (4) Acute hyponatremia: Plan: Na 129 upon admission has been improving likely 2nd to chronic lasix use repeat BMP am (5) Renal lesion: Plan: 1.9 cm enhancing lesion left kidney could represent RCC f/u with urology as outpatient (last seen 2020) (6) DM2 (diabetes mellitus, type 2): Plan: uncontrolled cont lantus 5 units daily adjust novolog CF to 40; leave carb ratio as is hba1c 8.6% (7) Closed rib fracture: Plan: anterior L 8th rib fracture symptomatic care replace low vitamin D (8) Hypomagnesemia: Plan: replace 2 grams mag sulfate IV repeat level wnl (9) Vitamin D insufficiency: Plan: level = 22 in 10/2022 cont vitamin D 5000 IU daily Plan insurance denied inpatient rehab referrals to SNF pending borderline hypoxia at times - repeat cxr today wnl o2 sats during my visit 94% in RA exam is wnl spoke with son by phone - update given this evening Admission and Anticipated Discharge Date Admission Date: March 18, 2023 Subjective no events overnight reports usual aches/pains in various joints - all chronic left hand wound - no pain eating/drinking ok pt reports she spoke with son - family preferring referral to [facility] for rehab rather than [facility] she had no new complaints today Review of Systems Review of Systems: cv - no chest pain pulm - no cough, no dyspnea, no GARCIA; I checked her O2 sats during my visit - 94% in RA with good waveform GI - no abd pain/nausea/emesis; moving bowels Physical Exam Physical Exam: gen - obese, NAD, sitting in chair - looks good mouth - MMM neck - no JVD heart - RRR, s1 s2, 2/6 systolic murmur RUSB lungs - CTA b/l, mildly decreased BS bases abd - soft NT ND BS+ ext - <1+ edema b/l (no change), pulses 2+ b/l skin - left hand wrapped in dressings Results & Data Results & Data Vital Signs (Past 12 Hours) Vital Signs Temp Pulse Pulse Resp BP Pulse Ox O2 Del Method 03/26/23 19:45 36.5 C 77 20 110/60 92 Room Air 03/26/23 15:26 36.8 C 68 18 136/77 90 Room Air 03/26/23 15:41 65 03/26/23 11:25 37.1 C 70 18 114/70 90 Room Air Laboratory Results Laboratory Results 03/25/23 03/25/23 03/25/23 07:52 08:41 08:41 WBC 8.21 RBC 3.98 L Hgb 12.1 Hct 37.2 MCV 93.5 MCH 30.4 MCHC 32.5 RDW Std Deviation 50.8 H RDW Coeff of Fermin 14.8 H Plt Count 391 MPV 9.7 Immature Gran % (Auto) 5.4 Neut % (Auto) 50.0 Lymph % (Auto) 24.1 [place] % (Auto) 12.9 Eos % (Auto) 6.7 Baso % (Auto) 0.9 Neut # (Auto) 4.11 Lymph # (Auto) 1.98 [place] # (Auto) 1.06 H Eos # (Auto) 0.55 H Baso # (Auto) 0.07 Immature Gran # (Auto) 0.44 H Absolute Nucleated RBC 0.02 Nucleated RBC % (auto) 0.2 Polychromasia 1+ Sodium 133 L Potassium 4.2 Chloride 97 L Carbon Dioxide 29 Anion Gap 7 BUN 21 Creatinine 0.97 Est Cr Clr Drug Dosing 44.3 Est GFR ( Amer) 61.3 Est GFR (Non-Af Amer) 52.9 BUN/Creatinine Ratio 21.6 H Glucose 199 H POC Glucose 184 H Calcium 8.8 Magnesium 1.4 L C-Reactive Protein 2.34 H Vitamin B12 SARS-CoV-2 (PCR) 03/25/23 03/25/2323 12:10 16:49 20:34 WBC RBC Hgb Hct MCV MCH MCHC RDW Std Deviation RDW Coeff of Fermin Plt Count MPV Immature Gran % (Auto) Neut % (Auto) Lymph % (Auto) [place] % (Auto) Eos % (Auto) Baso % (Auto) Neut # (Auto) Lymph # (Auto) [place] # (Auto) Eos # (Auto) Baso # (Auto) Immature Gran # (Auto) Absolute Nucleated RBC Nucleated RBC % (auto) Polychromasia Sodium Potassium Chloride Carbon Dioxide Anion Gap BUN Creatinine Est Cr Clr Drug Dosing Est GFR ( Amer) Est GFR (Non-Af Amer) BUN/Creatinine Ratio Glucose POC Glucose 147 H 200 H 187 H Calcium Magnesium C-Reactive Protein Vitamin B12 SARS-CoV-2 (PCR) 03/25/23 03/26/23 03/26/23 Unknown 05:44 05:44 WBC RBC Hgb Hct MCV MCH MCHC RDW Std Deviation RDW Coeff of Fermin Plt Count MPV Immature Gran % (Auto) Neut % (Auto) Lymph % (Auto) [place] % (Auto) Eos % (Auto) Baso % (Auto) Neut # (Auto) Lymph # (Auto) [place] # (Auto) Eos # (Auto) Baso # (Auto) Immature Gran # (Auto) Absolute Nucleated RBC Nucleated RBC % (auto) Polychromasia Sodium Potassium Chloride Carbon Dioxide Anion Gap BUN Creatinine Est Cr Clr Drug Dosing Est GFR ( Amer) Est GFR (Non-Af Amer) BUN/Creatinine Ratio Glucose POC Glucose Calcium Magnesium 1.7 C-Reactive Protein Vitamin B12 494 SARS-CoV-2 (PCR) NEGATIVE 03/26/23 03/26/23 03/26/23 08:20 12:22 17:18 WBC RBC Hgb Hct MCV MCH MCHC RDW Std Deviation RDW Coeff of Fermin Plt Count MPV Immature Gran % (Auto) Neut % (Auto) Lymph % (Auto) [place] % (Auto) Eos % (Auto) Baso % (Auto) Neut # (Auto) Lymph # (Auto) [place] # (Auto) Eos # (Auto) Baso # (Auto) Immature Gran # (Auto) Absolute Nucleated RBC Nucleated RBC % (auto) Polychromasia Sodium Potassium Chloride Carbon Dioxide Anion Gap BUN Creatinine Est Cr Clr Drug Dosing Est GFR ( Amer) Est GFR (Non-Af Amer) BUN/Creatinine Ratio Glucose POC Glucose 144 H 174 H 152 H Calcium Magnesium C-Reactive Protein Vitamin B12 SARS-CoV-2 (PCR) Diagnostic Findings Chest X-Ray 03/26/23 09:32 XR chest 2V PA/lateral HISTORY: 87 years-old Female low-normal O2 sats; assess for pathology acute hypoxia COMPARISON: 03/18/2023 TECHNIQUE: PA and lateral views of the chest FINDINGS: Cardiac silhouette is enlarged. Atherosclerosis of the aorta. Mild chronic interstitial coarsening. Mild left basilar predominant atelectasis/scarring. No pneumothorax identified. Possible small left pleural effusion. Degenerative changes of the shoulders and spine. Chronic bone fragment within the left axillary recess. Left anterior eighth rib fracture is not well seen by radiography. IMPRESSION: Cardiomegaly with chronic interstitial coarsening. ACT 112: Negative or not required by law. The above report was generated using voice recognition software. It may contain grammatical, syntax or spelling errors. Electronically signed by: Rusty Stock M.D. 03/26/2023 10:51 AM PG Care Time/CCT Total # of Minutes Spent Total Time Spent with Patient: Total time spent is greater than 50% in coordination of care (as documented) at patient's floor/unit and/or counseling patient: Coding Level of Care Code 71836 SUB INP/OBS CARE 2/35MIN Diagnoses Fall W19.XXXA PAF (paroxysmal atrial fibrillation) I48.0 Spinal stenosis of lumbar region M48.061 Acute hyponatremia E87.1 Renal lesion N28.9 DM2 (diabetes mellitus, type 2) E11.9 Closed rib fracture S22.39XA Hypomagnesemia E83.42 Vitamin D insufficiency E55.9
[2023-03-26] MEDS: LATANOPROST 0.005% OP SOLN 2.5 ML BTL OP SCH (22:14)
[2023-03-26] MEDS: hydrOXYzine HCl 10 MG TAB PO PRN (22:16)
[2023-03-26] MEDS: CYCLOBENZAPRINE HCL 5 MG TAB PO PRN (22:16)
[2023-03-27 06:33] LABS: BUN Creatinine Ratio 22.1 (10-20); Est GFR (Non-African American) 69.9 ml/min; Potassium 3.8 mmol/L (3.5-5.1)
[2023-03-27] MEDS: ACETAMINOPHEN 325 MG TAB PO SCH ×4 (09:13→21:01)
[2023-03-27] MEDS: EZETIMIBE 10 MG TAB PO SCH (09:14)
[2023-03-27] MEDS: APIXABAN 5 MG TABLET PO SCH ×2 (09:14→21:01)
[2023-03-27] MEDS: CHOLECALCIFEROL 5,000 UNITS 125 MCG TAB PO SCH (09:15)
[2023-03-27] MEDS: AMIODARONE 200 MG TAB PO SCH (09:15)
[2023-03-27] MEDS: FUROSEMIDE 20 MG TAB PO SCH ×2 (09:15→17:45)
[2023-03-27] MEDS: METOPROLOL SUCC 50MG EXT REL TAB PO SCH (09:15)
[2023-03-27] MEDS: PANTOprazole 40 MG TAB PO SCH (09:15)
[2023-03-27] MEDS: TIMOLOL MALEATE 0.5% OP SOLN 5 ML BTL OP SCH ×2 (09:16→21:02)
[2023-03-27] MEDS: BRIMONIDINE TARTRATE-P 0.15% 5 ML BTL OP SCH ×2 (09:16→21:02)
[2023-03-27] MEDS: LANTUS PER UNIT CHARGE SQ SCH (09:22)
[2023-03-27] MEDS: INSULIN ASPART PER UNIT CHARGE SC SCH ×4 (09:23→20:57)
[2023-03-27] MEDS: SENNA 8.6 MG TAB PO SCH (11:01)
[2023-03-27] MEDS: POLYETHYLENE (MIRALAX) 17 GM PACK PO SCH (11:02)
[2023-03-27] MEDS ORDERED: NURSING DECISION MEDICATION ONE (11:18)
[2023-03-27] MEDS: oxyCODONE HCL IR 5 MG TAB (IMMEDIATE RELEASE) PO PRN ×2 (11:35→21:00)
[2023-03-27] MEDS ORDERED: MICONAZOLE NITRATE POWDER 85 GM EXT PRN (11:45)
--- NOTE | 2023-03-27 18:22 | Hospitalist Progress Note ---
Date of Service March 27, 2023 Assessment & Plan (1) Fall: Plan: 2nd to severe weakness fall occurred at home no infectious etiology found while here that would have led to her fall COVID testing negative fortunately did not have rhabdomyolysis due to her fall cont PT/OT rehab post-discharge - [facility] - pending auth (2) PAF (paroxysmal atrial fibrillation): Plan: remains in NSR Continue apixaban 5mg BID Continue amiodarone 200mg daily (recent TSH wnl) Continue metoprolol succinate but lowered dose to 50mg daily as BPs continue to be low-normal at times (had been on 100mg daily) echo 04/2022 with preserved EF (3) Spinal stenosis of lumbar region: Plan: certainly can contribute to ambulatory dysfunction, fall risk, etc pain meds prn (4) Acute hyponatremia: Plan: Na 129 upon admission resolved likely 2nd to chronic lasix use Na 136 today (5) Renal lesion: Plan: 1.9 cm enhancing lesion left kidney could represent RCC f/u with urology as outpatient (last seen 2020) (6) DM2 (diabetes mellitus, type 2): Plan: uncontrolled cont lantus 5 units daily adjust novolog carb ratio to 1:13 hba1c 8.6% (7) Closed rib fracture: Plan: anterior L 8th rib fracture symptomatic care replace low vitamin D (8) Hypomagnesemia: Plan: replaced resolved (9) Vitamin D insufficiency: Plan: level = 22 in 10/2022 cont vitamin D 5000 IU daily (10) Open wound of left hand: Plan: cont dressing changes may have a mild cellulitis start keflex 500mg TID Plan insurance denied inpatient rehab referrals to SNF pending - hoping for [facility] spoke with son by phone yesterday - gave update can d/c telemetry Admission and Anticipated Discharge Date Admission Date: March 18, 2023 Subjective no events overnight has usual aches/pains in various joints but no worse than usual eating well tele wnl left hand is "itchy" at site of her wound Review of Systems Review of Systems: cv - no chest pain pulm - no dyspnea or GARCIA GI - no pain, moving bowels Physical Exam Physical Exam: gen - obese, NAD, sitting in chair - looks very good mouth - MMM neck - no JVD heart - RRR, s1 s2, 2/6 systolic murmur RUSB lungs - CTA b/l abd - soft NT ND BS+ ext - <1+ edema b/l, pulses 2+ b/l skin - left hand dressings removed - wound on central portion of dorsum of hand with granulation at wound edges and mild slough centrally but no purulence; surrounding erythema present and warm - she states it looks similar to the recent past but in comparison to a photo taken by wound care earlier in the stay the redness appears worse Results & Data Results & Data Vital Signs (Past 12 Hours) Vital Signs Temp Pulse Pulse Resp BP Pulse Ox O2 Del Method 03/27/23 15:05 68 03/27/23 11:29 36.6 C 80 18 166/82 H 91 Room Air 03/27/23 07:38 36.7 C 82 18 151/79 H 95 Room Air 03/27/23 07:25 80 Laboratory Results Laboratory Results - last 48 hr 03/26/23 03/26/23 03/26/23 05:44 05:44 08:20 Sodium Potassium Chloride Carbon Dioxide Anion Gap BUN Creatinine Est Cr Clr Drug Dosing Est GFR ( Amer) Est GFR (Non-Af Amer) BUN/Creatinine Ratio Glucose POC Glucose 144 H Calcium Magnesium 1.7 Vitamin B12 494 03/26/23 03/26/23 03/26/23 12:22 17:18 19:56 Sodium Potassium Chloride Carbon Dioxide Anion Gap BUN Creatinine Est Cr Clr Drug Dosing Est GFR ( Amer) Est GFR (Non-Af Amer) BUN/Creatinine Ratio Glucose POC Glucose 174 H 152 H 245 H Calcium Magnesium Vitamin B12 03/27/23 03/27/23 03/27/23 05:51 08:27 12:25 Sodium 136 Potassium 3.8 Chloride 100 Carbon Dioxide 30 Anion Gap 6 BUN 17 Creatinine 0.77 Est Cr Clr Drug Dosing 56.0 Est GFR ( Amer) 81.0 Est GFR (Non-Af Amer) 69.9 BUN/Creatinine Ratio 22.1 H Glucose 148 H POC Glucose 136 H 204 H Calcium 9.0 Magnesium Vitamin B12 PG Care Time/CCT Total # of Minutes Spent Total Time Spent with Patient: Total time spent is greater than 50% in coordination of care (as documented) at patient's floor/unit and/or counseling patient: Coding Level of Care Code 75879 SUB INP/OBS CARE 2/35MIN Diagnoses Fall W19.XXXA PAF (paroxysmal atrial fibrillation) I48.0 Spinal stenosis of lumbar region M48.061 Acute hyponatremia E87.1 Renal lesion N28.9 DM2 (diabetes mellitus, type 2) E11.9 Closed rib fracture S22.39XA Hypomagnesemia E83.42 Vitamin D insufficiency E55.9 Open wound of left hand S61.402A
[2023-03-27] MEDS: LATANOPROST 0.005% OP SOLN 2.5 ML BTL OP SCH (21:02)
[2023-03-27] MEDS: CYCLOBENZAPRINE HCL 5 MG TAB PO PRN (21:02)
[2023-03-27] MEDS: hydrOXYzine HCl 10 MG TAB PO PRN (21:02)
[2023-03-28] MEDS: ONDANSETRON INJ 2 MG/ML 2 ML VIAL IV PRN (07:45)
[2023-03-28] MEDS: ACETAMINOPHEN 325 MG TAB PO SCH ×2 (08:23→13:27)
[2023-03-28] MEDS: SENNA 8.6 MG TAB PO SCH (08:24)
[2023-03-28] MEDS: APIXABAN 5 MG TABLET PO SCH (08:24)
[2023-03-28] MEDS: CHOLECALCIFEROL 5,000 UNITS 125 MCG TAB PO SCH (08:25)
[2023-03-28] MEDS: FUROSEMIDE 20 MG TAB PO SCH (08:25)
[2023-03-28] MEDS: EZETIMIBE 10 MG TAB PO SCH (08:25)
[2023-03-28] MEDS: AMIODARONE 200 MG TAB PO SCH (08:25)
[2023-03-28] MEDS: PANTOprazole 40 MG TAB PO SCH (08:25)
[2023-03-28] MEDS: METOPROLOL SUCC 50MG EXT REL TAB PO SCH (08:25)
[2023-03-28] MEDS: POLYETHYLENE (MIRALAX) 17 GM PACK PO SCH (08:25)
[2023-03-28] MEDS: TIMOLOL MALEATE 0.5% OP SOLN 5 ML BTL OP SCH (08:26)
[2023-03-28] MEDS: cephALEXin 500 MG CAP PO SCH ×2 (09:13→13:27)
[2023-03-28] MEDS: LANTUS PER UNIT CHARGE SQ SCH (09:48)
[2023-03-28] MEDS: INSULIN ASPART PER UNIT CHARGE SC SCH ×2 (09:48→13:32)
[2023-03-28] MEDS: BRIMONIDINE TARTRATE-P 0.15% 5 ML BTL OP SCH (09:49)
[2023-03-28] MEDS: oxyCODONE HCL IR 5 MG TAB (IMMEDIATE RELEASE) PO PRN (10:04)
--- NOTE | 2023-03-28 12:53 | Hospitalist Progress Note ---
Date of Service March 28, 2023 Assessment & Plan (1) Fall: Plan: 2nd to severe weakness fall occurred at home no infectious etiology found while here that would have led to her fall COVID testing negative fortunately did not have rhabdomyolysis due to her fall cont PT/OT rehab post-discharge - [facility] - pending auth (2) PAF (paroxysmal atrial fibrillation): Plan: remains in NSR Continue apixaban 5mg BID Continue amiodarone 200mg daily (recent TSH wnl) Continue metoprolol succinate but lowered dose to 50mg daily as BPs continue to be low-normal at times (had been on 100mg daily) echo 04/2022 with preserved EF (3) Spinal stenosis of lumbar region: Plan: certainly can contribute to ambulatory dysfunction, fall risk, etc pain meds prn (4) Acute hyponatremia: Plan: Na 129 upon admission resolved likely 2nd to chronic lasix use Na 136 today (5) Renal lesion: Plan: 1.9 cm enhancing lesion left kidney could represent RCC f/u with urology as outpatient (last seen 2020) (6) DM2 (diabetes mellitus, type 2): Plan: uncontrolled cont lantus 5 units daily adjust novolog carb ratio to 1:13 hba1c 8.6% (7) Closed rib fracture: Plan: anterior L 8th rib fracture symptomatic care replace low vitamin D (8) Hypomagnesemia: Plan: replaced resolved (9) Vitamin D insufficiency: Plan: level = 22 in 10/2022 cont vitamin D 5000 IU daily (10) Open wound of left hand: Plan: cont dressing changes may have a mild cellulitis start keflex 500mg TID Plan insurance denied inpatient rehab referrals to SNF pending - hoping for [facility] spoke with son by phone yesterday - gave update can d/c telemetry Admission and Anticipated Discharge Date Admission Date: March 18, 2023 Results & Data Results & Data Vital Signs (Past 12 Hours) Vital Signs Temp Pulse Resp BP Pulse Ox O2 Del Method 03/28/23 09:22 Room Air 03/28/23 08:11 36.7 C 78 20 166/83 H 91 Room Air PG Care Time/CCT Total # of Minutes Spent Total Time Spent with Patient: Total time spent is greater than 50% in coordination of care (as documented) at patient's floor/unit and/or counseling patient: Coding Diagnoses Fall W19.XXXA PAF (paroxysmal atrial fibrillation) I48.0 Spinal stenosis of lumbar region M48.061 Acute hyponatremia E87.1 Renal lesion N28.9 DM2 (diabetes mellitus, type 2) E11.9 Closed rib fracture S22.39XA Hypomagnesemia E83.42 Vitamin D insufficiency E55.9 Open wound of left hand S61.402A
--- NOTE | 2023-03-28 16:19 | Discharge Summary ---
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 She has pain in her face, chest bilaterally, shoulders, hip, and neck 3am went to the bathroom and 'did her buisiness but then was too weak to stand back up. [place] like she was stuck to the toilet sat for 45 minutes and thought about what to do. Eventually tried to use a towel as a sling to pull herself but unfortunately slipped and fell wedged between the toilet and the sink. She was unable to get up and remained there until she was found the next afternoon. She reports she did not have any lightheadedness, dizziness, syncope, presyncope that led to her fall she was just too weak to get up out of the toilet and then too weak to get back up after she fell and got wedged. She has right rib pain, no substernal chest pain. She feels generally achy all over from laying on the ground. Denies abdominal pain. 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 She feels much better after fluids in the ER, but still feels achy. No palpitations preceding event. Ribs on R side ache with pressure. No substernal chest pain. noshortness of breath or dyspnea. Feels sore all over. Extensive imaging with summary as below Right shoulder without acute fracture Left shoulder without acute fracture/dislocation No right femoral fracture Face CT without facial fracture Pelvic x-ray without fracture CThead: No acute fracture, no acute intracranial finding/bleed CXR: No acute findings CThead: No acute finding/fracture/subluxation CTA/P: Nondisplaced left eighth rib fracture, 1.9 cm enhancing left renal lesion. RCC diagnosis of exclusion. This was previously evaluated on admission with discharge 03/03/2023 Medical History: Reviewed Medications: Reviewed Surgical History: Reviewed Family history: Reviewed Allergies: Reviewed Social History: Reviewed, no tobacco or alcohol Code Status: DNR/DNI Principal Diagnosis fall Discharge Exam General: A&Ox3. NAD. Cooperative. HEENT: Vision/hearing grossly intact. Pupils equal and reactive to light and accommodation Skin: Right cheek with contusion. Right forearm with multiple contusions. Left hand with superficial skin tear.Removed dressing. No laceration noted. Mild erythema on left hand. Pulm: CTAB A&P. -wheezes, -rales, -rhonchi. Symmetrical chest rise. No increased work of breathing. No respiratory distress. Cardiac: RRR, -mrg. Radial pulses intact and symmetrical. Abdominal: Nontender, nondistended, soft. BS present. Extremities: 2+ lower extremity edema bilaterally. Sensation intact in hands and feet bilaterally. 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 Discharge Data Allergies Allergy/AdvReac Type Severity Reaction Status Date / Time benazepril Allergy Severe "ANAPHYLACTIC Verified 03/18/23 19:00 SHOCK" NSAIDS (Non-Steroidal Allergy Severe ANAPHYLACTIC Verified 03/18/23 19:00 Anti-Inflamma SHOCK FROM IBUPROFEN procaine Allergy Severe NOVOCAINE Verified 03/18/23 19:00 - "ANAPHYLACTIC SHOCK" tetracycline Allergy Mild N/V Verified 03/18/23 19:00 Gyaptnc-BUQ-LyR Reductase Allergy ELEVATED Verified 03/18/23 19:00 Inhibitor HEPATIC [Okrlgoz-Qyj-Fbn Reductase ENZYMES Inhibitor] Consultations 03/18/23 18:40 ED Decision to Admit Stat Ordered Studies 03/18/23 14:13 CT abd pelvis IV con only Stat CT cervical spine wo con Stat CT head/brain wo con Stat 03/18/23 14:20 CT facial bones wo con Stat Hospital Course (1) Fall: 2nd to severe weakness fall occurred at home no infectious etiology found while here that would have led to her fall COVID testing negative fortunately did not have rhabdomyolysis due to her fall cont PT/OT rehab post-discharge - [facility] (2) Open wound of left hand: cont dressing changes may have a mild cellulitis start keflex 500mg TID will continue at discharge. (3) PAF (paroxysmal atrial fibrillation): remains in NSR Continue apixaban 5mg BID Continue amiodarone 200mg daily (recent TSH wnl) Continue metoprolol succinate but lowered dose to 50mg daily as BPs continue to be low-normal at times (had been on 100mg daily) echo 04/2022 with preserved EF (4) Spinal stenosis of lumbar region: certainly can contribute to ambulatory dysfunction, fall risk, etc pain meds prn (5) Acute hyponatremia: Na 129 upon admission resolved likely 2nd to chronic lasix use (6) Renal lesion: 1.9 cm enhancing lesion left kidney could represent RCC f/u with urology as outpatient (last seen 2020) (7) DM2 (diabetes mellitus, type 2): uncontrolled cont lantus 5 units daily adjust novolog carb ratio to 1:13 hba1c 8.6% (8) Closed rib fracture: anterior L 8th rib fracture symptomatic care replace low vitamin D (9) Hypomagnesemia: replaced resolved (10) Vitamin D insufficiency: level = 22 in 10/2022 cont vitamin D 5000 IU daily Total Time Total Time Spent Total Time Spent (In Minutes): 32 Discharge Plan Discharge Items Patient Disposition: Transfer [facility] Reason For Visit: FALL, TROP Discharge Diagnosis: Fall Activity: Resume your previous activity Non-emergency contact: Primary Care Provider Call non-emergency contact if: you have any medication questions Follow-up/Referrals: Piero Bills DO [Primary Care Provider] - Diet: Carb Consistent or DM2 Addtl Attending Provider Instructions: Good afternoon Mrs. Reyes, You were found to be very weak when you came to the hospital which likely contributed to your fall. Thankfully, you did not suffer any severe broken bones that required any surgery. You did have a skin injury to your hand and rib injuries that required additional pain medicine. To be on the safe side, we will treat you for a possible skin infection of your hand with antibiotics. Recommend to continue antibiotics for a total of 7 days. Recommend PCP followup in 1-2 weeks. I wish you the best on your recovery. I hope that we can regain your strength back the [facility] facility. Kindest regards, Lobo Douglas Pending Studies at Discharge: No Stand-Alone Forms: My [facility] Skilled Items Patient informed of condition?: Yes DNR: No Discharge Level of Care: Skilled Communicable Disease: No Discharge Prognosis: Stable Lines: None Urinary Catheter: No Medications and DC Order Prescriptions: New metoprolol succinate 50 mg Tablet Extended Release 24 Hr 50 mg PO DAILY Qty: 30 0RF acetaminophen 325 mg Tablet 650 mg PO QID Qty: 120 0RF polyethylene glycol 3350 [Miralax] 17 gram Powder In Packet 17 g PO DAILY Qty: 30 0RF cephalexin 500 mg Capsule 500 mg PO QID 7 Days Qty: 28 0RF Continued epinephrine [EpiPen] 0.3 mg/0.3 mL auto-injector 0.3 mg IM .COMPLEX PRN (Reason: anaphylaxis) Qty: 2 1RF Rx Instructions: 0.3 mg IM as directed PRN ezetimibe 10 mg tablet 10 mg PO DAILY Qty: 90 3RF cyclobenzaprine 5 mg tablet See Rx Instructions PO HS PRN (Reason: muscle spasm) Qty: 30 0RF Rx Instructions: 1-2 orally at bedtime PRN; omega-3 acid ethyl esters 1 gram capsule 1 cap PO TID brimonidine 0.1 % drops 1 drp OPB Q8H timolol 0.5 % drops 1 drp ophthalmic (eye) BID Eliquis 5 mg tablet 5 mg PO BID Qty: 180 3RF amiodarone 200 mg tablet 200 mg PO DAILY Qty: 90 3RF hydroxyzine HCl 10 mg tablet 10 mg PO HS PRN (Reason: anxiety) Qty: 90 3RF furosemide 20 mg tablet 20 mg PO BID 90 Days Qty: 180 3RF latanoprost 0.005 % drops 1 drp ophthalmic (eye) QPM omeprazole 40 mg capsule,delayed release(DR/EC) 40 mg PO QAM cholecalciferol (vitamin D3) [Vitamin D3] 25 mcg (1,000 unit) Capsule 0 mcg PO DAILY nystatin 100,000 unit/gram powder 1 applic topical BID Qty: 60 0RF Changed oxycodone 5 mg tablet 5 mg PO Q8H PRN (Reason: pain) 30 Days Qty: 20 0RF Discontinued metoprolol succinate 100 mg tablet extended release 24 hr 100 mg PO DAILY Qty: 90 3RF acetaminophen [Tylenol Extra Strength] 500 mg Tablet 1,000 mg PO TID PRN (Reason: pain) Qty: 90 0RF Discharge Orders: Discharge Order (Routine); Ordered 03/28/23 Ordered By: John Ybarra Admission Data Admit Date/Time: 03/18/23 19:14 Attending Provider: Lobo Douglas Admit Provider: Matthew Omalley Primary Care Provider: Piero Bills Other Providers: [facility] ; [facility], ; Alexey Ray at [place] ; Matthew Omalley Other Interventions: Discharge Summary Assessment (RN) Last Done: 03/28/23 13:57 Coding Level of Care Code 66048 INP/OBS DISCH >30 MIN Diagnoses Fall W19.XXXA Open wound of left hand S61.402A PAF (paroxysmal atrial fibrillation) I48.0 Spinal stenosis of lumbar region M48.061 Acute hyponatremia E87.1 Renal lesion N28.9 DM2 (diabetes mellitus, type 2) E11.9 Closed rib fracture S22.39XA Hypomagnesemia E83.42 Vitamin D insufficiency E55.9
== END 2023-03-28 14:30 | DRG 641 ==
LOC: ED 13:44 → EDINP 19:14 → SUATTDRO 19:14 → 2N 21:37